=== PATIENT | female | born 1995 | race African-American/Black ===

== ENCOUNTER 2018-03-17 12:00 | Emergency (ER) | payer OTHER, SELFPAY ==
[2018-03-17 12:30] LABS: Absolute Lymphocytes (CBC) 1.5 K/uL (0.7-4.9); Absolute Monocytes 0.4 K/uL (0.1-1.3); Absolute Neutrophil 1.8 K/uL (1.8-8.0); Basophils % 0.6 % (0-1.3); Eosinophils % 1.2 % (0-4.4); Hematocrit 32.1 % (36.0-45.0); Lymphocytes % 40.9 % (15.3-44.8); MCH 27.2 pg (27.0-35.0); MCV 81.7 fL (80-100); MPV 8.7 fL (7.6-11.3); Monocytes % 10.2 % (3.3-12.3); RBC Red Blood Cell Count 3.93 M/uL (3.86-4.86)
[2018-03-17] MEDS ORDERED: FENTANYL CITR 100 MCG/2 ML ONE (12:30)
[2018-03-17 12:35] LABS: Protime INR 1.08
[2018-03-17] MEDS ORDERED: ONDANSETRON 4 MG/2 ML VIAL ONE (12:38)
[2018-03-17 12:42] LABS: Albumin 3.5 g/dL (3.4-5.0); Bilirubin Direct 0.1 mg/dL (0-0.2); Bilirubin Total 0.5 mg/dL (0.2-1.0); Magnesium 1.9 mg/dL (1.8-2.4); Potassium 3.5 mmol/L (3.5-5.1); Protein, Total 7.7 g/dL (6.4-8.2)
[2018-03-17 12:49] LABS: Urine Blood NEGATIVE (NEG); Urine Glucose NEGATIVE (NEG); Urine Protein NEGATIVE (NEG); Urine pH 7.5 (5.0-7.0)
--- NOTE | 2018-03-17 13:18 | RAD REPORT ---
EXAM DESCRIPTION: CT - Angio Aorta For Dissection - 03/17/2018 1:07 pm CLINICAL HISTORY: . Chest pain/abdominal pain COMPARISON: None TECHNIQUE: Computed tomography angiography of the chest, abdomen pelvis were obtained. 100 cc Isovue 370 was administered intravenously. Coronal and sagittal reconstruction were performed. MIP 3D reconstruction was performed All CT scans are performed using dose optimization technique as appropriate and may include automated exposure control or mA/KV adjustment according to patient size. FINDINGS: An aortic dissection is not seen. An aortic aneurysm is not displayed. The celiac, SMA and JOSE are patent . A lung consolidation is not present. A pericardial effusion is not seen. A pleural effusion is not n oted. The liver,spleen, pancreas adrenals kidneys demonstrate no significant abnormality. The appendix is normal. There no evidence diverticulitis. No ascites is noted. A ventral hernia within the mid abdomen contains fat. The neck measures 23 millimeters. The hernia sa c measures 50 millimeters. The endometrium appears mildly prominent IMPRESSION: Negative for an aortic dissection. Ventral hernia Mildly prominent endometrium probably related to the normal menstrual cycle. Follow-up ultrasound cou ple months is recommended to reassess the endometrium
--- NOTE | 2018-03-17 13:31 | RAD REPORT ---
EXAM DESCRIPTION: Jett Single View03/17/2018 12:53 pm CLINICAL HISTORY: Chest pain COMPARISON: none FINDINGS: The lungs appear clear of acute infiltrate. The heart is upper limits normal size IMPRESSION: No acute abnormalities displayed
[2018-03-17] MEDS ORDERED: NA CHLORIDE 0.9% 1,000 ML ONE (13:32)
--- NOTE | 2018-03-17 14:17 | ER ---
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 Transition of care: patient was not received from another setting of care. Onset of symptoms was March 17, 2018. Risk Assessment: Do you want to hurt yourself or someone else? Patient reports no desire to harm self or others. Initial Sepsis Screen: Does the patient meet any 2 criteria? No. Patient's initial sepsis screen is negative. Does the patient have a suspected source of infection? No. Patient's initial sepsis screen is negative. Care prior to arrival: Medication(s) given: ASA, 81 mg, x 4. 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 - Social history:: Smoking status: Patient/guardian denies using tobacco. - Ebola Screening: : No symptoms or risks identified at this time. Screenin:10 Abuse screen: Denies threats or abuse. Nutritional screening: No deficits noted. rb1 Tuberculosis screening: No symptoms or risk factors identified. Fall Risk None identified. Assessment: 12:10 General: Appears uncomfortable, obese, Behavior is calm, cooperative. Pain: Complains rb1 of pain in left chest Pain radiates to back Pain currently is 8 out of 10 on a pain scale. Pain began 1 hour ago. Neuro: Level of Consciousness is awake, alert, obeys commands, Oriented to person, place, time, situation. Cardiovascular: Capillary refill < 3 seconds is brisk in bilateral fingers. Respiratory: Airway is patent Respiratory effort is even, unlabored, Respiratory pattern is regular, symmetrical. GI: No signs and/or symptoms were reported involving the gastrointestinal system. : No signs and/or symptoms were reported regarding the genitourinary system. Derm: Skin is dry, Skin is normal, Skin temperature is warm. Musculoskeletal: Range of motion: intact in all extremities. 13:10 Reassessment: Patient appears in no apparent distress at this time. Patient and/or rb1 family updated on plan of care and expected duration. Pain level reassessed. Patient is alert, oriented x 3, equal unlabored respirations, skin warm/dry/pink. Coworkers at bedside. 14:09 Reassessment: Patient appears in no apparent distress at this time. No changes from rb1 previously documented assessment. Vital Signs: 12:08 BP 120 / 85; Pulse 64; Resp 18; Temp 97.7(TE); Pulse Ox 100% on R/A; Weight 101.6 kg; ph Height 5 ft. 8 in. (172.72 cm); Pain 8/10; 13:08 BP 127 / 95; Pulse 59; Resp 19; Pulse Ox 100% on R/A; dh3 13:53 BP 113 / 83; Pulse 58; Resp 17; Pulse Ox 100% on R/A; dh3 14:39 BP 127 / 95; Pulse 58; Resp 20; Pulse Ox 100% on R/A; Pain 3/10; rb1 12:08 Body Mass Index 34.06 (101.60 kg, 172.72 cm) ph ED Course: 12:04 Patient arrived in ED. ss 12:05 Mino Berry MD is Attending Physician. gs 12:08 Triage completed. ph 12:10 Arm band placed on. ph 12:10 Patient has correct armband on for positive identification. Placed in gown. Bed in low rb1 position. Call light in reach. Side rails up X2. quality assurance monitor chassis on. Pulse ox on. NIBP on. Warm blanket given. 12:10 Inserted saline lock: 20 gauge in right antecubital area, using aseptic technique. dh3 Blood collected. 12:10 Patient maintains SpO2 saturation greater than 95% on room air. rb1 12:20 Mireya Musa, JASON is Primary Nurse. rb1 12:20 Initial lab(s) drawn, by me, sent to lab. 3 12:45 Urine collected: clean catch specimen, clear. 3 12:49 X-ray completed. Portable x-ray completed in exam room. jr1 12:50 XRAY Chest (1 view) In Process Unspecified. EDMS 12:[address] vr 12:[address] 13:03 CT completed. Patient tolerated procedure well. Patient moved back from CT. 13:03 EKG done, by technical planner. reviewed by Mino Berry MD. [facility] 13:07 CT Aorta for Dissection In Process Unspecified. EDMS 14:40 No provider procedures requiring assistance completed. IV discontinued, intact, rb1 bleeding controlled, No redness/swelling at site. Pressure dressing applied. Administered Medications: 12:38 Drug: Zofran 4 mg Route: IVP; Site: right antecubital; rb1 13:00 Follow up: Response: No adverse reaction; Nausea is decreased rb1 12:42 Drug: fentaNYL (PF) 25 mcg Route: IVP; Site: right antecubital; rb1 13:00 Follow up: Response: No adverse reaction; Pain is decreased rb1 13:30 Drug: NS 0.9% 1000 ml Route: IV; Rate: 1 bolus; Site: right antecubital; rb1 14:34 Follow up: IV Status: Completed infusion rb1 Outcome: 14:17 Discharge ordered by . 14:40 Discharged to home ambulatory. rb1 14:40 Condition: stable 14:40 Discharge instructions given to patient, Instructed on discharge instructions, follow up and referral plans. Demonstrated understanding of instructions, follow-up care, Prescriptions given X none 14:40 Patient left the ED. rb1 Signatures: Dispatcher [employer] EDME Kina Ruiz jr1 Nubia Moeller, Meg Bianchi RN Brunilda Sweet RN RN ph Warren, Isabelle Mireya Musa, RN RN [facility] Shereen Souza [facility] Mino Berry MD MD Alba Gomez 3 Corrections: (The following items were deleted from the chart) 14:40 13:10 Reassessment: Patient appears in no apparent distress at this time. Patient rb1 and/or family updated on plan of care and expected duration. Pain level reassessed. Patient is alert, oriented x 3, equal unlabored respirations, skin warm/dry/pink. rb1 14:48 14:45 Patient left the ED. rb1 rb1
--- NOTE | 2018-03-17 14:17 | EDPHYS ---
Physician Documentation [facility] Name: Aniyah Jiang Age: 22 yrs Sex: Female : 1995 Arrival Date: 03/17/2018 Time: 12:04 Bed 15 Private MD: ED Physician Mino Berry HPI: 03/17 14:07 This 22 yrs old Unknown Female presents to ER via EMS with complaints of Chest Pain. gs 14:07 The patient or guardian reports chest pain that is located primarily in the anterior gs chest wall, left. The pain radiates to posterior aspect of left lateral abdomen. Associated signs and symptoms: Pertinent positives: shortness of breath, Pertinent negatives: nausea. The chest pain is described as sharp. Duration: The patient or guardian reports a single episode, that is still ongoing. Severity of pain: At its worst the pain was moderate in the emergency department the pain is unchanged. The patient has not experienced similar symptoms in the past. 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 - Social history:: Smoking status: Patient/guardian denies using tobacco. - Ebola Screening: : No symptoms or risks identified at this time. ROS: 14:07 All other systems are negative. gs Exam: 14:07 Head/Face: Normocephalic, atraumatic. Eyes: Pupils equal round and reactive to light, gs extra-ocular motions intact. Lids and lashes normal. Conjunctiva and sclera are non-icteric and not injected. Cornea within normal limits. Periorbital areas with no swelling, redness, or edema. ENT: Nares patent. No nasal discharge, no septal abnormalities noted. Tympanic membranes are normal and external auditory canals are clear. Oropharynx with no redness, swelling, or masses, exudates, or evidence of obstruction, uvula midline. Mucous membranes moist. Neck: Trachea midline, no thyromegaly or masses palpated, and no cervical lymphadenopathy. Supple, full range of motion without nuchal rigidity, or vertebral point tenderness. No Meningismus. Chest/axilla: Normal chest wall appearance and motion. Nontender with no deformity. No lesions are appreciated. Cardiovascular: Regular rate and rhythm with a normal S1 and S2. No gallops, murmurs, or rubs. Normal PMI, no JVD. No pulse deficits. Respiratory: Lungs have equal breath sounds bilaterally, clear to auscultation and percussion. No rales, rhonchi or wheezes noted. No increased work of breathing, no retractions or nasal flaring. Abdomen/GI: Soft, non-tender, with normal bowel sounds. No distension or tympany. No guarding or rebound. No evidence of tenderness throughout. Skin: Warm, dry with normal turgor. Normal color with no rashes, no lesions, and no evidence of cellulitis. MS/ Extremity: Pulses equal, no cyanosis. Neurovascular intact. Full, normal range of motion. Neuro: Awake and alert, GCS 15, oriented to person, place, time, and situation. Cranial nerves II-XII grossly intact. Motor strength 5/5 in all extremities. Sensory grossly intact. Cerebellar exam normal. Normal gait. 14:07 Constitutional: The patient appears alert, awake, uncomfortable. 14:07 Back: CVA tenderness, that is moderate. Vital Signs: 12:08 BP 120 / 85; Pulse 64; Resp 18; Temp 97.7(TE); Pulse Ox 100% on R/A; Weight 101.6 kg; ph Height 5 ft. 8 in. (172.72 cm); Pain 8/10; 13:08 BP 127 / 95; Pulse 59; Resp 19; Pulse Ox 100% on R/A; dh3 13:53 BP 113 / 83; Pulse 58; Resp 17; Pulse Ox 100% on R/A; dh3 14:39 BP 127 / 95; Pulse 58; Resp 20; Pulse Ox 100% on R/A; Pain 3/10; rb1 12:08 Body Mass Index 34.06 (101.60 kg, 172.72 cm) ph MDM: 12:05 Patient medically screened. 14:07 Differential diagnosis: thoracic aortic disection, kidney stone, pyelonephritis. Data reviewed: vital signs, nurses notes. Response to treatment: the patient's symptoms have markedly improved after treatment, the patient's symptoms have resolved after treatment, the patient's pain is gone, and as a result, I will discharge patient. 03/17 12:10 Order name: Basic Metabolic Panel; Complete Time: 12:44 03/17 12:10 Order name: CBC with Diff; Complete Time: 12:44 03/17 12:10 Order name: LFT's; Complete Time: 12:44 03/17 12:10 Order name: Magnesium; Complete Time: 12:44 03/17 12:10 Order name: PT-INR; Complete Time: 12:44 03/17 12:10 Order name: Troponin (emerg Dept Use Only); Complete Time: 12:44 03/17 12:10 Order name: XRAY Chest (1 view); Complete Time: 13:46 03/17 12:10 Order name: EKG; Complete Time: 12:11 03/17 12:10 Order name: CT Aorta for Dissection; Complete Time: 13:46 03/17 12:46 Order name: Urine Dipstick--Ancillary (enter results); Complete Time: 13:00 03/17 12:46 Order name: Urine --Ancillary (enter results); Complete Time: 13:00 03/17 12:10 Order name: Urine Test (obtain specimen); Complete Time: 12:45 03/17 12:10 Order name: Cardiac monitoring; Complete Time: 12:12 03/17 12:10 Order name: EKG - Nurse/Tech; Complete Time: 12:46 03/17 12:10 Order name: IV Saline Lock; Complete Time: 12:12 03/17 12:10 Order name: Labs collected and sent; Complete Time: 12:32 03/17 12:10 Order name: O2 Per Protocol; Complete Time: 12:12 03/17 12:10 Order name: O2 Sat Monitoring; Complete Time: 12:12 03/17 12:10 Order name: Urine Dipstick-Ancillary (obtain specimen); Complete Time: 12:45 gs Administered Medications: 12:38 Drug: Zofran 4 mg Route: IVP; Site: right antecubital; rb1 13:00 Follow up: Response: No adverse reaction; Nausea is decreased rb1 12:42 Drug: fentaNYL (PF) 25 mcg Route: IVP; Site: right antecubital; rb1 13:00 Follow up: Response: No adverse reaction; Pain is decreased rb1 13:30 Drug: NS 0.9% 1000 ml Route: IV; Rate: 1 bolus; Site: right antecubital; rb1 14:34 Follow up: IV Status: Completed infusion rb1 Disposition: 03/17/18 14:17 Discharged to Home. Impression: Chest pain, unspecified, Unspecified abdominal pain, Anemia, unspecified. - Condition is Stable. - Discharge Instructions: Abdominal Pain, Adult, Anemia, Nonspecific, Nonspecific Chest Pain. - Medication Reconciliation Form, Thank You Letter, Antibiotic Education, Prescription Opioid Use form. - Follow up: Private Physician; When: 2 - 3 days; Reason: Re-evaluation by your physician. Signatures: Dispatcher [employer] Brunilda Lopez RN RN Mireya Musa RN RN rb1 Mino Berry MD MD gs Corrections: (The following items were deleted from the chart) 14:45 14:17 03/17/2018 14:17 Discharged to Home. Impression: Chest pain, unspecified; rb1 Unspecified abdominal pain; Anemia, unspecified. Condition is Stable. Forms are Medication Reconciliation Form, Thank You Letter, Antibiotic Education, Prescription Opioid Use. Follow up: Private Physician; When: 2 - 3 days; Reason: Re-evaluation by your physician. gs
--- NOTE | 2018-03-17 21:36 | EKG ---
Test Date: 2018-03-17 Test Time: 12:23:01 Transit Operator: SIMIN MEASUREMENT RESULTS: Intervals: Rate: 60 MD: 180 QRSD: 80 QT: 422 QTc: 422 Bangs: P: 37 MD: 180 QRS: 18 T: 20 INTERPRETIVE STATEMENTS: Normal sinus rhythm Normal ECG No previous ECG available for comparison Electronically Signed On 03-17-18 21:36:25 CDT by Fei Barnhart
== END 2018-03-17 14:45 | disposition home or self-care (01) ==
LOC: ER 12:00
DX: R10.9 Unspecified abdominal pain (principal); D64.9 Anemia, unspecified
CPT/HCPCS: 36415; 71045; 71275; 74175; 80048; 80076; 81003; 81025; 83735; 84484; 85025; 85610; 93005; 96361; 96374; 96375; 99285; J2405; J3010; J7030; Q9967

== ENCOUNTER 2018-05-19 12:04 | Emergency (ER) | payer OTHER, SELFPAY ==
[2018-05-19 12:43] LABS: Urine Blood NEGATIVE (NEG); Urine Glucose NEGATIVE (NEG); Urine Protein NEGATIVE (NEG); Urine Specific Gravity 1.025 (1.005-1.030)
--- NOTE | 2018-05-19 12:49 | ER ---
Nurse's Notes [facility] Name: Aniyah Jiang Age: 23 yrs Sex: Female : 1995 Arrival Date: 05/19/2018 Time: 12:07 Bed 8 Private MD: None, None Diagnosis: Weakness;Dizziness and giddiness Presentation: 05/19 12:09 Presenting complaint: Patient states: i had dizziness spells that started 2 weeks ago, hj it comes coming back, my body feels tired; denies fever and chills; denies nausea and vomiting; denies loss of appetite; reports headache, 5/10; denies chest pain; denies SOB;. Transition of care: patient was not received from another setting of care. 12:09 Method Of Arrival: Ambulatory 12:11 Onset of symptoms was May 07, 2018. Risk Assessment: Do you want to hurt yourself or hj someone else? Patient reports no desire to harm self or others. Initial Sepsis Screen: Does the patient meet any 2 criteria? No. Patient's initial sepsis screen is negative. Does the patient have a suspected source of infection? No. Patient's initial sepsis screen is negative. Care prior to arrival: None. 12:11 Acuity: BRITTANI 3 hj Triage Assessment: 12:12 General: Appears in no apparent distress. uncomfortable, Behavior is calm, cooperative, hj appropriate for age. Pain: Complains of pain in head Pain currently is 5 out of 10 on a pain scale. 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 - Social history:: Smoking status: Patient/guardian denies using tobacco, Patient/guardian denies using alcohol. - Ebola Screening: : Patient negative for fever greater than or equal to 101.5 degrees Fahrenheit, and additional compatible Ebola Virus Disease symptoms Patient denies exposure to infectious person Patient denies travel to an Ebola-affected area in the 21 days before illness onset. - Family history:: not pertinent. Screenin:12 Abuse screen: Denies threats or abuse. Denies injuries from another. Nutritional hj screening: No deficits noted. Tuberculosis screening: No symptoms or risk factors identified. Fall Risk None identified. Assessment: 12:20 General: Appears comfortable, Behavior is calm, cooperative. Pain: Complains of pain in aa5 forehead Pain does not radiate. Pain currently is 5 out of 10 on a pain scale. Quality of pain is described as aching, Pain began 2-3 days ago. Is continuous. Neuro: Level of Consciousness is awake, alert, obeys commands, Oriented to person, place, time, situation, Environmental Health Specialist are equal bilaterally Moves all extremities. Gait is steady, Speech is normal, Facial symmetry appears normal, Pupils are PERRLA, Reports intermittent dizziness x 2 weeks ago . Cardiovascular: Heart tones S1 S2 present Rhythm is regular. Respiratory: Reports cough that is dry, Airway is patent Respiratory effort is even, unlabored, Respiratory pattern is regular, symmetrical, Breath sounds are clear bilaterally. GI: No signs and/or symptoms were reported involving the gastrointestinal system. Patient currently denies diarrhea, nausea, vomiting. : No signs and/or symptoms were reported regarding the genitourinary system. EENT: Reports nasal congestion. Derm: Skin is dry, Skin is normal, Skin temperature is warm. Musculoskeletal: Range of motion: intact in all extremities. 13:18 Neuro: Level of Consciousness is awake, alert, obeys commands, Oriented to person, aa5 place, time, situation. Respiratory: Airway is patent Respiratory effort is even, unlabored, Respiratory pattern is regular, symmetrical. Derm: Skin is dry, Skin is normal, Skin temperature is warm. Vital Signs: 12:12 BP 107 / 70; Pulse 85; Resp 18; Temp 97.1(TE); Pulse Ox 99% on R/A; Weight 104.33 kg; hj Height 5 ft. 8 in. (172.72 cm); Pain 5/10; 12:12 Body Mass Index 34.97 (104.33 kg, 172.72 cm) ED Course: 12:07 Patient arrived in ED. mr 12:08 None, None is Private Physician. mr 12:11 Triage completed. hj 12:12 Arm band placed on left wrist. hj 12:14 Patient has correct armband on for positive identification. Placed in gown. Bed in low hj position. Call light in reach. Side rails up X 1. 12:18 Kit Quevedo MD is Attending Physician. [facility] 12:21 Meaghan Garcia, RN is Primary Nurse. aa5 13:18 No provider procedures requiring assistance completed. Patient did not have IV access aa5 during this emergency room visit. Administered Medications: No medications were administered Outcome: 12:49 Discharge ordered by . [facility] 13:18 Discharged to home ambulatory. aa5 13:18 Condition: stable 13:18 Discharge instructions given to patient, Instructed on discharge instructions, follow up and referral plans. Demonstrated understanding of instructions, follow-up care. 13:21 Patient left the ED. bd Signatures: Rabia Jo Corey, MD MD cha Rivera, Maria mr Meaghan Garcia, RN RN aa5 Seng Cerda RN RN Corrections: (The following items were deleted from the chart) 12:15 12:12 Pulse 93bpm; Resp 18bpm; Pulse Ox 99% RA; Temp 97.1F Temporal; 104.33 kg; Height hj 5 ft. 8 in.; BMI: 34.9; Pain 5/10; hj
--- NOTE | 2018-05-19 12:49 | EDPHYS ---
Physician Documentation [facility] Name: Aniyah Jiang Age: 23 yrs Sex: Female : 1995 Arrival Date: 05/19/2018 Time: 12:07 Bed 8 Private MD: None, None ED Physician Kit Quevedo HPI: 05/19 12:46 This 23 yrs old Unknown Female presents to ER via Ambulatory with complaints of michael Dizziness, Weakness. 12:46 The patient presents with dizziness, generalized weakness. Onset: The symptoms/episode michael began/occurred 3 day(s) ago. Context: occurred at work. Modifying factors: The symptoms are alleviated by nothing, the symptoms are aggravated by nothing. Associated signs and symptoms: The patient has no apparent associated signs or symptoms. Severity of symptoms: At their worst the symptoms were mild in the emergency department the symptoms are unchanged. Patient's baseline: Neuro: alert and fully oriented. The patient has not experienced similar symptoms in the past. 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 - Social history:: Smoking status: Patient/guardian denies using tobacco, Patient/guardian denies using alcohol. - Ebola Screening: : Patient negative for fever greater than or equal to 101.5 degrees Fahrenheit, and additional compatible Ebola Virus Disease symptoms Patient denies exposure to infectious person Patient denies travel to an Ebola-affected area in the 21 days before illness onset. - Family history:: not pertinent. ROS: 12:46 Constitutional: Negative for fever, chills, and weight loss, Eyes: Negative for injury, michael pain, redness, and discharge, ENT: Negative for injury, pain, and discharge, Neck: Negative for injury, pain, and swelling, Cardiovascular: Negative for chest pain, palpitations, and edema, Respiratory: Negative for shortness of breath, cough, wheezing, and pleuritic chest pain, Abdomen/GI: Negative for abdominal pain, nausea, vomiting, diarrhea, and constipation, Back: Negative for injury and pain, : Negative for injury, bleeding, discharge, and swelling, MS/Extremity: Negative for injury and deformity, Skin: Negative for injury, rash, and discoloration, Psych: Negative for depression, anxiety, suicide ideation, homicidal ideation, and hallucinations, Allergy/Immunology: Negative for hives, rash, and allergies, Endocrine: Negative for neck swelling, polydipsia, polyuria, polyphagia, and marked weight changes, Hematologic/Lymphatic: Negative for swollen nodes, abnormal bleeding, and unusual bruising. 12:46 Neuro: Positive for dizziness, weakness. Exam: 12:46 Constitutional: This is a well developed, well nourished patient who is awake, alert, michael and in no acute distress. Head/Face: Normocephalic, atraumatic. Eyes: Pupils equal round and reactive to light, extra-ocular motions intact. Lids and lashes normal. Conjunctiva and sclera are non-icteric and not injected. Cornea within normal limits. Periorbital areas with no swelling, redness, or edema. ENT: Nares patent. No nasal discharge, no septal abnormalities noted. Tympanic membranes are normal and external auditory canals are clear. Oropharynx with no redness, swelling, or masses, exudates, or evidence of obstruction, uvula midline. Mucous membranes moist. Neck: Trachea midline, no thyromegaly or masses palpated, and no cervical lymphadenopathy. Supple, full range of motion without nuchal rigidity, or vertebral point tenderness. No Meningismus. Chest/axilla: Normal chest wall appearance and motion. Nontender with no deformity. No lesions are appreciated. Cardiovascular: Regular rate and rhythm with a normal S1 and S2. No gallops, murmurs, or rubs. Normal PMI, no JVD. No pulse deficits. Respiratory: Lungs have equal breath sounds bilaterally, clear to auscultation and percussion. No rales, rhonchi or wheezes noted. No increased work of breathing, no retractions or nasal flaring. Abdomen/GI: Soft, non-tender, with normal bowel sounds. No distension or tympany. No guarding or rebound. No evidence of tenderness throughout. Back: No spinal tenderness. No costovertebral tenderness. Full range of motion. Skin: Warm, dry with normal turgor. Normal color with no rashes, no lesions, and no evidence of cellulitis. MS/ Extremity: Pulses equal, no cyanosis. Neurovascular intact. Full, normal range of motion. Neuro: Awake and alert, GCS 15, oriented to person, place, time, and situation. Cranial nerves II-XII grossly intact. Motor strength 5/5 in all extremities. Sensory grossly intact. Cerebellar exam normal. Normal gait. Psych: Awake, alert, with orientation to person, place and time. Behavior, mood, and affect are within normal limits. Vital Signs: 12:12 BP 107 / 70; Pulse 85; Resp 18; Temp 97.1(TE); Pulse Ox 99% on R/A; Weight 104.33 kg; hj Height 5 ft. 8 in. (172.72 cm); Pain 5/10; 12:12 Body Mass Index 34.97 (104.33 kg, 172.72 cm) hj MDM: 12:18 Patient medically screened. [facility] 05/19 12:39 Order name: Urine Dipstick--Ancillary (enter results); Complete Time: 12:46 [facility] 05/19 12:48 Order name: Urine --Ancillary (enter results) [facility] 05/19 12:46 Order name: Urine Test (obtain specimen); Complete Time: 13:05 [facility] Administered Medications: No medications were administered Disposition: 05/19/18 12:49 Discharged to Home. Impression: Weakness, Dizziness and giddiness. - Condition is Stable. - Discharge Instructions: Dizziness, Weakness, Weakness, [id number], Dizziness, [id number]. - Medication Reconciliation Form, Thank You Letter, Antibiotic Education, Prescription Opioid Use form. - Follow up: Private Physician; When: 2 - 3 days; Reason: Recheck today's complaints, Continuance of care, Re-evaluation by your physician. - Problem is new. - Symptoms have improved. Signatures: Dispatcher [employer] EDMS Rabia Jo Corey, MD MD cha Joaquin, Henry, RN RN hj Corrections: (The following items were deleted from the chart) 13:21 12:49 05/19/2018 12:49 Discharged to Home. Impression: Weakness; Dizziness and bd giddiness. Condition is Stable. Forms are Medication Reconciliation Form, Thank You Letter, Antibiotic Education, Prescription Opioid Use. Follow up: Private Physician; When: 2 - 3 days; Reason: Recheck today's complaints, Continuance of care, Re-evaluation by your physician. Problem is new. Symptoms have improved. michael
[2018-05-19 13:24] LABS: Urine Specific Gravity 1.025 (1.005-1.030)
== END 2018-05-19 13:21 | disposition home or self-care (01) ==
LOC: ER 12:04
DX: R53.1 Weakness (principal)
CPT/HCPCS: 81003; 81025; 99281

== ENCOUNTER 2023-05-10 01:26 | Inpatient (IN) | payer SELFPAY ==
--- OUTSIDE RECORDS SUMMARY | 2023-05-10 01:42 | XMS REPORT | Continuity of Care Document ---
:1995 Author Organization [facility] t Address [address] [facility] [address] [place] [id number] Care Team Providers Name Role Phone PCP, PATIENT DOES NOT HAVE A Primary Care Physician UnavailCLIFF Juan Attending Clinician Unavailable Cliff Thorne DO Attending Clinician LESLIE LYNN Attending Clinician Unavailable Leslie Lynn MD Attending Clinician Sandra BLAS Attending Clinician Unavailable Sandra Heart Attending Clinician Osito Rojo MD Attending Clinician Doctor Unassigned, [place] Attending Clinician Unavailable CHERY POMPA Attending Clinician Unavailable Chery Marie Attending Clinician XIMENA SANTANA Attending Clinician Unavailable Ximena Santana MD Attending Clinician Sravani Blackburn RN Attending Clinician Unavailable Dimas Shin Attending Clinician KRYSTLE BUTTERFIELD Attending Clinician Unavailable Marquise PIERSON, Dunia Causey Attending Clinician [phone] P[facility], Acute [facility] Attending Clinician Unavailable Chavez Muñoz MD Attending Clinician Rajendra PIERSON, Teodora Aguilar Attending Clinician [phone] Santana LOG CARRIER OPERATOR, Velvet R Attending Clinician [facility] Unavailable Cora WHCNP, Miriam C Attending Clinician [phone] Ramon PIERSON, Hope Attending Clinician Bryan PIERSON, Farhan Attending Clinician CLIFF THORNE Admitting Clinician Unavailable Osito Rojo MD Admitting Clinician CHERY POMPA Admitting Clinician Unavailable XIMENA SANTANA Admitting Clinician Unavailable Chavez Muñoz MD Admitting Clinician Hope Navarro MD Admitting Clinician Payers Payer Name Policy Type Policy Number Effective Date Expiration Date Mir EVANS [id number] 2019 HEALTH 00:00:00 Problems Condition Condition Condition Status Onset Resolution Last Treating Co mments Source Name Details Category Date Date Treatment Clinician Date Request Request Disease Active Overview: Univ ers for for 8-15 Formattin ity of sterilizat sterilizat 00:00: g of this [place] ion ion 00 note Medical might be Branch different from the original. Added automatic ally from request for surgery [id number] Disease Active U nivers care and care and 8-14 ity of examinatio examin[place] n n 00 Medical immediatel immediatel Br anch y after y after delivery delivery 38 weeks 38 weeks Disease Active Unive rs gestation gestation 7-26 ity of of of 00:00: [place] 00 [facility] Branch S/P S/P Disease Active Univers 7-26 ity of section section 00:00: [address] Branch [facility] Disease Active Univers (antepartu (antepartu 03-31 it y of m m 00:00: [place] hemorrhage hemorrhage 00 Me dical ), third ), third Branch trimester trimester Decreased Decreased Disease Active Uni vers 03-31 ity of movements, movements, 00:00[place] third third 00 Medical trimester, trimester, Br anch not not applicable applicable or or unspecifie unspecifie d d Susceptibl Susceptibl Disease Active U nivers e to e to 03-09 ity of Varicella Varicella 00:00: [place] (non-immun (non-immun 00 Me dical e), e), Branch currently currently in third in third trimester trimester BMI BMI Disease Active Univers 39.0-39.9, 39.0-39.9, 03-08 it y of adult adult 00:00: [place] 00 Medical Branch Limited Limited Disease Active Univers 03-08 ity of care in care in 00:00: [place] third third 00 Medical trimester trimester Bran ch Multiparit Multiparit Disease Active U nivers y y 03-08 ity of 00:00: [place] 00 Medical Branch Tubal Tubal Disease Active Univers ligation ligation 03-08 ity of status status 00:00: [place] 00 Medical Branch Cessation Cessation Disease Active Uni vers of tobacco of tobacco 03-08 it y of use in use in 00:00: [place] previous previous 00 Medica l 12 months 12 months Bran ch Tubal Tubal Disease Active Univers ligation ligation 03-08 ity of status status 00:00: [place] 00 Medical Branch History of History of Disease Active U nivers 03-08 ity of delivery, delivery, 00:00: [place] currently currently 00 Medi ya Branch in third in third trimester trimester Obesity Obesity Disease Active Univers affecting affecting 03-08 ity of 00:00: [place] in third in third 00 Medica l trimester trimester Bran ch Anemia of Anemia of Disease Active Uni vers mother in mother in 03 ity of , , 00:00[place] antepartum antepartum 00 Me dical Branch Allergies, Adverse Reactions, Alerts Allergy Allergy Status Severity Reaction(s) Onset Inactive Treating Comm ents Source Name Type Date Date Clinician NO KNOWN Drug Active Univers ALLERGIE Class ity of S [facility] Social History Social Habit Start Date Stop Date Quantity Comments Source ASSERTION 2018-07-18 University 00:00:00 [facility] Exposure to 2021-12-21 2021-12-31 Not sure University SARS-CoV-2 00:00:00 13:31:00 [facility] (event) Branch Alcohol intake 2021-12-31 2021-12-31 Current [facility] 00:00:00 00:00:00 non-drinker of [facility] alcohol (finding) Branch Tobacco use and 2019-04-20 2019-04-20 Never used Universit y of exposure 00:00:00 00:00:00 [facility] Education 2019-03-31 2019-03-[address] [place] [address] 00:00:00 00:00:00 [facility] History of 2018-07-09 Cigarette Smoker Universi ty of tobacco use 00:00:00 [facility] Sex [birth year] At [birth year] Universit y of 00:00:00 00:00:00 [facility] Smoking Status Start Date Stop Date Source Former smoker 2019-04-20 00:00:00 2019-04-20 00:00:00 Universi ty of [facility] Unknown if ever smoked Universit y of [facility] Medications Ordered Filled Start Stop Current Ordering Indication Dosage Frequency Signature Comments Components Source Medication Medication Date Date Medication? Clinician (SIG) Name Name HYDROcodone 2021- No 1{tbl} 1 tablet, Univers -acetaminop 01-01-25 Oral, ity of hen (NORCO) 00:00: 22:51 ONCE, 1 [place] 10-325 mg 00 :00 dose, On Medica l tablet 1 Mon Branch tablet 12/31/21 at 1900, Routine ketorolac Yes [id number] 10mg Take 1 Univers 10 mg 4-25 9103 tablet by ity of tablet 00:00: mouth [place] 00 every 6 Medical (six) Branch hours as needed for Pain (scale 7-10). metroNIDAZO Yes [id number] 500mg Take 1 Univers LE 500 mg 4-25 tablet by ity o f tablet 00:00: mouth 2 00 (two) Medical times Branch daily. ibuprofen Yes [id number] 800mg Take 1 Univers 800 mg 4-13 tablet by ity of tablet 00:00: mouth [place] 00 every 8 Medical (eight) Branch hours as needed for Pain (scale 4-6). methocarbam Yes [id number] 500mg Take 1 Univers oL 4-13 tablet by ity of (ROBAXIN) 00:00: mouth [place] 500 mg 00 every 6 Medical tablet (six) Branch hours as needed for Pain (scale 7-10) (MUSCLE SPASM). methocarbam Yes [id number] 500mg Take 1 Univers oL 4-13 tablet by ity of (ROBAXIN) 00:00: mouth [place] 500 mg 00 every 6 Medical tablet (six) Branch hours as needed for Pain (scale 7-10) (MUSCLE SPASM). ibuprofen 2021- No [id number] 800mg Take 1 Univers 800 mg 4-13 04-25 tablet by ity of tablet 00:00: 00:00 mouth [place] 00 :00 every 8 Medical (eight) Branch hours as needed for Pain (scale 4-6). acetaminoph 2020-09- No 1000mg 1,000 mg, Univers en -09-02 Oral, ity of (TYLENOL) 05:30: 04:31 ONCE, 1 [place] tablet 00 :00 dose, On Medical 1,000 mg Sat Branch 09/01/21 at 2330, CHERI ibuprofen 2020-09- No 800mg 800 mg, Uni vers (IBU) -09-02 Oral, ity of tablet 800 04:30: 03:32 ONCE, 1 [place] mg 00 :00 dose, On Medical Sat Branch 09/01/21 at 2230, CHERI ibuprofen 2020-09 Yes [id number] 600mg Take 1 Univers 600 mg 2-25 tablet by ity of tablet 00:00: mouth [place] 00 every 6 Medical (six) Branch hours as needed for Pain (scale 4-6). benzonatate 2020-09 Yes [id number] 100mg Take 1 Univers 100 mg 2-25 capsule by ity of capsule 00:00: mouth 3 [place] 00 (three) Medical times Branch daily as needed for Cough. ondansetron 2020-09 Yes [id number] 4mg Take 1 Univers (ZOFRAN 2-25 tablet by ity of ODT) 4 mg 00:00: mouth [place] disintegrat 00 every 8 Medic al ing tablet (eight) Branch hours as needed for Nausea and Vomiting (N/V). ibuprofen 2020-09 Yes [id number] 600mg Take 1 Univers 600 mg 2-25 tablet by ity of tablet 00:00: mouth [place] 00 every 6 Medical (six) Branch hours as needed for Pain (scale 4-6). benzonatate 2020-09 Yes [id number] 100mg Take 1 Univers 100 mg 2-25 capsule by ity of capsule 00:00: mouth 3 [place] 00 (three) Medical times Branch daily as needed for Cough. ondansetron 2020-09 Yes [id number] 4mg Take 1 Univers (ZOFRAN 2-25 tablet by ity of ODT) 4 mg 00:00: mouth [place] disintegrat 00 every 8 Medic al ing tablet (eight) Branch hours as needed for Nausea and Vomiting (N/V). benzonatate 2020-09 Yes [id number] 100mg Take 1 Univers 100 mg 2-25 capsule by ity of capsule 00:00: mouth 3 [place] 00 (three) Medical times Branch daily as needed for Cough. ondansetron 2020-09 Yes [id number] 4mg Take 1 Univers (ZOFRAN 2-25 tablet by ity of ODT) 4 mg 00:00: mouth [place] disintegrat 00 every 8 Medic al ing tablet (eight) Branch hours as needed for Nausea and Vomiting (N/V). ibuprofen 2020-09- No [id number] 600mg Take 1 Univers 600 mg 2-25 04-25 tablet by ity of tablet 00:00: 00:00 mouth [place] 00 :00 every 6 Medical (six) Branch hours as needed for Pain (scale 4-6). fluconazole 2020-09- No [id number] 150mg Take 1 Univers 150 mg -08-09 tablet by ity of tablet 00:00: 05:59 mouth once [place] 00 :00 now for 1 Medical dose. Branch ibuprofen 2020-09- No 400mg 400 mg, Uni vers (IBU) 10-04 Oral, ity of tablet 400 09:15: 08:38 ONCE, 1 [place] mg 00 :00 dose, On Medical Sat Branch 08/04/21 at 0315, Routine lidocaine-e 2020-09- No 10mL 10 mL, Uni vers pinephrine 10-04 Intraderma it y of (XYLOCAINE 08:15: 08:38 l, ONCE, 1 [place] WITH 00 :00 dose, On Medical EPINEPHRINE Sat Branch ) 08/04/21 %-1:100,000 at 0215, injection Routine 10 mL maalox:diph 2020-09- No 15mL 15 mL, Uni vers enhydrAMINE 10-04 Oral, ity of :lidocaine 04:30: 03:40 ONCE, 1 [place] 2 % viscous 00 :00 dose, On Medi ya 1:1:1 Fri Branch (FIRST-MOUT 08/03/21 HWASH BLM) at 2230, oral Routine suspension 15 mL dexamethaso 2020-09- No 10mg 10 mg, IV Univers ne 10-04 Push, ity of (DECADRON 04:30: 03:39 ONCE, 1 [place] PHOSPHATE) 00 :00 dose, On Medic al injection Fri Branch 10 mg 08/03/21 at 2230, STAT iopamidol 2020-09- No [id number] 100mL 100 mL, Univers (ISOVUE 10-04 Intravenou ity o f 370-500 mL) 03:50: 03:51 s, ONCE, 1 [place] injection 00 :00 dose, On Medica l 100 mL Fri Branch 08/03/21 at 2200, Routine methylPREDN 2020-09 Yes [id number] Take by Univers ISolone 4 10-04 mouth ity of mg tablets 00:00: [place]-INSTRU [place] 00 CTIONS. Medical follow Branch package directions methylPREDN 2020-09 Yes [id number] Take by Univers ISolone 4 10-04 mouth ity of mg tablets 00:00: SEE-INSTRU [place] 00 CTIONS. Medical follow Branch package directions methylPREDN 2020-09 Yes [id number] Take by Univers ISolone 4 10-04 mouth ity of mg tablets 00:00: SEE-INSTRU [place] 00 CTIONS. Medical follow Branch package directions methylPREDN 2020-09 Yes [id number] Take by Univers ISolone 4 10-04 mouth ity of mg tablets 00:00: SEE-INSTRU [place] 00 CTIONS. Medical follow Branch package directions methylPREDN 2020-09 Yes [id number] Take by Univers ISolone 4 -27 mouth ity of mg tablets 00:00: SEE-INSTRU [place] 00 CTIONS. Medical follow Branch package directions methylPREDN 2020-09 Yes [id number] Take by Univers ISolone 4 -27 mouth ity of mg tablets 00:00: SEE-INSTRU [place] 00 CTIONS. Medical follow Branch package directions amoxicillin 2020-09- No [id number] 1{tbl} Take 1 Univers -clavulanat 10-04 12-08 tablet by it y of e 00:00: 05:59 mouth 2 [place] (AUGMENTIN) 00 :00 (two) Medical 875-125 mg times Branch per tablet daily for 10 days. amoxicillin 2020-09- No [id number] 1{tbl} Take 1 Univers -clavulanat 10-04 12-08 tablet by it y of e 00:00: 05:59 mouth 2 [place] (AUGMENTIN) 00 :00 (two) Medical 875-125 mg times Branch per tablet daily for 10 days. amoxicillin 2020-09- No [id number] 1{tbl} Take 1 Univers -clavulanat 10-04 12-08 tablet by it y of e 00:00: 05:59 mouth 2 [place] (AUGMENTIN) 00 :00 (two) Medical 875-125 mg times Branch per tablet daily for 10 days. lidocaine 2020-09- No 15mL 15 mL, Unive rs 2% viscous 10-01 Oral, ity of (LIDOCAINE 18:45: 17:46 ONCE, 1 [place] VISCOUS) 2 00 :00 dose, On Medic al % solution Wed Branch 15 mL 08/01/21 at 1245, CHERI dexamethaso 2020-09- No 10mg 10 mg, Uni vers ne 10-01 Oral, ity of (DECADRON 18:45: 17:46 ONCE, 1 [place] PHOSPHATE) 00 :00 dose, On Medic al injection Wed Branch 10 mg 08/01/21 at 1245, Routine penicillin 2020-09- No 1.210 1.2 Unive rs g 10-01 Million ity of benzathine 18:45: 17:45 Units, [place] (BICILLIN 00 :00 Intramuscu Medi ya L-A) lar, ONCE, Branch injection 1 dose, On 1.2 Million Wed Units 08/01/21 at 1245, CHERI
Re ason for Anti-Infec tive: Empiric Therapy for Suspected Infection< br>Empiric Therapy Site: HEENT
D uration of therapy: 72 hours iopamidol 2020-09- No [id number] 100mL 100 mL, Univers (ISOVUE 0-06 07- Intravenou ity o f 370-500 mL) 19:00: 17:40 s, ONCE, 1 [place] injection 00 :00 dose, On Medica l 100 mL Fri Branch 07/06/21 at 1400, Routine FENTanyl PF 2020-09- No 100ug 100 mcg, Univers (SUBLIMAZE 0-06 07- Slow IV ity o f (PF)) 18:30: 17:52 Push, [place] injection 00 :00 ONCE, 1 Medical 100 mcg dose, On Branch 07/06/21 at 1330, STAT ibuprofen 2020-09 Yes [id number] 600mg Take 1 Univers 600 mg 0-29 tablet by ity of tablet 00:00: mouth [place] 00 every 8 Medical (eight) Branch hours as needed for Pain (scale 4-6). dicyclomine 2020-09 Yes [id number] 20mg Take 1 Univers 20 mg 0-29 tablet by ity of tablet 00:00: mouth 4 [place] 00 (four) Medical times Branch daily. ibuprofen 2020-09 Yes [id number] 600mg Take 1 Univers 600 mg 0-29 tablet by ity of tablet 00:00: mouth [place] 00 every 8 Medical (eight) Branch hours as needed for Pain (scale 4-6). dicyclomine 2020-09 Yes [id number] 20mg Take 1 Univers 20 mg 0-29 tablet by ity of tablet 00:00: mouth 4 [place] 00 (four) Medical times Branch daily. ibuprofen 2020-09 Yes [id number] 600mg Take 1 Univers 600 mg 0-29 tablet by ity of tablet 00:00: mouth [place] 00 every 8 Medical (eight) Branch hours as needed for Pain (scale 4-6). dicyclomine 2020-09 Yes [id number] 20mg Take 1 Univers 20 mg 0-29 tablet by ity of tablet 00:00: mouth (four) Medical times Branch daily. ibuprofen 2020-09 Yes [id number] 600mg Take 1 Univers 600 mg 0-29 tablet by ity of tablet 00:00: mouth 00 every 8 Medical (eight) Branch hours as needed for Pain (scale 4-6). dicyclomine 2020-09 Yes [id number] 20mg Take 1 Univers 20 mg 0-29 tablet by ity of tablet 00:00: mouth (four) Medical times Branch daily. ibuprofen 2020-09 Yes [id number] 600mg Take 1 Univers 600 mg 0-29 tablet by ity of tablet 00:00: mouth 00 every 8 Medical (eight) Branch hours as needed for Pain (scale 4-6). dicyclomine 2020-09 Yes [id number] 20mg Take 1 Univers 20 mg 0-29 tablet by ity of tablet 00:00: mouth (four) Medical times Branch daily. ibuprofen 2020-09 Yes [id number] 600mg Take 1 Univers 600 mg 0-29 tablet by ity of tablet 00:00: mouth 00 every 8 Medical (eight) Branch hours as needed for Pain (scale 4-6). dicyclomine 2020-09 Yes [id number] 20mg Take 1 Univers 20 mg 0-29 tablet by ity of tablet 00:00: mouth (four) Medical times Branch daily. ibuprofen 2020-09 Yes [id number] 600mg Take 1 Univers 600 mg 0-29 tablet by ity of tablet 00:00: mouth every 8 Medical (eight) Branch hours as needed for Pain (scale 4-6). dicyclomine 2020-09 Yes [id number] 20mg Take 1 Univers 20 mg 0-29 tablet by ity of tablet 00:00: mouth (four) Medical times Branch daily. ibuprofen 2020-09 Yes [id number] 600mg Take 1 Univers 600 mg 0-29 tablet by ity of tablet 00:00: mouth 00 every 8 Medical (eight) Branch hours as needed for Pain (scale 4-6). dicyclomine 2020-09 Yes [id number] 20mg Take 1 Univers 20 mg 0-29 tablet by ity of tablet 00:00: mouth 4 [place] 00 (four) Medical times Branch daily. ibuprofen 2020-09 Yes [id number] 600mg Take 1 Univers 600 mg 0-29 tablet by ity of tablet 00:00: mouth [place] 00 every 8 Medical (eight) Branch hours as needed for Pain (scale 4-6). dicyclomine 2020-09 Yes [id number] 20mg Take 1 Univers 20 mg 0-29 tablet by ity of tablet 00:00: mouth 4 [place] 00 (four) Medical times Branch daily. dicyclomine 2020-09 Yes [id number] 20mg Take 1 Univers 20 mg 0-29 tablet by ity of tablet 00:00: mouth 4 [place] 00 (four) Medical times Branch daily. ibuprofen 2020-09- No [id number] 600mg Take 1 Univers 600 mg 0-29 04-25 tablet by ity of tablet 00:00: 00:00 mouth [place] 00 :00 every 8 Medical (eight) Branch hours as needed for Pain (scale 4-6). ibuprofen 2019-09- No 800mg 800 mg, Uni vers (IBU) 09-29 Oral, ity of tablet 800 00:15: 23:30 ONCE, 1 [place] mg 00 :00 dose, Sat Medical 07/29/20 Branch at 1815, CHERI lidocaine 2019-09- No 10mL 10 mL, Unive rs 2% viscous 09-29 Oral, ity of (LIDOCAINE 00:15: 23:30 ONCE, 1 [place] VISCOUS) 2 00 :00 dose, Sat Medi ya % solution 07/29/20 Branc h 10 mL at 1815, CHERI dexamethaso 2019-09- No 10mg 10 mg, Uni vers ne 09-29 Intramuscu ity of (DECADRON 00:15: 23:30 lar, ONCE, [place] PHOSPHATE) 00 :00 1 dose, Medica l injection Sat Branch 10 mg 07/29/20 at 1815, STAT No known 2019-09 No Univers medications 09-28 ity of 18:14: [place] 13 Medical Branch cephALEXin 2019-09 2020- No [id number] 500mg Take 1 Univers 500 mg 09-2802 tablet by ity of tablet 00:00: 05:59 mouth 2 [place] 00 :00 (two) Medical times Branch daily for 10 days. cephALEXin 2019-09 2020- No [id number] 500mg Take 1 Univers 500 mg 09-28 1202 tablet by ity of tablet 00:00: 05:59 mouth 2 [place] 00 :00 (two) Medical times Branch daily for 10 days. lactated 2019-0 Yes 1000mL at 75 Univer s ringers IV 9-05 mL/hr, ity of infusion 14:15: 1,000 mL, [place] 1,000 mL 00 IV Medical Infusion, Branch CONTINUOUS , Starting [facility] 05/13/19 at 0915, Until Discontinu ed, Routine, PACU HYDROcodone 2018-0 Yes 1{tbl} 1 tablet, Univers -acetaminop 9-05 Oral, PRN, it y of hen (NORCO 14:13: 1 dose, [place] 5) 5-325 mg 31 Starting Medi ya tablet 1 [place] 05/13/19 Branc h tablet at 0913, Until Discontinu ed, Routine, Pain (scale 7-10), [facility] Recovery ibuprofen 2018-0 Yes 800mg 800 mg, Univ ers (IBU) 9-05 Oral, PRN, ity of tablet 800 14:13: 1 dose, [place] mg 31 Starting Medical [facility] 05/13/19 Branch at 0913, Until Discontinu ed, Routine, Pain (scale 1-3), Pain (scale 4-6), DSU Recovery ibuprofen 2018-0 Yes 800mg 800 mg, Univ ers (IBU) 9-05 Oral, PRN, ity of tablet 800 14:13: 1 dose, [place] mg 31 Starting Medical [facility] 05/13/19 Branch at 0913, Until Discontinu ed, Routine, Pain (scale 1-3), DSU Recovery HYDROmorpho 2018-0 Yes .2mg 0.2 mg, Uni vers ne 9-05 Slow IV ity of (DILAUDID) 14:13: Push, [place] injection 20 Q5MIN PRN, Medi ya 0.2 mg 10 doses, Branch Starting [facility] 05/13/19 at 0913, Until Discontinu ed, Routine, Pain (scale 7-10), PACU
Us e approved by (Faculty): Elizabeth OROZCO, PAIN SERVICE FENTanyl PF 2019-0 Yes 25ug 25 mcg, Uni vers (SUBLIMAZE -05 Slow IV ity of (PF)) 14:13: Push, [place] injection 20 Q5MIN PRN, Medi ya 25 mcg 4 doses, Branch Starting [place] 05/13/19 at 0913, Until Discontinu ed, Routine, Pain (scale 4-6), PACU ondansetron 2019-0 Yes 4mg 4 mg, Slow Univers (ZOFRAN 9-05 IV Push, ity of (PF)) 14:13: PRN, 1 [place] injection 4 20 dose, Medical mg Starting Branch [place] 05/13/19 at 0913, Until Discontinu ed, Routine, Nausea and Vomiting (N/V), PACU bupivacaine 2019-0 Yes PRN, Univer s (preserv 9-05 Starting ity of free) 13:56: [place] 05/13/19 [place] (SENSORCAIN 00 at 0856, Medi ya E MPF) 0.25 Until Branch % (2.5 Discontinu mg/mL) ed, injection Routine, Intra-op ibuprofen 2018- Yes [id number] 800mg Take 1 Univers 800 mg 9-05 tablet by ity of tablet 00:00: mouth [place] 00 every 6 Medical (six) Branch hours as needed for Pain (scale 4-6). HYDROcodone 2018- Yes [id number] 1{tbl} Take 1 Univers -acetaminop 9-05 108 tablet by ity of hen 5-325 00:00: mouth [place] mg tablet 00 every 6 Medical (six) Branch hours as needed for Pain (scale 7-10). ibuprofen 2020- No [id number] 800mg Take 1 Univers 800 mg 9-05 04-28 tablet by ity of tablet 00:00: 00:00 mouth [place] 00 :00 every 6 Medical (six) Branch hours as needed for Pain (scale 4-6). HYDROcodone 2020- No [id number] 1{tbl} Take 1 Univers -acetaminop 9-05 04-28 tablet by it y of hen 5-325 00:00: 00:00 mouth [place] mg tablet 00 :00 every 6 Medical (six) Branch hours as needed for Pain (scale 7-10). ibuprofen 2018- Yes [id number] 800mg Take 1 Univers 800 mg 8-15 108 tablet by ity of tablet 00:00: mouth [place] 00 every 6 Medical (six) Branch hours as needed for Pain (scale 4-6). HYDROcodone 2018-0 Yes [id number] 1{tbl} Take 1 Univers -acetaminop 8-15 108 tablet by ity of hen 5-325 00:00: mouth [place] mg tablet 00 every 6 Medical (six) Branch hours as needed for Pain (scale 7-10). ibuprofen 2018- Yes [id number] 800mg Take 1 Univers 800 mg 8-15 108 tablet by ity of tablet 00:00: mouth [place] 00 every 6 Medical (six) Branch hours as needed for Pain (scale 4-6). HYDROcodone Yes [id number] 1{tbl} Take 1 Univers -acetaminop 8-15 108 tablet by ity of hen 5-325 00:00: mouth [place] mg tablet 00 every 6 Medical (six) Branch hours as needed for Pain (scale 7-10). ibuprofen Yes [id number] 800mg Take 1 Univers 800 mg 8-15 108 tablet by ity of tablet 00:00: mouth [place] 00 every 6 Medical (six) Branch hours as needed for Pain (scale 4-6). HYDROcodone Yes [id number] 1{tbl} Take 1 Univers -acetaminop 8-15 108 tablet by ity of hen 5-325 00:00: mouth [place] mg tablet 00 every 6 Medical (six) Branch hours as needed for Pain (scale 7-10). ibuprofen 2019- No [id number] 800mg Take 1 Univers 800 mg 8-15 09-05 108 tablet by ity of tablet 00:00: 00:00 mouth [place] 00 :00 every 6 Medical (six) Branch hours as needed for Pain (scale 4-6). HYDROcodone 2019- No [id number] 1{tbl} Take 1 Univers -acetaminop 8-15 09-05 108 tablet by it y of hen 5-325 00:00: 00:00 mouth [place] mg tablet 00 :00 every 6 Medical (six) Branch hours as needed for Pain (scale 7-10). docusate Yes [id number] 240mg Take 1 U nivers calcium 240 7-26 capsule by it y of mg capsule 00:00: mouth once [place] 00 daily as Medical needed for Branch Constipati on. May substitute for what is in stock and covered by patient plan ferrous 2018- Yes [id number] 325mg Take 1 Un hardy sulfate 325 7-26 tablet by ity of mg (65 mg 00:00: mouth 3 [place] iron) 00 (three) Medical tablet times Branch daily with meals. May substitute for what is in stock and covered by patient plan ibuprofen Yes [id number] 600mg Take 1 Univers 600 mg 7-26 tablet by ity of tablet 00:00: mouth [place] 00 every 6 Medical (six) Branch hours as needed for Pain (scale 1-3) or Pain (scale 4-6) (Pain). Take with food or milk. foLIC acid Yes [id number] 1mg Take 1 Univers 1 mg tablet 7-26 tablet by ity of 00:00: mouth [place] 00 daily. Medical Branch ascorbic Yes [id number] 500mg Take 1 U nivers acid, 7-26 tablet by ity of vitamin C, 00:00: mouth 3 [place] (VITAMIN C) 00 (three) Medic al 500 mg times Branch tablet daily. HYDROcodone Yes [id number] 1{tbl} Take 1 Univers -acetaminop 7-26 tablet by ity of hen 5-325 00:00: mouth [place] mg tablet 00 every 6 Medical (six) Branch hours as needed for Pain (scale 7-10). docusate Yes [id number] 240mg Take 1 U nivers calcium 240 7-26 capsule by it y of mg capsule 00:00: mouth once [place] 00 daily as Medical needed for Branch Constipati on. May substitute for what is in stock and covered by patient plan ferrous Yes [id number] 325mg Take 1 Un hardy sulfate 325 7-26 tablet by ity of mg (65 mg 00:00: mouth 3 [place] iron) 00 (three) Medical tablet times Branch daily with meals. May substitute for what is in stock and covered by patient plan ibuprofen Yes [id number] 600mg Take 1 Univers 600 mg 7-26 tablet by ity of tablet 00:00: mouth [place] 00 every 6 Medical (six) Branch hours as needed for Pain (scale 1-3) or Pain (scale 4-6) (Pain). Take with food or milk. foLIC acid Yes [id number] 1mg Take 1 Univers 1 mg tablet 7-26 tablet by ity of 00:00: mouth [place] 00 daily. Medical Branch ascorbic Yes [id number] 500mg Take 1 U nivers acid, 7-26 tablet by ity of vitamin C, 00:00: [place] (VITAMIN C) 00 (three) Medic al 500 mg times Branch tablet daily. HYDROcodone Yes [id number] 1{tbl} Take 1 [facility] -acetaminop 7-26 tablet by ity of hen 5-325 00:00: mouth [place] mg tablet 00 every 6 Medical (six) Branch hours as needed for Pain (scale 7-10). docusate Yes [id number] 240mg Take 1 U nivers calcium 240 7-26 capsule by it y of mg capsule 00:00: mouth once [place] 00 daily as Medical needed for Branch Constipati on. May substitute for what is in stock and covered by patient plan ferrous Yes [id number] 325mg Take 1 Un hardy sulfate 325 7-26 tablet by ity of mg (65 mg 00:00: mouth 3 [place] iron) 00 (three) Medical tablet times Branch daily with meals. May substitute for what is in stock and covered by patient plan ibuprofen Yes [id number] 600mg Take 1 [facility] 600 mg 7-26 tablet by ity of tablet 00:00: mouth [place] 00 every 6 Medical (six) Branch hours as needed for Pain (scale 1-3) or Pain (scale 4-6) (Pain). Take with food or milk. foLIC acid Yes [id number] 1mg Take 1 [facility] 1 mg tablet 7-26 tablet by ity of 00:00: mouth [place] 00 daily. Medical Branch ascorbic Yes [id number] 500mg Take 1 U nivers acid, 7-26 tablet by ity of vitamin C, 00:00: mouth [place] (VITAMIN C) 00 (three) Medic al 500 mg times Branch tablet daily. HYDROcodone Yes [id number] 1{tbl} Take 1 Univers -acetaminop 7-26 tablet by ity of hen 5-325 00:00: mouth [place] mg tablet 00 every 6 Medical (six) Branch hours as needed for Pain (scale 7-10). docusate Yes [id number] 240mg Take 1 U nivers calcium 240 7-26 capsule by it y of mg capsule 00:00: mouth once [place] 00 daily as Medical needed for Branch Constipati on. May substitute for what is in stock and covered by patient plan ferrous 2018- Yes [id number] 325mg Take 1 Un hardy sulfate 325 7-26 tablet by ity of mg (65 mg 00:00: mouth 3 [place] iron) 00 (three) Medical tablet times Branch daily with meals. May substitute for what is in stock and covered by patient plan ibuprofen 2018- Yes [id number] 600mg Take 1 [facility] 600 mg 7-26 tablet by ity of tablet 00:00: mouth [place] 00 every 6 Medical (six) Branch hours as needed for Pain (scale 1-3) or Pain (scale 4-6) (Pain). Take with food or milk. foLIC acid 2018- Yes [id number] 1mg Take 1 [facility] 1 mg tablet 7-26 tablet by ity of 00:00: mouth [place] 00 daily. Medical Branch ascorbic Yes [id number] 500mg Take 1 U nivers acid, 7-26 tablet by ity of vitamin C, 00:00: mouth [place] (VITAMIN C) 00 (three) Medic al 500 mg times Branch tablet daily. HYDROcodone Yes [id number] 1{tbl} Take 1 [facility] -acetaminop 7-26 tablet by ity of hen 5-325 00:00: mouth [place] mg tablet 00 every 6 Medical (six) Branch hours as needed for Pain (scale 7-10). ascorbic Yes [id number] 500mg Take 1 U nivers acid, 7-26 tablet by ity of vitamin C, 00:00: mouth [place] (VITAMIN C) 00 (three) Medic al 500 mg times Branch tablet daily. ascorbic Yes [id number] 500mg Take 1 U nivers acid, 7-26 tablet by ity of vitamin C, 00:00: mouth [place] (VITAMIN C) 00 (three) Medic al 500 mg times Branch tablet daily. docusate Yes [id number] 240mg Take 1 U nivers calcium 240 7-26 capsule by it y of mg capsule 00:00: mouth once [place] 00 daily as Medical needed for Branch Constipati on. May substitute for what is in stock and covered by patient plan ferrous Yes [id number] 325mg Take 1 Un hard[facility] sulfate 325 7-26 tablet by ity of mg (65 mg 00:00: mouth 3 [place] iron) 00 (three) Medical tablet times Branch daily with meals. May substitute for what is in stock and covered by patient plan ibuprofen Yes [id number] 600mg Take 1 [facility] 600 mg 7-26 tablet by ity of tablet 00:00: mouth [place] 00 every 6 Medical (six) Branch hours as needed for Pain (scale 1-3) or Pain (scale 4-6) (Pain). Take with food or milk. ascorbic Yes [id number] 500mg Take 1 U nivers acid, 7-26 tablet by ity of vitamin C, 00:00: mouth 3 [place] (VITAMIN C) 00 (three) Medic al 500 mg times Branch tablet daily. foLIC acid Yes [id number] 1mg Take 1 [facility] 1 mg tablet 7-26 tablet by ity of 00:00: mouth [place] 00 daily. Medical Branch ascorbic Yes [id number] 500mg Take 1 U nivers acid, 7-26 tablet by ity of vitamin C, 00:00: mouth 3 [place] (VITAMIN C) 00 (three) Medic al 500 mg times Branch tablet daily. docusate Yes [id number] 240mg Take 1 U nivers calcium 240 7-26 capsule by it y of mg capsule 00:00: mouth once [place] 00 daily as Medical needed for Branch Constipati on. May substitute for what is in stock and covered by patient plan ferrous Yes [id number] 325mg Take 1 Un hard[place] sulfate 325 7-26 tablet by ity of mg (65 mg 00:00: mouth 3 [place] iron) 00 (three) Medical tablet times Branch daily with meals. May substitute for what is in stock and covered by patient plan ibuprofen Yes [id number] 600mg Take 1 [facility] 600 mg 7-26 tablet by ity of tablet 00:00: mouth [place] 00 every 6 Medical (six) Branch hours as needed for Pain (scale 1-3) or Pain (scale 4-6) (Pain). Take with food or milk. foLIC acid Yes [id number] 1mg Take 1 [facility] 1 mg tablet 7-26 tablet by ity of 00:00: mouth [place] 00 daily. Medical Branch ascorbic Yes [id number] 500mg Take 1 U nivers acid, - tablet by ity of vitamin C, 00:00: mouth 3 [place] (VITAMIN C) 00 (three) Medic al 500 mg times Branch tablet daily. HYDROcodone Yes [id number] 1{tbl} Take 1 [facility] -acetaminop -26 tablet by ity of hen 5-325 00:00: mouth [place] mg tablet 00 every 6 Medical (six) Branch hours as needed for Pain (scale 7-10). ascorbic 2018- No [id number] 500mg Take 1 [facility] acid, - 09-05 tablet by ity of vitamin C, 00:00: 00:00 mouth 3 [place] (VITAMIN C) 00 :00 (three) Medic al 500 mg times Branch tablet daily. docusate 2019- No [id number] 240mg Take 1 [facility] calcium 240 04-02-15 capsule by i ty of mg capsule 00:00: 00:00 mouth once [place] 00 :00 daily as Medical needed for Branch Constipati on. May substitute for what is in stock and covered by patient plan ferrous 2019- No [id number] 325mg Take 1 U nivers sulfate 325 04-02-15 tablet by it y of mg (65 mg 00:00: 00:00 mouth 3 [place] iron) 00 :00 (three) Medical tablet times Branch daily with meals. May substitute for what is in stock and covered by patient plan ibuprofen 2019- No [id number] 600mg Take 1 [facility] 600 mg 04-02 08-15 tablet by ity of tablet 00:00: 00:00 mouth [place] 00 :00 every 6 Medical (six) Branch hours as needed for Pain (scale 1-3) or Pain (scale 4-6) (Pain). Take with food or milk. foLIC acid 2019- No [id number] 1mg Take 1 [facility] 1 mg tablet 04-02 08-15 tablet by it y of 00:00: 00:00 mouth [place] 00 :00 daily. Medical Branch HYDROcodone 2019- No [id number] 1{tbl} Take 1 [facility] -acetaminop - 08-15 tablet by it y of hen 5-325 00:00: 00:00 mouth [place] mg tablet 00 :00 every 6 Medical (six) Branch hours as needed for Pain (scale 7-10). human 2019- No .5mL 0.5 mL, [facility] papillomav 04-01 Intramuscu it y of vac,9-frank(P 11:42: 18:03 [facility], [place] F) 18 :00 ONCE-PRIOR Medical (GARDASIL 9 TO Branch (PF)) vial DISCHARGE, 0.5 mL 1 dose, Starting [place] 04/01/19 at 0642, Until Discontinu ed, Routine, Give vaccine prior to discharge varicella 2019- No .5mL 0.5 mL, [facility] ers virus 04-01 Subcutaneo ity of vaccine 11:42: 19:25 , [place] live 08 :00 ONCE-PRIOR Medical (VARIVAX TO Branch (PF)) DISCHARGE, injection 1 dose, 0.5 mL Starting [place] 04/01/19 at 0642, Until Discontinu ed, Routine, Give vaccine prior to discharge HYDROcodone 2018-0 Yes 2{tbl} 2 tablet, Univers -acetaminop 7-25 Oral, ity of hen (NORCO 05:14: Q6HPRN, [place] 5) 5-325 mg 00 Starting Medi ya tablet 2 [place] Branch tablet 04/01/19 at 0014, Until Discontinu ed, Routine, Pain (scale 7-10), If uncontroll ed by Ibuprofen HYDROcodone 2018-0 Yes 1{tbl} 1 tablet, Univers -acetaminop 7-25 Oral, ity of hen (NORCO 05:14: Q6HPRN, [place] 5) 5-325 mg 00 Starting Medi ya tablet 1 [place] Branch tablet 04/01/19 at 0014, Until Discontinu ed, Routine, Pain (scale 4-6), If uncontroll ed by Ibuprofen ibuprofen 2018-0 Yes 600mg 600 mg, Univ ers (IBU) 7-25 Oral, ity of tablet 600 05:14: Q6HPRN, [place] mg 00 Starting Medical [place] [facility] 04/01/19 at 0014, Until Discontinu ed, Routine, Pain (scale 1-3) diphenhydrA 2018- Yes 25mg 25 mg, Univ ers MINE 7-25 Oral, ity of (BENADRYL) 05:14: Q6HPRN, [place] tablet 25 00 Starting Medica l mg [facility] Branch 04/01/19 at 0014, Until Discontinu ed, Routine, Sleep, Itching ondansetron 2019- Yes 4mg 4 mg, Slow Univers (ZOFRAN 7-25 IV Push, ity of (PF)) 05:14: Q8HPRNRyan injection 4 00 Starting Medi ya mg [facility] Branch 04/01/19 at 0014, Until Discontinu ed, Routine, Nausea and Vomiting (N/V) bisacodyl Yes 10mg 10 mg, Univer s (DULCOLAX) 725 Rectal, ity of suppository 05:14: QDAILYPRN [place] 10 mg 00 Starting Medical [place] Branch 04/01/19 at 0014, Until Discontinu ed, Routine, Constipati on simethicone Yes 160mg 160 mg, Un hardy (GAS 04-01 Oral, ity of RELIEF) 05:14: PC+HSPRNRyan chewable 00 Starting Medical tablet [address] [facility] Branch mg 04/01/19 at 0014, Until Discontinu ed, Routine, Gas docusate Yes 240mg 240 mg, Unive rs calcium 25 Oral, ity of (SURFAK) 05:14: [place] capsule 240 00 Starting Medi ya mg [facility] Branch 04/01/19 at 0014, Until Discontinu ed, Routine, Constipati on magnesium Yes 30mL 30 mL, Univer s hydroxide 04-01 Oral, ity of (MILK OF 05:14: QDRAQUELYPRLowell [place] MAGNESIA) 00 Starting Medica l 400 mg/[address] [facility] Branch suspension 04/01/19 at 30 mL 0014, Until Discontinu ed, Routine, Constipati on naloxone 2019- No .4mg 0.4 mg, Unive rs (NARCAN) 04-01 07-27 Slow IV ity of injection 05:13: 05:12 Push, PRN [place] 0.4 mg 52 :52 - SEE Medical INSTRUCTIO Branch NS, Starting [place] 04/01/19 at 0013, Until 04/03/19 at 0012, Routine, Analgesia Recovery, PACU diphenhydrA 2019- No 25mg 25 mg, Uni vers MINE 725 07-26 Slow IV ity of (BENADRYL) 05:13: 05:12 Push, [place] injection 52 :52 Q4HPRN, Medical 25 mg Starting Branch [place] 04/01/19 at 0013, Until Fri04/02/19 at 0012, Routine, Itching, PACU 2019- No Take by Unive rs vit 04-01- mouth. ity of calc,iron,f 04:10: 00:00 [place] olic 56 :00 Medical ( Branch VITAMIN ORAL) ferrous 2018- No 325mg Take 325 Univ ers sulfate 325 04-01 mg by ity of mg (65 mg 04:10: 00:00 mouth 3 [place] iron) 56 :00 (three) Medical tablet times Branch daily with meals. azithromyci 2018- No 500mg 500 mg, IV Univers n 04-01 Piggyback, ity of (ZITHROMAX) 01:59: 05:07 O.R. [place] 500 mg in 39 :00 HOLDING Medical NaCl 0.9% ONCE, 1 Branch (NS) 250 mL dose, VIAL-MATE Starting IV Wed piggyback 03/31/19 at 2058, Until Discontinu ed, 250 mL
Reas on for Anti-Infec tive: Surgical Prophylaxi s
Surgi ya Prophylaxi s: PIPING DRAFTER< br>Duratio n of therapy: within 24 hours of surgery ceFAZolin 2018- No 2000mg 2 g (2,000 Univers in dextrose 04-01 mg), IV ity of (iso-os) 01:58: 02:08 Piggyback, [place] (ANCEF) 2 45 :00 O.R. Medical gram/100 mL HOLDING Branc h Piggyback 2 ONCE, 1 g dose, Starting Fri03/31/19 at 2057, Until Fri03/31/19 at 2107, 100 mL
Reas on for Anti-Infec tive: Surgical Prophylaxi s
Surgi ya Prophylaxi s: PIPING DRAFTER
Duration of therapy: within 24 hours of surgery sodium 2019- No 30mL 30 mL, Univers citrate-cit 04-01 Oral, ity of surya acid 01:58: 02:09 PRE-PROCED [place] (BICITRA) 44 :00 URE ONCE, Medic al 500-334 1 dose, Branch mg/5 mL Starting solution 30 Wed mL 03/31/19 at 2058, Until 03/31/19 at 2109, Routine, Surgery LR 1000 mL 2019- No 2mU/min 2 Uni vers + oxytocin 03-31 sushma-unit it y of 20 units IV 15:45: 05:14 s/min (6 [place] Solution 16 :04 mL/hr), at Medic al 6 mL/hr, Branch IV Infusion, TITRATE, Starting Fri03/31/19 at 1045, Until [place] 04/01/19 at 0014, CHERI, Oxytocin induction. sodium 2019- No 30mL 30 mL, Univers citrate-cit 03-31 Oral, ity of surya acid 15:44: 00:09 PRE-PROCED [place] (BICITRA) 10 :00 URE ONCE, Medic al 500-334 1 dose, Branch mg/5 mL Starting solution 30 Wed mL 03/31/19 at 1044, Until Discontinu ed, Routine, Surgery/Pr ocedure lactated 2019- No 500mL at 999 Unive rs ringers IV 03-31 mL/hr, 500 it y of infusion 15:44: 05:14 mL, IV [place] 500 mL 10 :04 Infusion, Medical PRN - SEE Branch INSTRUCTIO NS, Starting Fri03/31/19 at 1044, Until [place] 04/01/19 at 0014, Routine No known No Univers medications [facility] No known No Univers medications [facility] Immunizations Ordered Filled Immunization Date Status Comments [facility] e Immunization Name Name Varicella 2019-04-02 Completed [facility] (varivax)(chicken 00:00:00 [facility] edical pox) Branch [facility]9 2019-04-02 Completed [facility] 00:00:00 [facility] Varicella 2019-04-02 Completed University of (varivax)(chicken 00:00:00 [facility] edical pox) Branch [facility]9 2019-04-02 Completed [facility] 00:00:00 [facility] Varicella 2019-04-02 Completed University of (varivax)(chicken 00:00:00 [place] M edical pox) Branch HPV9 2019-04-02 Completed University of 00:00:00 [facility] Varicella 2019-04-02 Completed University of (varivax)(chicken 00:00:00 [place] M edical pox) Branch HPV9 2019-04-02 Completed University of 00:00:00 [facility] Varicella 2019-04-02 Completed University of (varivax)(chicken 00:00:00 [place] M edical pox) Branch HPV9 2019-04-02 Completed University of 00:00:00 [facility] Varicella 2019-04-02 Completed University of (varivax)(chicken 00:00:00 [place] M edical pox) Branch HPV9 2019-04-02 Completed University of 00:00:00 [facility] Varicella 2019-04-02 Completed University of (varivax)(chicken 00:00:00 [place] M edical pox) Branch [facility] 2019-04-02 Completed University of 00:00:00 [facility] Varicella 2019-04-02 Completed University of (varivax)(chicken 00:00:00 [place] M edical pox) Branch [facility] 2019-04-02 Completed University of 00:00:00 [facility] Varicella 2019-04-02 Completed University of (varivax)(chicken 00:00:00 [place] M edical pox) Branch [facility]9 2019-04-02 Completed University of 00:00:00 [facility]9 2019-04-02 Completed University of 00:00:00 [facility] Varicella 2019-04-02 Completed University of (varivax)(chicken 00:00:00 [place] M edical pox) Branch HPV9 2019-04-02 Completed University of 00:00:00 [facility] Varicella 2019-04-02 Completed University of (varivax)(chicken 00:00:00 [place] M edical pox) Branch HPV9 2019-04-02 Completed University of 00:00:00 [facility] Varicella 2019-04-02 Completed University of (varivax)(chicken 00:00:00 [place] M edical pox) Branch [facility] 2019-04-02 Completed University of 00:00:00 [facility] Varicella 2019-04-02 Completed University of (varivax)(chicken 00:00:00 [place] M edical pox) Branch HPV9 2019-04-02 Completed University of 00:00:00 [facility] Varicella 2019-04-02 Completed University of (varivax)(chicken 00:00:00 [place] M edical pox) Branch [facility] 2019-04-02 Completed University of 00:00:00 [facility] Varicella 2019-04-02 Completed University of (varivax)(chicken 00:00:00 [place] M edical pox) Branch [facility] 2019-04-02 Completed University of 00:00:00 [facility] Varicella 2019-04-02 Completed University of (varivax)(chicken 00:00:00 [place] M edical pox) Branch [facility] 2019-04-02 Completed University of 00:00:00 [facility] Varicella 2019-04-02 Completed University of (varivax)(chicken 00:00:00 [place] M edical pox) Branch [facility] 2019-04-02 Completed University of 00:00:00 [facility] Varicella 2019-04-02 Completed University of (varivax)(chicken 00:00:00 [place] M edical pox) Branch [facility] 2019-04-02 Completed University of 00:00:00 [facility] Varicella 2019-04-02 Completed University of (varivax)(chicken 00:00:00 [place] M edical pox) Branch [facility] 2019-04-02 Completed University of 00:00:00 [facility] Varicella 2019-04-02 Completed University of (varivax)(chicken 00:00:00 [place] M edical pox) Branch [facility] 2019-04-02 Completed University of 00:00:00 [facility] Varicella 2019-04-02 Completed University of (varivax)(chicken 00:00:00 [place] M edical pox) Branch [facility] 2019-04-02 Completed University of 00:00:00 [facility] Varicella 2019-04-02 Completed University of (varivax)(chicken 00:00:00 [place] M edical pox) Branch [facility] 2019-04-02 Completed University of 00:00:00 [facility] Varicella 2019-04-02 Completed University of (varivax)(chicken 00:00:00 [place] M edical pox) Branch [facility] 2019-04-02 Completed University of 00:00:00 [facility] Varicella 2019-04-02 Completed University of (varivax)(chicken 00:00:00 [place] M edical pox) Branch [facility] 2019-04-02 Completed University of 00:00:00 [facility] Varicella 2019-04-02 Completed University of (varivax)(chicken 00:00:00 [place] M edical pox) Branch HPV9 2019-04-02 Completed University of 00:00:00 [facility] TDAP (ADACEL) 2019-03-08 Completed University of VACCINE 00:00:00 [facility] TDAP (ADACEL) 2019-03-08 Completed University of VACCINE 00:00:00 [facility] TDAP (ADACEL) 2019-03-08 Completed University of VACCINE 00:00:00 [facility] TDAP (ADACEL) 2019-03-08 Completed University of VACCINE 00:00:00 [facility] TDAP (ADACEL) 2019-03-08 Completed University of VACCINE 00:00:00 [facility] TDAP (ADACEL) 2019-03-08 Completed University of VACCINE 00:00:00 [facility] TDAP (ADACEL) 2019-03-08 Completed University of VACCINE 00:00:00 [facility] TDAP (ADACEL) 2019-03-08 Completed University of VACCINE 00:00:00 [facility] TDAP (ADACEL) 2019-03-08 Completed University of VACCINE 00:00:00 [facility] TDAP (ADACEL) 2019-03-08 Completed University of VACCINE 00:00:00 [facility] TDAP (ADACEL) 2019-03-08 Completed University of VACCINE 00:00:00 [facility] TDAP (ADACEL) 2019-03-08 Completed University of VACCINE 00:00:00 [facility] TDAP (ADACEL) 2019-03-08 Completed University of VACCINE 00:00:00 [facility] TDAP (ADACEL) 2019-03-08 Completed University of VACCINE 00:00:00 [facility] TDAP (ADACEL) 2019-03-08 Completed University of VACCINE 00:00:00 [facility] TDAP (ADACEL) 2019-03-08 Completed University of VACCINE 00:00:00 [facility] TDAP (ADACEL) 2019-03-08 Completed University of VACCINE 00:00:00 [facility] TDAP (ADACEL) 2019-03-08 Completed University of VACCINE 00:00:00 [facility] TDAP (ADACEL) 2019-03-08 Completed University of VACCINE 00:00:00 [facility] TDAP (ADACEL) 2019-03-08 Completed University of VACCINE 00:00:00 [facility] TDAP (ADACEL) 2019-03-08 Completed University of VACCINE 00:00:00 [facility] TDAP (ADACEL) 2019-03-08 Completed University of VACCINE 00:00:00 [facility] TDAP (ADACEL) 2019-03-08 Completed University of VACCINE 00:00:00 [facility] TDAP (ADACEL) 2019-03-08 Completed University of VACCINE 00:00:00 [facility] TDAP (ADACEL) 2019-03-08 Completed University of VACCINE 00:00:00 [facility] TDAP (ADACEL) 2019-03-08 Completed University of VACCINE 00:00:00 [facility] Varicella 2015-12-10 Completed University of (varivax)(chicken 00:00:00 [place] M edical pox) Branch Varicella 2015-12-10 Completed University of (varivax)(chicken 00:00:00 [place] M edical pox) Branch Varicella 2015-12-10 Completed University of (varivax)(chicken 00:00:00 [place] M edical pox) Branch Varicella 2015-12-10 Completed University of (varivax)(chicken 00:00:00 [place] M edical pox) Branch Varicella 2015-12-10 Completed University of (varivax)(chicken 00:00:00 [place] M edical pox) Branch Varicella 2015-12-10 Completed University of (varivax)(chicken 00:00:00 [place] M edical pox) Branch Varicella 2015-12-10 Completed University of (varivax)(chicken 00:00:00 [place] M edical pox) Branch Varicella 2015-12-10 Completed University of (varivax)(chicken 00:00:00 [place] M edical pox) Branch Varicella 2015-12-10 Completed University of (varivax)(chicken 00:00:00 [place] M edical pox) Branch Varicella 2015-12-10 Completed University of (varivax)(chicken 00:00:00 [place] M edical pox) Branch Varicella 2015-12-10 Completed University of (varivax)(chicken 00:00:00 [place] M edical pox) Branch Varicella 2015-12-10 Completed University of (varivax)(chicken 00:00:00 [place] M edical pox) Branch Varicella 2015-12-10 Completed University of (varivax)(chicken 00:00:00 [place] M edical pox) Branch Varicella 2015-12-10 Completed University of (varivax)(chicken 00:00:00 [place] M edical pox) Branch Varicella 2015-12-10 Completed University of (varivax)(chicken 00:00:00 [place] M edical pox) Branch Varicella 2015-12-10 Completed University of (varivax)(chicken 00:00:00 [place] M edical pox) Branch Varicella 2015-12-10 Completed University of (varivax)(chicken 00:00:00 [place] M edical pox) Branch Varicella 2015-12-10 Completed University of (varivax)(chicken 00:00:00 [place] M edical pox) Branch Varicella 2015-12-10 Completed University of (varivax)(chicken 00:00:00 [place] M edical pox) Branch Varicella 2015-12-10 Completed University of (varivax)(chicken 00:00:00 [place] M edical pox) Branch Varicella 2015-12-10 Completed University of (varivax)(chicken 00:00:00 [place] M edical pox) Branch Varicella 2015-12-10 Completed University of (varivax)(chicken 00:00:00 [place] M edical pox) Branch Varicella 2015-12-10 Completed University of (varivax)(chicken 00:00:00 [place] M edical pox) Branch Varicella 2015-12-10 Completed University of (varivax)(chicken 00:00:00 [place] M edical pox) Branch Varicella 2015-12-10 Completed University of (varivax)(chicken 00:00:00 [place] M edical pox) Branch Varicella 2015-12-10 Completed University of (varivax)(chicken 00:00:00 [place] M edical pox) Branch Influenza Virus 2014-06-21 Completed Universit y of Vaccine (3+ yrs) 00:00:00 [facility] Influenza Virus 2014-06-21 Completed Universit y of Vaccine (3+ yrs) 00:00:00 [facility] Influenza Virus 2014-06-21 Completed Universit y of Vaccine (3+ yrs) 00:00:00 [facility] Influenza Virus 2014-06-21 Completed Universit y of Vaccine (3+ yrs) 00:00:00 [place] [facility] Influenza Virus 2014-06-21 Completed Universit y of Vaccine (3+ yrs) 00:00:00 [facility] Influenza Virus 2014-06-21 Completed Universit y of Vaccine (3+ yrs) 00:00:00 [facility] Influenza Virus 2014-06-21 Completed Universit y of Vaccine (3+ yrs) 00:00:00 [facility] Influenza Virus 2014-06-21 Completed Universit y of Vaccine (3+ yrs) 00:00:00 [facility] Influenza Virus 2014-06-21 Completed Universit y of Vaccine (3+ yrs) 00:00:00 [facility] Influenza Virus 2014-06-21 Completed Universit y of Vaccine (3+ yrs) 00:00:00 [facility] Influenza Virus 2014-06-21 Completed Universit y of Vaccine (3+ yrs) 00:00:00 [facility] Influenza Virus 2014-06-21 Completed Universit y of Vaccine (3+ yrs) 00:00:00 [facility] Influenza Virus 2014-06-21 Completed Universit y of Vaccine (3+ yrs) 00:00:00 [facility] Influenza Virus 2014-06-21 Completed Universit y of Vaccine (3+ yrs) 00:00:00 [facility] Influenza Virus 2014-06-21 Completed Universit y of Vaccine (3+ yrs) 00:00:00 [facility] Influenza Virus 2014-06-21 Completed Universit y of Vaccine (3+ yrs) 00:00:00 [facility] Influenza Virus 2014-06-21 Completed Universit y of Vaccine (3+ yrs) 00:00:00 [facility] Influenza Virus 2014-06-21 Completed Universit y of Vaccine (3+ yrs) 00:00:00 [facility] Influenza Virus 2014-06-21 Completed Universit y of Vaccine (3+ yrs) 00:00:00 [facility] Influenza Virus 2014-06-21 Completed Universit y of Vaccine (3+ yrs) 00:00:00 [facility] Influenza Virus 2014-06-21 Completed Universit y of Vaccine (3+ yrs) 00:00:00 [facility] Influenza Virus 2014-06-21 Completed Universit y of Vaccine (3+ yrs) 00:00:00 [place] [facility] Influenza Virus 2014-06-21 Completed Universit y of Vaccine (3+ yrs) 00:00:00 [facility] Influenza Virus 2014-06-21 Completed Universit y of Vaccine (3+ yrs) 00:00:00 [facility] Influenza Virus 2014-06-21 Completed Universit y of Vaccine (3+ yrs) 00:00:00 [facility] Influenza Virus 2014-06-21 Completed Universit y of Vaccine (3+ yrs) 00:00:00 [facility] Tdap 2012-09-08 Completed University of 00:00:00 [facility] Tdap 2012-09-08 Completed University of 00:00:00 [facility] Tdap 2012-09-08 Completed University of 00:00:00 [facility] Tdap 2012-09-08 Completed University of 00:00:00 [facility] Tdap 2012-09-08 Completed University of 00:00:00 [facility] Tdap 2012-09-08 Completed University of 00:00:00 [facility] Tdap 2012-09-08 Completed University of 00:00:00 [facility] Tdap 2012-09-08 Completed University of 00:00:00 [facility] Tdap 2012-09-08 Completed University of 00:00:00 [facility] Tdap 2012-09-08 Completed University of 00:00:00 [facility] Tdap 2012-09-08 Completed University of 00:00:00 [facility] TDAP 2012-09-08 Completed University of 00:00:00 [facility] TDAP 2012-09-08 Completed University of 00:00:00 [facility] TDAP 2012-09-08 Completed University of 00:00:00 [facility] TDAP 2012-09-08 Completed University of 00:00:00 [facility] TDAP 2012-09-08 Completed University of 00:00:00 [facility] TDAP 2012-09-08 Completed University of 00:00:00 [facility] TDAP 2012-09-08 Completed University of 00:00:00 [facility] TDAP 2012-09-08 Completed University of 00:00:00 [facility] TDAP 2012-09-08 Completed University of 00:00:00 [facility] TDAP 2012-09-08 Completed University of 00:00:00 [facility] TDAP 2012-09-08 Completed University of 00:00:00 [facility] TDAP 2012-09-08 Completed University of 00:00:00 [facility] TDAP 2012-09-08 Completed University of 00:00:00 [place] [facility] Tdap 2012-09-08 Completed University of 00:00:00 [facility] TDAP 2012-09-08 Completed [facility] 00:00:00 [place] [facility] [place] Vital Signs Vital Name Observation Time Observation Value Comments Source Systolic blood 2021-12-31 22:30:00 144 mm[Hg] Univer sity of pressure [place] [facility] Diastolic blood 2021-12-31 22:30:00 99 mm[Hg] Unive rsity of pressure [place] [facility] Heart rate 2021-12-31 22:30:00 74 /min Universi ty of [place] [facility] Respiratory rate 2021-12-31 22:30:00 16 /min Univ ersity of [place] [facility] Oxygen saturation in 2021-12-31 22:30:00 100 /min University of Arterial blood by [place] Cirqle Pulse oximetry [facility] Body temperature 2021-12-31 18:32:00 36.83 Bisi [facility] ersity of [place] [facility] Body weight 2021-12-31 18:32:00 107.049 kg Universi ty of [place] [facility] BMI 2021-12-31 18:32:00 35.88 kg/m2 [facility]i ty [facility] [place] [facility] Systolic blood 2021-12-20 02:40:00 133 mm[Hg] Univer sity of pressure [place] [facility] Diastolic blood 2021-12-20 02:40:00 86 mm[Hg] Unive rsity of pressure [place] [facility] Heart rate 2021-12-20 02:40:00 76 /min Universi ty of [place] [facility] Respiratory rate 2021-12-20 02:40:00 16 /min Univ ersity of [place] [facility] Oxygen saturation in 2021-12-20 02:40:00 99 /min University of Arterial blood by [place] Crysalin ya Pulse oximetry Branch Body temperature 2021-12-20 00:04:00 37.28 Bisi Univ ersity of [place] [facility] Body height 2021-12-20 00:04:00 172.7 cm Universi [facility] [place] [facility] Body weight 2021-12-20 00:04:00 107.049 kg [facility]i [facility] [place] [facility] BMI 2021-12-20 00:04:00 35.88 kg/m2 [facility] [place] [facility] Systolic blood 2021-09-02 05:42:00 134 mm[Hg] Univer sity of pressure [place] [facility] Diastolic blood 2021-09-02 05:42:00 68 mm[Hg] Unive rsity of pressure [place] [facility] Heart rate 2021-09-02 05:42:00 107 /min Universi ty of [place] [facility] Body temperature 2021-09-02 05:42:00 38.11 Bisi Univ ersity of [place] [facility] Respiratory rate 2021-09-02 05:42:00 18 /min Univ ersity of [place] [facility] Oxygen saturation in 2021-09-02 05:42:00 98 /min University of Arterial blood by W-21 ya Pulse oximetry Branch Body height 2021-09-02 03:25:00 172.7 cm [facility]i ty [facility] [place] [facility] Body weight 2021-09-02 03:25:00 111.585 kg [facility] [place] [facility] BMI 2021-09-02 03:25:00 37.40 kg/m2 [facility] [place] [facility] Systolic blood 2021-08-08 13:49:00 139 mm[Hg] Univer sity of pressure [place] [facility] Diastolic blood 2021-08-08 13:49:00 88 mm[Hg] Unive rsity of pressure [place] [facility] Heart rate 2021-08-08 13:49:00 91 /min [facility]i ty [facility] [place] [facility] Body temperature 2021-08-08 13:49:00 36.72 Bisi Univ ersity of [place] [facility] Respiratory rate 2021-08-08 13:49:00 18 /min Univ ersity of [place] [facility] Body height 2021-08-08 13:49:00 172.7 cm [facility]i [facility] [place] [facility] Body weight 2021-08-08 13:49:00 107.049 kg [facility] [place] [facility] BMI 2021-08-08 13:49:00 35.88 kg/m2 [facility] [place] [facility] Oxygen saturation in 2021-08-08 13:49:00 99 /min University of Arterial blood by W-21 ya Pulse oximetry Branch Systolic blood 2021-08-04 06:52:00 123 mm[Hg] Univer sity of pressure [place] [facility] Diastolic blood 2021-08-04 06:52:00 82 mm[Hg] Unive rsity of pressure [place] [facility] Heart rate 2021-08-04 06:52:00 62 /min Universi ty of [place] [facility] Body temperature 2021-08-04 06:52:00 36.72 Bisi Univ ersity of [place] [facility] Respiratory rate 2021-08-04 06:52:00 16 /min Univ ersity of [place] [facility] Body weight 2021-08-04 06:52:00 107.049 kg [facility]i ty [facility] [place] [facility] BMI 2021-08-04 06:52:00 35.88 kg/m2 [facility]i ty [facility] [place] [facility] Oxygen saturation in 2021-08-04 06:52:00 99 /min University of Arterial blood by [place] Crys[facility] ya P[facility] oxim[facility] Systolic blood 2021-08-04 05:38:00 172 mm[Hg] Univer sity of pressure [place] [facility] Diastolic blood 2021-08-04 05:38:00 105 mm[Hg] Unive rsity of pressure [place] [facility] Heart rate 2021-08-04 05:38:00 74 /min Universi ty of [place] [facility] Respiratory rate 2021-08-04 05:38:00 16 /min Univ ersity of [place] [facility] Oxygen saturation in 2021-08-04 05:00:00 97 /min University of Arterial blood by [place] Crysalin [facility] Pulse oximetry Branch Body temperature 2021-08-04 03:02:00 37.06 Bisi Univ ersity of [place] [facility] Body height 2021-08-04 03:02:00 172.7 cm Universi ty of [place] [facility] Body weight 2021-08-04 03:02:00 107.049 kg [facility]i ty [facility] [place] [facility] BMI 2021-08-04 03:02:00 35.88 kg/m2 [facility]i ty [facility] [place] [facility] Heart rate 2021-08-01 16:59:00 89 /min [facility]i ty [facility] [place] [facility] Body temperature 2021-08-01 16:59:00 37.17 Bisi Univ ersity of [place] [facility] Respiratory rate 2021-08-01 16:59:00 18 /min Univ ersity of [place] [facility] Body weight 2021-08-01 16:59:00 107.049 kg [facility]i ty [facility] [place] [facility] BMI 2021-08-01 16:59:00 35.88 kg/m2 [facility] ty [facility] [place] [facility] Oxygen saturation in 2021-08-01 16:59:00 99 /min University of Arterial blood by [facility] Pulse oximetry Branch Systolic blood 2021-07-06 19:00:00 122 mm[Hg] Univer sity of pressure [place] [facility] Diastolic blood 2021-07-06 19:00:00 76 mm[Hg] Unive rsity of pressure [place] [facility] Heart rate 2021-07-06 19:00:00 54 /min Universi ty of [place] [facility] Oxygen saturation in 2021-07-06 19:00:00 100 /min University of Arterial blood by [facility] Pulse oximetry Branch Respiratory rate 2021-07-06 18:00:00 18 /min Univ ersity of [place] [facility] Body temperature 2021-07-06 14:24:00 36.72 Bisi Univ ersity of [place] [facility] Body weight 2021-07-06 14:24:00 107.049 kg [facility]i ty [facility] [place] [facility] BMI 2021-07-06 14:24:00 35.88 kg/m2 Universi ty [facility] [place] [facility] Systolic blood 2020-07-30 00:00:00 119 mm[Hg] Univer sity of pressure [place] [facility] Diastolic blood 2020-07-30 00:00:00 79 mm[Hg] Unive rsity of pressure [place] [facility] Heart rate 2020-07-30 00:00:00 84 /min [facility]i ty [facility] [place] [facility] Body temperature 2020-07-30 00:00:00 36.83 Bisi Univ ersity of [place] [facility] Respiratory rate 2020-07-30 00:00:00 22 /min Univ ersity of [place] [facility] Oxygen saturation in 2020-07-30 00:00:00 100 /min University of Arterial blood by [facility] Pulse oximetry Branch Body weight 2020-07-29 22:45:00 107.049 kg [facility]i ty [facility] [place] [facility] BMI 2020-07-29 22:45:00 35.88 kg/m2 [facility] [place] [facility] Systolic blood 2020-01-04 20:41:00 134 mm[Hg] Univer sity of pressure [place] [facility] Diastolic blood 2020-01-04 20:41:00 87 mm[Hg] Unive rsity of pressure [place] [facility] Heart rate 2020-01-04 20:41:00 91 /min Universi ty of [place] [facility] Body temperature 2020-01-04 20:41:00 37.22 Bisi Univ ersity of [place] [facility] Respiratory rate 2020-01-04 20:41:00 18 /min Univ ersity of [place] [facility] Body weight 2020-01-04 20:41:00 105.235 kg [facility] [place] [facility] BMI 2020-01-04 20:41:00 35.28 kg/m2 [facility] [place] [facility] Oxygen saturation in 2020-01-04 20:41:00 99 /min University of Arterial blood by [facility] Pulse oximetry Branch Oxygen saturation in 2019-05-13 15:45:00 99 /min University of Arterial blood by [facility] Pulse oxim[facility] Branch Systolic blood 2019-05-13 15:15:00 123 mm[Hg] Univer sity of pressure [place] [facility] Diastolic blood 2019-05-13 15:15:00 86 mm[Hg] Unive rsity of pressure [place] [facility] Heart rate 2019-05-13 15:15:00 74 /min [facility]i ty [facility] [place] [facility] Respiratory rate 2019-05-13 15:15:00 17 /min Univ ersity of [place] [facility] Body temperature 2019-05-13 14:00:00 36.22 Bisi Univ ersity of [place] [facility] Body height 2019-05-13 11:12:00 172.7 cm [facility] [place] [facility] Body weight 2019-05-13 11:12:00 109 kg [facility] [place] [facility] BMI 2019-05-13 11:12:00 36.54 kg/m2 [facility] [place] [facility] Systolic blood 2019-04-22 15:26:00 142 mm[Hg] Univer sity of pressure [place] [facility] Diastolic blood 2019-04-22 15:26:00 93 mm[Hg] Unive rsity of pressure [place] [facility] Heart rate 2019-04-22 15:26:00 72 /min Universi ty of [place] [facility] Body temperature 2019-04-22 15:26:00 35.28 Bisi Univ ersity of [place] [facility] Respiratory rate 2019-04-22 15:26:00 16 /min Univ ersity of [place] [facility] Body height 2019-04-22 15:26:00 172.7 cm [facility] [place] [facility] Body weight 2019-04-22 15:26:00 105.8 kg [facility] [place] [facility] BMI 2019-04-22 15:26:00 35.47 kg/m2 [facility] ty [facility] [place] [facility] Oxygen saturation in 2019-04-22 15:26:00 100 /min University Arterial blood by [facility] Pulse oximetry Branch Systolic blood 2019-04-21 15:07:00 120 mm[Hg] Univer sity of pressure [place] [facility] Diastolic blood 2019-04-21 15:07:00 82 mm[Hg] Unive rsity of pressure [place] [facility] Heart rate 2019-04-21 15:06:00 68 /min Universi ty of [place] [facility] [place] Body temperature 2019-04-21 15:06:00 36.67 Bisi Univ ersity of [facility] Respiratory rate 2019-04-21 15:06:00 16 /min Univ ersity of [place] [facility] [place] Body height 2019-04-21 15:06:00 172.7 cm Universi ty [facility] [place] [facility] Body weight 2019-04-21 15:06:00 106.369 kg [facility] ty [facility] [place] [facility] BMI 2019-04-21 15:06:00 35.66 kg/m2 [facility] [place] [facility] Systolic blood 2019-04-06 16:16:00 124 mm[Hg] Univer sity of pressure [place] [facility] Diastolic blood 2019-04-06 16:16:00 78 mm[Hg] Unive rsity of pressure [place] [facility] Heart rate 2019-04-06 16:11:00 87 /min [facility]i ty [facility] [place] [facility] Body temperature 2019-04-06 16:11:00 37.22 Bisi Univ ersity of [facility] Respiratory rate 2019-04-06 16:11:00 16 /min Univ ersity of [place] [facility] Body height 2019-04-06 16:11:00 172.7 cm [facility]i ty [facility] [place] [facility] Body weight 2019-04-06 16:11:00 110.791 kg [facility] [place] [facility] BMI 2019-04-06 16:11:00 37.14 kg/m2 [facility] [place] [facility] Systolic blood 2019-04-02 13:00:00 122 mm[Hg] Univer sity of pressure [facility] Diastolic blood 2019-04-02 13:00:00 78 mm[Hg] Unive rsity of pressure [place] [facility] Heart rate 2019-04-02 13:00:00 80 /min [facility] Body temperature 2019-04-02 13:00:00 36.61 Bisi [facility] Respiratory rate 2019-04-02 13:00:00 20 /min [facility] Oxygen saturation in 2019-04-02 13:00:00 99 /min University Arterial blood by [facility] Pulse oximetry Branch Procedures Procedure Date / Time Performing Clinician Source Performed US PELVIS COMPLETE WITH 2021-12-31 22:18:00 Cliff Thorne [facility] TRANSVAGINAL [facility] COMP. METABOLIC PANEL 2021-12-31 19:43:00 ThorneCliff duncan [facility] ([id number]) [facility] CBC WITH DIFF 2021-12-31 19:43:00 Thorne, [facility] URINALYSIS 2021-12-31 19:43:00 [place] [facility] ADC CLC OR LCC ONLY - 2021-12-31 19:43:00 Cliff Thorne [facility] WET PREP [facility] CONSENT/REFUSAL FOR 2021-12-31 18:24:53 Doctor Unassigned, No Un [facility] [place] DI[facility]NOSIS AND TREATMENT [facility] POCT TEST 2021-12-20 01:40:[address] [facility] URINALYSIS 2021-12-20 01:38:00 Leslie Lynn [facility] RAPID INFLUENZA A/B 2021-09-02 03:32:00 Sandra Blas [facility] COVID-19 (ID NOW RAPID 2021-09-02 03:32:00 Sandra Blas [facility] TESTING) Medical Branch CONSENT/REFUSAL FOR 2021-09-02 03:00:49 Doctor Unassigned, No Un [facility] [place] [facility]ATMENT Name Medical Branch CONSENT/REFUSAL FOR 2021-08-08 13:45:43 Doctor Unassigned, No Un [facility] [place] DIAGNOSIS AND TREATMENT [facility] Medical [place] EMERGENCY DEPARTMENT 2021-08-04 06:01:00 [facility]igned, [facility] CT SOFT TISSUE NECK W 2021-08-04 03:55:42 Chery Pompa [facility] CONTRAST Medical [place] TEST, SERUM 2021-08-04 03:36:00 [facility] [place] BASIC METABOLIC PANEL 2021-08-04 03:36:00 Chery Pompa [facility] (NA, K, CL, CO2, Medical Branch GLUCOSE, BUN, CREATININE, CA) CBC WITH DIFF 2021-08-04 03:36:00 Chery Pompa [facility] NOTICE OF PRIVACY 2021-08-04 02:57:07 Doctor Unassigned, No [facility] Name Medical Branch CONSENT/REFUSAL FOR 2021-08-04 02:55:44 Doctor Unassigned, No [facility] Name [facility] [place] RAPID STREP SCREEN FOR 2021-08-01 17:03:00 Cliff Thorne [facility] GROUP A Medical Branch CONSENT/REFUSAL FOR 2021-08-01 16:53:00 Doctor Unassigned, No [facility] Name Medical [place] CT ABDOMEN PELVIS W 2021-07-06 17:50:39 Ximena Santana [facility] CONTRAST Medical [place] US PELVIS COMPLETE WITH 2021-07-06 16:38:35 Ximena Santana [facility] TRANSVAGINAL Medical Branch POCT TEST 2021-07-06 14:34:00 Ximena Santana [facility] [place] LIPASE 2021-07-06 14:31:00 Ximena [facility] COMP. METABOLIC PANEL 2021-07-06 14:31:00 Ximena Santana [facility] ([id number]) Medical Branch CBC WITH DIFF 2021-07-06 14:31:00 Ximena Santana [facility] URINALYSIS 2021-07-06 14:31:00 Ximena [facility] COVID-19 (ID NOW RAPID 2021-07-06 14:31:00 [facility] Medical Branch NOTICE OF PRIVACY 2021-07-06 14:20:02 Doctor Unassigned, No Univ [facility] [place] [facility] Name Medical Branch CONSENT/REFUSAL FOR 2021-07-06 14:19:50 Doctor Unassigned, No [facility] [place] DI[facility] AND TREATMENT [facility] RAPID STREP SCREEN FOR 2020-07-29 23:28:00 [facility] POCT TEST 2020-07-29 23:01:00 Dimas Palomino [facility] NOTICE OF PRIVACY 2020-07-29 22:36:17 Doctor Unassigned, No [facility] CONSENT/REFUSAL FOR 2020-07-29 22:36:05 Doctor Unassigned, No [facility] INDIRECT ANTIGLOBULIN 2019-05-13 11:30:00 [facility] ASSIGNMENT OF BENEFITS 2019-05-13 09:55:52 Doctor Unassigned, No [facility] TYPE AND SCREEN 2019-04-22 15:52:00 [facility] WITH DIFFERENTIAL 2019-04-22 15:51:00 [facility] ASSIGNMENT OF BENEFITS 2019-04-22 15:15:47 Doctor Unassigned, No [facility] DAY SURGERY - [place] 2019-04-22 05:01:00 Doctor Unassigned, N o [facility] CBC WITH DIFFERENTIAL 2019-04-01 07:36:[address] [facility] VENOUS CORD GAS 2019-04-01 03:29:00 Jose Armando [facility] SECTION 2019-04-01 02:20:[address] [facility] URIC ACID 2019-04-01 02:06:00 Luke [facility] CBC WITH DIFFERENTIAL 2019-04-01 02:06:00 Luke Arreaga [facility] SGOT (ASPARTATE AMINO 2019-04-01 02:06:00 Luke Arreaga [facility] TRANSFER) Medical Branch CREATININE 2019-04-01 02:06:00 Whitley [facility] ALANINE AMINO 2019-04-01 02:06:00 [facility] TRANSFERASE(SGPT [facility] LACTATE DEHYDROGENASE 2019-04-01 02:06:[address] [facility] URINALYSIS 2019-04-01 02:05:00 Oconto [facility] PROTEIN CREAT RATIO 2019-04-01 02:05:00 Whitley hardeep [facility] URINE RANDOM [facility] CBC WITH DIFFERENTIAL 2019-03-31 16:13:00 Elsie, [facility] HEPATITIS B SURFACE 2019-03-31 16:13:00 Elsie, [facility] ANTIGEN [facility] GALV ONLY - SYPHILIS 2019-03-31 16:13:00 Elsie, [facility] IGG/IGM [facility] TYPE AND SCREEN 2019-03-31 15:54:00 Elsie, [facility] Encounters Start End Encounter Admission Attending Care Care Encounter Source Date/Time Date/Time Type Type Clinicians Facility Department ID 2021-07-07 Emergency [facility] [id number] Univers 07:04:42 [facility] 2021-07-05 Emergency [facility] [id number] Univers 23:03:26 [facility] 2021-12-31 2021-12-31 Emergency [facility] [id number] Univers 13:33:00 18:01:00 CLIFF chauhan [facility] 2021-12-31 2021-12-31 [email or web address] [id number] Univers 13:33:00 18:01:00 Cliff KAPLAN [id number] i ty [facility] [id number] [facility] [id number] [facility] 084 Branch 2021-12-19 2021-12-19 [facility] [id number] Univers 19:06:00 21:48:00 LESLIE [facility] 2021-12-19 2021-12-19 [facility] [id number] Univers 19:06:00 21:48:00 Leslie KAPLAN [id number] ity [facility] [id number] [facility] [id number] [place] [id number] [place] 2021-09-01 2021-09-01 Emergency X Sandra BLAS [facility] ERT [id number] Univers 21:27:00 23:45:00 ity of [facility] 2021-09-01 2021-09-01 Emergency Barry [facility] [id number] Univers 21:27:00 23:45:00 Marixa KAPLAN [id number] i ty of [place] [id number] [facility] [id number] [address] 2021-08-08 2021-08-08 Emergency X [facility] ERT [id number] Univers 07:49:00 08:30:00 CLIFF itashley [facility] 2021-08-08 2021-08-08 Emergency [facility] [id number] Univers 07:49:00 08:30:00 Cliff KAPLAN 350.1.13.10 i ty of [place] 4.2.7.2.[address] [place] [address] [phone] [facility] [address] [place] 2021-08-04 2021-08-04 Emergency [place], TRAUMA 1.2.840.114 [id number] Univers 00:53:00 02:30:00 Osito PEDRO 350.1.13.10 it y of 4.2.7.2.686 [facility] [phone] [facility] [address] 2021-08-04 2021-08-04 Orders Doctor KAREN 1.2.840.114 [id number] Univers 00:00:00 00:00:00 Only Unassigned, YENNI 350.1.13.10 ity of [place] [facility] 4.2.7.2.686 Chuy [phone] [facility] [address] 2021-08-03 2021-08-03 Emergency X JUAN M, [facility] ERT [id number] Univers 21:05:00 23:46:00 CHERY chauhan [facility] 2021-08-03 2021-08-03 Emergency X JUAN M, [facility] ERT [id number] Univers 21:05:00 23:46:00 CHERY chauhan [facility] 2021-08-03 2021-08-03 Emergency Juan M, [facility] 1.2.840.114 [id number] Univers 21:05:00 23:46:00 Chery KAPLAN 350.1.13.10 i ty of [place] 4.2.7.2.686 [facility] [phone] [address] 2021-08-01 2021-08-01 Emergency X [facility] ERT [id number] Univers 11:03:00 12:01:00 CLIFF chauhan [facility] 2021-08-01 2021-08-01 Emergency [facility] 1.2.750.875 [id number] Univers 11:03:00 12:01:00 Cliff KAPLAN 350.1.13.10 i ty of [place] 4.2.7.2.6 [facility] [phone] [address] 2021-08-01 2021-08-01 Orders Doctor JONES 1.2.840.114 [id number] Univers 00:00:00 00:00:00 Only UnassignedYENNI 350.1.13.10 ity of [place] [facility] 4.2.7.2.686 [place] [phone] [place] [address] [address] 2021-07-06 2021-07-06 [facility] [id number] Univers 09:23:00 14:05:00 XIMENA chauhan [facility] 2021-07-06 2021-07-06 [facility] 1.2.545.490 [id number] Univers 09:23:00 14:05:00 Ximena KAPLAN 350.1.13.10 i ty of [facility] 4.2.7.2.6 [facility] [id number] [address] 2021-07-06 2021-07-06 Orders Doctor JONES 1.2.840.114 [id number] Univers 00:00:00 00:00:00 Only Unassigned, YENNI 350.1.13.10 ity of [place] [facility]OSPITAL 4.2.7.2.686 [place] as [phone] [facility] [address] 2020-08-02 2020-08-02 Telephone KAREN Blackburn 1.2.739.290 [id number] Univers 00:00:00 00:00:00 Sravani BOSEY 350.1.13.10 it y of HOSPITAL 4.2.7.2.686 [place] [phone] [facility] [address] [place] 2020-07-29 2020-07-29 Emergency Ibun, [facility] 1.2.840.114 [id number] Univers 16:49:00 18:31:00 Dimas Kaplan 350.1.13.10 ity of [place] 4.2.7.2.686 [place] [facility] [phone] [facility] [address] 2020-07-29 2020-07-29 Orders Doctor KAREN 1.2.840.114 [id number] Univers 00:00:00 00:00:00 Only Unassigned, YENNI 350.1.13.10 ity of [place] HOSPITAL 4.2.7.2.686 [place] as [phone] [facility] [address] 2020-03-20 2020-03-20 Outpatient R GREER [facility] [id number] Univers 11:00:00 11:00:00 OMXANDEREMI ity of [facility] 2020-01-06 2020-01-06 Telephone Marquise [facility] 1.2.840.114 [id number] Univers 00:00:00 00:00:00 Dunia 350.1.13.10 ity of [place] 4.2.7.2.686 [place] [phone] dical nal [address] [place] [address] 2020-01-04 2020-01-04 Urgent Pob1, Acute Care Clinic [facility] 1. 2.840.114 [id number] Univers 15:27:21 15:47:21 Care Dunia [facility] 350.1 .13.10 ity of [place] 4.2.7.2.686 [place] as Professio [phone] [address] dical nal [address] [place] [address] 2020-01-04 2020-01-04 Outpatient R [facility] [id number] Univers 15:40:00 15:40:00 ity of [facility] 2019-05-13 2019-05-13 [facility] Bailee Muñoz 1.2.231.877 [id number] Univers 04:56:19 10:45:00 Encounter Chavez Hassan [place] 350.1.13.10 ity of Hospital 4.2.7.2.686 [place] as [phone] [facility] [address] 2019-05-13 2019-05-13 Orders Doctor KAREN 1.2.840.114 [id number] Univers 00:00:00 00:00:00 Only Unassigned, YENNI 350.1.13.10 ity of [place] HOSPITAL 4.2.7.2.686 [place] as [phone] [facility] [address] 2019-04-22 2019-04-22 [facility] Bailee Muñoz 1.2.226.709 [id number] Univers 10:17:00 13:55:00 Encounter Chavez Hassan [place] 350.1.13.10 ity of Hospital 4.2.7.2.686 [place] [phone] [facility] [address] 2019-04-22 2019-04-22 Orders Doctor KAREN 1.2.840.114 [id number] Univers 00:00:00 00:00:00 Only Unassigned, YENNI 350.1.13.10 ity of [place] HOSPITAL 4.2.7.2.686 [place] as [phone] [facility] [address] 2019-04-22 2019-04-22 Prep For CARISA Drew 1.2.840.114 [id number] Univers 00:00:00 00:00:00 Surgery Teodora Y HEALTH 350.1.13.10 i ty of [place] [facility] [place] [phone] [facility] [address] 2019-04-21 2019-04-21 Routine Santana [facility] 1.2.840.114 [id number] Univers 09:50:02 10:35:34 Velvet R PIPING DRAFTER 350.1.13.10 ity of Visit REGIONAL 4.2.7.2.686 [place] as MATERNAL [phone] Med ical & CHILD 107 [facility] 2019-04-06 2019-04-06 Nurse Visit, HallieRmchp Nurse [facility] 1.2 .840.114 [id number] Univers 10:43:43 11:33:58 Visit Miriam Shepherd [employer]ING [employer]RAFTER 350.1.13. 10 ity of [facility] 4.2.7.2.686 [place] as MATERNAL [phone] [facility] ical & CHILD 107 [facility] 2019-03-31 2019-04-02 [facility] KAREN Navarro 1.2.840.114 [id number] Univers 09:36:00 15:52:00 Encounter Hope YENNI 350.1.13.10 ity [facility] 4.2.7.2.686 [place] as [phone] [facility] [address] [place] [address] 2019-04-02 2019-04-02 Prep For CARISA Adams 1.2.840.114 [id number] Univers 00:00:00 00:00:00 Surgery [facility] 350.1.13.10 i ty of [facility] [place].2.[place] [phone] [facility] [address] [place] Results Test Description Test Time Test Comments Results Result Comments Source COMP. METABOLIC PANEL (15821) 2021-12-31 20:15:18 Test Item Value Reference Range Interpretation Comme nts NA (test code = 7723044003) 140 mmol/L 135-145 K (test code = 8184284428) 3.7 mmol/L 3.5-5.0 CL (test code = 5350036989) 103 mmol/L 98-108 CO2 TOTAL (test code = 6935229386) 29 mmol/L 23-31 AGAP (test code = 2670521879) 2-16 BUN (test code = 1503041598) 13 mg/dL 7-23 GLUCOSE (test code = 9043977344) 75 mg/dL 70-110 CREATININE (test code = 0.93 mg/dL 0.50-1.04 4957703766) TOTAL BILI (test code = 0.4 mg/dL 0.1-1.7 4924685437) CALCIUM (test code = 9925809733) 8.5 mg/dL 8.6-10.6 L T PROTEIN (test code = 3699017636) 8.1 g/dL 6.3-8.2 ALBUMIN (test code = 3500328605) 4.3 g/dL 3.5-5.0 ALK PHOS (test code = 9798860130) 80 U/L 34-122 ALTv (test code = 1742-6) 15 U/L 5-35 AST(SGOT) (test code = 2199736566) 29 U/L 13-40 eGFR (test code = 4198081968) mL/min/1.73m2 SANGITA (test code = SANGITA) Association of Glomerular Filtration Rate (GFR) and Staging of Kidney Disease* + +-------- + ------+| GFR (mL/min/1.73 m2) ?| With Kidney Damage ?| ?Without Kidney Damage+ +-- + +| ?>90 ?| ?Stage one ?| ? Normal ?+ +------- + -------+| ?60-89 ?| ?Stage two ?| ? Decreased GFR ? + +-------- + ------+| ?30-59 ?| ?Stage three ?| ? Stage three ? + +-------- + ------+| ?15-29 ?| ?Stage four ? | ? Stage four ?+ +------- + -------+| ?<15 (or dialysis) ? ?| ?Stage five ? | ? Stage five ?+ +------- + -------+ *Each stage assumes the associated GFR level has been in effect for at least three months. ?Stages 1 to 5, with or without kidney disease, indicate chronic kidney disease. Notes: Determination of stages one and two (with eGFR >59mL/min/1.73 m2) requires estimation of kidney damage for at least three months as defined by structural or functional abnormalities of the kidney, manifested by either:Pathological abnormalities or Markers of kidney damage (including abnormalities in the composition of the blood or urine or abnormalities in imaging tests). Lab Interpretation (test code = Abnormal 90825-2) General acute hospital WITH [id number] 19:53:31 Test Item Value Reference Range Interpretation Comments WBC (test code = See_Comment [Automated 4990-2) message] The sy stem which generated this result transmitted reference range : 4.30 - 11.10 10*3/?L. The reference range was not used to interpret this result as normal/abnormal . RBC (test code = See_Comment [Automated 789-8) message] The sy stem which generated this result transmitted reference range : 3.93 - 5.25 10*6/?L. The reference range was not used to interpret this result as normal/abnormal . HGB (test code = 9.7 g/dL 11.6-15.0 L 718-7) HCT (test code = 32.3 % 35.7-45.2 L 4544-3) MCV (test code = 76.0 fL 80.6-95.5 L 787-2) MCH (test code = 22.8 pg 25.9-32.8 L 785-6) MCHC (test code = 30.0 g/dL 31.6-35.1 L 786-4) RDW-SD (test code = 50.2 fL 39.0-49.9 H 83883-8) RDW-CV (test code = 18.1 % 12.0-15.5 H 788-0) PLT (test code = See_Comment H [Automated 777-3) message] The sy stem which generated this result transmitted reference range : 166 - 358 10*3/ ?L. The reference r naty was not used to interpret this result as normal/abnormal . MPV (test code = 9.8 fL 9.5-12.9 13694-5) NRBC/100 WBC (test See_Comment [Automat ed code = 4353745009) message] The system which generated this result transmitted reference range : 0.0 - 10.0 /100 WBCs. The refer ence range was not u sed to interpret th is result as normal/abnormal . NRBC x10^3 (test code <0.01 See_Comment [Auto mated = 0854116778) message] The s ystem which generated this result transmitted reference range : 10*3/?L. The reference range was not used to interpret this result as normal/abnormal . GRAN MAT (NEUT) % 51.2 % (test code = 770-8) IMM GRAN % (test code 0.20 % = 9796171412) LYMPH % (test code = 36.1 % 736-9) MONO % (test code = 9.4 % 5905-5) EOS % (test code = 2.4 % 713-8) BASO % (test code = 0.7 % 706-2) GRAN MAT x10^3(ANC) 2.95 10*3/uL 1.88-7.09 (test code = 7783015654) IMM GRAN x10^3 (test <0.03 0.00-0.06 code = 3500113820) LYMPH x10^3 (test code 2.08 10*3/uL 1.32-3.29 = 731-0) MONO x10^3 (test code 0.54 10*3/uL 0.33-0.92 = 742-7) EOS x10^3 (test code = 0.14 10*3/uL 0.03-0.39 711-2) BASO x10^3 (test code 0.04 10*3/uL 0.01-0.07 = 704-7) Lab Interpretation Abnormal (test code = 86726-8) [id number] 01:40:00 Test Item Value Reference Range Interpretation Comments POCT PREG (test code = 1605) negative On board controls acceptable with present C Line (test code = 3574) POCT PREG LOT # (test code = 3575) [id number] POCT PREG TEST DATE (test code = 3576) Lab Interpretation (test code = Normal 40402-2) [facility], [id number] 03:59:03 Test Item Value Reference Range Interpretation Comments PREG SERUM (test code Negative = 2205610106) SANGITA (test code = SANGITA) Less than 10 IU/L. ?If low titer or ectopic is suspected, resubmit specimen in 48-72 hours. [facility] METABOLIC PANEL (NA, K, CL, CO2, GLUCOSE, BUN, CREATININE, CA)2021-08-04 03:55:47 Test Item Value Reference Range Interpretation Comments NA (test code = 135 mmol/L 135-145 6561447283) K (test code = 4.8 mmol/L 3.5-5.0 7009676309) CL (test code = 102 mmol/L 98-108 2767853114) CO2 TOTAL (test code = 25 mmol/L 23-31 5691413277) AGAP (test code = 2-16 9225112228) BUN (test code = 12 mg/dL 7-23 0117065781) GLUCOSE (test code = 129 mg/dL 70-110 H 1517176590) CREATININE (test code = 0.70 mg/dL 0.50-1.04 0645825004) CALCIUM (test code = 9.1 mg/dL 8.6-10.6 8756786929) eGFR (test code = mL/min/1.73m2 7834966002) SANGITA (test code = SANGITA) Association of Glomerular Filtration Rate (GFR) and Staging of Kidney Disease* + --+ --+ ------+| GFR (mL/min/1.73 m2) ?| With Kidney Damage ?| ?Without Kidney Damage+ --------+ --------+ +| ?>90 ?| ?Stage one ?| ? Normal ?+ ---+ ---+ -------+| ?60-89 ?| ?Stage two ?| ? Decreased GFR ? + --+ --+ ------+| ?30-59 ?| ?Stage three ?| ? Stage three ? + --+ --+ ------+| ?15-29 ?| ?Stage four ? | ? Stage four ?+ ---+ ---+ -------+| ?<15 (or dialysis) ? ?| ?Stage five ? | ? Stage five ?+ ---+ ---+ -------+ *Each stage assumes the associated GFR level has been in effect for at least three months. ?Stages 1 to 5, with or without kidney disease, indicate chronic kidney disease. Notes: Determination of stages one and two (with eGFR >59mL/min/1.73 m2) requires estimation of kidney damage for at least three months as defined by structural or functional abnormalities of the kidney, manifested by either:Pathological abnormalities or Markers of kidney damage (including abnormalities in the composition of the blood or urine or abnormalities in imaging tests). Lab Interpretation Abnormal (test code = 06429-6) General acute hospital WITH [id number] 03:44:45 Test Item Value Reference Range Interpretation Comments WBC (test code = See_Comment [Automated 6690-2) message] The sy stem which generated this result transmitted reference range : 4.30 - 11.10 10*3/?L. The reference range was not used to interpret this result as normal/abnormal . RBC (test code = See_Comment [Automated 789-8) message] The sy stem which generated this result transmitted reference range : 3.93 - 5.25 10*6/?L. The reference range was not used to interpret this result as normal/abnormal . HGB (test code = 9.6 g/dL 11.6-15.0 L 718-7) HCT (test code = 31.1 % 35.7-45.2 L 4544-3) MCV (test code = 76.4 fL 80.6-95.5 L 787-2) MCH (test code = 23.6 pg 25.9-32.8 L 785-6) MCHC (test code = 30.9 g/dL 31.6-35.1 L 786-4) RDW-SD (test code = 45.8 fL 39.0-49.9 66318-9) RDW-CV (test code = 16.6 % 12.0-15.5 H 788-0) PLT (test code = See_Comment [Automated 777-3) message] The sy stem which generated this result transmitted reference range : 166 - 358 10*3/ ?L. The reference r naty was not used to interpret this result as normal/abnormal . MPV (test code = 9.7 fL 9.5-12.9 04773-6) NRBC/100 WBC (test See_Comment [Automat ed code = 9589926569) message] The system which generated this result transmitted reference range : 0.0 - 10.0 /100 WBCs. The refer ence range was not u sed to interpret th is result as normal/abnormal . NRBC x10^3 (test code <0.01 See_Comment [Auto mated = 8544344547) message] The s ystem which generated this result transmitted reference range : 10*3/?L. The reference range was not used to interpret this result as normal/abnormal . GRAN MAT (NEUT) % 49.9 % (test code = 770-8) IMM GRAN % (test code 0.20 % = 6281846354) LYMPH % (test code = 38.3 % 736-9) MONO % (test code = 9.2 % 5905-5) EOS % (test code = 1.7 % 713-8) BASO % (test code = 0.7 % 706-2) GRAN MAT x10^3(ANC) 3.00 10*3/uL 1.88-7.09 (test code = 2343240414) IMM GRAN x10^3 (test <0.03 0.00-0.06 code = 6974194135) LYMPH x10^3 (test code 2.30 10*3/uL 1.32-3.29 = 731-0) MONO x10^3 (test code 0.55 10*3/uL 0.33-0.92 = 742-7) EOS x10^3 (test code = 0.10 10*3/uL 0.03-0.39 711-2) BASO x10^3 (test code 0.04 10*3/uL 0.01-0.07 = 704-7) Lab Interpretation Abnormal (test code = 58390-1) [facility] Metabolic [id number] 14:54:39 Test Item Value Reference Range Interpretation Comments NA (test code = 137 mmol/L 135-145 1770955504) K (test code = 3.8 mmol/L 3.5-5.0 6014923418) CL (test code = 105 mmol/L 98-108 5936703288) CO2 TOTAL (test code = 25 mmol/L 23-31 5306684513) AGAP (test code = 2-16 0222421013) BUN (test code = 9 mg/dL 7-23 9816203692) GLUCOSE (test code = 126 mg/dL 70-110 H 9350359341) CREATININE (test code = 0.76 mg/dL 0.50-1.04 0402495213) TOTAL BILI (test code = 0.4 mg/dL 0.1-1.1 4336715750) CALCIUM (test code = 9.1 mg/dL 8.6-10.6 7372805684) T PROTEIN (test code = 7.5 g/dL 6.3-8.2 1951735891) ALBUMIN (test code = 4.0 g/dL 3.5-5.0 5262068894) ALK PHOS (test code = 68 U/L 34-122 1567739269) ALTv (test code = 13 U/L 5-35 1742-6) AST(SGOT) (test code = 23 U/L 13-40 2425577647) eGFR (test code = mL/min/1.73m2 7610470223) SANGITA (test code = SANGITA) Association of Glomerular Filtration Rate (GFR) and Staging of Kidney Disease* + --+ --+ ------+| GFR (mL/min/1.73 m2) ?| With Kidney Damage ?| ?Without Kidney Damage+ --------+ --------+ +| ?>90 ?| ?Stage one ?| ? Normal ?+ ---+ ---+ -------+| ?60-89 ?| ?Stage two ?| ? Decreased GFR ? + --+ --+ ------+| ?30-59 ?| ?Stage three ?| ? Stage three ? + --+ --+ ------+| ?15-29 ?| ?Stage four ? | ? Stage four ?+ ---+ ---+ -------+| ?<15 (or dialysis) ? ?| ?Stage five ? | ? Stage five ?+ ---+ ---+ -------+ *Each stage assumes the associated GFR level has been in effect for at least three months. ?Stages 1 to 5, with or without kidney disease, indicate chronic kidney disease. Notes: Determination of stages one and two (with eGFR >59mL/min/1.73 m2) requires estimation of kidney damage for at least three months as defined by structural or functional abnormalities of the kidney, manifested by either:Pathological abnormalities or Markers of kidney damage (including abnormalities in the composition of the blood or urine or abnormalities in imaging tests). Lab Interpretation Abnormal (test code = 75880-4) [facility] CenterLip[facility], [id number] 14:54:38 Test Item Value Reference Range Interpretation Comments LIPASE (test code = 8478454594) 78 U/L 0-220 Lab Interpretation (test code = Normal 15534-8) [facility] with [id number] 14:41:38 Test Item Value Reference Range Interpretation Comments WBC (test code = See_Comment [Automated 6690-2) message] The sy stem which generated this result transmitted reference range : 4.30 - 11.10 10*3/?L. The reference range was not used to interpret this result as normal/abnormal . RBC (test code = See_Comment [Automated 789-8) message] The sy stem which generated this result transmitted reference range : 3.93 - 5.25 10*6/?L. The reference range was not used to interpret this result as normal/abnormal . HGB (test code = 9.6 g/dL 11.6-15.0 L 718-7) HCT (test code = 31.4 % 35.7-45.2 L 4544-3) MCV (test code = 76.2 fL 80.6-95.5 L 787-2) MCH (test code = 23.3 pg 25.9-32.8 L 785-6) MCHC (test code = 30.6 g/dL 31.6-35.1 L 786-4) RDW-SD (test code = 46.2 fL 39.0-49.9 46690-4) RDW-CV (test code = 16.8 % 12.0-15.5 H 788-0) PLT (test code = See_Comment [Automated 777-3) message] The sy stem which generated this result transmitted reference range : 166 - 358 10*3/ ?L. The reference r naty was not used to interpret this result as normal/abnormal . MPV (test code = 9.7 fL 9.5-12.9 85899-5) NRBC/100 WBC (test See_Comment [Automat ed code = 1618221395) message] The system which generated this result transmitted reference range : 0.0 - 10.0 /100 WBCs. The refer ence range was not u sed to interpret th is result as normal/abnormal . NRBC x10^3 (test code <0.01 See_Comment [Auto mated = 3158480886) message] The s ystem which generated this result transmitted reference range : 10*3/?L. The reference range was not used to interpret this result as normal/abnormal . GRAN MAT (NEUT) % 50.0 % (test code = 770-8) IMM GRAN % (test code 0.20 % = 8354364243) LYMPH % (test code = 39.3 % 736-9) MONO % (test code = 7.1 % 5905-5) EOS % (test code = 2.8 % 713-8) BASO % (test code = 0.6 % 706-2) GRAN MAT x10^3(ANC) 2.67 10*3/uL 1.88-7.09 (test code = 5682211445) IMM GRAN x10^3 (test <0.03 0.00-0.06 code = 5906942138) LYMPH x10^3 (test code 2.10 10*3/uL 1.32-3.29 = 731-0) MONO x10^3 (test code 0.38 10*3/uL 0.33-0.92 = 742-7) EOS x10^3 (test code = 0.15 10*3/uL 0.03-0.39 711-2) BASO x10^3 (test code 0.03 10*3/uL 0.01-0.07 = 704-7) Lab Interpretation Abnormal (test code = 45314-2) [facility] [id number] 14:34:00 Test Item Value Reference Range Interpretation Comments POCT PREG (test code = 1605) negative On board controls acceptable with present C Line (test code = 3574) POCT PREG LOT # (test code = 3575) [id number] POCT PREG TEST DATE (test code = 3576) Lab Interpretation (test code = Normal 20614-2) [facility] STREP SCREEN FOR GROUP [id number] 23:58:00 Test Item Value Reference Range Interpretation Comments Streptococcus pyogenes (group A) Positive Negative A antigen (test code = 39480-2) Lab Interpretation (test code = Abnormal 73215-4) [facility] [id number] 23:01:00 Test Item Value Reference Range Interpretation Comments POCT PREG (test code = 1605) negative POCT PREG LOT # (test code = 3575) [id number] POCT PREG TEST DATE (test 01/05/2022 code = 3576) Lab Interpretation (test code = Normal 82700-8) [facility] CenterINDIRECT ANTIGLOBULIN [id number] 13:02:18 Test Item Value Reference Range Interpretation Comments IAT (test code = Negative Performed a t [facility] 1185) Laboratory Serv [facility] Blood [address] [place], [place] [address]Swop Free: [phone] A No. [id number] [facility] CenterCBC WITH [id number] 16:43:00 Test Item Value Reference Range Interpretation Comments WBC (test code = See_Comment L [Automated 6690-2) message] The sy stem which generated this result transmitted reference range : 4.30 - 11.10 10*3/?L. The reference range was not used to interpret this result as normal/abnormal . RBC (test code = See_Comment [Automated 789-8) message] The sy stem which generated this result transmitted reference range : 3.93 - 5.25 10*6/?L. The reference range was not used to interpret this result as normal/abnormal . HGB (test code = 10.6 g/dL 11.6-15 L 718-7) HCT (test code = 36.1 % 35.7-45.2 4544-3) MCV (test code = 78.5 fL 80.6-95.5 L 787-2) MCH (test code = 23.0 pg 25.9-32.8 L 785-6) MCHC (test code = 29.4 g/dL 31.6-35.1 L 786-4) RDW-SD (test code = 54.3 fL 39-49.9 H 75650-2) RDW-CV (test code = 19.1 % 12-15.5 H 788-0) PLT (test code = See_Comment [Automated 777-3) message] The sy stem which generated this result transmitted reference range : 166 - 358 10*3/ ?L. The reference r naty was not used to interpret this result as normal/abnormal . MPV (test code = 11.1 fL 9.5-12.9 85516-5) NRBC/100 WBC (test See_Comment [Automat ed code = 3954388548) message] The system which generated this result transmitted reference range : 0.0 - 10.0 /100 WBCs. The refer ence range was not u sed to interpret th is result as normal/abnormal . NRBC x10^3 (test code <0.01 See_Comment [Auto mated = 5940431937) message] The s ystem which generated this result transmitted reference range : 10*3/?L. The reference range was not used to interpret this result as normal/abnormal . GRAN MAT (NEUT) % 39.5 % (test code = 770-8) IMM GRAN % (test code 0.00 % = 3289630028) LYMPH % (test code = 48.6 % 736-9) MONO % (test code = 7.7 % 5905-5) EOS % (test code = 2.9 % 713-8) BASO % (test code = 1.3 % 706-2) GRAN MAT x10^3(ANC) 1.23 10*3/uL 1.88-7.09 L (test code = 4925132984) IMM GRAN x10^3 (test <0.03 0-0.06 code = [id number]) LYMPH x10^3 (test code 1.51 10*3/uL 1.32-3.29 = 731-0) MONO x10^3 (test code 0.24 10*3/uL 0.33-0.92 L = 742-7) EOS x10^3 (test code = 0.09 10*3/uL 0.03-0.39 711-2) BASO x10^3 (test code 0.04 10*3/uL 0.01-0.07 = 704-7) ELLIPTO/OVAL (test 2+ See_Comment A [Automat ed code = 13016-4) message] The system which generated this result transmitted reference range : (none). The reference range was not used to interpret this result as normal/abnormal . Lab Interpretation Abnormal (test code = 39314-4) [facility] The Type and Screen expires at midnight on the 3rd day after it was drawn. A current Type and Screen is required when RBCs are requested. For all other blood products, a Type and Scree n performed during the current hospitalizati...2019-04-22 16:35:07 Test Item Value Reference Range Interpretation Comments ABO & RH (test code O POSITIVE Performe d at [facility] = 20) Laboratory Serv Elizabeth Mason [facility]3 [address] [facility] [place] [id number] Free: [phone] A No. [id number] IAT (test code = Negative Performed a t [facility] 1185) Laboratory Serv [facility]3 [address] [facility] [place] [id number] Free: [phone] A No. [id number] [facility] - SYPHILIS [id number] 14:50:00 Test Item Value Reference Range Interpretation Comments Syphilis IgG/IgM (test Non-reactive Non-reactive code = 91212-0) SANGITA (test code = SANGITA) Non-reactive - No serologic evidence of T. pallidum infection. Cannot exclude incubating or early syphilis. Submit a second specimen in 2-4 weeks if syphilis is clinically suspected.Equivocal - Further testing to follow.Reactive - Further testing to follow. Lab Interpretation (test Normal code = 72187-7) [facility]CB WITH [id number] 07:57:00 Test Item Value Reference Range Interpretation Comments WBC (test code = See_Comment [Automated 6090-2) message] The sy stem which generated this result transmitted reference range : 4.30 - 11.10 10*3/?L. The reference range was not used to interpret this result as normal/abnormal . RBC (test code = See_Comment L [Automated 589-8) message] The sy stem which generated this result transmitted reference range : 3.93 - 5.25 10*6/?L. The reference range was not used to interpret this result as normal/abnormal . HGB (test code = 7.9 g/dL 11.6-15 L 718-7) HCT (test code = 27.1 % 35.7-45.2 L 4544-3) MCV (test code = 79.9 fL 80.6-95.5 L 787-2) MCH (test code = 23.3 pg 25.9-32.8 L 785-6) MCHC (test code = 29.2 g/dL 31.6-35.1 L 786-4) RDW-SD (test code = 56.2 fL 39-49.9 H 48570-7) RDW-CV (test code = 19.7 % 12-15.5 H 788-0) PLT (test code = See_Comment L [Automated 777-3) message] The sy stem which generated this result transmitted reference range : 166 - 358 10*3/ ?L. The reference r naty was not used to interpret this result as normal/abnormal . MPV (test code = 10.3 fL 9.5-12.9 08883-4) NRBC/100 WBC (test See_Comment [Automat ed code = 4219339347) message] The system which generated this result transmitted reference range : 0.0 - 10.0 /100 WBCs. The refer ence range was not u sed to interpret th is result as normal/abnormal . NRBC x10^3 (test code <0.01 See_Comment [Auto mated = 7751108982) message] The s ystem which generated this result transmitted reference range : 10*3/?L. The reference range was not used to interpret this result as normal/abnormal . GRAN MAT (NEUT) % 76.9 % (test code = 770-8) IMM GRAN % (test code 0.60 % = 6724542305) LYMPH % (test code = 14.2 % 736-9) MONO % (test code = 7.6 % 5905-5) EOS % (test code = 0.3 % 713-8) BASO % (test code = 0.4 % 706-2) GRAN MAT x10^3(ANC) 5.96 10*3/uL 1.88-7.09 (test code = 2692091182) IMM GRAN x10^3 (test 0.05 10*3/uL 0-0.06 code = 2252761793) LYMPH x10^3 (test code 1.10 10*3/uL 1.32-3.29 L = 731-0) MONO x10^3 (test code 0.59 10*3/uL 0.33-0.92 = 742-7) EOS x10^3 (test code = <0.03 0.03-0.39 L 711-2) BASO x10^3 (test code 0.03 10*3/uL 0.01-0.07 = 704-7) Lab Interpretation Abnormal (test code = 82524-1) [facility] CenterARTER[facility] CORD [id number] 03:33:00 Test Item Value Reference Range Interpretation Comments BASE EXCESS, CORD mEq/L (test code = 7675110538) AC PH, CORD (BEAKER) 7.18-7.38 (test code = 3914821796) PC02, CORD (test code See_Comment [Auto mated message] The = 2251139061) system which g enerated this result transmit mercedez reference range : 32 - 66 mmHg. The refer ence range was not used to interpret this result as normal/abnormal . PO2, CORD (test code See_Comment [Autom ated message] The = 5933742225) system which g enerated this result transmit mercedez reference range : 10 - 30 mmHg. The refer ence range was not used to interpret this result as normal/abnormal . BICARBONATE, CORD See_Comment [Automate d message] The (test code = system which ge nerated this 6646099648) result transmit merced[place] reference range : 17 - 27 mEq/L. The refe rence range was not used to interpret this result as normal/abnormal . [facility] [id number] 03:31:00 Test Item Value Reference Range Interpretation Comments VENOUS BASE EXCESS, mEq/L CORD (test code = 8668763489) VENOUS PH, CORD (test 7.25-7.45 code = 8015877131) VENOUS PC02, CORD See_Comment [Automate d message] The (test code = system which ge nerated 2600547359) this result tra nsmitted reference range : 27 - 49 mmHg. The refer ence range was not used to interpret this result as normal/abnormal . VENOUS PO2, CORD (test See_Comment [Aut omated message] The code = 5029182599) system [facility] generated this result tra nsmitted reference range : 17 - 41 mmHg. The refer ence range was not used to interpret this result as normal/abnormal . VENOUS BICARBONATE, See_Comment [Automa mercedez message] The CORD (test code = system wh ch generated 0486720386) this result tra nsmitted reference range : 12 - 29 mEq/L. The refe rence range was not used to interpret this result as normal/abnormal . [facility] CenterUrinalysis2019-07-25 03:13:00 Test Item Value Reference Range Interpretation Comments APPEARANCE (test code = Hazy Clear A 8947909229) COLOR (test code = Yellow Yellow 1656489429) PH (test code = 4.8-8.0 0455029061) SP GRAVITY (test code = 1.003-1.030 4228175244) GLU U QUAL (test code = Normal Normal 6386233898) BLOOD (test code = 1+ Negative A 7077410059) KETONES (test code = 80 mg/dL Negative A 5437743131) PROTEIN (test code = 30 mg/dL Negative A 2887-8) UROBILIN (test code = 4.0 mg/dL Normal A 5301448509) BILIRUBIN (test code = Negative Negative 8016892225) NITRITE (test code = Negative Negative 7224793323) LEUK ALPHONSO (test code = 250/uL Negative A 2150366936) RBC/HPF (test code = See_Comment H [Autom ated message] 5946571054) The system [employer] generated this result transmit mercedez reference range : 0 - 3 HPF. The refe rence range was not u sed to interpret th is result as normal/abnormal . WBC/HPF (test code = See_Comment H [Autom ated message] 3648170917) The system [employer] generated this result transmit mercedez reference range : 0 - 5 HPF. The refe rence range was not u sed to interpret th is result as normal/abnormal . BACTERIA (test code = Negative Negative 6688659765) MUCOUS (test code = Slight Negative LPF A 4650713707) SQ EPITH (test code = See_Comment [Auto mated message] 4512046089) The system [employer] generated this result transmit merced[place] reference range : <=2 HPF. The refere nce range was not u sed to interpret th is result as normal/abnormal . YEAST BUD (test code = <1 See_Comment [Aut omated message] 0319026631) The system [employer] generated this result transmit mercedez reference range : <=1 HPF. The refere nce range was not u sed to interpret th is result as normal/abnormal . Lab Interpretation (test Abnormal code = 46891-3) [facility] CenterUric Acid [id number] 02:58:00 Test Item Value Reference Range Interpretation Comments URIC ACID (test code = 2417493021) 4.9 mg/dL 2.9-6 Lab Interpretation (test code = Normal 44820-9) [facility] CenterSerum [id number] 02:58:00 Test Item Value Reference Range Interpretation Comments CREATININE (test code 0.54 mg/dL 0.5-1.04 = 2561823893) eGFR Calculation mL/min/1.73m2 (Non-) (test code = 9045329675) eGFR Calculation mL/min/1.73m2 () (test code = 6749724606) SANGITA (test code = SANGITA) Association of Glomerular Filtration Rate (GFR) and Staging of Kidney Disease*+ ---------+ --------+ +| GFR (mL/min/1.73 m2)?| With Kidney Damage?|?Without Kidney Damage+ -------+ ------+ ---------+|?>90?|?Stage one?|? Normal?+ --------+ -------+ +|?60-89?|?St age two?|? Decreased GFR? + -+ + ---+|?30-59?|?Stage three?|? Stage three? + -+ + ---+|?15-29?|?Stage four? |? Stage four?+ ------+ -----+ --------+|?<15 (or dialysis)?|?Stage five? |? Stage five?+ ------+ -----+ --------+*Each stage assumes the associated GFR level has been in effect for at least three months.?Stages 1 to 5, with or without kidney disease, indicate chronic kidney disease.Notes: Determination of stages one and two (with eGFR >59mL/min/1.73 m2) requires estimation of kidney damage for at least three months as defined by structural or functional abnormalities of the kidney, manifested by either:Pathological abnormalities or Markers of kidney damage (including abnormalities in the composition of the blood or urine or abnormalities in imaging tests). [facility] CenterSGOT (Asparate Amino Transfer)2019-04-01 02:58:00 Test Item Value Reference Range Interpretation Comments AST(SGOT) (test code = 7748135259) 28 U/L 13-40 Lab Interpretation (test code = Normal 89691-5) [facility] CenterAlanine Amino Transferase (SGPT)2019-04-01 02:58:00 Test Item Value Reference Range Interpretation Comments ALT(SGPT) (test code = 1997675492) 22 U/L 9-51 Lab Interpretation (test code = Normal 83331-7) [facility] CenterLactate [id number] 02:58:00 Test Item Value Reference Range Interpretation Comments LDH (test code = 9665736459) 597 U/L 300-600 Lab Interpretation (test code = Normal 35232-2) [facility] CenterProtein CREAT Ratio Urine [id number] 02:24:00 Test Item Value Reference Range Interpretation Comments T. PROT U (test code = 2888-6) 31 mg/dL CREAT U (test code = 7614685640) 132.3 mg/dL Protein/Creatinine Ratio Urine 0.0-2.0 (test code = 4206909962) [facility] CenterCBC WITH [id number] 02:17:00 Test Item Value Reference Range Interpretation Comments WBC (test code = See_Comment [Automated 7590-2) message] The sy stem which generated this result transmitted reference range : 4.30 - 11.10 10*3/?L. The reference range was not used to interpret this result as normal/abnormal . RBC (test code = See_Comment [Automated 789-8) message] The sy stem which generated this result transmitted reference range : 3.93 - 5.25 10*6/?L. The reference range was not used to interpret this result as normal/abnormal . HGB (test code = 9.4 g/dL 11.6-15 L 718-7) HCT (test code = 33.1 % 35.7-45.2 L 4544-3) MCV (test code = 81.1 fL 80.6-95.5 787-2) MCH (test code = 23.0 pg 25.9-32.8 L 785-6) MCHC (test code = 28.4 g/dL 31.6-35.1 L 786-4) RDW-SD (test code = 57.6 fL 39-49.9 H 21001-6) RDW-CV (test code = 20.3 % 12-15.5 H 788-0) PLT (test code = See_Comment L [Automated 777-3) message] The sy stem which generated this result transmitted reference range : 166 - 358 10*3/ ?L. The reference r naty was not used to interpret this result as normal/abnormal . MPV (test code = 10.8 fL 9.5-12.9 84148-9) NRBC/100 WBC (test See_Comment [Automat ed code = 7000914292) message] The system which generated this result transmitted reference range : 0.0 - 10.0 /100 WBCs. The refer ence range was not u sed to interpret th is result as normal/abnormal . NRBC x10^3 (test code <0.01 See_Comment [Auto mated = 2330079790) message] The s ystem which generated this result transmitted reference range : 10*3/?L. The reference range was not used to interpret this result as normal/abnormal . GRAN MAT (NEUT) % 77.0 % (test code = 770-8) IMM GRAN % (test code 0.30 % = 4049953191) LYMPH % (test code = 14.7 % 736-9) MONO % (test code = 7.2 % 5905-5) EOS % (test code = 0.3 % 713-8) BASO % (test code = 0.5 % 706-2) GRAN MAT x10^3(ANC) 6.70 10*3/uL 1.88-7.09 (test code = 6627502864) IMM GRAN x10^3 (test 0.03 10*3/uL 0-0.06 code = 6279002395) LYMPH x10^3 (test code 1.28 10*3/uL 1.32-3.29 L = 731-0) MONO x10^3 (test code 0.63 10*3/uL 0.33-0.92 = 742-7) EOS x10^3 (test code = 0.03 10*3/uL 0.03-0.39 711-2) BASO x10^3 (test code 0.04 10*3/uL 0.01-0.07 = 704-7) Lab Interpretation Abnormal (test code = 69103-8) [facility] CenterHepatitis B Surface [id number] 17:46:00 Test Item Value Reference Range Interpretation Comments HBsAg Semi-Quantitative (test code = 5195-3) [facility] CenterType and Screen - ONCE [id number] 17:23:20 Test Item Value Reference Range Interpretation Comments ABO & RH (test code O POSITIVE Performe d at [facility] = 20) Laboratory Serv [facility]3 [address] [facility] s [id number] Free: [phone] A No. [id number] IAT (test code = Negative Performed a t [facility] 1185) Laboratory Serv [facility] Blood [facility]3 [address] [facility] s [id number] Free: [phone] A No. [id number] [facility] CenterCBC WITH [id number] 16:41:00 Test Item Value Reference Range Interpretation Comments WBC (test code = See_Comment [Automated 6690-2) message] The sy stem which generated this result transmitted reference range : 4.30 - 11.10 10*3/?L. The reference range was not used to interpret this result as normal/abnormal . RBC (test code = See_Comment L [Automated 789-8) message] The sy stem which generated this result transmitted reference range : 3.93 - 5.25 10*6/?L. The reference range was not used to interpret this result as normal/abnormal . HGB (test code = 8.3 g/dL 11.6-15 L 718-7) HCT (test code = 27.8 % 35.7-45.2 L 4544-3) MCV (test code = 78.8 fL 80.6-95.5 L 787-2) MCH (test code = 23.5 pg 25.9-32.8 L 785-6) MCHC (test code = 29.9 g/dL 31.6-35.1 L 786-4) RDW-SD (test code = 55.9 fL 39-49.9 H 40458-7) RDW-CV (test code = 19.9 % 12-15.5 H 788-0) PLT (test code = See_Comment L [Automated 777-3) message] The sy stem which generated this result transmitted reference range : 166 - 358 10*3/ ?L. The reference r naty was not used to interpret this result as normal/abnormal . MPV (test code = 10.4 fL 9.5-12.9 11289-5) NRBC/100 WBC (test See_Comment [Automat ed code = 7178953718) message] The system which generated this result transmitted reference range : 0.0 - 10.0 /100 WBCs. The refer ence range was not u sed to interpret th is result as normal/abnormal . NRBC x10^3 (test code <0.01 See_Comment [Auto mated = 5907146812) message] The s ystem which generated this result transmitted reference range : 10*3/?L. The reference range was not used to interpret this result as normal/abnormal . GRAN MAT (NEUT) % 65.9 % (test code = 770-8) IMM GRAN % (test code 0.50 % = 0786597727) LYMPH % (test code = 24.3 % 736-9) MONO % (test code = 8.1 % 5905-5) EOS % (test code = 0.9 % 713-8) BASO % (test code = 0.3 % 706-2) GRAN MAT x10^3(ANC) 3.83 10*3/uL 1.88-7.09 (test code = 7309929924) IMM GRAN x10^3 (test 0.03 10*3/uL 0-0.06 code = 7592820731) LYMPH x10^3 (test code 1.41 10*3/uL 1.32-3.29 = 731-0) MONO x10^3 (test code 0.47 10*3/uL 0.33-0.92 = 742-7) EOS x10^3 (test code = 0.05 10*3/uL 0.03-0.39 711-2) BASO x10^3 (test code <0.03 0.01-0.07 = 704-7) Lab Interpretation Abnormal (test code = 20127-4) [facility]"
[2023-05-10] MEDS ORDERED: ONDANSETRON 4 MG/2 ML VIAL ONE ×4 (03:11→18:16)
[2023-05-10] MEDS ORDERED: SUCRALFATE 1 GM TABLET ONE (03:11)
[2023-05-10] MEDS ORDERED: NA CHLORIDE 0.9% 1,000 ML ONE (03:11)
[2023-05-10] MEDS ORDERED: FAMOTIDINE 20 MG/2 ML VIAL IV ONE (03:11)
[2023-05-10 04:33] LABS: Absolute Lymphocytes (CBC) 2.9 K/uL (0.7-4.9); Hematocrit 29.5 % (36.0-45.0); Lymphocytes % 40.7 % (15.3-44.8); MCV 68.3 fL (80-100); RBC Red Blood Cell Count 4.31 M/uL (3.86-4.86)
[2023-05-10 04:35] LABS: Specific Gravity 1.021 (1.005-1.030)
[2023-05-10 04:41] LABS: Specific Gravity 1.021 (1.005-1.030); Urine Bacteria None Seen /HPF (<20); Urine Bilirubin NEGATIVE (Negative); Urine Blood Negative (Negative); Urine Clarity Turbid (Clear); Urine Color Light-Yellow (Yellow); Urine Glucose NEGATIVE (Negative); Urine Mucus Slight /HPF (None Seen); Urine Protein NEGATIVE (Negative); Urine RBC <5 /HPF (None Seen); Urine Urobilinogen Normal (Normal)
[2023-05-10 04:47] LABS: Platelets 273 thou/uL (152-406)
[2023-05-10 04:53] LABS: Albumin 3.5 g/dL (3.4-5.0); Bilirubin Total 0.2 mg/dL (0.2-1.0); Potassium 3.9 mEq/L (3.5-5.1); Protein, Total 7.8 g/dL (6.4-8.2)
--- NOTE | 2023-05-10 04:56 | ER ---
Nurse's Notes [facility] Name: Aniyah Jiang Age: 28 yrs Sex: Female : 1995 Arrival Date: 05/10/2023 Time: 01:26 Bed 16 Private MD: Diagnosis: Other cholelithiasis without obstruction;Cholecystitis, unspecified Presentation: 05/10 01:40 Chief complaint: Patient states: sharp burning shooting pain, to right upper abdomen vc1 and above my belly button, I've pooped blood twice. Coronavirus screen: Client denies travel out of the [place] in the last 14 days. At this time, the client does not indicate any symptoms associated with coronavirus-19. Ebola Screen: Patient negative for fever greater than or equal to 101.5 degrees Fahrenheit, and additional compatible Ebola Virus Disease symptoms Patient denies exposure to infectious person. Patient denies travel to an Ebola-affected area in the 21 days before illness onset. No symptoms or risks identified at this time. Risk Assessment: Do you want to hurt yourself or someone else? Patient reports no desire to harm self or others. Onset of symptoms was May 09, 2023 at 22:00. 01:40 Method Of Arrival: Ambulatory vc1 01:40 Acuity: BRITTANI 3 vc1 05:40 Initial Sepsis Screen: Does the patient meet any 2 criteria? No. Patient's initial ha1 sepsis screen is negative. Does the patient have a suspected source of infection? No. Patient's initial sepsis screen is negative. Triage Assessment: 01:42 General: Appears in no apparent distress. uncomfortable, Behavior is calm, cooperative, vc1 appropriate for age. Pain: Complains of pain in umbilical area and right upper quadrant Pain does not radiate. Pain currently is 7 out of 10 on a pain scale. Quality of pain is described as sharp, shooting, stabbing, Pain began suddenly, 4 hours ago. Is continuous, Aggravated by movement. EENT: No deficits noted. No signs and/or symptoms were reported regarding the EENT system. Neuro: Level of Consciousness is awake, alert, obeys commands, Oriented to person, place, time, situation, Appropriate for age. Cardiovascular: No deficits noted. Respiratory: Airway is patent Respiratory effort is even, unlabored, Respiratory pattern is regular, symmetrical. GI: Reports upper abdominal pain, bloody stool. : No deficits noted. No signs and/or symptoms were reported regarding the genitourinary system. Derm: No deficits noted. No signs and/or symptoms reported regarding the dermatologic system. Musculoskeletal: No deficits noted. No signs and/or symptoms reported regarding the musculoskeletal system. Historical: - Allergies: 01:41 No Known Allergies; vc1 - Home Meds: 01:41 None [Active]; vc1 - PMHx: 01:41 None; vc1 - PSHx: 01:41 section; tubal ligation; vc1 - Immunization history:: Client reports receiving the Jesus \T\ Jesus single-dose vaccine. - Social history:: Smoking status: Reported history of juuling and/or vaping. Screenin:32 Abuse screen: Denies threats or abuse. Denies injuries from another. Nutritional ha1 screening: No deficits noted. Tuberculosis screening: No symptoms or risk factors identified. 05:51 [facility] ED Fall Risk Assessment (Adult) History of falling in the last 3 months, ha1 including since admission No falls in past 3 months (0 pts) Confusion or Disorientation No (0 pts) Intoxicated or Sedated No (0 pts) Impaired Gait No (0 pts) Mobility Assist Device Used No (0 pt) Altered Elimination No (0 pt) Score/Fall Risk Level 0 - 2 = Low Risk Oriented to surroundings, Maintained a safe environment, Educated pt \T\ family on fall prevention, incl call for assistance when getting out of bed. Assessment: 02:00 General: Appears uncomfortable, Behavior is calm, cooperative. Pain: Complains of pain ha1 in epigastric area and umbilical area Pain does not radiate. Pain currently is 9 out of 10 on a pain scale. Quality of pain is described as crampy, sharp, throbbing. Neuro: Level of Consciousness is awake, alert, obeys commands, Oriented to person, place, time, situation. Cardiovascular: Patient's skin is warm and dry. Respiratory: Airway is patent Respiratory effort is even, unlabored, Respiratory pattern is regular, symmetrical. GI: Abdomen is round non-distended, Bowel sounds present X 4 quads. Abdomen is tender to palpation in umbilical area Reports lower abdominal pain, cramping, nausea. Musculoskeletal: Circulation, motion, and sensation intact. 03:00 Reassessment: Patient and/or family updated on plan of care and expected duration. Pain ha1 level reassessed. Patient is alert, oriented x 3, equal unlabored respirations, skin warm/dry/pink. 04:00 Reassessment: Patient and/or family updated on plan of care and expected duration. Pain ha1 level reassessed. Patient is alert, oriented x 3, equal unlabored respirations, skin warm/dry/pink. 05:00 Reassessment: Patient and/or family updated on plan of care and expected duration. Pain ha1 level reassessed. Patient is alert, oriented x 3, equal unlabored respirations, skin warm/dry/pink. Vital Signs: 01:40 Weight 107.05 kg; Height 5 ft. 8 in. ; Pain 7/10; vc1 01:45 BP 125 / 90; Pulse 89; Resp 20; Temp 98.2; Pulse Ox 100% ; vc1 02:00 BP 128 / 73; Pulse 64; Resp 18 S; Pulse Ox 100% on R/A; ha1 03:30 BP 128 / 73; Pulse 62; Resp 18 S; Pulse Ox 100% on R/A; ha1 04:00 BP 123 / 71; Pulse 64; Resp 17 S; Pulse Ox 100% on R/A; ha1 04:30 BP 118 / 75; Pulse 68; Resp 18 S; Pulse Ox 100% on R/A; ha1 05:28 BP 164 / 96; Pulse 70; Resp 18 S; Pulse Ox 100% on R/A; ha1 01:40 Body Mass Index 35.88 (107.05 kg, 172.72 cm) vc1 01:40 Pain Scale: Adult vc1 ED Course: 01:28 Patient arrived in ED. mr 01:35 Isabella Anton, INSERTER OPERATOR-Nadia is PHCP. snw 01:35 Kit Quevedo MD is Attending Physician. snw 01:41 Triage completed. vc1 01:42 Arm band placed on right wrist. vc1 02:00 Patient has correct armband on for positive identification. Bed in low position. Call ha1 light in reach. Side rails up X 1. 02:27 Kit Quevedo MD is Attending Physician. [facility] 02:33 Radiology exam delayed due to lab results not completed at this time. (BUN/Creatinine). eh4 02:52 Chest Single View XRAY In Process Unspecified. EDMS 03:00 No provider procedures requiring assistance completed. Inserted saline lock: 20 gauge ha1 in right antecubital area, using aseptic technique. Blood collected. 03:40 US Abdomen Limited In Process Unspecified. EDMS 04:24 Zohra Izaguirre RN is Primary Nurse. ha1 04:24 CBC with Diff Sent. ha1 04:24 CMP Sent. ha1 04:24 Lipase Sent. ha1 04:55 Chris Hou MD is Hospitalizing Provider. michael 05:39 Patient admitted, IV remains in place. ha1 05:40 Provided Education on: need for admit . ha1 Administered Medications: 04:12 Drug: NS 0.9% IV 1000 ml Route: IV; Rate: 1 bolus; Site: left antecubital; ha1 04:12 Drug: Famotidine IVP 20 mg Route: IVP; Site: left antecubital; ha1 04:45 Follow up: Response: No adverse reaction; Nausea is decreased ha1 04:14 Drug: Ondansetron IVP 4 mg Route: IVP; Site: left antecubital; ha1 04:45 Follow up: Response: No adverse reaction; Nausea is decreased ha1 04:52 Drug: Sucralfate PO 1 grams Route: PO; ha1 05:03 Drug: Ondansetron IVP 4 mg Route: IVP; Site: right antecubital; ha1 05:24 Follow up: Response: No adverse reaction ha1 05:06 Drug: fentaNYL (PF) IVP 50 mcg Route: IVP; Site: right antecubital; ha1 05:24 Follow up: Response: No adverse reaction; Pain is decreased; RASS: Alert and Calm (0) ha1 05:09 Drug: Piperacillin-Tazobactam IVPB 3.375 grams Route: IVPB; Infused Over: 60 mins; ha1 Site: right antecubital; Medication: 05:40 VIS not applicable for this client. 1 Outcome: 04:56 Decision to Hospitalize by Provider. michael 05:36 Admitted to Med/surg accompanied by nurse, via wheelchair, with chart, Report called to Maricel Byrnes RN 05:36 Condition: stable 06:03 Patient left the ED. [facility] Signatures: Dispatcher [employer] Kit Izquierdo MD MD cha Waters, Shelly, INSERTER OPERATOR-C INSERTER OPERATOR-Csnw Mellisa Kim mr Sheela Maya, RN RN vc1 Zohra Izaguirre, RN RN ha1 Lea Sweet 4 Corrections: (The following items were deleted from the chart) 01:42 01:41 PSHx: None; vc1 vc1
--- NOTE | 2023-05-10 04:57 | EDPHYS ---
Physician Documentation [facility] Name: Aniyah Jiang Age: 28 yrs Sex: Female : 1995 Arrival Date: 05/10/2023 Time: 01:26 Bed 16 Private MD: ED Physician Kit Quevedo HPI: 05/10 03:47 This 28 yrs old Black Female presents to ER via Ambulatory with complaints of Abdominal michael Pain. 03:47 The patient presents with abdominal pain in the upper abdomen, abdominal distention in michael the upper abdomen. Onset: The symptoms/episode began/occurred just prior to arrival, this morning. The symptoms do not radiate. Associated signs and symptoms: none. The symptoms are described as constant, crampy. Modifying factors: The symptoms are alleviated by nothing, the symptoms are aggravated by nothing. Severity of pain: At its worst the pain was moderate in the emergency department the pain has resolved. The patient has not experienced similar symptoms in the past. Historical: - Allergies: 01:41 No Known Allergies; vc1 - Home Meds: 01:41 None [Active]; vc1 - PMHx: 01:41 None; vc1 - PSHx: 01:41 section; tubal ligation; vc1 - Immunization history:: Client reports receiving the Jesus \T\ Jesus single-dose vaccine. - Social history:: Smoking status: Reported history of juuling and/or vaping. ROS: 03:49 Constitutional: Negative for fever, chills, and weight loss, Eyes: Negative for injury, michael pain, redness, and discharge, ENT: Negative for injury, pain, and discharge, Neck: Negative for injury, pain, and swelling, Cardiovascular: Negative for chest pain, palpitations, and edema, Respiratory: Negative for shortness of breath, cough, wheezing, and pleuritic chest pain, Back: Negative for injury and pain, : Negative for injury, bleeding, discharge, and swelling, MS/Extremity: Negative for injury and deformity, Skin: Negative for injury, rash, and discoloration, Neuro: Negative for headache, weakness, numbness, tingling, and seizure, Psych: Negative for depression, anxiety, suicide ideation, homicidal ideation, and hallucinations, Allergy/Immunology: Negative for hives, rash, and allergies, Endocrine: Negative for neck swelling, polydipsia, polyuria, polyphagia, and marked weight changes, Hematologic/Lymphatic: Negative for swollen nodes, abnormal bleeding, and unusual bruising. 03:49 Abdomen/GI: Positive for abdominal pain, of the epigastric area, right upper quadrant and left upper quadrant. Exam: 03:49 Constitutional: This is a well developed, well nourished patient who is awake, alert, michael and in no acute distress. Head/Face: Normocephalic, atraumatic. Eyes: Pupils equal round and reactive to light, extra-ocular motions intact. Lids and lashes normal. Conjunctiva and sclera are non-icteric and not injected. Cornea within normal limits. Periorbital areas with no swelling, redness, or edema. ENT: Nares patent. No nasal discharge, no septal abnormalities noted. Tympanic membranes are normal and external auditory canals are clear. Oropharynx with no redness, swelling, or masses, exudates, or evidence of obstruction, uvula midline. Mucous membranes moist. Neck: Trachea midline, no thyromegaly or masses palpated, and no cervical lymphadenopathy. Supple, full range of motion without nuchal rigidity, or vertebral point tenderness. No Meningismus. Chest/axilla: Normal chest wall appearance and motion. Nontender with no deformity. No lesions are appreciated. Cardiovascular: Regular rate and rhythm with a normal S1 and S2. No gallops, murmurs, or rubs. Normal PMI, no JVD. No pulse deficits. Respiratory: Lungs have equal breath sounds bilaterally, clear to auscultation and percussion. No rales, rhonchi or wheezes noted. No increased work of breathing, no retractions or nasal flaring. Back: No spinal tenderness. No costovertebral tenderness. Full range of motion. Skin: Warm, dry with normal turgor. Normal color with no rashes, no lesions, and no evidence of cellulitis. MS/ Extremity: Pulses equal, no cyanosis. Neurovascular intact. Full, normal range of motion. Neuro: Awake and alert, GCS 15, oriented to person, place, time, and situation. Cranial nerves II-XII grossly intact. Motor strength 5/5 in all extremities. Sensory grossly intact. Cerebellar exam normal. Normal gait. Psych: Awake, alert, with orientation to person, place and time. Behavior, mood, and affect are within normal limits. 03:49 Abdomen/GI: Inspection: abdomen appears normal, Bowel sounds: normal, Palpation: moderate abdominal tenderness, in the epigastric area, right upper quadrant and left upper quadrant. Vital Signs: 01:40 Weight 107.05 kg; Height 5 ft. 8 in. ; Pain 7/10; vc1 01:45 BP 125 / 90; Pulse 89; Resp 20; Temp 98.2; Pulse Ox 100% ; vc1 02:00 BP 128 / 73; Pulse 64; Resp 18 S; Pulse Ox 100% on R/A; ha1 03:30 BP 128 / 73; Pulse 62; Resp 18 S; Pulse Ox 100% on R/A; ha1 04:00 BP 123 / 71; Pulse 64; Resp 17 S; Pulse Ox 100% on R/A; ha1 04:30 BP 118 / 75; Pulse 68; Resp 18 S; Pulse Ox 100% on R/A; ha1 05:28 BP 164 / 96; Pulse 70; Resp 18 S; Pulse Ox 100% on R/A; ha1 01:40 Body Mass Index 35.88 (107.05 kg, 172.72 cm) vc1 01:40 Pain Scale: Adult vc1 MDM: 02:24 Patient medically screened. snw 02:27 Patient medically screened. michael 03:50 Differential diagnosis: bowel obstruction, cholecystitis, Cholelithiasis, michael diverticulitis, gastritis, non-specific abd pain. Data reviewed: vital signs, nurses notes, lab test result(s), radiologic studies, CT scan, ultrasound. Consideration of Admission/Observation Escalation of care including admission/observation considered. I considered the following discharge prescriptions or medication management in the emergency department Medications were administered in the Emergency Department. See MAR. Independent interpretation of the following test(s) in the Emergency Department Radiology Department Ultrasound: My interpretation is ABD PAIN. Test considered but Not performed: EKG: NO EKG. Care significantly affected by the following chronic conditions: NONE. 05/10 01:36 Order name: Urine W/Microscopic (UAM); Complete Time: 04:44 snw 05/10 01:36 Order name: PREGU; Complete Time: 04:44 snw 05/10 02:25 Order name: CBC with Diff [facility] 05/10 02:25 Order name: CMP; Complete Time: 04:53 michael 05/10 02:25 Order name: Lipase; Complete Time: 04:54 [facility] 05/10 05:04 Order name: CBC Smear Scan EDMS 05/10 05:24 Order name: CREATININE WHOLE BLOOD EDIN 05/10 02:14 Order name: Chest Single View XRAY snw 05/10 02:25 Order name: CT Abd/Pelvis - IV Contrast Only [facility] 05/10 02:25 Order name: US Abdomen Limited [facility] 05/10 02:25 Order name: IV Saline Lock; Complete Time: 04:24 [facility] 05/10 02:25 Order name: Labs collected and sent; Complete Time: 04:24 [facility] Administered Medications: 04:12 Drug: NS 0.9% IV 1000 ml Route: IV; Rate: 1 bolus; Site: left antecubital; ha1 04:12 Drug: Famotidine IVP 20 mg Route: IVP; Site: left antecubital; ha1 04:45 Follow up: Response: No adverse reaction; Nausea is decreased ha1 04:14 Drug: Ondansetron IVP 4 mg Route: IVP; Site: left antecubital; ha1 04:45 Follow up: Response: No adverse reaction; Nausea is decreased ha1 04:52 Drug: Sucralfate PO 1 grams Route: PO; ha1 05:03 Drug: Ondansetron IVP 4 mg Route: IVP; Site: right antecubital; ha1 05:24 Follow up: Response: No adverse reaction ha1 05:06 Drug: fentaNYL (PF) IVP 50 mcg Route: IVP; Site: right antecubital; ha1 05:24 Follow up: Response: No adverse reaction; Pain is decreased; RASS: Alert and Calm (0) ha1 05:09 Drug: Piperacillin-Tazobactam IVPB 3.375 grams Route: IVPB; Infused Over: 60 mins; ha1 Site: right antecubital; Disposition Summary: 05/10/23 04:56 Hospitalization Ordered Hospitalization Status: Observation michael Provider: Chris Huo cha Location: Telemetry/MedSurg (observation) michael Condition: Stable michael Problem: new michael Symptoms: have improved michael Bed/Room Type: Standard michael Room Assignment: 230(05/10/23 05:18) cg Diagnosis - Other cholelithiasis without obstruction michael - Cholecystitis, unspecified michael Forms: - Medication Reconciliation Form michael - SBAR form michael - Leadership Thank You Letter [facility] Signatures: Dispatcher [employer] Kit Izquierdo MD MD cha Waters, Shelly, DIRECTOR OF PRODUCT DEVELOPMENT-C DIRECTOR OF PRODUCT DEVELOPMENT-Mundow Sravani Burdick RN RN cg Sheela Maya RN RN vc1 Zohra Izaguirre RN RN 1 Corrections: (The following items were deleted from the chart) 01:42 01:41 PSHx: None; vc1 vc1 05:18 04:56 michael
[2023-05-10 05:04] LABS: Anisocytosis SLIGHT; Blood Morphology Comment NOTED (NOT SEEN); Platelet Estimate ADEQ; Polychromasia SLIGHT; White Blood Cell Scan OK (OK)
[2023-05-10] MEDS ORDERED: FENTANYL CITR 100 MCG/2 ML ONE ×2 (05:19→16:23)
[2023-05-10] MEDS ORDERED: PIPERACIL/TAZO 3.375 GM VIAL IV ONE (05:20)
[2023-05-10] MEDS ORDERED: NA CHLORIDE 0.9% 100 ML ONE (05:20)
[2023-05-10 06:02] VITALS: BMI 40.1
[2023-05-10 06:19] VITALS: O2SAT 100
[2023-05-10] MEDS ORDERED: ACETAMINOPHEN 500 MG TAB PO PRN (06:19)
[2023-05-10] MEDS ORDERED: ONDANSETRON 4 MG/2 ML VIAL IV PRN (06:19)
[2023-05-10] MEDS: MORPHINE 4 MG/ML SYR IV PRN ×4 (06:35→23:53)
[2023-05-10] MEDS: D5 0.45 NS 1,000 ML IV SCH ×3 (06:36→20:08)
[2023-05-10] MEDS: FAMOTIDINE 20 MG/2 ML VIAL IV SCH ×2 (10:18→20:09)
[2023-05-10] MEDS: PIPER TAZO 3.375 GM in NA CHLORIDE 0.9% 100 ML IV SCH ×2 (13:00→20:07)
--- NOTE | 2023-05-10 15:14 | P.HP ---
Date of Service: 05/10/23 PC: This is a 28-year-old female presents to the emergency room with severe abdominal pain for diagnosis and treatment. HPC: Patient has been experiencing abdominal pain off and on over the last few months. Yesterday however it intensified, located in the upper portion of her abdomen right across. Radiates straight into her back. Feels like she has a foot under her rib. PSHx: 4 para 4, tubal ligation PMHx: Menorrhagia Social Hx: No known allergies Sys R: No cough, wheeze, shortness of breath. No chest pain or palpitations. Denies any urinary complaints. States she has a supraumbilical hernia that occasionally causes her some discomfort. Has recently noticed some bright red blood in her stools, but was constipated last week. O/E: Awake alert vital signs are stable HEENT: Within normal limits Chest: Air entry equal bilaterally Abd: Tender in the right upper quadrant [place]: Intact Data: Has documented cholecystitis with some edema Impression: Acute on chronic cholecystitis with cholelithiasis, biliary colic Plan: I will taken to the operating room for laparoscopic possible open cholecystectomy. We will also do a cholangiogram. The risks of this procedure have been discussed The possibility of bleeding, infection, injury to bile ducts blood vessels and intestines been described. The possible need for an open and/or further surgeries and procedures was discussed. She understands and wants us to proceed.
[2023-05-10] MEDS: Ringers Lactate 1,000 ML IV ONE ×2 (15:30→17:56)
[2023-05-10] MEDS ORDERED: SUCCINYLCHOLINE 20 MG/ML (10 ML) IV ONE (16:21)
[2023-05-10] MEDS ORDERED: ROCURONIUM 50 MG/5 ML VIAL IV ONE (16:23)
[2023-05-10] MEDS ORDERED: propofoL 200 MG/20 ML VIAL IV ONE (16:23)
[2023-05-10] MEDS ORDERED: LIDOCAINE 2% MPF 5 ML VIAL ONE (16:23)
[2023-05-10] MEDS ORDERED: MIDAZOLAM HCL 2 MG/2 ML INJ ONE (16:24)
[2023-05-10] MEDS ORDERED: NEOSTIGMINE 1 MG/ML -10 ML VIAL ONE (16:24)
[2023-05-10] MEDS ORDERED: GLYCOPYRROLATE 0.2 MG/ML SYR ONE (16:24)
[2023-05-10] MEDS ORDERED: dexAMETHasone 10 MG/ML VIAL ONE (17:34)
--- NOTE | 2023-05-10 17:48 | P.OP ---
Preoperative diagnosis: Acute on chronic cholecystitis with cholelithiasis Postoperative diagnosis: The same Primary procedure: Laparoscopic cholecystectomy Secondary procedure: Intraoperative cholangiogram Anesthesia: General Estimated blood loss: Less than 20 cc Specimen: Gallbladder and contents Operative Technique: The patient was brought to the operating room placed supine on the table. After the induction of adequate general endotracheal anesthesia, the area of the abdomen was prepped with a DuraPrep solution, and she was draped in the usual aseptic manner. A subumbilical incision was made. This brought down through the skin and subcutaneous tissue. We slowly entered the peritoneal cavity using the Visiport. On entering the peritoneal cavity, a pneumoperitoneum was created to approximately 12 mmHg. Under direct vision a 5 mm trocar was placed in the upper midline, and 2 other fives on the right lateral side. The patient was then placed in reverse Trendelenburg. The table was rolled to the left. We could visualize of the right upper quadrant a long redundant gallbladder that was hanging literally from the right lobe of the liver. A grasper was placed at the junction of the gallbladder just with the liver edge. Another 1 after now we could elevate and expose the whole body of the gallbladder. It was noted to be quite tense and distended in this lower portion. A grasper was placed around Thompson's pouch. Chronic thickened peritoneum could be seen with edema lying underneath it. This area was cleared at the junction of the gallbladder with th e cystic duct. We also cleared off the cystic artery. Having obtained the critical view it was now possible to clip the cystic artery. Another clip was placed between the gallbladder and the cystic duct. An opening was made into the cystic duct through which we obtained an intraoperative cholangiogram the cholangiogram did show good flow of contrast finally down into the duodenum. There was interesting to note the amount of valves that are visible on the proximal portion of the cystic duct. The catheter was now removed. Clips were placed on the distal portion of the cystic duct which was fully transected. The gallbladder then was dissected free from the liver bed, placed into an Endo Catch, and brought out through the umbilical trocar site. With the 5 mm camera in the right upper quadrant we were now able to visualize the area around the umbilicus. There was some preperitoneal fat but no massive hernia was noted from the inside. There does appear to be some laxity but we did not increase the dissection or remove any of this area as with the admission today was the gallbladder. The Endo Close was now used to place 2 sutures to approximate the fascial defect at the umbilicus. A good air seal having been achieved the sutures were tied, the irrigating fluid was aspirated from the peritoneal cavity, and the pneumoperitoneum was collapsed. The trocars were then removed. [place] were applied to the skin. At the end of the procedure she was in a stable condition was wheeled to the recovery room. Needle sponge instrument count were correct. No drains were placed. Complications: None Transferred to: Recovery Room Condition: Good
[2023-05-10] MEDS: HYDROMORPHONE HCL 1 MG/ML INJ ONE ×2 (18:07→18:30)
[2023-05-10] MEDS ORDERED: Ringers Lactate 1,000 ML IV ONE (18:07)
--- NOTE | 2023-05-10 18:24 | RAD REPORT ---
EXAM DESCRIPTION: RAD - Cholangiogram Oper-Xray Or - 05/10/2023 6:15 pm CLINICAL HISTORY: LAP JENNIFER W/ IOC COMPARISON: None available. FINDINGS: 6 images were sent to PACS, documenting positions during an image guided laparoscopic chol ecystectomy procedure. No radiologist was available for the procedure, nor will any image interpretat ion he provided. Please refer to the procedural report for additional details. Fluoroscopy time: 0.5 minutes. IMPRESSION: Documentation of fluoroscopy utilization as above.
--- NOTE | 2023-05-10 19:27 | RAD REPORT ---
EXAM DESCRIPTION: CT - Abdomen Pelvis W Contrast - 05/10/2023 6:18 am CLINICAL HISTORY: 28 years Female ruq to mid abd pain, bloody stools TECHNIQUE: Axial CT imaging of the abdomen and pelvis was performed following the administration of intravenous contrast.. Oral contrast was not administered. Sagittal and coronal reconstructed image s were then performed. The CT study is performed according to ALARA (as low as reasonably achievabl e) or ALARA/IMAGE GENTLY, with automatic adjustment of mA and/or kV according to patient size. Performed on: 05/10/2023 at 5:00 AM. COMPARISON: Abdominal ultrasound performed on 05/10/2023 at 3:25 AM FINDINGS: Lung bases: The lung bases are clear. Liver: The liver is normal in size and configuration. No focal hepatic abnormalities are identified. Liver attenuation is within normal limits. The portal veins are patent. Spleen: The spleen is normal in size, configuration and attenuation. Gallbladder and bile duct: The gallbladder is well distended and contains a few small gallstones ne ar the neck of the gallbladder There is no biliary ductal dilatation. Pancreas: The pancreas is grossly normal in size and configuration. Adrenal Glands: The adrenal glands are normal in size and configuration. Kidneys: The kidneys are normal in size and configuration. There is no evidence of hydronephrosis. Th ere is no evidence of nephrolithiasis. No definite solid or cystic renal mass lesions are identified. Stomach: The stomach is grossly normal. There is no definite hiatal hernia. Bowel: The bowel gas pattern is non specific and non obstructive. Appendix: The appendix is not clearly delineated on this examination. There is no CT evidence to sugg est acute appendicitis. Free air: There is no evidence of free air. Free fluid: There is no evidence of free fluid. Vasculature: The aorta is normal in caliber and contour. The inferior vena cava is grossly unremarkab le. Lymphadenopathy: No pathologic lymphadenopathy is identified. Bladder: The bladder is well distended and smooth in contour. Reproductive: The uterus is enlarged and measures approximately 12 cm in craniocaudal dimension. The uterus is somewhat bulky in contour which may be related to a myomatous uterus or post gravid uterus. Bones: No acute osseous abnormalities are identified. 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 Soft tissues: No acute soft tissue abnormalities are identified. There is a fat-containing supraumbil ical ventral abdominal wall hernia measuring approximately 6.5 x 4.2 x 6.3 cm. IMPRESSION: 1. No evidence of acute intra-abdominal or intrapelvic pathology. There are no definit e findings on this examination to explain the patient's reported clinical symptoms. 2. Cholelithiasis without evidence of biliary ductal dilatation. 3. Fat-containing supraumbilical ventral abdominal wall hernia. 4. Enlarged uterus which is somewhat bulky in contour which may be related to a myomatous uterus or post gravid uterus. 5. 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 Electronically signed by: Amy Adame DO 05/10/2023 5:33 AM CDT Due to temporary technical issues with the PACS/Fluency reporting system, reports are being signed by the in house radiologists without review as a courtesy to insure prompt reporting. The interpreting radiologist is fully responsible for the content of the report.
--- NOTE | 2023-05-10 19:34 | RAD REPORT ---
EXAM DESCRIPTION: US - Abdomen Exam Limited - 05/10/2023 3:38 am CLINICAL HISTORY: 28 years Female ABD PAIN TECHNIQUE: Limited sonographic imaging of the gallbladder was performed on 05/10/2023 at 3: 25 AM. Comparison: No prior studies were available for comparison. FINDINGS: The gallbladder is relatively well distended and contains shadowing intraluminal echoes co nsistent with gallstones. The gallbladder wall measures approximately 3 mm in diameter. There is no e vidence of pericholecystic fluid. The common bile duct measures 6 mm in diameter which is top normal in size. IMPRESSION: Cholelithiasis with borderline gallbladder wall thickening and borderline dilatation of the common bile duct. There is no sonographic evidence of pericholecystic fluid. Electronically signed by: Amy Adame DO 05/10/2023 5:13 AM CDT Due to temporary technical issues with the PACS/Fluency reporting system, reports are being signed by the in house radiologists without review as a courtesy to insure prompt reporting. The interpreting radiologist is fully responsible for the content of the report.
--- NOTE | 2023-05-10 19:38 | RAD REPORT ---
EXAM DESCRIPTION: RAD - Chest Single View - 05/10/2023 2:50 am CLINICAL HISTORY: Epigastric pain TECHNIQUE: AP chest COMPARISON: None available for comparison FINDINGS: CHEST: Heart: The cardiomediastinal silhouette is within normal limits. Lungs: No focal consolidation. Mediastinum: Unremarkable Pleura: No appreciable effusion. No pneumothorax. Bones: Intact IMPRESSION: No acute cardiopulmonary disease. Electronically signed by: Sudhir Christine MD 05/10/2023 3:07 AM CDT Due to temporary technical issues with the PACS/Fluency reporting system, reports are being signed by the in house radiologists without review as a courtesy to insure prompt reporting. The interpreting radiologist is fully responsible for the content of the report.
[2023-05-10] MEDS: HYDROCODONE/APAP 7.5/325 MG TAB PO PRN (21:34)
[2023-05-11] MEDS: HYDROCODONE/APAP 7.5/325 MG TAB PO PRN ×4 (03:42→19:55)
[2023-05-11] MEDS: MORPHINE 4 MG/ML SYR IV PRN ×2 (05:38→22:15)
[2023-05-11] MEDS: PIPER TAZO 3.375 GM in NA CHLORIDE 0.9% 100 ML IV SCH ×3 (05:38→19:55)
[2023-05-11] MEDS: D5 0.45 NS 1,000 ML IV SCH ×3 (05:38→22:19)
[2023-05-11 07:01] LABS: Absolute Lymphocytes (CBC) 0.5 K/uL (0.7-4.9); Hematocrit 28.2 % (36.0-45.0); Lymphocytes % 6.4 % (15.3-44.8); MCV 68.7 fL (80-100); MPV 8.1 fL (7.6-11.3); Platelets 253 thou/uL (152-406); RBC Red Blood Cell Count 4.11 M/uL (3.86-4.86)
[2023-05-11 07:22] LABS: ALT/SGPT 24 U/L (13-56); AST/SGOT 25 U/L (15-37); Alkaline Phosphatase 65 U/L (45-117); BUN Blood Urea Nitrogen 4 mg/dL (7-18); Bicarbonate 25 mEq/L (21-32); Bilirubin Total 0.3 mg/dL (0.2-1.0); Glomerular Filtration Rate 84 ml/min (=/>90); Glucose Level 154 mg/dL (74-106); Lipase 30 U/L (13-75); Potassium 3.9 mEq/L (3.5-5.1); Protein, Total 7.4 g/dL (6.4-8.2); Sodium Level 137 mEq/L (136-145)
[2023-05-11 07:25] LABS: Bilirubin Direct < 0.1 mg/dL (0-0.2); Bilirubin Indirect, Calculated ND mg/dL (0.2-0.8)
[2023-05-11] MEDS: FAMOTIDINE 20 MG/2 ML VIAL IV SCH ×2 (09:01→19:55)
[2023-05-12] MEDS: HYDROCODONE/APAP 7.5/325 MG TAB PO PRN ×2 (01:35→09:45)
[2023-05-12] MEDS: PIPER TAZO 3.375 GM in NA CHLORIDE 0.9% 100 ML IV SCH (06:00)
[2023-05-12] MEDS: MORPHINE 4 MG/ML SYR IV PRN (06:02)
[2023-05-12 09:09] VITALS: BP 120/74; TEMP 98
[2023-05-12] MEDS: FAMOTIDINE 20 MG/2 ML VIAL IV SCH (09:45)
--- NOTE | 2023-05-12 11:38 | P.PN ---
Date of Service: 05/12/23 S: Patient feels better today, pain is under much better control. Able to up and ambulate. Has been using her incentive spirometer. Voiding well on her own. O: Incisions are clean, dressings intact A: Surgically stable P: Patient's pain is better controlled today on oral medication, will discharge her home. She will see me next week in my office. She is to call for an appointment.
--- NOTE | 2023-05-12 11:40 | P.DS ---
Admission Date: 05/11/23 Discharge Date: 05/12/23 Disposition: ROUTINE DISCHARGE Discharge Condition: GOOD Reason for Admission: Acute postoperative abdominal pain Procedures: Laparoscopic cholecystectomy with cholangiogram Brief History of Present Illness: Patient had been experiencing right upper quadrant abdominal pain radiating into her back at home. She came to the emergency room for evaluation and treatment. Hospital Course: Patient was evaluated in the emergency room. It was found that she had cholecystitis. She was brought to the operating room where she underwent a laparoscopic cholecystectomy with a normal intraoperative cholangiogram. The patient tolerated the procedure well and was admitted for postoperative pain control. The pain medicine finally started working for the patient she is able to get up and move around. She has a number of children at home and feels she is now able to take care of them a whole lot better than she was yesterday. She is deemed fit for discharge. Vital Signs/Physical Exam: Temp Pulse Resp BP Pulse Ox 98.0 F 63 16 120/74 100 05/12/23 08:00 05/12/23 08:00 05/12/23 10:45 05/12/23 08:00 05/12/23 10:45 Laboratory Data at Discharge: WBC 7.30 thou/uL (4.3-10.9) 05/11/23 06:50 Hgb 9.1 g/dL (12.0-15.0) L 05/11/23 06:50 Hct 28.2 % (36.0-45.0) L 05/11/23 06:50 Plt Count 253 thou/uL (152-406) 05/11/23 06:50 Sodium 137 mEq/L (136-145) 05/11/23 06:50 Potassium 3.9 mEq/L (3.5-5.1) 05/11/23 06:50 BUN 4 mg/dL (7-18) L 05/11/23 06:50 Creatinine 0.95 mg/dL (0.55-1.02) 05/11/23 06:50 Glucose 154 mg/dL (74-106) H 05/11/23 06:50 Total Bilirubin 0.3 mg/dL (0.2-1.0) 05/11/23 06:50 AST 25 U/L (15-37) 05/11/23 06:50 ALT 24 U/L (13-56) 05/11/23 06:50 Alkaline Phosphatase 65 U/L (45-117) 05/11/23 06:50 Lipase 30 U/L (13-75) 05/11/23 06:50 Physician Discharge Instructions: Pain medicine as directed. Milk of magnesia as needed for constipation. You may shower. Change the surgical dressings as needed. Any questions or problems, contact my office. You may shower. Make sure you are up walking around. Call tomorrow for an appointment for next week. Diet: Regular Activity: Ad tomasa Followup: Chris Hou MD [ACTIVE - CAN ADMIT] - (Call to schedule appointment)
== END 2023-05-12 11:50 | disposition home or self-care (01) | DRG 419 ==
LOC: ER 01:26 → ERHOLD 04:58 → 2ND 05:29 → OBSVTOIN 05-11 12:52
PROVIDERS: ADMIT Surgery; ATTEND Surgery
PROC: BF10YZZ Fluoroscopy of Bile Ducts using Other Contrast (ICD-10-PCS; 2023-05-10)
PROC: 0FT44ZZ Resection of Gallbladder, Percutaneous Endoscopic Approach (ICD-10-PCS; principal; 2023-05-10 15:30)
DX: K80.12 Calculus of gallbladder with acute and chronic cholecystitis without obstruction (principal); F32.A Depression, unspecified; F41.9 Anxiety disorder, unspecified; N92.0 Excessive and frequent menstruation with regular cycle; F17.290 Nicotine dependence, other tobacco product, uncomplicated
CPT/HCPCS: 36415; 71045; 74177; 74300; 76705; 80048; 80053; 80076; 81001; 81025; 82565; 83690; 85025; 88304; 94010; 99285; G0378; J1100; J1170; J2001; J2250; J2405; J2543; J2704; J2710; J3010; J7030; J7120; J7799; Q9967

== ENCOUNTER 2023-05-29 08:16 | Emergency (ER) | payer SELFPAY ==
--- OUTSIDE RECORDS SUMMARY | 2023-05-29 08:22 | XMS REPORT | Continuity of Care Document ---
:1995 Author Organization [facility] t Address [address] [place] [address] Care Team Providers Name Role Phone PCP, PATIENT DOES NOT HAVE A Primary Care Physician UnavailCLIFF Juan Attending Clinician Unavailable Cliff Thorne DO Attending Clinician LESLIE LYNN Attending Clinician Unavailable Leslie Lynn MD Attending Clinician Sandra BLAS Attending Clinician Unavailable Sandra Heart Attending Clinician Osito Rojo MD Attending Clinician Doctor Unassigned, [place] Attending Clinician Unavailable CHERY POMPA Attending Clinician Unavailable Chery Marie Attending Clinician XIMENA SANTANA Attending Clinician Unavailable Ximena Santana MD Attending Clinician Sravani Blackburn RN Attending Clinician Unavailable Dimas Shin Attending Clinician KRYSTLE BUTTERFIELD Attending Clinician Unavailable Marquise PIERSON, Dunia Causey Attending Clinician [phone] [facility], [facility] Attending Clinician Unavailable Chavez Muñoz MD Attending Clinician Rajendra PIERSON, Tedoora Aguilar Attending Clinician [phone] Santana ACCOUNT MANAGER, Velvet R Attending Clinician Visit, Jasen-Rmchp Nurse Attending Clinician Unavailable Cora WHCNP, Miriam C Attending Clinician [phone] Ramon PIERSON, Hope Attending Clinician Bryan PIERSON, Farhan Attending Clinician CLIFF THORNE Admitting Clinician Unavailable Osito Rojo MD Admitting Clinician CHERY POMPA Admitting Clinician Unavailable XIMENA SANTANA Admitting Clinician Unavailable Chavez Muñoz MD Admitting Clinician Hope Navarro MD Admitting Clinician Payers Payer Name Policy Type Policy Number Effective Date Expiration Date Mir EVANS [id number] 2019 HEALTH 00:00:00 Problems Condition Condition Condition Status Onset Resolution Last Treating Co mments Source Name Details Category Date Date Treatment Clinician Date Request Request Disease Active Overview: Univ ers for for 8-15 Formattin ity of sterilizat sterilizat 00:00: g of this [place] ion ion 00 note Medical might be Branch different from the original. Added automatic ally from request for surgery [id number] Disease Active U nivers care and care and 8-14 ity of examinatio examin[place] 00:[place] n n 00 Medical immediatel immediatel Br anch y after y after delivery delivery 38 weeks 38 weeks Disease Active Unive rs gestation gestation 7-26 ity of of of 00:00: [place] 00 Medi ya Branch S/P S/P Disease Active Univers 7-26 ity of section section 00:00: [place] 00 Medical Branch APH APH Disease Active Univers (antepartu [...] to 03-09 ity of Varicella Var[place]ella 00:[place] (non-immun (non-immun 00 Me dical e), e), Branch currently currently in third in third trimester trimester BMI BMI Disease Active Univers 39.0-39.9, 39.0-39.9, 03-08 it y of adult adult 00:00: [place] 00 Medical Branch Limited Limited Disease Active Univers 03-08 ity of care in care in 00:00: [place] third third 00 Medical trimester trimester Bran ch Multiparit Multiparit Disease Active U nivers y y 03-08 ity of 00:00: [place] 00 Medical Branch Tubal Tubal Disease Active Univers ligation ligation 03-08 ity of status status 00:00: [place] 00 Medical Branch Cessation Cessation Disease Active Uni vers of tobacco of tobacco 03-08 it y of use in use in 00:00: [place] previous previous 00 Medica l 12 months 12 months Bran ch Tubal Tubal Disease Active Univers ligation ligation 03-08 ity of status status 00:00: [place] 00 Medical Branch History of History of Disease Active U nivers 03-08 ity of delivery, delivery, 00:00: [place] currently currently 00 Medi ya Branch in third in third trimester trimester Obesity Obesity Disease Active Univers affecting affecting 03-08 ity of 00:00: [place] in third in third 00 Medica l trimester trimester Bran ch Anemia of Anemia of Disease Active Uni vers mother in mother in 4-03 ity of , , 00:00: [place] antepartum antepartum 00 Me dical Branch Allergies, Adverse Reactions, Alerts Allergy Allergy Status Severity Reaction(s) Onset Inactive Treating Comm ents Source Name Type Date Date Clinician NO KNOWN Drug Active Univers ALLERGIE Class ity of S [facility] Social History Social Habit Start Date Stop Date Quantity Comments Source ASSERTION 2018-07-18 University 00:00:00 [facility] Exposure to 2021-12-21 2021-12-31 Not sure [facility] SARS-CoV-2 00:00:00 13:31:00 [facility] (event) Branch Alcohol intake 2021-12-31 2021-12-31 Current [facility] 00:00:00 00:00:00 non-drinker of [facility] alcohol (finding) Branch Tobacco use and 2019-04-20 2019-04-20 Never used Universit y of exposure 00:00:00 00:00:00 [facility] Education 2019-03-31 2019-03-[address] [place] [address] 00:00:00 00:00:00 [facility] History of 2018-07-09 Cigarette Smoker Universi ty of tobacco use 00:00:00 [facility] Sex Ass[birth year] At [birth year] Universit y of 00:00:00 00:00:00 [facility] Smoking Status Start Date Stop Date Source Former smoker 2019-04-20 00:00:00 2019-04-20 00:00:00 Universi ty of [facility] Unknown if ever smoked Universit y of [facility] Medications Ordered Filled Start Stop Current Ordering Indication Dosage Frequency Signature Comments Components Source Medication Medication Date Date Medication? Clinician (SIG) Name Name HYDROcodone 2021- No 1{tbl} 1 tablet, Univers -acetaminop 01-01-25 Oral, ity of hen (NORCO) 00:00: 22:51 ONCE, 1 [place] 10-325 mg 00 :00 dose, On Medica l tablet 1 Mon Branch tablet 12/31/21 at 1900, Routine ketorolac Yes [id number] 10mg Take 1 Univers 10 mg 4-25 9103 tablet by ity of tablet 00:00: mouth [place] 00 every 6 Medical (six) Branch hours as needed for Pain (scale 7-10). metroNIDAZO Yes [id number] 500mg Take 1 Univers LE 500 mg 4-25 tablet by ity o f tablet 00:00: mouth 2 00 (two) Medical times Branch daily. ibuprofen Yes [id number] 800mg Take 1 Univers 800 mg 4-13 tablet by ity of tablet 00:00: mouth [place] 00 every 8 Medical (eight) Branch hours as needed for Pain (scale 4-6). methocarbam Yes [id number] 500mg Take 1 Univers oL 4-13 tablet by ity of (ROBAXIN) 00:00: mouth [place] 500 mg 00 every 6 Medical tablet (six) Branch hours as needed for Pain (scale 7-10) (MUSCLE SPASM). methocarbam Yes [id number] 500mg Take 1 Univers oL 4-13 tablet by ity of (ROBAXIN) 00:00: mouth [place] 500 mg 00 every 6 Medical tablet (six) Branch hours as needed for Pain (scale 7-10) (MUSCLE SPASM). ibuprofen 2021- No [id number] 800mg Take 1 Univers 800 mg 4-13 04-25 tablet by ity of tablet 00:00: 00:00 mouth [place] 00 :00 every 8 Medical (eight) Branch hours as needed for Pain (scale 4-6). acetaminoph 2020-09- No 1000mg 1,000 mg, Univers en -02 09- Oral, ity of (TYLENOL) 05:30: 04:31 ONCE, 1 [place] tablet 00 :00 dose, On Medical 1,000 mg Sat Branch 09/01/21 at 2330, CHERI ibuprofen 2020-09- No 800mg 800 mg, Uni vers (IBU) 11-03- Oral, ity of tablet 800 04:30: 03:32 ONCE, 1 [place] mg 00 :00 dose, On Medical Sat Branch 09/01/21 at 2230, CHERI ibuprofen 2020-09 Yes [id number] 600mg Take 1 Univers 600 mg 2-25 tablet by ity of tablet 00:00: mouth [place] 00 every 6 Medical (six) Branch hours as needed for Pain (scale 4-6). benzonatate 2020-09 Yes [id number] 100mg Take 1 Univers 100 mg 2-25 capsule by ity of capsule 00:00: mouth 3 [place] 00 (three) Medical times Branch daily as needed for Cough. ondansetron 2020-09 Yes [id number] 4mg Take 1 Univers (ZOFRAN 2-25 tablet by ity of ODT) 4 mg 00:00: mouth [place] disintegrat 00 every 8 Medic al ing tablet (eight) Branch hours as needed for Nausea and Vomiting (N/V). ibuprofen 2020-09 Yes [id number] 600mg Take 1 Univers 600 mg 2-25 tablet by ity of tablet 00:00: mouth [place] 00 every 6 Medical (six) Branch hours as needed for Pain (scale 4-6). benzonatate 2020-09 Yes [id number] 100mg Take 1 Univers 100 mg 2-25 capsule by ity of capsule 00:00: mouth 3 [place] 00 (three) Medical times Branch daily as needed for Cough. ondansetron 2020-09 Yes [id number] 4mg Take 1 Univers (ZOFRAN 2-25 tablet by ity of ODT) 4 mg 00:00: mouth [place] disintegrat 00 every 8 Medic al ing tablet (eight) Branch hours as needed for Nausea and Vomiting (N/V). benzonatate 2020-09 Yes [id number] 100mg Take 1 Univers 100 mg 2-25 capsule by ity of capsule 00:00: mouth 3 [place] 00 (three) Medical times Branch daily as needed for Cough. ondansetron 2020-09 Yes [id number] 4mg Take 1 Univers (ZOFRAN 2-25 tablet by ity of ODT) 4 mg 00:00: mouth [place] disintegrat 00 every 8 Medic al ing tablet (eight) Branch hours as needed for Nausea and Vomiting (N/V). ibuprofen 2020-09- No [id number] 600mg Take 1 Univers 600 mg 2-25 04-25 tablet by ity of tablet 00:00: 00:00 mouth [place] 00 :00 every 6 Medical (six) Branch hours as needed for Pain (scale 4-6). fluconazole 2020-09- No [id number] 150mg Take 1 Univers 150 mg -08-09 [...] dose, On Medical EPINEPHRINE Sat Branch ) 1 08/04/21 %-1:100,000 at 0215, injection Routine 10 [...] 08/03/21 at 2230, STAT iopamidol 2020-09- No [id number] 100mL 100 mL, Univers (ISOVUE 10-04 Intravenou ity o f 370-500 mL) 03:50: 03:51 s, ONCE, 1 [place] injection 00 :00 dose, On Medica l 100 mL Fri Branch 08/03/21 at 2200, Routine methylPREDN 2020-09 Yes [id number] Take by Univers ISolone 4 10-04 mouth ity of mg tablets 00:00: [place]-INSTRU [place] 00 CTIONS. Medical follow Branch package directions methylPREDN 2020-09 Yes [id number] Take by Univers ISolone 4 10-04 mouth ity of mg tablets 00:00: SEE-INSTRU [place] 00 CTIONS. Medical follow Branch package directions methylPREDN 2020-09 Yes [id number] Take by Univers ISolone 4 10-04 mouth ity of mg tablets 00:00: SEE-INSTRU [place] 00 CTIONS. Medical follow Branch package directions methylPREDN 2020-09 Yes [id number] Take by Univers ISolone 4 10-04 mouth ity of mg tablets 00:00: SEE-INSTRU [place] 00 CTIONS. Medical follow Branch package directions methylPREDN 2020-09 Yes [id number] Take by Univers ISolone 4 -27 mouth ity of mg tablets 00:00: SEE-INSTRU [place] 00 CTIONS. Medical follow Branch package directions methylPREDN 2020-09 Yes [id number] Take by Univers ISolone 4 1-27 mouth ity of mg tablets 00:00: [place]-INSTRU [place] 00 CTIONS. Medical follow Branch package directions amoxicillin 2020-09- No [id number] 1{tbl} Take 1 Univers -clavulanat 10-04 12-08 tablet by it y of e 00:00: 05:59 mouth 2 [place] (AUGMENTIN) 00 :00 (two) Medical 875-125 mg times Branch per tablet daily for 10 days. amoxicillin 2020-09- No [id number] 1{tbl} Take 1 Univers -clavulanat 10-04 12-08 tablet by it y of e 00:00: 05:59 mouth 2 [place] (AUGMENTIN) 00 :00 (two) Medical 875-125 mg times Branch per tablet daily for 10 days. amoxicillin 2020-09- No [id number] 1{tbl} Take 1 Univers -clavulanat 10-04 12-08 [...] of therapy: 72 hours iopamidol 2020-09- No [id number] 100mL 100 mL, Univers (ISOVUE 0-07-06 Intravenou ity o f 370-500 mL) 19:00: [...] 07/06/21 at 1330, STAT ibuprofen 2020-09 Yes [id number] 600mg Take 1 Univers 600 mg 0-29 tablet by ity of tablet 00:00: mouth [place] 00 every 8 Medical (eight) Branch hours as needed for Pain (scale 4-6). dicyclomine 2020-09 Yes [id number] 20mg Take 1 Univers 20 mg 0-29 tablet by ity of tablet 00:00: mouth 4 [place] 00 (four) Medical times Branch daily. ibuprofen 2020-09 Yes [id number] 600mg Take 1 Univers 600 mg 0-29 tablet by ity of tablet 00:00: mouth [place] 00 every 8 Medical (eight) Branch hours as needed for Pain (scale 4-6). dicyclomine 2020-09 Yes [id number] 20mg Take 1 Univers 20 mg 0-29 tablet by ity of tablet 00:00: mouth 4 [place] 00 (four) Medical times Branch daily. ibuprofen 2020-09 Yes [id number] 600mg Take 1 Univers 600 mg 0-29 tablet by ity of tablet 00:00: mouth [place] 00 every 8 Medical (eight) Branch hours as needed for Pain (scale 4-6). dicyclomine 2020-09 Yes [id number] 20mg Take 1 Univers 20 mg 0-29 tablet by ity of tablet 00:00: mouth (four) Medical times Branch daily. ibuprofen 2020-09 Yes [id number] 600mg Take 1 Univers 600 mg 0-29 tablet by ity of tablet 00:00: mouth 00 every 8 Medical (eight) Branch hours as needed for Pain (scale 4-6). dicyclomine 2020-09 Yes [id number] 20mg Take 1 Univers 20 mg 0-29 tablet by ity of tablet 00:00: mouth (four) Medical times Branch daily. ibuprofen 2020-09 Yes [id number] 600mg Take 1 Univers 600 mg 0-29 tablet by ity of tablet 00:00: [place] 00 every 8 Medical (eight) Branch hours as needed for Pain (scale 4-6). dicyclomine 2020-09 Yes [id number] 20mg Take 1 Univers 20 mg 0-29 tablet by ity of tablet 00:00: mouth (four) Medical times Branch daily. ibuprofen 2020-09 Yes [id number] 600mg Take 1 Univers 600 mg 0-29 tablet by ity of tablet 00:00: mouth 00 every 8 Medical (eight) Branch hours as needed for Pain (scale 4-6). dicyclomine 2020-09 Yes [id number] 20mg Take 1 Univers 20 mg 0-29 tablet by ity of tablet 00:00: mouth (four) Medical times Branch daily. ibuprofen 2020-09 Yes [id number] 600mg Take 1 Univers 600 mg 0-29 tablet by ity of tablet 00:00: mouth every 8 Medical (eight) Branch hours as needed for Pain (scale 4-6). dicyclomine 2020-09 Yes [id number] 20mg Take 1 Univers 20 mg 0-29 tablet by ity of tablet 00:00: mouth (four) Medical times Branch daily. ibuprofen 2020-09 Yes [id number] 600mg Take 1 Univers 600 mg 0-29 tablet by ity of tablet 00:00: mouth 00 every 8 Medical (eight) Branch hours as needed for Pain (scale 4-6). dicyclomine 2020-09 Yes [id number] 20mg Take 1 Univers 20 mg 0-29 tablet by ity of tablet 00:00: mouth (four) Medical times Branch daily. ibuprofen 2020-09 Yes [id number] 600mg Take 1 Univers 600 mg 0-29 tablet by ity of tablet 00:00: mouth [place] 00 every 8 Medical (eight) Branch hours as needed for Pain (scale 4-6). dicyclomine 2020-09 Yes [id number] 20mg Take 1 Univers 20 mg 0-29 tablet by ity of tablet 00:00: mouth 4 [place] 00 (four) Medical times Branch daily. dicyclomine 2020-09 Yes [id number] 20mg Take 1 Univers 20 mg 0-29 tablet by ity of tablet 00:00: mouth 4 [place] 00 (four) Medical times Branch daily. ibuprofen 2020-09- No [id number] 600mg Take 1 Univers 600 mg 0-29 [...] of 18:14: [place] 13 Medical Branch cephALEXin 2019-09- No [id number] 500mg Take 1 Univers 500 mg 09-2802 tablet by ity of tablet 00:00: 05:59 mouth 2 [place] 00 :00 (two) Medical times Branch daily for 10 days. cephALEXin 2019-09- No [id number] 500mg Take 1 Univers 500 mg 09-2802 tablet by ity of tablet 00:00: 05:59 mouth 2 [place] 00 :00 (two) Medical times Branch daily for 10 days. lactated 2019-0 Yes 1000mL at 75 Univer s ringers IV 9-05 mL/hr, ity of infusion 14:15: 1,000 mL, [place] 1,000 mL 00 IV Medical Infusion, Branch CONTINUOUS , [place] 05/13/19 at 0915, Until Discontinu ed, Routine, PACU HYDROcodone 2018-0 Yes 1{tbl} 1 tablet, Univers -acetaminop 9-05 Oral, PRN, it y of hen (NORCO 14:13: 1 dose, [place] 5) 5-325 mg 31 Starting Medi ya tablet 1 [facility] 05/13/19 Branc h tablet at 0913, Until Discontinu ed, Routine, Pain (scale 7-10), [facility] Recovery ibuprofen 2018- Yes 800mg 800 mg, Univ ers (IBU) 9-05 Oral, PRN, ity of tablet 800 14:13: 1 dose, [place] mg 31 Starting Medical [facility] 05/13/19 Branch at 0913, Until Discontinu ed, Routine, Pain (scale 1-3), Pain (scale 4-6), DSU Recovery ibuprofen Yes 800mg 800 mg, Univ ers (IBU) 9-05 Oral, PRN, ity of tablet 800 14:13: 1 dose, [place] mg 31 Starting Medical [facility] 05/13/19 Branch at 0913, Until Discontinu ed, Routine, Pain (scale 1-3), DSU Recovery HYDROmorpho 2018-0 Yes .2mg 0.2 mg, Uni vers ne -05 Slow IV ity of (DILAUDID) 14:13: Push, [place] injection 20 Q5MIN PRN, Medi ya 0.2 mg 10 doses, Branch Starting [facility] 05/13/19 at 0913, Until Discontinu ed, Routine, Pain (scale 7-10), PACU
Us e approved by (Faculty): Elizabeth OROZCO, PAIN SERVICE FENTanyl PF 2018-0 Yes 25ug 25 mcg, Uni vers (SUBLIMAZE 05 Slow IV ity of (PF)) 14:13: Push, [...] ed, injection Routine, Intra-op ibuprofen 2018- Yes [id number] 800mg Take 1 Univers 800 mg 9-05 tablet by ity of tablet 00:00: mouth [place] 00 every 6 Medical (six) Branch hours as needed for Pain (scale 4-6). HYDROcodone 2018- Yes [id number] 1{tbl} Take 1 Univers -acetaminop 9-05 108 tablet by ity of hen 5-325 00:00: mouth [place] mg tablet 00 every 6 Medical (six) Branch hours as needed for Pain (scale 7-10). ibuprofen 2020- No [id number] 800mg Take 1 Univers 800 mg 9-05 04-28 tablet by ity of tablet 00:00: 00:00 mouth [place] 00 :00 every 6 Medical (six) Branch hours as needed for Pain (scale 4-6). HYDROcodone 2020- No [id number] 1{tbl} Take 1 Univers -acetaminop 9-05 04-28 tablet by it y of hen 5-325 00:00: 00:00 mouth [place] mg tablet 00 :00 every 6 Medical (six) Branch hours as needed for Pain (scale 7-10). ibuprofen Yes [id number] 800mg Take 1 Univers 800 mg 8-15 108 tablet by ity of tablet 00:00: mouth [place] 00 every 6 Medical (six) Branch hours as needed for Pain (scale 4-6). HYDROcodone Yes [id number] 1{tbl} Take 1 Univers -acetaminop 8-15 108 tablet by ity of hen 5-325 00:00: mouth [place] mg tablet 00 every 6 Medical (six) Branch hours as needed for Pain (scale 7-10). ibuprofen Yes [id number] 800mg Take 1 Univers 800 mg 8-15 108 tablet by ity of tablet 00:00: mouth [place] 00 every 6 Medical (six) Branch hours as needed for Pain (scale 4-6). HYDROcodone Yes [id number] 1{tbl} Take 1 Univers -acetaminop 8-15 108 tablet by ity of hen 5-325 00:00: mouth [place] mg tablet 00 every 6 Medical (six) Branch hours as needed for Pain (scale 7-10). ibuprofen Yes [id number] 800mg Take 1 Univers 800 mg 8-15 108 tablet by ity of tablet 00:00: mouth [place] 00 every 6 Medical (six) Branch hours as needed for Pain (scale 4-6). HYDROcodone Yes [id number] 1{tbl} Take 1 Univers -acetaminop 8-15 108 tablet by ity of hen 5-325 00:00: mouth [place] mg tablet 00 every 6 Medical (six) Branch hours as needed for Pain (scale 7-10). ibuprofen 2019- No [id number] 800mg Take 1 Univers 800 mg 8-15 09-05 108 tablet by ity of tablet 00:00: 00:00 mouth [place] 00 :00 every 6 Medical (six) Branch hours as needed for Pain (scale 4-6). HYDROcodone 2019- No [id number] 1{tbl} Take 1 Univers -acetaminop 8-15 09-05 108 tablet by it y of hen 5-325 00:00: 00:00 mouth [place] mg tablet 00 :00 every 6 Medical (six) Branch hours as needed for Pain (scale 7-10). docusate Yes [id number] 240mg Take 1 U nivers calcium 240 7-26 capsule by it y of mg capsule 00:00: mouth once [place] 00 daily as Medical needed for Branch Constipati on. May substitute for what is in stock and covered by patient plan ferrous Yes [id number] 325mg Take 1 Un hardy sulfate 325 7-26 tablet by ity of mg (65 mg 00:00: mouth 3 [place] iron) 00 (three) Medical tablet times Branch daily with meals. May substitute for what is in stock and covered by patient plan ibuprofen Yes [id number] 600mg Take 1 Univers 600 mg 7-26 tablet by ity of tablet 00:00: mouth [place] 00 every 6 Medical (six) Branch hours as needed for Pain (scale 1-3) or Pain (scale 4-6) (Pain). Take with food or milk. foLIC acid Yes [id number] 1mg Take 1 Univers 1 mg tablet 7-26 tablet by ity of 00:00: mouth [place] 00 daily. Medical Branch ascorbic Yes [id number] 500mg Take 1 U nivers acid, 7-26 tablet by ity of vitamin C, 00:00: mouth 3 [place] (VITAMIN C) 00 (three) Medic al 500 mg times Branch tablet daily. HYDROcodone Yes [id number] 1{tbl} Take 1 Univers -acetaminop 7-26 tablet by ity of hen 5-325 00:00: mouth [place] mg tablet 00 every 6 Medical (six) Branch hours as needed for Pain (scale 7-10). docusate Yes [id number] 240mg Take 1 U nivers calcium 240 7-26 capsule by it y of mg capsule 00:00: mouth once [place] 00 daily as Medical needed for Branch Constipati on. May substitute for what is in stock and covered by patient plan ferrous Yes [id number] 325mg Take 1 Un hard[place] sulfate 325 7-26 tablet by ity of mg (65 mg 00:00: mouth 3 [place] iron) 00 (three) Medical tablet times Branch daily with meals. May substitute for what is in stock and covered by patient plan ibuprofen Yes [id number] 600mg Take 1 Univers 600 mg 7-26 tablet by ity of tablet 00:00: mouth [place] 00 every 6 Medical (six) Branch hours as needed for Pain (scale 1-3) or Pain (scale 4-6) (Pain). Take with food or milk. foLIC acid Yes [id number] 1mg Take 1 Univers 1 mg tablet 7-26 tablet by ity of 00:00: mouth [place] 00 daily. Medical Branch ascorbic Yes [id number] 500mg Take 1 U nivers acid, 7-26 tablet by ity of vitamin C, 00:00: mouth 3 [place] (VITAMIN C) 00 (three) Medic al 500 mg times Branch tablet daily. HYDROcodone Yes [id number] 1{tbl} Take 1 Univers -acetaminop 7-26 tablet by ity of hen 5-325 00:00: mouth [place] mg tablet 00 every 6 Medical (six) Branch hours as needed for Pain (scale 7-10). docusate Yes [id number] 240mg Take 1 U nivers calcium 240 7-26 capsule by it y of mg capsule 00:00: mouth once [place] 00 daily as Medical needed for Branch Constipati on. May substitute for what is in stock and covered by patient plan ferrous Yes [id number] 325mg Take 1 Un [place] sulfate 325 7-26 tablet by ity of mg (65 mg 00:00: mouth 3 [place] iron) 00 (three) Medical tablet times Branch daily with meals. May substitute for what is in stock and covered by patient plan ibuprofen Yes [id number] 600mg Take 1 Univers 600 mg 7-26 tablet by ity of tablet 00:00: mouth [place] 00 every 6 Medical (six) Branch hours as needed for Pain (scale 1-3) or Pain (scale 4-6) (Pain). Take with food or milk. foLIC acid Yes [id number] 1mg Take 1 Univers 1 mg tablet 7-26 tablet by ity of 00:00: mouth [place] 00 daily. Medical Branch ascorbic Yes [id number] 500mg Take 1 U nivers acid, 7-26 tablet by ity of vitamin C, 00:00: mouth 3 [place] (VITAMIN C) 00 (three) Medic al 500 mg times Branch tablet daily. HYDROcodone Yes [id number] 1{tbl} Take 1 Univers -acetaminop 7-26 tablet by ity of hen 5-325 00:00: mouth [place] mg tablet 00 every 6 Medical (six) Branch hours as needed for Pain (scale 7-10). docusate Yes [id number] 240mg Take 1 U nivers calcium 240 7-26 capsule by it y of mg capsule 00:00: mouth once [place] 00 daily as Medical needed for Branch Constipati on. May substitute for what is in stock and covered by patient plan ferrous Yes [id number] 325mg Take 1 Un hard[place] sulfate 325 7-26 tablet by ity of mg (65 mg 00:00: mouth 3 [place] iron) 00 (three) Medical tablet times Branch daily with meals. May substitute for what is in stock and covered by patient plan ibuprofen 2018- Yes [id number] 600mg Take 1 Univers 600 mg 7-26 tablet by ity of tablet 00:00: mouth [place] 00 every 6 Medical (six) Branch hours as needed for Pain (scale 1-3) or Pain (scale 4-6) (Pain). Take with food or milk. foLIC acid Yes [id number] 1mg Take 1 Univers 1 mg tablet 7-26 tablet by ity of 00:00: mouth [place] 00 daily. Medical Branch ascorbic Yes [id number] 500mg Take 1 U nivers acid, 7-26 tablet by ity of vitamin C, 00:00: mouth 3 [place] (VITAMIN C) 00 (three) Medic al 500 mg times Branch tablet daily. HYDROcodone Yes [id number] 1{tbl} Take 1 Univers -acetaminop 7-26 tablet by ity of hen 5-325 00:00: mouth [place] mg tablet 00 every 6 Medical (six) Branch hours as needed for Pain (scale 7-10). ascorbic Yes [id number] 500mg Take 1 U nivers acid, 7-26 tablet by ity of vitamin C, 00:00: mouth 3 [place] (VITAMIN C) 00 (three) Medic al 500 mg times Branch tablet daily. ascorbic Yes [id number] 500mg Take 1 U nivers acid, 7-26 tablet by ity of vitamin C, 00:00: mouth 3 [place] (VITAMIN C) 00 (three) Medic al 500 mg times Branch tablet daily. docusate Yes [id number] 240mg Take 1 U nivers calcium 240 7-26 capsule by it y of mg capsule 00:00: mouth once [place] 00 daily as Medical needed for Branch Constipati on. May substitute for what is in stock and covered by patient plan ferrous 2019-0 Yes [id number] 325mg Take 1 Un hard[place] sulfate 325 7-26 tablet by ity of mg (65 mg 00:00: mouth 3 [place] iron) 00 (three) Medical tablet times Branch daily with meals. May substitute for what is in stock and covered by patient plan ibuprofen Yes [id number] 600mg Take 1 Univers 600 mg 7-26 tablet by ity of tablet 00:00: mouth [place] 00 every 6 Medical (six) Branch hours as needed for Pain (scale 1-3) or Pain (scale 4-6) (Pain). Take with food or milk. ascorbic Yes [id number] 500mg Take 1 U nivers acid, 7-26 tablet by ity of vitamin C, 00:00: mouth [place] (VITAMIN C) 00 (three) Medic al 500 mg times Branch tablet daily. foLIC acid Yes [id number] 1mg Take 1 Univers 1 mg tablet 7-26 tablet by ity of 00:00: mouth [place] 00 daily. Medical Branch ascorbic Yes [id number] 500mg Take 1 U nivers acid, 7-26 tablet by ity of vitamin C, 00:00: mouth [place] (VITAMIN C) 00 (three) Medic al 500 mg times Branch tablet daily. docusate Yes [id number] 240mg Take 1 U nivers calcium 240 7-26 capsule by it y of mg capsule 00:00: mouth [place] 00 daily as Medical needed for Branch Constipati on. May substitute for what is in stock and covered by patient plan ferrous Yes [id number] 325mg Take 1 Un hardy sulfate 325 7-26 tablet by ity of mg (65 mg 00:00: mouth 3 [place] iron) 00 (three) Medical tablet times Branch daily with meals. May substitute for what is in stock and covered by patient plan ibuprofen Yes [id number] 600mg Take 1 Univers 600 mg 7-26 tablet by ity of tablet 00:00: mouth [place] 00 every 6 Medical (six) Branch hours as needed for Pain (scale 1-3) or Pain (scale 4-6) (Pain). Take with food or milk. foLIC acid Yes [id number] 1mg Take 1 Univers 1 mg tablet 7-26 tablet by ity of 00:00: mouth [place] 00 daily. Medical Branch ascorbic Yes [id number] 500mg Take 1 U nivers acid, 7- tablet by ity of vitamin C, 00:00: mouth [place] (VITAMIN C) 00 (three) Medic al 500 mg times Branch tablet daily. HYDROcodone Yes [id number] 1{tbl} Take 1 Univers -acetaminop 7-26 tablet by ity of hen 5-325 00:00: mouth [place] mg tablet 00 every 6 Medical (six) Branch hours as needed for Pain (scale 7-10). ascorbic 2019- No [id number] 500mg Take 1 Univers acid, - 09-05 tablet by ity of vitamin C, 00:00: 00:00 mouth 3 [place] (VITAMIN C) 00 :00 (three) Medic al 500 mg times Branch tablet daily. docusate 2019- No [id number] 240mg Take 1 Univers calcium 240 04-02 08-15 capsule by i ty of mg capsule 00:00: 00:00 mouth once [place] 00 :00 daily as Medical needed for Branch Constipati on. May substitute for what is in stock and covered by patient plan ferrous 2019- No [id number] 325mg Take 1 U nivers sulfate 325 04-02 08-15 tablet by it y of mg (65 mg 00:00: 00:00 mouth 3 [place] iron) 00 :00 (three) Medical tablet times Branch daily with meals. May substitute for what is in stock and covered by patient plan ibuprofen 2019- No [id number] 600mg Take 1 Univers 600 mg 04-02 08-15 tablet by ity of tablet 00:00: 00:00 mouth [place] 00 :00 every 6 Medical (six) Branch hours as needed for Pain (scale 1-3) or Pain (scale 4-6) (Pain). Take with food or milk. foLIC acid 2019- No [id number] 1mg Take 1 Univers 1 mg tablet 04-02 08-15 tablet by it y of 00:00: 00:00 mouth [place] 00 :00 daily. Medical Branch HYDROcodone 2019- No [id number] 1{tbl} Take 1 Univers -acetaminop - 08-15 tablet by it y of hen 5-325 00:00: 00:00 mouth [place] mg tablet 00 :00 every 6 Medical (six) Branch hours as needed for Pain (scale 7-10). human 2018- 2019- No .5mL 0.5 mL, Univers papillomav 04-01 Intramuscu it y of vac,9-frank(P 11:42: 18:03 [facility], [place] F) 18 :00 ONCE-PRIOR Medical (GARDASIL 9 TO Branch (PF)) vial DISCHARGE, 0.5 mL 1 dose, Starting [place] 04/01/19 at 0642, Until Discontinu ed, Routine, Give vaccine prior to discharge varicella 2019- No .5mL 0.5 mL, Univ ers virus 04-01 Subcutaneo ity of vaccine 11:42: 19:25 , [place] live 08 :00 ONCE-PRIOR Medical (VARIVAX TO Branch (PF)) DISCHARGE, injection 1 dose, 0.5 mL Starting [place] 04/01/19 at 0642, Until Discontinu ed, Routine, Give vaccine prior to discharge HYDROcodone 2018- Yes 2{tbl} 2 tablet, Univers -acetaminop 7-25 Oral, ity of hen (NORCO 05:14: Q6HPRN, [place] 5) 5-325 mg 00 Starting Medi ya tablet 2 [place] Branch tablet 04/01/19 at 0014, Until Discontinu ed, Routine, Pain (scale 7-10), If uncontroll ed by Ibuprofen HYDROcodone 2018- Yes 1{tbl} 1 tablet, Univers -acetaminop 7-25 [...] Discontinu ed, Routine, Pain (scale 1-3) diphenhydrA Yes 25mg 25 mg, Univ ers MINE 7-25 Oral, ity of (BENADRYL) 05:14: Q6HPRN, [place] tablet 25 00 Starting Medica l mg [facility] Branch 04/01/19 at 0014, Until Discontinu ed, Routine, Sleep, Itching ondansetron 2019-0 Yes 4mg 4 mg, Slow Univers (ZOFRAN 7-25 IV Push, ity of (PF)) 05:14: Q8HPRN, [place] injection 4 00 Starting Medi ya mg [facility] Branch 04/01/19 at 0014, Until Discontinu ed, Routine, Nausea and Vomiting (N/V) bisacodyl 2019- Yes 10mg 10 mg, Univer s (DULCOLAX) 725 Rectal, ity of suppository 05:14: QDRAQUELYPRN [place] 10 mg 00 Starting Medical [place] Branch 04/01/19 at 0014, Until Discontinu ed, Routine, Constipati on simethicone Yes 160mg 160 mg, Un hardy (GAS 25 Oral, ity of RELIEF) 05:14: PC+HSPRNRyan chewable 00 Starting Medical tablet 160 [facility] mg 04/01/19 at 0014, Until Discontinu ed, Routine, Gas docusate Yes 240mg 240 mg, Unive rs calcium 725 Oral, ity of (SURFAK) 05:14: [place] MATHEWS as capsule 240 00 Starting Medi ya mg [facility] Branch 04/01/19 at 0014, Until Discontinu ed, Routine, Constipati on magnesium Yes 30mL 30 mL, Univer s hydroxide 04-01 Oral, ity of (MILK OF 05:14: QDRAQUELYPRChuy [place] as MAGNESIA) 00 Starting Medica l 400 mg/5 mL [facility] Branch suspension 04/01/19 at 30 mL 0014, Until Discontinu ed, Routine, Constipati on naloxone 2019- No .4mg 0.4 mg, Unive rs (NARCAN) 04-01 0727 Slow IV ity of injection 05:13: 05:12 Push, PRN [place] 0.4 mg 52 :52 - SEE Medical INSTRUCTIO Branch NS, Starting [place] 04/01/19 at 0013, Until 04/03/19 at 0012, Routine, Analgesia Recovery, PACU diphenhydrA 2019-0 2019- No 25mg 25 mg, Uni vers MINE 04-01 Slow IV ity of (BENADRYL) 05:13: 05:12 Push, [place] injection 52 :52 Q4HPRN, Medical 25 mg Starting Branch [place] 04/01/19 at 0013, Until 04/02/19 at 0012, Routine, Itching, PACU 2018- No Take by Unive rs vit 04-01 mouth. ity of calc,iron,f 04:10: 00:00 [place] [...] Surgical Prophylaxi s
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 Medical gram/100 mL HOLDING Branc h Piggyback 2 ONCE, 1 g dose, Starting Fri03/31/19 at 2057, Until Fri03/31/19 at 2107, 100 mL
Reas on for Anti-Infec tive: Surgical Prophylaxi s
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
Duration of therapy: within 24 hours of surgery sodium 2019- No 30mL 30 mL, Univers citrate-cit 04-01 Oral, ity of surya acid 01:58: 02:09 PRE-PROCED [place] (BICITRA) 44 :00 URE ONCE, Medic al 500-334 1 dose, Branch mg/5 mL Starting solution 30 Wed mL 03/31/19 at 2058, Until Fri03/31/19 at 2109, Routine, Surgery LR 1000 mL 2018- No 2mU/min 2 Uni vers + oxytocin [...] Until Discontinu ed, Routine, Surgery/Pr ocedure lactated 2018- No 500mL at 999 Unive rs ringers IV 03-31 mL/hr, 500 it y of infusion 15:44: 05:14 mL, IV [place] 500 mL 10 :04 Infusion, Medical PRN - SEE Branch INSTRUCTIO NS, Starting Fri03/31/19 at 1044, Until [place] 04/01/19 at 0014, Routine No known No Univers medications [facility] No known No Univers medications [facility] Vital Signs Vital Name Observation Time Observation Value Comments Source Systolic blood 2021-12-31 22:30:00 144 mm[Hg] Univer sity of [facility] Diastolic blood 2021-12-31 22:30:00 99 mm[Hg] Unive rsity of [facility] Heart rate 2021-12-31 22:30:00 74 /min Universi ty [facility] Respiratory rate 2021-12-31 22:30:00 16 /min [facility] Oxygen saturation in 2021-12-31 22:30:00 100 /min University of Arterial blood by [place] Medi ya Pulse oximetry Branch Body temperature 2021-12-31 18:32:00 36.83 Bisi Univ ersity of [place] [facility] Body weight 2021-12-31 18:32:00 107.049 kg Universi ty of [place] [facility] BMI 2021-12-31 18:32:00 35.88 kg/m2 Universi ty of [place] [facility] Systolic blood 2021-12-20 02:40:00 133 mm[Hg] Univer sity of pressure [place] [facility] Diastolic blood 2021-12-20 02:40:00 86 mm[Hg] Unive rsity of pressure [place] [facility] Heart rate 2021-12-20 02:40:00 76 /min Universi ty of [place] [facility] Respiratory rate 2021-12-20 02:40:00 16 /min Univ ersity of [place] [facility] Oxygen saturation in 2021-12-20 02:40:00 99 /min University of Arterial blood by [facility] ya Pulse oximetry Branch Body temperature 2021-12-20 00:04:00 37.28 Bisi Univ ersity of [place] [facility] Body height 2021-12-20 00:04:00 172.7 cm Universi ty of [place] [facility] Body weight 2021-12-20 00:04:00 107.049 kg Universi ty of [place] [facility] BMI 2021-12-20 00:04:00 35.88 kg/m2 Universi ty of [place] [facility] Systolic blood 2021-09-02 05:42:00 134 mm[Hg] Univer sity of pressure [place] [facility] Diastolic blood 2021-09-02 05:42:00 68 mm[Hg] Unive rsity of pressure [place] [facility] Heart rate 2021-09-02 05:42:00 107 /min Universi ty of [place] [facility] Body temperature 2021-09-02 05:42:00 38.11 Bisi Univ ersity of [place] [facility] Respiratory rate 2021-09-02 05:42:00 18 /min Univ ersity of [place] [facility] Oxygen saturation in 2021-09-02 05:42:00 98 /min University of Arterial blood by [place] Medi ya Pulse oximetry Branch Body height 2021-09-02 03:25:00 172.7 cm Universi ty of [place] [facility] Body weight 2021-09-02 03:25:00 111.585 kg Universi ty of [place] [facility] BMI 2021-09-02 03:25:00 37.40 kg/m2 Universi ty of [place] [facility] Systolic blood 2021-08-08 13:49:00 139 mm[Hg] Univer sity of pressure [place] [facility] Diastolic blood 2021-08-08 13:49:00 88 mm[Hg] Unive rsity of pressure [place] [facility] Heart rate 2021-08-08 13:49:00 91 /min Universi ty of [place] [facility] Body temperature 2021-08-08 13:49:00 36.72 Bisi Univ ersity of [place] [facility] Respiratory rate 2021-08-08 13:49:00 18 /min Univ ersity of [place] [facility] Body height 2021-08-08 13:49:00 172.7 cm Universi ty of [place] [facility] Body weight 2021-08-08 13:49:00 107.049 kg Universi ty of [place] [facility] BMI 2021-08-08 13:49:00 35.88 kg/m2 Universi ty of [place] [facility] Oxygen saturation in 2021-08-08 13:49:00 99 /min University of Arterial blood by [place] [employer] ya Pulse oximetry Branch Systolic blood 2021-08-04 06:52:00 123 mm[Hg] Univer sity of pressure [place] [facility] Diastolic blood 2021-08-04 06:52:00 82 mm[Hg] Unive rsity of pressure [place] [facility] Heart rate 2021-08-04 06:52:00 62 /min Universi ty of [place] [facility] Body temperature 2021-08-04 06:52:00 36.72 Bisi Univ ersity of [place] [facility] Respiratory rate 2021-08-04 06:52:00 16 /min Univ ersity of [place] [facility] Body weight 2021-08-04 06:52:00 107.049 kg Universi ty of [place] [facility] BMI 2021-08-04 06:52:00 35.88 kg/m2 Universi ty of [place] [facility] Oxygen saturation in 2021-08-04 06:52:00 99 /min University of Arterial blood by [place] [employer] ya Pulse oximetry Branch Systolic blood 2021-08-04 05:38:00 172 mm[Hg] Univer sity of pressure [place] [facility] Diastolic blood 2021-08-04 05:38:00 105 mm[Hg] Unive rsity of pressure [place] [facility] Heart rate 2021-08-04 05:38:00 74 /min Universi ty of [place] [facility] Respiratory rate 2021-08-04 05:38:00 16 /min Univ ersity of [place] [facility] Oxygen saturation in 2021-08-04 05:00:00 97 /min University of Arterial blood by [place] [employer] ya Pulse oximetry Branch Body temperature 2021-08-04 03:02:00 37.06 Bisi Univ ersity of [place] [facility] Body height 2021-08-04 03:02:00 172.7 cm Universi ty of [place] [facility] Body weight 2021-08-04 03:02:00 107.049 kg Universi ty of [place] [facility] BMI 2021-08-04 03:02:00 35.88 kg/m2 Universi ty of [place] [facility] Heart rate 2021-08-01 16:59:00 89 /min Universi ty of [place] [facility] Body temperature 2021-08-01 16:59:00 37.17 Bisi Univ ersity of [place] [facility] Respiratory rate 2021-08-01 16:59:00 18 /min Univ ersity of [place] [facility] Body weight 2021-08-01 16:59:00 107.049 kg Universi ty of [place] [facility] BMI 2021-08-01 16:59:00 35.88 kg/m2 Universi ty of [place] [facility] Oxygen saturation in 2021-08-01 16:59:00 99 /min University of Arterial blood by [place] [employer] ya Pulse oximetry Branch Systolic blood 2021-07-06 19:00:00 122 mm[Hg] Univer sity of pressure [place] [facility] Diastolic blood 2021-07-06 19:00:00 76 mm[Hg] Unive rsity of pressure [place] [facility] Heart rate 2021-07-06 19:00:00 54 /min Universi ty of [place] [facility] Oxygen saturation in 2021-07-06 19:00:00 100 /min University of Arterial blood by [place] [employer] ya Pulse oximetry Branch Respiratory rate 2021-07-06 18:00:00 18 /min Univ ersity of [place] [facility] Body temperature 2021-07-06 14:24:00 36.72 Bisi Univ ersity of [place] [facility] Body weight 2021-07-06 14:24:00 107.049 kg Universi ty of [place] [facility] BMI 2021-07-06 14:24:00 35.88 kg/m2 Universi ty of [place] [facility] Systolic blood 2020-07-30 00:00:00 119 mm[Hg] Univer sity of pressure [place] [facility] Diastolic blood 2020-07-30 00:00:00 79 mm[Hg] Unive rsity of pressure [place] [facility] Heart rate 2020-07-30 00:00:00 84 /min Universi ty of [place] [facility] Body temperature 2020-07-30 00:00:00 36.83 Bisi Univ ersity of [place] [facility] Respiratory rate 2020-07-30 00:00:00 22 /min Univ ersity of [place] [facility] Oxygen saturation in 2020-07-30 00:00:00 100 /min University of Arterial blood by [facility] Pulse oximetry Branch Body weight 2020-07-29 22:45:00 107.049 kg Universi ty of [place] [facility] BMI 2020-07-29 22:45:00 35.88 kg/m2 Universi ty of [place] [facility] Systolic blood 2020-01-04 20:41:00 134 mm[Hg] Univer sity of pressure [place] [facility] Diastolic blood 2020-01-04 20:41:00 87 mm[Hg] Unive rsity of pressure [place] [facility] Heart rate 2020-01-04 20:41:00 91 /min Universi ty of [place] [facility] Body temperature 2020-01-04 20:41:00 37.22 Bisi Univ ersity of [place] [facility] Respiratory rate 2020-01-04 20:41:00 18 /min Univ ersity of [place] [facility] Body weight 2020-01-04 20:41:00 105.235 kg Universi ty of [place] [facility] BMI 2020-01-04 20:41:00 35.28 kg/m2 Universi ty of [place] [facility] Oxygen saturation in 2020-01-04 20:41:00 99 /min University of Arterial blood by [place] Med[facility] ya Pulse oximetry Branch Oxygen saturation in 2019-05-13 15:45:00 99 /min University of Arterial blood by [facility] ya Pulse oximetry Branch Systolic blood 2019-05-13 15:15:00 123 mm[Hg] Univer sity of pressure [place] [facility] Diastolic blood 2019-05-13 15:15:00 86 mm[Hg] Unive rsity of pressure [place] [facility] Heart rate 2019-05-13 15:15:00 74 /min Universi ty of [place] [facility] Respiratory rate 2019-05-13 15:15:00 17 /min Univ ersity of [place] [facility] Body temperature 2019-05-13 14:00:00 36.22 Bisi Univ ersity of [facility] Branch Body height 2019-05-13 11:12:00 172.7 cm Universi ty of [place] [facility] Body weight 2019-05-13 11:12:00 109 kg Universi ty of [place] [facility] BMI 2019-05-13 11:12:00 36.54 kg/m2 Universi ty of [facility] Branch Systolic blood 2019-04-22 15:26:00 142 mm[Hg] Univer sity of pressure [place] [facility] Diastolic blood 2019-04-22 15:26:00 93 mm[Hg] Unive rsity of pressure [place] [facility] Heart rate 2019-04-22 15:26:00 72 /min Universi ty of [place] [facility] Body temperature 2019-04-22 15:26:00 35.28 Bisi [facility] ersity of [place] [facility] Respiratory rate 2019-04-22 15:26:00 16 /min Univ ersity of [facility] Branch Body height 2019-04-22 15:26:00 172.7 cm Universi ty of [place] [facility] Body weight 2019-04-22 15:26:00 105.8 kg Universi ty of [place] [facility] BMI 2019-04-22 15:26:00 35.47 kg/m2 Universi ty of [facility] Oxygen saturation in 2019-04-22 15:26:00 100 /min [facility] Arterial blood by [facility] Pulse oximetry Branch Systolic blood 2019-04-21 15:07:00 120 mm[Hg] Univer sity of pressure [place] [facility] Diastolic blood 2019-04-21 15:07:00 82 mm[Hg] Unive rsity of pressure [place] [facility] Heart rate 2019-04-21 15:06:00 68 /min Universi ty of [place] [facility] Body temperature 2019-04-21 15:06:00 36.67 Bisi Univ ersity of [facility] Branch Respiratory rate 2019-04-21 15:06:00 16 /min Univ ersity of [place] [facility] Body height 2019-04-21 15:06:00 172.7 cm Universi ty of [place] [facility] Body weight 2019-04-21 15:06:00 106.369 kg Universi ty of [place] [facility] BMI 2019-04-21 15:06:00 35.66 kg/m2 Universi ty of [place] [facility] Systolic blood 2019-04-06 16:16:00 124 mm[Hg] Univer sity of pressure [place] [facility] Diastolic blood 2019-04-06 16:16:00 78 mm[Hg] Unive rsity of pressure [facility] Heart rate 2019-04-06 16:11:00 87 /min Universi ty of [place] [facility] Body temperature 2019-04-06 16:11:00 37.22 Bisi [facility] Respiratory rate 2019-04-06 16:11:00 16 /min [facility] ersity of [facility] Body height 2019-04-06 16:11:00 172.7 cm Universi ty of [place] [facility] Body weight 2019-04-06 16:11:00 110.791 kg Universi ty of [place] [facility] BMI 2019-04-06 16:11:00 37.14 kg/m2 Universi ty of [place] [facility] Systolic blood 2019-04-02 13:00:00 122 mm[Hg] Univer sity of [facility] Diastolic blood 2019-04-02 13:00:00 78 mm[Hg] Unive rsity of [facility] Heart rate 2019-04-02 13:00:00 80 /min Universi ty of [place] [facility] Body temperature 2019-04-02 13:00:00 36.61 Bisi [facility] Respiratory rate 2019-04-02 13:00:00 20 /min [facility] Oxygen saturation in 2019-04-02 13:00:00 99 /min [facility] Arterial blood by [facility] Pulse oximetry Branch Procedures Procedure Date / Time Performing Clinician Source Performed US PELVIS COMPLETE WITH 2021-12-31 22:18:00 Cliff Thorne [facility] TRANSVAGINAL [facility] COMP. METABOLIC PANEL 2021-12-31 19:43:00 Cliff Thorne [facility] ([id number]) Medical [place] CBC WITH DIFF 2021-12-31 19:43:00 Cliff Thorne o f [facility] URINALYSIS 2021-12-31 19:43:00 Cliff Thorne o f [facility] ADC CLC OR [facility] ONLY - 2021-12-31 19:43:00 Cliff Thorne [facility] WET PREP [facility] CONSENT/REFUSAL FOR 2021-12-31 18:24:53 Doctor Unassigned, No Un [facility] [place] DIAGNOSIS AND TREATMENT Name [facility] POCT TEST 2021-12-20 01:40:00 Leslie Lynn [facility] URINALYSIS 2021-12-20 01:38:00 Leslie Lynn [facility] RAPID INFLUENZA A/B 2021-09-02 03:32:00 [facility] COVID-19 (ID NOW RAPID 2021-09-02 03:32:00 Sandra Blas [facility] Medical Branch CONSENT/REFUSAL FOR 2021-09-02 03:00:49 Doctor Unassigned, No Un [facility] [place] DIAGNOSIS AND TREATMENT Name [facility] CONSENT/REFUSAL FOR 2021-08-08 13:45:43 Doctor Unassigned, No Un [facility] [place] DIAGNOSIS AND TREATMENT Name [facility] EMERGENCY DEPARTMENT 2021-08-04 06:01:00 Doctor Unassigned, No [facility] [place] DOCUMENTS Name [facility] CT SOFT TISSUE NECK W 2021-08-04 03:55:[address] [facility] CONTRAST [facility] TEST, SERUM 2021-08-04 03:36:00 [facility]IC METABOLIC PANEL 2021-08-04 03:36:00 [facility] [place] (NA, K, CL, CO2, Medical Branch GLUCOSE, BUN, CREATININE, CA) CBC WITH DIFF 2021-08-04 03:36:00 Chery Pompa [facility] NOTICE OF PRIVACY 2021-08-04 02:57:07 Doctor Unassigned, No Univ [facility] [place] PRACTICES Name [facility] CONSENT/REFUSAL FOR 2021-08-04 02:55:44 Doctor Unassigned, No [facility] [place] DIAGNOSIS AND TREATMENT Name [facility] RAPID STREP SCREEN FOR 2021-08-01 17:03:00 Cliff Thorne [facility] [place] GROUP A Medical Branch CONSENT/REFUSAL FOR 2021-08-01 16:53:00 Doctor Unassigned, No [facility] [place] DIAGNOSIS AND TREATMENT Name Medical Branch CT ABDOMEN PELVIS W 2021-07-06 17:50:39 Ximena Santana [facility] CONTRAST [facility] US PELVIS COMPLETE WITH 2021-07-06 16:38:35 Ximena Santana [facility] TRANSVAGINAL Medical Branch POCT TEST 2021-07-06 14:34:00 Ximena Santana [facility] Medical Branch LIPASE 2021-07-06 14:31:00 Max Driscoll [facility] COMP. METABOLIC PANEL 2021-07-06 14:31:00 Ximena Santnaa [facility] ([id number]) Medical [place] CBC WITH DIFF 2021-07-06 14:31:00 Santana [facility] URINALYSIS 2021-07-06 14:31:00 Max Ximena [facility] COVID-19 (ID NOW RAPID 2021-07-06 14:31:00 Ximena Santana [facility] TESTING) Medical Branch NOTICE OF PRIVACY 2021-07-06 14:20:02 Doctor Unassigned, No [facility] ersity [facility] Medical Branch CONSENT/REFUSAL FOR 2021-07-06 14:19:50 Doctor Unassigned, No [facility] [place] DIAGNOSIS AND TREATMENT Name [facility] RAPID STREP SCREEN FOR 2020-07-29 23:28:00 [facility] Branch POCT TEST 2020-07-29 23:01:00 Dimas Palomino [facility] NOTICE OF PRIVACY 2020-07-29 22:36:17 Doctor Unassigned, No [facility] Name Medical Branch CONSENT/REFUSAL FOR 2020-07-29 22:36:05 Doctor Unassigned, No [facility] [place] DIAGNOSIS AND TREATMENT Name Medical Branch INDIRECT ANTIGLOBULIN 2019-05-13 11:30:00 Teodora Drew [facility] Lauren [facility] ASSIGNMENT OF BENEFITS 2019-05-13 09:55:52 Doctor Unassigned, No [facility] TYPE AND SCREEN 2019-04-22 15:52:00 Virginia Adamscharlotte [facility] CBC WITH DIFFERENTIAL 2019-04-22 15:51:[address] [facility] ASSIGNMENT OF BENEFITS 2019-04-22 15:15:47 Doctor Unassigned, No [facility] DAY SURGERY - [place] 2019-04-22 05:01:00 Doctor Unassigned, N o [facility] CBC WITH DIFFERENTIAL 2019-04-01 07:36:00 [facility] VENOUS CORD GAS 2019-04-01 03:29:00 Elsie, [facility] SECTION 2019-04-01 02:20:00 Munir Goff [facility] URIC ACID 2019-04-01 02:06:00 Parlier [facility] CBC WITH DIFFERENTIAL 2019-04-01 02:06:00 Whitley [facility] SGOT (ASPARTATE AMINO 2019-04-01 02:06:00 [facility] TRANSFER) Medical Branch CREATININE 2019-04-01 02:06:00 [facility] ALANINE AMINO 2019-04-01 02:06:00 [facility] TRANSFERASE(SGPT Medical Branch LACTATE DEHYDROGENASE 2019-04-01 02:06:00 Whitley [facility] URINALYSIS 2019-04-01 02:05:00 [facility]OTE[facility] CREAT RATIO 2019-04-01 02:05:00 Whitley [facility] URINE RANDOM Medical Branch CBC WITH DIFFERENTIAL 2019-03-31 16:13:00 Elsie, [facility] HEPATITIS B SURFACE 2019-03-31 16:13:00 Elsie, [facility] ANTIGEN [facility] GALV ONLY - SYPHILIS 2019-03-31 16:13:00 Elsie, [facility] IGG/IGM Medical Branch TYPE AND SCREEN 2019-03-31 15:54:00 Jose Armando Zimmerman o f [facility] Encounters Start End Encounter Admission Attending Care Care Encounter Source Date/Time Date/Time Type Type Clinicians Facility Department ID 2021-07-07 Emergency [facility] [id number] [facility]07[facility]05 Emergency [facility] [id number] Univers 23:03[facility] [place] 2023-05-20 2023-05-20 Outpatient SFA SFA [id number] Jordy 14:53:18 14:53:18 0912 F Ambrose 2021-12-31 2021-12-31 Emergency X [facility] ERT [id number] Univers 13:33:00 18:01:00 CLIFF ashley [facility] 2021-12-31 2021-12-31 Emergency [facility] [id number] Univers 13:33:00 18:01:00 Cliff KAPLAN 350.1.13.10 i ty of [place] 4.2.7.2.686 [facility] [phone] [address] 2021-12-19 2021-12-19 Emergency X RAE [facility] ERT [id number] Univers 19:06:00 21:48:00 LESLIE [facility] 2021-12-19 2021-12-19 Emergency [facility] 1.2.729.889 [id number] Univers 19:06:00 21:48:00 Leslie KAPLAN 350.1.13.10 ity [facility] 4.2.7.2.686 [facility] [phone] [address] 2021-09-01 2021-09-01 Emergency X Sandra BLAS [facility] ERT [id number] Univers 21:27:00 23:45:00 ity [facility] 2021-09-01 2021-09-01 Emergency Sandra Blas [facility] 1.2.840.114 [id number] Univers 21:27:00 23:45:00 Marixa KAPLAN 350.1.13.10 i ty of [place] 4.2.7.2.686 [facility] [phone] [facility] 084 Branch 2021-08-08 2021-08-08 Emergency X , [facility] ERT [id number] Univers 07:49:00 08:30:00 CLIFF chauhan [facility] 2021-08-08 2021-08-08 Emergency , [facility] 1.2.969.851 [id number] Univers 07:49:00 08:30:00 Cliff KAPLAN 350.1.13.10 i ty of [facility] 4.2.7.2.686 [facility] [phone] [facility] 084 Branch 2021-08-04 2021-08-04 Emergency [place], TRAUMA 1.2.840.114 [id number] Univers 00:53:00 02:30:00 [facility] 350.1.13.10 it y of 4.2.7.2.686 [facility] [phone] [facility] 014 Branch 2021-08-04 2021-08-04 Orders Doctor KAREN 1.2.840.114 [id number] Univers 00:00:00 00:00:00 Only Unassigned, NICKI 350.1.13.10 ity of [place] [facility] 4.2.7.2.686 [facility] [phone] [facility] 009 Branch 2021-08-03 2021-08-03 Emergency X POMPA, [facility] ERT [id number] Univers 21:05:00 23:46:00 CHERY chauhan [facility] 2021-08-03 2021-08-03 Emergency X POMPA, [facility] ERT [id number] Univers 21:05:00 23:46:00 CHERY chauhan [facility] 2021-08-03 2021-08-03 Emergency Pompa, [facility] 1.2.840.114 [id number] Univers 21:05:00 23:46:00 Chery KAPLAN 350.1.13.10 i ty of [facility] 4.2.7.2.686 [facility] [phone] [facility] 084 Branch 2021-08-01 2021-08-01 Emergency X THORNE, [facility] ERT [id number] Univers 11:03:00 12:01:00 CLIFF chauhan [facility] 2021-08-01 2021-08-01 Emergency [facility] [id number] Univers 11:03:00 12:01:00 Cliff KAPLAN 350.1.13.10 i ty of [place] 4.2.7.2.686 [facility] [phone] [address] 2021-08-01 2021-08-01 Orders Doctor KAREN 1.2.840.114 [id number] Univers 00:00:00 00:00:00 Only Unassigned, NICKI 350.1.13.10 ity of [place] [facility] 4.2.7.2.686 Chuy as [phone] [address] 2021-07-06 2021-07-06 Emergency [facility] [id number] Univers 09:23:00 14:05:00 XIMENA chauhan [facility] 2021-07-06 2021-07-06 Emergency [facility] 1.2.049.266 [id number] Univers 09:23:00 14:05:00 Ximena KAPLAN 350.1.13.10 i ty of [place] 4.2.7.2.686 [facility] [phone] [address] 2021-07-06 2021-07-06 Orders Doctor KAREN 1.2.840.114 [id number] Univers 00:00:00 00:00:00 Only Unassigned, NICIK 350.1.13.10 ity of [place] [facility] 4.2.7.2.686 [place] as [phone] [address] 2020-08-02 2020-08-02 Telephone KAREN Blackburn 1.2.768.669 [id number] Univers 00:00:00 00:00:00 Sravani HYMAN 350.1.13.10 it y of HOSPITAL 4.2.7.2.686 [place] as [phone] [address] 2020-07-29 2020-07-29 Emergency [facility] 1.2.840.114 [id number] Univers 16:49:00 18:31:00 Dimas Kaplan 350.1.13.10 ity of [place] 4.2.7.2.686 [place] [facility] [phone] [facility] 084 Branch 2020-07-29 2020-07-29 Orders Doctor KAREN 1.2.840.114 [id number] Univers 00:00:00 00:00:00 Only Unassigned, NICKI 350.1.13.10 ity of [place] [facility] 4.2.7.2.686 [place] as [phone] [facility] 009 Branch 2020-03-20 2020-03-20 Outpatient R GREER [facility] [id number] Univers 11:00:00 11:00:00 OMAYEMI ity of [facility] 2020-01-06 2020-01-06 Telephone Marquise [facility] 1.2.840.114 [id number] Univers 00:00:00 00:00:00 , Dunia [facility] 350.1.13.10 ity of [place] 4.2.7.2.686 [place] as Professio [phone] [address] 2020-01-04 2020-01-04 Urgent Pob1, Acute Care Clinic [facility] 1. 2.840.114 [id number] Univers 15:27:21 15:47:21 Care Dunia [facility] 350.1 .13.10 ity of [place] 4.2.7.2.686 [place] as Professio [phone] [address] 2020-01-04 2020-01-04 Outpatient R [facility] [id number] Univers 15:40:00 15:40:00 ity of [facility] 2019-05-13 2019-05-13 Hospital Bailee Muñoz 1.2.251.907 [id number] Univers 04:56:19 10:45:00 Encounter Chavez Clearyy 350.1.13.10 ity of [facility] 4.2.7.2.686 [place] [phone] [facility] 104 Branch 2019-05-13 2019-05-13 Orders Doctor JONES 1.2.840.114 [id number] Univers 00:00:00 00:00:00 Only Unassigned, NICKI 350.1.13.10 ity of [place] [facility] 4.2.7.2.686 [place] as [phone] [facility] [address] 2019-04-22 2019-04-22 Hospital Bailee Muñoz 1.2.775.398 [id number] Univers 10:17:00 13:55:00 Encounter Chavez Hassan Nicki 350.1.13.10 ity of Hospital 4.2.7.2.686 [place] [phone] [facility] 101 Branch 2019-04-22 2019-04-22 Orders Doctor KAREN 1.2.840.114 [id number] Univers 00:00:00 00:00:00 Only Unassigned, NICKI 350.1.13.10 ity of [place] [facility] 4.2.7.2.686 [place] as [phone] [facility] [address] 2019-04-22 2019-04-22 Prep For JARON Drew 1.2.840.114 [id number] Univers 00:00:00 00:00:00 Surgery [facility] 350.1.13.10 i ty of [facility] [place] [phone] [facility] 113 Branch 2019-04-21 2019-04-21 Routine Santana [facility] 1.2.840.114 [id number] Univers 09:50:02 10:35:34 Velvet Perez PRINTER ASSISTANT 350.1.13.10 ity of Visit [facility] 4.2.7.2.686 [place] as MATERNAL [phone] Med ical & CHILD [address] [place] [address] 2019-04-06 2019-04-06 [facility] 1.2 .840.114 [id number] Univers 10:43:43 11:33:58 Visit Miriam Shepherd PRINTER ASSISTANT 350.1.13. 10 ity of [facility] 4.2.7.2.686 [place] as MATERNAL [phone] [facility] ical & CHILD [address] [place] [address] 2019-03-31 2019-04-02 Hospital KAREN Navarro 1.2.840.114 [id number] Univers 09:36:00 15:52:00 Encounter Hope HYMAN 350.1.13.10 ity of [facility] 4.2.7.2.686 [place] as [phone] [facility] 063 Branch 2019-04-02 2019-04-02 Prep For CARISA Adams 1.2.840.[id number] [facility] 00:00:00 00:00:00 Surgery Farhan [facility] 350.1.13.10 i ty of CLINICS [place] [phone] [facility] 113 Branch Results Test Description Test Time Test Comments Results Result Comments Source COMP. METABOLIC PANEL (81985) 2021-12-31 20:15:18 Test Item Value Reference Range Interpretation Comme nts NA (test code = 9955021295) 140 mmol/L 135-145 K (test code = 9131218298) 3.7 mmol/L 3.5-5.0 CL (test code = 8835291305) 103 mmol/L 98-108 CO2 TOTAL (test code = 2432153758) 29 mmol/L 23-31 AGAP (test code = 9523219637) 2-16 BUN (test code = 2501015013) 13 mg/dL 7-23 GLUCOSE (test code = 9386567631) 75 mg/dL 70-110 CREATININE (test code = 0.93 mg/dL 0.50-1.04 2306937836) TOTAL BILI (test code = 0.4 mg/dL 0.1-1.7 6136333059) CALCIUM (test code = 9313197690) 8.5 mg/dL 8.6-10.6 L T PROTEIN (test code = 6359351431) 8.1 g/dL 6.3-8.2 ALBUMIN (test code = 8827707877) 4.3 g/dL 3.5-5.0 ALK PHOS (test code = 1922786491) 80 U/L 34-122 ALTv (test code = 1742-6) 15 U/L 5-35 AST(SGOT) (test code = 8017469727) 29 U/L 13-40 eGFR (test code = 3763317578) mL/min/1.73m2 SANGITA (test code = SANGITA) Association [...] tests). Lab Interpretation (test code = Abnormal 43019-2) [facility] WITH [id number] 19:53:31 Test Item Value Reference Range Interpretation Comments WBC (test code = See_Comment [Automated 0590-2) message] The sy stem which generated this result transmitted reference range : 4.30 - 11.10 10*3/?L. The reference range was not used to interpret this result as normal/abnormal . RBC (test code = See_Comment [Automated 959-8) message] The sy stem which generated this [...] (test code = 50.2 fL 39.0-49.9 H 51852-4) RDW-CV (test code = 18.1 % 12.0-15.5 H 788-0) PLT (test code = See_Comment H [Automated 777-3) message] The sy stem which generated this result transmitted reference range : 166 - 358 10*3/ ?L. The reference r naty was not used to interpret this result as normal/abnormal . MPV (test code = 9.8 fL 9.5-12.9 06564-4) NRBC/100 WBC (test See_Comment [Automat ed code = 8691726603) message] The system which generated this result transmitted reference range : 0.0 - 10.0 /100 WBCs. The refer ence range was not u sed to interpret th is result as normal/abnormal . NRBC x10^3 (test code <0.01 See_Comment [Auto mated = 7473138743) message] The s ystem which generated this result transmitted reference range : 10*3/?L. The reference range was not used to interpret this result as normal/abnormal . GRAN MAT (NEUT) % 51.2 % (test code = 770-8) IMM GRAN % (test code 0.20 % = 3530959377) LYMPH % (test code = 36.1 % 736-9) MONO % (test code = 9.4 % 5905-5) EOS % (test code = 2.4 % 713-8) BASO % (test code = 0.7 % 706-2) GRAN MAT x10^3(ANC) 2.95 10*3/uL 1.88-7.09 (test code = 7729691806) IMM GRAN x10^3 (test <0.03 0.00-0.06 code = 2545729854) LYMPH x10^3 (test code 2.08 10*3/uL 1.32-3.29 = 731-0) MONO x10^3 (test code 0.54 10*3/uL 0.33-0.92 = 742-7) EOS x10^3 (test code = 0.14 10*3/uL 0.03-0.39 711-2) BASO x10^3 (test code 0.04 10*3/uL 0.01-0.07 = 704-7) Lab Interpretation Abnormal (test code = 63763-5) [facility] [id number] 01:40:00 Test Item Value Reference Range Interpretation Comments POCT PREG (test code = 1605) negative On board controls acceptable with present C Line (test code = 3574) POCT PREG LOT # (test code = 3575) [id number] POCT PREG TEST DATE (test code = 3576) Lab Interpretation (test code = Normal 14683-4) [facility] TEST, [id number] 03:59:03 Test Item Value Reference Range Interpretation Comments PREG SERUM (test code Negative = 0891542003) SANGITA (test code = SANGITA) Less than 10 IU/L. ?If low titer or ectopic is suspected, resubmit specimen in 48-72 hours. [facility] METABOLIC PANEL (NA, K, CL, CO2, GLUCOSE, BUN, CREATININE, CA)2021-08-04 03:55:47 Test Item Value Reference Range Interpretation Comments NA (test code = 135 mmol/L 135-145 1154377944) K (test code = 4.8 mmol/L 3.5-5.0 7738935811) CL (test code = 102 mmol/L 98-108 7170488580) CO2 TOTAL (test code = 25 mmol/L 23-31 6368731794) AGAP (test code = 2-16 8661287364) BUN (test code = 12 mg/dL 7-23 1362132296) GLUCOSE (test code = 129 mg/dL 70-110 H 1264188919) CREATININE (test code = 0.70 mg/dL 0.50-1.04 7639745225) CALCIUM (test code = 9.1 mg/dL 8.6-10.6 3524612444) eGFR (test code = mL/min/1.73m2 7148818626) SANGITA (test code = SANGITA) Association of [...] tests). Lab Interpretation Abnormal (test code = 32432-9) [facility] WITH [id number] 03:44:45 Test Item Value Reference Range Interpretation Comments WBC (test code = See_Comment [Automated 5186-2) message] The sy stem which generated this result transmitted reference range : 4.30 - 11.10 10*3/?L. The reference range was not used to interpret this result as normal/abnormal . RBC (test code = See_Comment [Automated 961-8) message] The sy stem which generated this [...] RDW-SD (test code = 45.8 fL 39.0-49.9 19831-5) RDW-CV (test code = 16.6 % 12.0-15.5 H 788-0) PLT (test code = See_Comment [Automated 777-3) message] The sy stem which generated this result transmitted reference range : 166 - 358 10*3/ ?L. The reference r naty was not used to interpret this result as normal/abnormal . MPV (test code = 9.7 fL 9.5-12.9 66654-1) NRBC/100 WBC (test See_Comment [Automat ed code = 4342812531) message] The system which generated this result transmitted reference range : 0.0 - 10.0 /100 WBCs. The refer ence range was not u sed to interpret th is result as normal/abnormal . NRBC x10^3 (test code <0.01 See_Comment [Auto mated = 3138416956) message] The s ystem which generated this result transmitted reference range : 10*3/?L. The reference range was not used to interpret this result as normal/abnormal . GRAN MAT (NEUT) % 49.9 % (test code = 770-8) IMM GRAN % (test code 0.20 % = 1681313033) LYMPH % (test code = 38.3 % 736-9) MONO % (test code = 9.2 % 5905-5) EOS % (test code = 1.7 % 713-8) BASO % (test code = 0.7 % 706-2) GRAN MAT x10^3(ANC) 3.00 10*3/uL 1.88-7.09 (test code = 3522585782) IMM GRAN x10^3 (test <0.03 0.00-0.06 code = 2941451152) LYMPH x10^3 (test code 2.30 10*3/uL 1.32-3.29 = 731-0) MONO x10^3 (test code 0.55 10*3/uL 0.33-0.92 = 742-7) EOS x10^3 (test code = 0.10 10*3/uL 0.03-0.39 711-2) BASO x10^3 (test code 0.04 10*3/uL 0.01-0.07 = 704-7) Lab Interpretation Abnormal (test code = 95959-9) [facility] Metabolic [id number] 14:54:39 Test Item Value Reference Range Interpretation Comments NA (test code = 137 mmol/L 135-145 7356943595) K (test code = 3.8 mmol/L 3.5-5.0 4013736242) CL (test code = 105 mmol/L 98-108 1867370818) CO2 TOTAL (test code = 25 mmol/L 23-31 2135623421) AGAP (test code = 2-16 4776550960) BUN (test code = 9 mg/dL 7-23 2352321066) GLUCOSE (test code = 126 mg/dL 70-110 H 0510280930) CREATININE (test code = 0.76 mg/dL 0.50-1.04 8397869589) TOTAL BILI (test code = 0.4 mg/dL 0.1-1.8 5966605995) CALCIUM (test code = 9.1 mg/dL 8.6-10.6 4529289858) T PROTEIN (test code = 7.5 g/dL 6.3-8.2 0924190906) ALBUMIN (test code = 4.0 g/dL 3.5-5.0 3138246754) ALK PHOS (test code = 68 U/L 34-122 2858447329) ALTv (test code = 13 U/L 5-35 1742-6) AST(SGOT) (test code = 23 U/L 13-40 1302436347) eGFR (test code = mL/min/1.73m2 6817628256) SANGITA (test code = SANGITA) Association of [...] tests). Lab Interpretation Abnormal (test code = 11622-5) [facility] Hospital[facility], [id number] 14:54:38 Test Item Value Reference Range Interpretation Comments LIPASE (test code = 5759910364) 78 U/L 0-220 Lab Interpretation (test code = Normal 81087-9) [facility] Hospital[facility] with [id number] 14:41:38 Test Item Value Reference Range Interpretation Comments WBC (test code = See_Comment [Automated 9621-2) message] The sy stem which generated this result transmitted reference range : 4.30 - 11.10 10*3/?L. The reference range was not used to interpret this result as normal/abnormal . RBC (test code = See_Comment [Automated 464-6) message] The sy stem which generated this [...] RDW-SD (test code = 46.2 fL 39.0-49.9 63809-1) RDW-CV (test code = 16.8 % 12.0-15.5 H 788-0) PLT (test code = See_Comment [Automated 777-3) message] The sy stem which generated this result transmitted reference range : 166 - 358 10*3/ ?L. The reference r naty was not used to interpret this result as normal/abnormal . MPV (test code = 9.7 fL 9.5-12.9 43288-4) NRBC/100 WBC (test See_Comment [Automat ed code = 0926260345) message] The system which generated this result transmitted reference range : 0.0 - 10.0 /100 WBCs. The refer ence range was not u sed to interpret th is result as normal/abnormal . NRBC x10^3 (test code <0.01 See_Comment [Auto mated = 7440802474) message] The s ystem which generated this result transmitted reference range : 10*3/?L. The reference range was not used to interpret this result as normal/abnormal . GRAN MAT (NEUT) % 50.0 % (test code = 770-8) IMM GRAN % (test code 0.20 % = 4612434809) LYMPH % (test code = 39.3 % 736-9) MONO % (test code = 7.1 % 5905-5) EOS % (test code = 2.8 % 713-8) BASO % (test code = 0.6 % 706-2) GRAN MAT x10^3(ANC) 2.67 10*3/uL 1.88-7.09 (test code = 4500522700) IMM GRAN x10^3 (test <0.03 0.00-0.06 code = 9948584650) LYMPH x10^3 (test code 2.10 10*3/uL 1.32-3.29 = 731-0) MONO x10^3 (test code 0.38 10*3/uL 0.33-0.92 = 742-7) EOS x10^3 (test code = 0.15 10*3/uL 0.03-0.39 711-2) BASO x10^3 (test code 0.03 10*3/uL 0.01-0.07 = 704-7) Lab Interpretation Abnormal (test code = 69680-3) [facility] [id number] 14:34:00 Test Item Value Reference Range Interpretation Comments POCT PREG (test code = 1605) negative On board controls acceptable with present C Line (test code = 3574) POCT PREG LOT # (test code = 3575) [id number] POCT PREG TEST DATE (test code = 3576) Lab Interpretation (test code = Normal 22872-5) [facility] FOR GROUP [id number] 23:58:00 Test Item Value Reference Range Interpretation Comments Streptococcus pyogenes (group A) Positive Negative A antigen (test code = 49996-0) Lab Interpretation (test code = Abnormal 57061-3) [facility] [id number] 23:01:00 Test Item Value Reference Range Interpretation Comments POCT PREG (test code = 1605) negative POCT PREG LOT # (test code = 3575) [id number] POCT PREG TEST DATE (test 01/05/2022 code = 3576) Lab Interpretation (test code = Normal 70609-3) [facility] HospitalINDIRECT ANTIGLOBULIN [id number] 13:02:18 Test Item Value Reference Range Interpretation Comments IAT (test code = Negative Performed a t [facility] 1185) Laboratory Serv [facility] Blood [address] [place], [place] [address]Udfn Free: [phone] A No. [id number] [facility] WITH [id number] 16:43:00 Test Item Value Reference Range Interpretation [...] (test code = 54.3 fL 39-49.9 H 97350-5) RDW-CV (test code = 19.1 % 12-15.5 H 788-0) PLT (test code = See_Comment [Automated 777-3) message] The sy stem which generated this result transmitted reference range : 166 - 358 10*3/ ?L. The reference r naty was not used to interpret this result as normal/abnormal . MPV (test code = 11.1 fL 9.5-12.9 17064-3) NRBC/100 WBC (test See_Comment [Automat ed code = 4203324471) message] The system which generated this result transmitted reference range : 0.0 - 10.0 /100 WBCs. The refer ence range was not u sed to interpret th is result as normal/abnormal . NRBC x10^3 (test code <0.01 See_Comment [Auto mated = 7676176901) message] The s ystem which generated this result transmitted reference range : 10*3/?L. The reference range was not used to interpret this result as normal/abnormal . GRAN MAT (NEUT) % 39.5 % (test code = 770-8) IMM GRAN % (test code 0.00 % = 8694113993) LYMPH % (test code = 48.6 % 736-9) MONO % (test code = 7.7 % 5905-5) EOS % (test code = 2.9 % 713-8) BASO % (test code = 1.3 % 706-2) GRAN MAT x10^3(ANC) 1.23 10*3/uL 1.88-7.09 L (test code = 9659087642) IMM GRAN x10^3 (test <0.03 0-0.06 code = 2260871576) LYMPH x10^3 (test code 1.51 10*3/uL 1.32-3.29 = 731-0) MONO x10^3 (test code 0.24 10*3/uL 0.33-0.92 L = 742-7) EOS x10^3 (test code = 0.09 10*3/uL 0.03-0.39 711-2) BASO x10^3 (test code 0.04 10*3/uL 0.01-0.07 = 704-7) ELLIPTO/OVAL (test 2+ See_Comment A [Automat ed code = 64491-9) message] The system which generated this result transmitted reference range : (none). The reference range was not used to interpret this result as normal/abnormal . Lab Interpretation Abnormal (test code = 45397-4) [facility] Hospital[facility] Screen - The Type and Screen expires at midnight on the 3rd day after it was drawn. A current Type and Screen is required when RBCs are requested. For all other blood products, a Type and Scree n performed during the current hospitalizati...2019-04-22 16:35:07 Test Item Value Reference Range Interpretation Comments ABO & RH (test code O POSITIVE Performe d at [facility] = 20) Laboratory Serv [facility] Blood [address] [place] [address] s [address]Vafl Free: [phone] A No. [id number] IAT (test code = Negative Performed a t [facility] 1185) Laboratory Serv [facility] Blood [address] [place] [address] s [address]Wngu Free: [phone] A No. [id number] [facility] HospitalGALV ONLY - SYPHILIS [id number] 14:50:00 Test Item Value Reference Range Interpretation Comments Syphilis IgG/IgM (test Non-reactive Non-reactive code = 27404-0) SANGITA (test code = SANGITA) Non-reactive - No serologic evidence of T. pallidum infection. Cannot exclude incubating or early syphilis. Submit a second specimen in 2-4 weeks if syphilis is clinically suspected.Equivocal - Further testing to follow.Reactive - Further testing to follow. Lab Interpretation (test Normal code = 29722-7) [facility] WITH [id number] 07:57:00 Test Item Value Reference Range Interpretation Comments WBC (test code = See_Comment [Automated 4390-2) message] The sy stem which generated this [...] (test code = 56.2 fL 39-49.9 H 85618-3) RDW-CV (test code = 19.7 % 12-15.5 H 788-0) PLT (test code = See_Comment L [Automated 777-3) message] The sy stem which generated this result transmitted reference range : 166 - 358 10*3/ ?L. The reference r naty was not used to interpret this result as normal/abnormal . MPV (test code = 10.3 fL 9.5-12.9 32173-4) NRBC/100 WBC (test See_Comment [Automat ed code = [id number]) message] The system which generated this result transmitted reference range : 0.0 - 10.0 /100 WBCs. The refer ence range was not u sed to interpret th is result as normal/abnormal . NRBC x10^3 (test code <0.01 See_Comment [Auto mated = [id number]) message] The s ystem which generated this result transmitted reference range : 10*3/?L. The reference range was not used to interpret this result as normal/abnormal . GRAN MAT (NEUT) % 76.9 % (test code = 770-8) IMM GRAN % (test code 0.60 % = [id number]) LYMPH % (test code = 14.2 % 736-9) MONO % (test code = 7.6 % 5905-5) EOS % (test code = 0.3 % 713-8) BASO % (test code = 0.4 % 706-2) GRAN MAT x10^3(ANC) 5.96 10*3/uL 1.88-7.09 (test code = 9122319788) IMM GRAN x10^3 (test 0.05 10*3/uL 0-0.06 code = 8338823241) LYMPH x10^3 (test code 1.10 10*3/uL 1.32-3.29 L = 731-0) MONO x10^3 (test code 0.59 10*3/uL 0.33-0.92 = 742-7) EOS x10^3 (test code = <0.03 0.03-0.39 L 711-2) BASO x10^3 (test code 0.03 10*3/uL 0.01-0.07 = 704-7) Lab Interpretation Abnormal (test code = 68162-0) [facility] BranchARTERIAL CORD [id number] 03:33:00 Test Item Value Reference Range Interpretation Comments BASE EXCESS, CORD mEq/L (test code = 9613081199) AC PH, CORD (BEAKER) 7.18-7.38 (test code = 5554530033) PC02, CORD (test code See_Comment [Auto mated message] The = 2819494350) system which g enerated this result transmit mercedez reference range : 32 - 66 mmHg. The refer ence range was not used to interpret this result as normal/abnormal . PO2, CORD (test code See_Comment [Autom ated message] The = 1046577590) system which g enerated this result transmit mercedez reference range : 10 - 30 mmHg. The refer ence range was not used to interpret this result as normal/abnormal . BICARBONATE, CORD See_Comment [Automate d message] The (test code = system which ge nerated this 7187990446) result transmit mercedez reference range : 17 - 27 mEq/L. The refe rence range was not used to interpret this result as normal/abnormal . [facility] [id number] 03:31:00 Test Item Value Reference Range Interpretation Comments VENOUS BASE EXCESS, mEq/L CORD (test code = 1347527746) VENOUS PH, CORD (test 7.25-7.45 code = 0316281133) VENOUS PC02, CORD See_Comment [Automate d message] The (test code = system which ge nerated 8224121050) this result tra nsmitted reference range : 27 - 49 mmHg. The refer ence range was not used to interpret this result as normal/abnormal . VENOUS PO2, CORD (test See_Comment [Aut omated message] The code = 2795165178) system [facility] generated this result tra nsmitted reference range : 17 - 41 mmHg. The refer ence range was not used to interpret this result as normal/abnormal . VENOUS BICARBONATE, See_Comment [Automa mercedez message] The CORD (test code = system whi ch generated 9259119857) this result tra nsmitted reference range : 12 - 29 mEq/L. The refe rence range was not used to interpret this result as normal/abnormal . [facility]ysis[facility] 03:13:00 Test Item Value Reference Range Interpretation Comments APPEARANCE (test code = Hazy Clear A 3364450236) COLOR (test code = Yellow Yellow 2526878213) PH (test code = 4.8-8.0 8953895911) SP GRAVITY (test code = 1.003-1.030 6393373469) GLU U QUAL (test code = Normal Normal 4501134225) BLOOD (test code = 1+ Negative A 6746818751) KETONES (test code = 80 mg/dL Negative A 3441952482) PROTEIN (test code = 30 mg/dL Negative A 2887-8) UROBILIN (test code = 4.0 mg/dL Normal A 8843741884) BILIRUBIN (test code = Negative Negative 9330776432) NITRITE (test code = Negative Negative 5246676940) LEUK ALPHONSO (test code = 250/uL Negative A 3435918999) RBC/HPF (test code = See_Comment H [Autom ated message] 6899133621) The system [employer] generated this result transmit mercedez reference range : 0 - 3 HPF. The refe rence range was not u sed to interpret th is result as normal/abnormal . WBC/HPF (test code = See_Comment H [Autom ated message] 2386827743) The system [employer] generated this result transmit mercedez reference range : 0 - 5 HPF. The refe rence range was not u sed to interpret th is result as normal/abnormal . BACTERIA (test code = Negative Negative 7790692295) MUCOUS (test code = Slight Negative LPF A 1116649482) SQ EPITH (test code = See_Comment [Auto mated message] 0476782866) The system [employer] generated this result transmit mercedez reference range : <=2 HPF. The refere nce range was not u sed to interpret th is result as normal/abnormal . YEAST BUD (test code = <1 See_Comment [Aut omated message] 0293293347) The system [employer] generated this result transmit mercedez reference range : <=1 HPF. The refere nce range was not u sed to interpret th is result as normal/abnormal . Lab Interpretation (test Abnormal code = 15583-1) [facility] HospitalU[facility] Acid [id number] 02:58:00 Test Item Value Reference Range Interpretation Comments URIC ACID (test code = 0586850151) 4.9 mg/dL 2.9-6 Lab Interpretation (test code = Normal 24341-0) [facility] HospitalSerum [id number] 02:58:00 Test Item Value Reference Range Interpretation Comments CREATININE (test code 0.54 mg/dL 0.5-1.04 = 7464385307) eGFR Calculation mL/min/1.73m2 (Non-) (test code = 3112029398) eGFR Calculation mL/min/1.73m2 () (test code = 5180696274) SANGITA (test code = SANGITA) Association of [...] or urine or abnormalities in imaging tests). [facility] HospitalSGOT (Asparate Amino Transfer)2019-04-01 02:58:00 Test Item Value Reference Range Interpretation Comments AST(SGOT) (test code = 7042240414) 28 U/L 13-40 Lab Interpretation (test code = Normal 18848-4) [facility] HospitalAlanine Amino Transferase (SGPT)2019-04-01 02:58:00 Test Item Value Reference Range Interpretation Comments ALT(SGPT) (test code = 3764691090) 22 U/L 9-51 Lab Interpretation (test code = Normal 60123-4) [facility] HospitalLactate [id number] 02:58:00 Test Item Value Reference Range Interpretation Comments LDH (test code = 9346098256) 597 U/L 300-600 Lab Interpretation (test code = Normal 82273-7) [facility] HospitalProtein CREAT Ratio Urine [id number] 02:24:00 Test Item Value Reference Range Interpretation Comments T. PROT U (test code = 2888-6) 31 mg/dL CREAT U (test code = 5076977743) 132.3 mg/dL Protein/Creatinine Ratio Urine 0.0-2.0 (test code = 6571398610) [facility] WITH [id number] 02:17:00 Test Item Value Reference Range Interpretation [...] (test code = 57.6 fL 39-49.9 H 34132-4) RDW-CV (test code = 20.3 % 12-15.5 H 788-0) PLT (test code = See_Comment L [Automated 777-3) message] The sy stem which generated this result transmitted reference range : 166 - 358 10*3/ ?L. The reference r naty was not used to interpret this result as normal/abnormal . MPV (test code = 10.8 fL 9.5-12.9 33721-6) NRBC/100 WBC (test See_Comment [Automat ed code = 2473313305) message] The system which generated this result transmitted reference range : 0.0 - 10.0 /100 WBCs. The refer ence range was not u sed to interpret th is result as normal/abnormal . NRBC x10^3 (test code <0.01 See_Comment [Auto mated = 1521195464) message] The s ystem which generated this result transmitted reference range : 10*3/?L. The reference range was not used to interpret this result as normal/abnormal . GRAN MAT (NEUT) % 77.0 % (test code = 770-8) IMM GRAN % (test code 0.30 % = 0944408511) LYMPH % (test code = 14.7 % 736-9) MONO % (test code = 7.2 % 5905-5) EOS % (test code = 0.3 % 713-8) BASO % (test code = 0.5 % 706-2) GRAN MAT x10^3(ANC) 6.70 10*3/uL 1.88-7.09 (test code = 0197534652) IMM GRAN x10^3 (test 0.03 10*3/uL 0-0.06 code = 1573519584) LYMPH x10^3 (test code 1.28 10*3/uL 1.32-3.29 L = 731-0) MONO x10^3 (test code 0.63 10*3/uL 0.33-0.92 = 742-7) EOS x10^3 (test code = 0.03 10*3/uL 0.03-0.39 711-2) BASO x10^3 (test code 0.04 10*3/uL 0.01-0.07 = 704-7) Lab Interpretation Abnormal (test code = 75404-1) [facility] HospitalHepatitis B Surface [id number] 17:46:00 Test Item Value Reference Range Interpretation Comments HBsAg Semi-Quantitative (test code = 5195-3) [facility] HospitalType and Screen - ONCE [id number] 17:23:20 Test Item Value Reference Range Interpretation Comments ABO & RH (test code O POSITIVE Performe d at [facility] = 20) Laboratory Serv [facility] s [address]Bluh Free: [phone] A No. [id number] IAT (test code = Negative Performed a t [facility] 1185) Laboratory Serv [facility] s [id number] Free: [phone] A No. [id number] [facility] HospitalCBC WITH [id number] 16:41:00 Test Item Value Reference Range Interpretation [...] (test code = 55.9 fL 39-49.9 H 40881-5) RDW-CV (test code = 19.9 % 12-15.5 H 788-0) PLT (test code = See_Comment L [Automated 777-3) message] The sy stem which generated this result transmitted reference range : 166 - 358 10*3/ ?L. The reference r naty was not used to interpret this result as normal/abnormal . MPV (test code = 10.4 fL 9.5-12.9 34889-4) NRBC/100 WBC (test See_Comment [Automat ed code = 7605705379) message] The system which generated this result transmitted reference range : 0.0 - 10.0 /100 WBCs. The refer ence range was not u sed to interpret th is result as normal/abnormal . NRBC x10^3 (test code <0.01 See_Comment [Auto mated = 6391983849) message] The s ystem which generated this result transmitted reference range : 10*3/?L. The reference range was not used to interpret this result as normal/abnormal . GRAN MAT (NEUT) % 65.9 % (test code = 770-8) IMM GRAN % (test code 0.50 % = 2339135039) LYMPH % (test code = 24.3 % 736-9) MONO % (test code = 8.1 % 5905-5) EOS % (test code = 0.9 % 713-8) BASO % (test code = 0.3 % 706-2) GRAN MAT x10^3(ANC) 3.83 10*3/uL 1.88-7.09 (test code = 1169717655) IMM GRAN x10^3 (test 0.03 10*3/uL 0-0.06 code = 4514468415) LYMPH x10^3 (test code 1.41 10*3/uL 1.32-3.29 = 731-0) MONO x10^3 (test code 0.47 10*3/uL 0.33-0.92 = 742-7) EOS x10^3 (test code = 0.05 10*3/uL 0.03-0.39 711-2) BASO x10^3 (test code <0.03 0.01-0.07 = 704-7) Lab Interpretation Abnormal (test code = 61582-6) [facility]"
--- NOTE | 2023-05-29 08:29 | ER ---
Nurse's Notes [facility] Name: Aniyah Jiang Age: 28 yrs Sex: Female : 1995 Arrival Date: 05/29/2023 Time: 08:16 Bed IW1 Private MD: Diagnosis: Acute pharyngitis, unspecified Presentation: 05/29 08:24 Chief complaint: Patient states: Swollen throat X 2 days. Coronavirus screen: At this ld1 time, the client does not indicate any symptoms associated with coronavirus-19. Ebola Screen: No symptoms or risks identified at this time. Initial Sepsis Screen: Does the patient meet any 2 criteria? No. Patient's initial sepsis screen is negative. Does the patient have a suspected source of infection? No. Patient's initial sepsis screen is negative. Risk Assessment: Do you want to hurt yourself or someone else? Patient reports no desire to harm self or others. Onset of symptoms was May 29, 2023 at 08:25. 08:24 Method Of Arrival: Ambulatory ld1 08:24 Acuity: BRITTANI 4 ld1 Triage Assessment: 08:25 General: Appears in no apparent distress. comfortable, Behavior is calm, cooperative, ld1 appropriate for age. Pain: Complains of pain in uvula, left aspect of posterior pharynx and right aspect of posterior pharynx Pain does not radiate. Pain currently is 8 out of 10 on a pain scale. Quality of pain is described as throbbing. EENT: Reports pain in mouth. Neuro: Level of Consciousness is awake, alert, obeys commands, Oriented to person, place, time, situation. Cardiovascular: Capillary refill < 3 seconds Patient's skin is warm and dry. Respiratory: Airway is patent Respiratory effort is even, unlabored. GI: Abdomen is round non-distended. : No signs and/or symptoms were reported regarding the genitourinary system. Derm: No signs and/or symptoms reported regarding the dermatologic system. Musculoskeletal: No deficits noted. 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 - Social history:: Smoking status: Patient denies any tobacco usage or history of. Screenin:26 [facility] ED Fall Risk Assessment (Adult) History of falling in the last 3 months, ld1 including since admission No falls in past 3 months (0 pts). Abuse screen: Denies threats or abuse. Denies injuries from another. Nutritional screening: No deficits noted. Tuberculosis screening: No symptoms or risk factors identified. Assessment: 08:26 Reassessment: See triage assessment. ld1 Vital Signs: 08:24 Pulse 101; Resp 18; Temp 97.9(O); Pulse Ox 100% on R/A; Weight 116.12 kg; Height 5 ft. ld1 8 in. ; Pain 8/10; 08:24 Body Mass Index 38.92 (116.12 kg, 172.72 cm) ld1 08:24 Pain Scale: Adult ld1 ED Course: 08:20 Patient arrived in ED. mg5 08:21 Isabella Anton FNP-C [facility] snw 08:21 Norberto Zuñiga MD is Attending Physician. snw 08:25 Triage completed. ld1 08:25 Arm band placed on right wrist. ld1 08:26 Patient has correct armband on for positive identification. Bed in low position. Call ld1 light in reach. Side rails up X2. Pulse ox on. NIBP on. Door closed. Noise minimized. 08:26 No provider procedures requiring assistance completed. Patient did not have IV access ld1 during this emergency room visit. 08:27 Inna Raza, RN is Primary Nurse. ld1 Administered Medications: : Drug: Lortab PO Liquid 15 ml PO once Route: PO; ld1 08:41 Drug: Rocephin (cefTRIAXone) IM 1 grams IM once Route: IM; Site: right deltoid; ld1 08: Drug: predniSONE PO 40 mg PO once Route: PO; ld1 08:41 Drug: Famotidine PO 20 mg PO once Route: PO; ld1 Medication: 08: VIS not applicable for this client. ld1 Outcome: :28 Discharge ordered by . snw 08:41 Discharged to home ambulatory, ld1 08:41 Condition: stable 08:41 Discharge instructions given to patient, Instructed on discharge instructions, follow up and referral plans. medication usage, Demonstrated understanding of instructions, follow-up care, medications, Prescriptions given X 08:41 Patient left the ED. ld1 Signatures: Isabella Anton, ROSEY-C FLUE DUST LABORER-Csnw Inna Raza, RN RN ld1 Kalpana Moreno mg5
--- NOTE | 2023-05-29 08:29 | EDPHYS ---
Physician Documentation [facility] Name: Aniyah Jiang Age: 28 yrs Sex: Female : 1995 Arrival Date: 05/29/2023 Time: 08:16 Bed IW1 Private MD: ED Physician Norberto Zuñiga HPI: 05/29 08:34 This 28 yrs old Black Female presents to ER via Ambulatory with complaints of Throat snw Swelling-Tonsils. 08:34 The patient presents with pain, redness. The problem is located in the uvula, left snw aspect of posterior pharynx and right aspect of posterior pharynx. Onset: The symptoms/episode began/occurred acutely, 2 day(s) ago, and became worse. Duration: The symptoms are continuous. Associated signs and symptoms: Pertinent positives: dysphagia, pain, redness in area, swelling. Severity of symptoms: At their worst the symptoms were moderate. The patient has not experienced similar symptoms in the past. It is unknown whether or not the patient has recently seen a physician. 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 - Social history:: Smoking status: Patient denies any tobacco usage or history of. ROS: 08:34 Constitutional: Negative for fever, chills, and weight loss, Eyes: Negative for injury, snw pain, redness, and discharge, 08:34 Cardiovascular: Negative for chest pain, palpitations, and edema, Respiratory: Negative for shortness of breath, cough, wheezing, and pleuritic chest pain, Abdomen/GI: Negative for abdominal pain, nausea, vomiting, diarrhea, and constipation, Back: Negative for injury and pain, : Negative for injury, bleeding, discharge, and swelling, MS/Extremity: Negative for injury and deformity, Skin: Negative for injury, rash, and discoloration, Neuro: Negative for headache, weakness, numbness, tingling, and seizure, Psych: Negative for depression, anxiety, suicide ideation, homicidal ideation, and hallucinations, 08:34 ENT: Positive for sore throat, 08:34 Neck: Positive for swollen nodes, Exam: 08:34 Constitutional: This is a well developed, well nourished patient who is awake, alert, snw and in no acute distress. Head/Face: Normocephalic, atraumatic. Eyes: Pupils equal round and reactive to light, extra-ocular motions intact. Lids and lashes normal. Conjunctiva and sclera are non-icteric and not injected. Cornea within normal limits. Periorbital areas with no swelling, redness, or edema. 08:34 Chest/axilla: Normal chest wall appearance and motion. Nontender with no deformity. No lesions are appreciated. Cardiovascular: Regular rate and rhythm with a normal S1 and S2. No gallops, murmurs, or rubs. Normal PMI, no JVD. No pulse deficits. Respiratory: Lungs have equal breath sounds bilaterally, clear to auscultation and percussion. No rales, rhonchi or wheezes noted. No increased work of breathing, no retractions or nasal flaring. Abdomen/GI: Soft, non-tender, with normal bowel sounds. No distension or tympany. No guarding or rebound. No evidence of tenderness throughout. Back: No spinal tenderness. No costovertebral tenderness. Full range of motion. Skin: Warm, dry with normal turgor. Normal color with no rashes, no lesions, and no evidence of cellulitis. MS/ Extremity: Pulses equal, no cyanosis. Neurovascular intact. Full, normal range of motion. Neuro: Awake and alert, GCS 15, oriented to person, place, time, and situation. Cranial nerves II-XII grossly intact. Motor strength 5/5 in all extremities. Sensory grossly intact. Cerebellar exam normal. Normal gait. Psych: Awake, alert, with orientation to person, place and time. Behavior, mood, and affect are within normal limits. 08:34 ENT: External ear(s): are unremarkable, Ear canal(s): are normal, TM's: are normal, Nose: is normal, Mouth: is normal, Posterior pharynx: erythema, that is moderate, Dental exam: normal, 08:34 Neck: Lymph nodes: lymphadenopathy is appreciated, anterior cervical nodes, Vital Signs: 08:24 Pulse 101; Resp 18; Temp 97.9(O); Pulse Ox 100% on R/A; Weight 116.12 kg; Height 5 ft. ld1 8 in. ; Pain 04/17; 08:24 Body Mass Index 38.92 (116.12 kg, 172.72 cm) ld1 08:24 Pain Scale: Adult ld1 MDM: 08:28 Patient medically screened. snw 08:36 Differential diagnosis: pharyngitis, strep, mono. Data reviewed: vital signs, nurses snw notes. I considered the following discharge prescriptions or medication management in the emergency department Medications were administered in the Emergency Department. See MAR. Counseling: I had a detailed discussion with the patient and/or guardian regarding the historical points, exam findings, and any diagnostic results supporting the discharge/admit diagnosis, the need for outpatient follow up, for definitive care, to return to the emergency department if symptoms worsen or persist or if there are any questions or concerns that arise at home. Special discussion: Based on the history and exam findings, there is no indication for further emergent testing or inpatient evaluation. I discussed with the patient/guardian the need to see the primary care provider for further evaluation of the symptoms. Administered Medications: 08:41 Drug: Lortab PO Liquid 15 ml PO once Route: PO; ld1 08:41 Drug: Rocephin (cefTRIAXone) IM 1 grams IM once Route: IM; Site: right deltoid; ld1 08:41 Drug: predniSONE PO 40 mg PO once Route: PO; ld1 08:41 Drug: Famotidine PO 20 mg PO once Route: PO; ld1 Disposition: 15:53 Co-signature as Attending Physician, Norberto Zuñiga MD I agree with the assessment and cp3 plan of care. Disposition Summary: 05/29/23 08:28 Discharge Ordered Notes: Location: Home snw Condition: Stable snw Diagnosis - Acute pharyngitis, unspecified snw Followup: snw - With: Emergency Department - When: As needed - Reason: Worsening of condition Followup: snw - With: Private Physician - When: 2 - 3 days - Reason: Recheck today's complaints, Continuance of care, Re-evaluation by your physician Discharge Instructions: - Discharge Summary Sheet snw - Pharyngitis snw - Rehydration, Adult snw Forms: - Work release form snw - Medication Reconciliation Form snw - Thank You Letter snw - Antibiotic Education snw - Prescription Opioid Use snw - Patient Portal Instructions snw - Leadership Thank You Letter snw Prescriptions: - Prednisone 20 mg Oral Tablet - take 2 tablets ORAL route once daily for 5 days; 10 tablet; Refills: 0, Product snw Selection Permitted - Zithromax 500 mg Oral Tablet - take 1 tablet ORAL route once daily for 5 days; 5 tablet; Refills: 0, Product snw Selection Permitted Signatures: Isabella Anton, STEWARD/STEWARDESS NIGHT-C STEWARD/STEWARDESS NIGHT-[place] Norberto Zuñiga MD MD cp3 Inna Raza RN RN ld1
[2023-05-29] MEDS ORDERED: CEFTRIAXONE 1000 MG/VIAL ONE (08:42)
[2023-05-29] MEDS ORDERED: FAMOTIDINE 20 MG TAB ONE (08:42)
[2023-05-29] MEDS ORDERED: HYDROCOD 2.5mg-ACETAMIN 108mg/5mL Soln ONE (08:42)
[2023-05-29] MEDS ORDERED: LIDOCAINE 1% MPF 5 ML VIAL ONE (08:42)
[2023-05-29] MEDS ORDERED: predniSONE 20 MG TAB ONE (08:42)
[2023-05-29 08:47] VITALS: TEMP 97.9; O2SAT 100
== END 2023-05-29 08:41 | disposition home or self-care (01) ==
LOC: ER 08:16
DX: J02.9 Acute pharyngitis, unspecified (principal)
CPT/HCPCS: 96372; 99284; J0696; J2001; J7512

== ENCOUNTER 2024-10-03 21:23 | Emergency (ER) | payer SELFPAY ==
--- OUTSIDE RECORDS SUMMARY | 2024-10-03 21:31 | XMS REPORT | Continuity of Care Document ---
Author Name Unknown Address [address] [facility] [address] [place] [address] [facility] Address [address] [facility] [address] [place] [address] Care Team Providers Care Eye Physician Name Role Phone Pcp, Patient Does Not Have A Primary Care Physic robbin ANDREA THORNE Attending Clinician Unavailable Andrea Thorne DO Attending Clinician [phone] LESLIE LYNN Attending Clinician Unavailable Leslie Lynn MD Attending Clinician [phone] Sandra BLAS Attending Clinician Unavailable Sandra Heart Attending Clinician [phone] Doctor Unassigned, [place] Attending Clinician Osito Plummer MD Attending Clinician [phone] CHERY POMPA Attending Clinician Unavailable Chery Marie Attending Clinician [phone] XIMENA SANTANA Attending Clinician Unavailable Ximena Santana MD Attending Clinician [phone] Sravani Blackburn RN Attending Clinician Unavailable Candelario CURRIE Dimas F Attending Clinician [phone] KRYSTLE BUTTERFIELD Attending Clinician Unavailgustavo Camarillo MD, Dunia Causey Attending Clinician [facility] Attending Clinician UnaChavez Kendall MD Attending Clinician [phone] Rajendra PIERSON, Teodora Aguilar Attending Clinician Santana TRACTOR DRILL OPERATOR, Velvet Perez Attending Clinician + [phone] Visit, [facility] Nurse Attending Clinician Unatarun Shepherd WHCNP, Miriam Zungia Attending Clinician + Ramon PIERSON, Hope Attending Clinician [phone] Bryan PIERSON, Farhan Attending Clinician [phone] ANDREA THORNE Admitting Clinician Unavailable Osito Rojo MD Admitting Clinician [phone] CHERY POMPA Admitting Clinician Unavailable XIMENA SANTANA Admitting Clinician Unavailable Chavez Muñoz MD Admitting Clinician [phone] Hope Navarro MD Admitting Clinician [phone] Payers Payer Name Policy Type Policy Number Effective Date Expirati on Date Source [facility] [id number] 2019 00:00:00 Problems Condition Name Condition Details Condition Category Status Onset Date Resolution Date Last Treatment Date Treating Clinician Comments Source Request for sterilizat ion Request for sterilizat ion Disease Active 15 00:00: 00 Overview: Formattin g of this note might be different from the original. Added automatic ally from request for surgery [id number] [facility] care and examinatio n immediatel y after delivery care and examinatio n immediatel y after delivery Disease Active 814 00:00: 00 [facility] 38 weeks gestation of 38 weeks gestation of Disease Active 7-26 00:00: 00 [facility] S/P section S/P section Disease Active 04-02 00:00: 00 [facility] APH (antepartu m hemorrhage ), third trimester APH (antepartu m hemorrhage ), third trimester Disease Active 03-31 00:00: 00 [facility] Decreased movements, third trimester, not applicable or unspecifie d Decreased movements, third trimester, not applicable or unspecifie d Disease Active 03-31 00:00: 00 [facility] Susceptibl e to Varicella (non-immun e), currently in third trimester Susceptibl e to Varicella (non-immun e), currently in third trimester Disease Active 03-09 00:00: 00 [facility] BMI 39.0-39.9, adult BMI 39.0-39.9, adult Disease Active 03-08 00:00: 00 [facility] Limited care in third trimester Limited care in third trimester Disease Active 03-08 00:00: 00 [facility] Multiparit y Multiparit y Disease Active 03-08 00:00: 00 [facility] Tubal ligation status Tubal ligation status Disease Active 03-08 00:00: 00 [facility] Cessation of tobacco use in previous 12 months Cessation of tobacco use in previous 12 months Disease Active 03-08 00:00: 00 [facility] Tubal ligation status Tubal ligation status Disease Active 03-08 00:00: 00 [facility] History of delivery, currently in third trimester History of delivery, currently in third trimester Disease Active 03-08 00:00: 00 [facility] Obesity affecting in third trimester Obesity affecting in third trimester Disease Active 03-08 00:00: 00 [facility] Anemia of mother in , antepartum Anemia of mother in , antepartum Disease Active 12-09 00:00: 00 [facility] Anemia of mother in , antepartum Anemia of mother in , antepartum Disease Active 12-09 00:00: 00 [facility] Allergies, Adverse Reactions, Alerts Allergy Name Allergy Type Status Severity Reaction(s) Onset Date Inactive Date Treating Clinician Comments Source NO KNOWN ALLERGIE S Drug Class Active [facility] Social History Social Habit Start Date Stop Date Quantity Comments Source ASSERTION 2018-07-18 00:00:00 [facility] Sexual orientation [facility] Exposure to SARS-CoV-2 (event) 2021-12-21 00:00:00 2021-12-31 13:31:00 Not sure [facility] Alcohol intake 2021-08-03 00:00:00 2021-08-03 00:00:00 Current non-drinker of alcohol (finding) [facility] History of Social function 2020-04-13 00:00:00 2020-04-13 00:00:00 [facility] Tobacco use and exposure 2019-04-20 00:00:00 2019-04-20 00:00:00 Smokeless tobacco non-user [facility] Education 2019-03-31 00:00:00 2019-03-31 00:00:00 13 [facility] History of tobacco use 2018-07-09 00:00:00 Cigarette Smoker [facility] Sex Assigned At 1995 00:00:00 1995 00:00:00 [facility] Smoking Status Start Date Stop Date Source Ex-smoker 2019-04-20 00:00:00 2019-04-20 00:00:[address] [facility] Unknown if ever smoked [facility] Medications Ordered Medication Name Filled Medication Name Start Date Stop Date Current Medication? Ordering Clinician Indication Dosage Frequency Signature (SIG) Comments Components Source HYDROcodone -acetaminop hen (NORCO) 10-325 mg tablet 1 tablet 01-01 00:00: 00 12-31 22:51 :00 No 1{tbl} 1 tablet, Oral, ONCE, 1 dose, On Fri12/31/21 at 1900, Routine [facility] ketorolac 10 mg tablet 12-31 00:00: 00 Yes [id number] 10mg Take 1 tablet by mouth every 6 (six) hours as needed for Pain (scale 7-10). [facility] metroNIDAZO LE 500 mg tablet 12-31 00:00: 00 Yes [id number] 500mg Take 1 tablet by mouth 2 (two) times daily. [facility] ibuprofen 800 mg tablet 12-19 00:00: 00 Yes [id number] 800mg Take 1 tablet by mouth every 8 (eight) hours as needed for Pain (scale 4-6). [facility] methocarbam oL (ROBAXIN) 500 mg tablet 12-19 00:00: 00 Yes [id number] 500mg Take 1 tablet by mouth every 6 (six) hours as needed for Pain (scale 7-10) (MUSCLE SPASM). [facility] acetaminoph en (TYLENOL) tablet 1,000 mg 2020-09 05:30: 00 09-02 04:31 :00 No 1000mg 1,000 mg, Oral, ONCE, 1 dose, On 09/01/21 at 2330, CHERI [facility] ibuprofen (IBU) tablet 800 mg 2020-09 04:30: 00 09-02 03:32 :00 No 800mg 800 mg, Oral, ONCE, 1 dose, On 09/01/21 at 2230, CHERI [facility] benzonatate 100 mg capsule 2020-09 00:00: 00 Yes [id number] 100mg Take 1 capsule by mouth 3 (three) times daily as needed for Cough. [facility] ondansetron (ZOFRAN ODT) 4 mg disintegrat ing tablet 2020-09 00:00: 00 Yes [id number] 4mg Take 1 tablet by mouth every 8 (eight) hours as needed for Nausea and Vomiting (N/V). [facility] ibuprofen 600 mg tablet 2020-09 00:00: 00 12-31 00:00 :00 No [id number] 600mg Take 1 tablet by mouth every 6 (six) hours as needed for Pain (scale 4-6). [facility] fluconazole 150 mg tablet 2020-09 00:00: 00 08-09 05:59 :00 No [id number] 150mg Take 1 tablet by mouth once now for 1 dose. [facility] ibuprofen (IBU) tablet 400 mg 2020-09 09:15: 00 08-04 08:38 :00 No 400mg 400 mg, Oral, ONCE, 1 dose, On 08/04/21 at 0315, Routine [facility] lidocaine-e pinephrine (XYLOCAINE WITH EPINEPHRINE ) 1 %-1:100,000 injection 10 mL 2020-09 08:15: 00 08-04 08:38 :00 No 10mL 10 mL, Intraderma l, ONCE, 1 dose, On 08/04/21 at 0215, Routine [facility] maalox:diph enhydrAMINE :lidocaine 2 % viscous 1:1:1 (FIRST-MOUT HWASH BLM) oral suspension 15 mL 2020-09 04:30: 00 08-04 03:40 :00 No 15mL 15 mL, Oral, ONCE, 1 dose, On Fri08/03/21 at 2230, Routine [facility] dexamethaso ne (DECADRON PHOSPHATE) injection 10 mg 2020-09 04:30: 00 08-04 03:39 :00 No 10mg 10 mg, IV Push, ONCE, 1 dose, On Fri08/03/21 at 2230, STAT [facility] iopamidol (ISOVUE 370-500 mL) injection 100 mL 2020-09 03:50: 00 08-04 03:51 :00 No [id number] 100mL 100 mL, Intravenou s, ONCE, 1 dose, On Fri08/03/21 at 2200, Routine [facility] methylPREDN ISolone 4 mg tablets 2020-09 00:00: 00 Yes [id number] Take by mouth SEE-INSTRU CTIONS. follow package directions [facility] amoxicillin -clavulanat e (AUGMENTIN) 875-125 mg per tablet 2020-09 00:00: 00 08-15 05:59 :00 No [id number] 1{tbl} Take 1 tablet by mouth 2 (two) times daily for 10 days. [facility] lidocaine 2% viscous (LIDOCAINE VISCOUS) 2 % solution 15 mL 2020-09 18:45: 00 08-01 17:46 :00 No 15mL 15 mL, Oral, ONCE, 1 dose, On Fri08/01/21 at 1245, CHERI [facility] dexamethaso ne (DECADRON PHOSPHATE) injection 10 mg 2020-09 18:45: 00 08-01 17:46 :00 No 10mg 10 mg, Oral, ONCE, 1 dose, On Fri08/01/21 at 1245, Routine [facility] penicillin g benzathine (BICILLIN L-A) injection 1.2 Million Units 2020-09 18:45: 00 08-01 17:45 :00 No 1.210 1.2 Million Units, Intramuscu lar, ONCE, 1 dose, On Fri08/01/21 at 1245, CHERI
Re ason for Anti-Infec tive: Empiric Therapy for Suspected Infection< br>Empiric Therapy Site: HEENT
D uration of therapy: 72 hours [facility] iopamidol (ISOVUE 370-500 mL) injection 100 mL 2020-09 19:00: 00 07-06 17:40 :00 No [id number] 100mL 100 mL, Intravenou s, ONCE, 1 dose, On Fri07/06/21 at 1400, Routine [facility] FENTanyl PF (SUBLIMAZE (PF)) injection 100 mcg 2020-09 18:30: 00 07-06 17:52 :00 No 100ug 100 mcg, Slow IV Push, ONCE, 1 dose, On Fri07/06/21 at 1330, STAT [facility] dicyclomine 20 mg tablet 2020-09 00:00: 00 Yes [id number] 20mg Take 1 tablet by mouth 4 (four) times daily. [facility] ibuprofen 600 mg tablet 2020-09 00:00: 00 12-31 00:00 :00 No [id number] 600mg Take 1 tablet by mouth every 8 (eight) hours as needed for Pain (scale 4-6). [facility] ibuprofen (IBU) tablet 800 mg 2019-09 00:15: 00 07-29 23:30 :00 No 800mg 800 mg, Oral, ONCE, 1 dose, 07/29/20 at 1815, CHERI [facility] lidocaine 2% viscous (LIDOCAINE VISCOUS) 2 % solution 10 mL 2019-09 00:15: 00 07-29 23:30 :00 No 10mL 10 mL, Oral, ONCE, 1 dose, 07/29/20 at 1815, [facility] dexamethaso ne (DECADRON PHOSPHATE) injection 10 mg 2019-09 00:15: 00 07-29 23:30 :00 No 10mg 10 mg, Intramuscu lar, ONCE, 1 dose, 07/29/20 at 1815, STAT [facility] No known medications 2019-09 18:14: 13 No [facility] cephALEXin 500 mg tablet 2019-09 00:00: 00 08-09 05:59 :00 No [id number] 500mg Take 1 tablet by mouth 2 (two) times daily for 10 days. [facility] lactated ringers IV infusion 1,000 mL 05-13 14:15: 00 Yes 1000mL at 75 mL/hr, 1,000 mL, IV Infusion, CONTINUOUS , Starting [place] 05/13/19 at 0915, Until Discontinu ed, Routine, PACU [facility] HYDROcodone -acetaminop hen (NORCO 5) 5-325 mg tablet 1 tablet 05-13 14:13: 31 Yes 1{tbl} 1 tablet, Oral, PRN, 1 dose, Starting [place] 05/13/19 at 0913, Until Discontinu ed, Routine, Pain (scale 7-10), DSU Recovery [facility] ibuprofen (IBU) tablet 800 mg 05-13 14:13: 31 Yes 800mg 800 mg, Oral, PRN, 1 dose, Starting [place] 05/13/19 at 0913, Until Discontinu ed, Routine, Pain (scale 1-3), Pain (scale 4-6), DSU Recovery [facility] HYDROmorpho ne (DILAUDID) injection 0.2 mg 05-13 14:13: 20 Yes .2mg 0.2 mg, Slow IV Push, Q5MIN PRN, 10 doses, Starting [place] 05/13/19 at 0913, Until Discontinu ed, Routine, Pain (scale 7-10), PACU
Us e approved by (Faculty): Elizabeth OROZCO, PAIN SERVICE [facility] FENTanyl PF (SUBLIMAZE (PF)) injection 25 mcg 05-13 14:13: 20 Yes 25ug 25 mcg, Slow IV Push, Q5MIN PRN, 4 doses, Starting [place] 05/13/19 at 0913, Until Discontinu ed, Routine, Pain (scale 4-6), PACU [facility] ondansetron (ZOFRAN (PF)) injection 4 mg 05-13 14:13: 20 Yes 4mg 4 mg, Slow IV Push, PRN, 1 dose, Starting [place] 05/13/19 at 0913, Until Discontinu ed, Routine, Nausea and Vomiting (N/V), PACU [facility] bupivacaine (preserv free) (SENSORCAIN E MPF) 0.25 % (2.5 mg/mL) injection 05-13 13:56: 00 Yes PRN, Starting [place] 05/13/19 at 0856, Until Discontinu ed, Routine, Intra-op [facility] ibuprofen 800 mg tablet 05-13 00:00: 00 Yes [id number] 800mg Take 1 tablet by mouth every 6 (six) hours as needed for Pain (scale 4-6). [facility] HYDROcodone -acetaminop hen 5-325 mg tablet 05-13 00:00: 00 Yes [id number] 108 1{tbl} Take 1 tablet by mouth every 6 (six) hours as needed for Pain (scale 7-10). [facility] ibuprofen 800 mg tablet 04-22 00:00: 00 05-13 00:00 :00 No [id number] 108 800mg Take 1 tablet by mouth every 6 (six) hours as needed for Pain (scale 4-6). [facility] HYDROcodone -acetaminop hen 5-325 mg tablet 04-22 00:00: 00 05-13 00:00 :00 No [id number] 108 1{tbl} Take 1 tablet by mouth every 6 (six) hours as needed for Pain (scale 7-10). [facility] ascorbic acid, vitamin C, (VITAMIN C) 500 mg tablet 04-02 00:00: 00 05-13 00:00 :00 No [id number] 500mg Take 1 tablet by mouth 3 (three) times daily. [facility] docusate calcium 240 mg capsule 04-02 00:00: 00 04-22 00:00 :00 No [id number] 240mg Take 1 capsule by mouth once daily as needed for Constipati on. May substitute for what is in stock and covered by patient plan [facility] ferrous sulfate 325 mg (65 mg iron) tablet 04-02 00:00: 00 04-22 00:00 :00 No [id number] 325mg Take 1 tablet by mouth 3 (three) times daily with meals. May substitute for what is in stock and covered by patient plan [facility] ibuprofen 600 mg tablet 04-02 00:00: 00 04-22 00:00 :00 No [id number] 600mg Take 1 tablet by mouth every 6 (six) hours as needed for Pain (scale 1-3) or Pain (scale 4-6) (Pain). Take with food or milk. [facility] foLIC acid 1 mg tablet 04-02 00:00: 00 04-22 00:00 :00 No [id number] 1mg Take 1 tablet by mouth daily. [facility] HYDROcodone -acetaminop hen 5-325 mg tablet 04-02 00:00: 00 04-22 00:00 :00 No [id number] 1{tbl} Take 1 tablet by mouth every 6 (six) hours as needed for Pain (scale 7-10). [facility] human papillomav vac,9-frank(P F) (GARDASIL 9 (PF)) vial 0.5 mL 04-01 11:42: 18 04-02 18:03 :00 No .5mL 0.5 mL, Intramuscu lar, ONCE-PRIOR TO DISCHARGE, 1 dose, Starting [facility] 04/01/19 at 0642, Until Discontinu ed, Routine, Give vaccine prior to discharge [facility] varicella virus vaccine live (VARIVAX (PF)) injection 0.5 mL 04-01 11:42: 08 04-02 19:25 :00 No .5mL 0.5 mL, Subcutaneo us, ONCE-PRIOR TO DISCHARGE, 1 dose, Starting [facility] 04/01/19 at 0642, Until Discontinu ed, Routine, Give vaccine prior to discharge [facility] HYDROcodone -acetaminop hen (NORCO 5) 5-325 mg tablet 2 tablet 04-01 05:14: 00 Yes 2{tbl} 2 tablet, Oral, Q6HPRN, Starting [facility] 04/01/19 at 0014, Until Discontinu ed, Routine, Pain (scale 7-10), If uncontroll ed by Ibuprofen [facility] HYDROcodone -acetaminop hen (NORCO 5) 5-325 mg tablet 1 tablet 04-01 05:14: 00 Yes 1{tbl} 1 tablet, Oral, Q6HPRN, Starting [facility] 04/01/19 at 0014, Until Discontinu ed, Routine, Pain (scale 4-6), If uncontroll ed by Ibuprofen [facility] ibuprofen (IBU) tablet 600 mg 04-01 05:14: 00 Yes 600mg 600 mg, Oral, Q6HPRN, Starting [facility] 04/01/19 at 0014, Until Discontinu ed, Routine, Pain (scale 1-3) [facility] diphenhydrA MINE (BENADRYL) tablet 25 mg 04-01 05:14: 00 Yes 25mg 25 mg, Oral, Q6HPRN, Starting [facility] 04/01/19 at 0014, Until Discontinu ed, Routine, Sleep, Itching [facility] ondansetron (ZOFRAN (PF)) injection 4 mg 04-01 05:14: 00 Yes 4mg 4 mg, Slow IV Push, Q8HPRN, Starting [place] 04/01/19 at 0014, Until Discontinu ed, Routine, Nausea and Vomiting (N/V) [facility] bisacodyl (DULCOLAX) suppository 10 mg 04-01 05:14: 00 Yes 10mg 10 mg, Rectal, QDAILYPRN, Starting [place] 04/01/19 at 0014, Until Discontinu ed, Routine, Constipati on [facility] simethicone (GAS RELIEF) chewable tablet 160 mg 04-01 05:14: 00 Yes 160mg 160 mg, Oral, PC+HSPRN, Starting [place] 04/01/19 at 0014, Until Discontinu ed, Routine, Gas [facility] docusate calcium (SURFAK) capsule 240 mg 04-01 05:14: 00 Yes 240mg 240 mg, Oral, QDAILYPRN, Starting [place] 04/01/19 at 0014, Until Discontinu ed, Routine, Constipati on [facility] magnesium hydroxide (MILK OF MAGNESIA) 400 mg/5 mL suspension 30 mL 04-01 05:14: 00 Yes 30mL 30 mL, Oral, QDAILYPRN, Starting [place] 04/01/19 at 0014, Until Discontinu ed, Routine, Constipati on [facility] naloxone (NARCAN) injection 0.4 mg 04-01 05:13: 52 04-03 05:12 :52 No .4mg 0.4 mg, Slow IV Push, PRN - SEE INSTRUCTIO NS, [facility] [place] 04/01/19 at 0013, Until 04/03/19 at 0012, Routine, Analgesia Recovery, PACU [facility] diphenhydrA MINE (BENADRYL) injection 25 mg 04-01 05:13: 52 04-02 05:12 :52 No 25mg 25 mg, Slow IV Push, Q4HPRN, Starting [place] 04/01/19 at 0013, Until Fri04/02/19 at 0012, Routine, Itching, PACU [facility] vit calc,iron,f olic ( VITAMIN ORAL) 04-01 04:10: 56 03-31 00:00 :00 No Take by mouth. [facility] ferrous sulfate 325 mg (65 mg iron) tablet 04-01 04:10: 56 03-31 00:00 :00 No 325mg Take 325 mg by mouth 3 (three) times daily with meals. [facility] azithromyci n (ZITHROMAX) 500 mg in NaCl 0.9% (NS) 250 mL VIAL-MATE IV piggyback 04-01 01:59: 39 04-01 05:07 :00 No 500mg 500 mg, IV Piggyback, O.R. HOLDING ONCE, 1 dose, Starting Fri03/31/19 at 2058, Until Discontinu ed, 250 mL
Reas on for Anti-Infec tive: Surgical Prophylaxi s
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
Duration of therapy: within 24 hours of surgery [facility] ceFAZolin in dextrose (iso-os) (ANCEF) 2 gram/100 mL Piggyback 2 g 04-01 01:58: 45 04-01 02:08 :00 No 2000mg 2 g (2,000 mg), IV Piggyback, O.R. HOLDING ONCE, 1 dose, Starting Fri03/31/19 at 2057, Until Fri03/31/19 at 2107, 100 mL
Reas on for Anti-Infec tive: Surgical Prophylaxi s
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
Duration of therapy: within 24 hours of surgery [facility] sodium citrate-cit surya acid (BICITRA) 500-334 mg/5 mL solution 30 mL 04-01 01:58: 44 04-01 02:09 :00 No 30mL 30 mL, Oral, PRE-PROCED URE ONCE, 1 dose, Starting Fri03/31/19 at 2057, Until Fri03/31/19 at 2109, Routine, Surgery [facility] LR 1000 mL + oxytocin 20 units IV Solution 03-31 15:45: 16 04-01 05:14 :04 No 2mU/min 2 sushma-unit s/min (6 mL/hr), at 6 mL/hr, IV Infusion, TITRATE, Starting Fri03/31/19 at 1045, Until [place] 04/01/19 at 0014, CHERI, Oxytocin induction. [facility] sodium citrate-cit surya acid (BICITRA) 500-334 mg/5 mL solution 30 mL 03-31 15:44: 10 04-01 00:09 :00 No 30mL 30 mL, Oral, PRE-PROCED URE ONCE, 1 dose, Starting Fri03/31/19 at 1044, Until Discontinu ed, Routine, Surgery/Pr ocedure [facility] lactated ringers IV infusion 500 mL 03-31 15:44: 10 04-01 05:14 :04 No 500mL at 999 mL/hr, 500 mL, IV Infusion, PRN - SEE INSTRUCTIO NS, Starting Fri03/31/19 at 1044, Until [place] 04/01/19 at 0014, Routine [facility] No known medications No Un haryd [facility] No known medications No Un hardy [facility] Immunizations Ordered Immunization Name Filled Immunization Name Date Status Comments Source Varicella (varivax)(chicken pox) 2019-04-02 00:00:00 Completed [facility] 2019-04-02 00:00:00 Completed [facility] Varicella (varivax)(chicken pox) 2019-04-02 00:00:00 Completed [facility] 2019-04-02 00:00:00 Completed [facility] Varicella (varivax)(chicken pox) 2019-04-02 00:00:00 Completed [facility] 2019-04-02 00:00:00 Completed [facility] Varicella (varivax)(chicken pox) 2019-04-02 00:00:00 Completed [facility] 2019-04-02 00:00:00 Completed [facility] Varicella (varivax)(chicken pox) 2019-04-02 00:00:00 Completed [facility] HPV9 2019-04-02 00:00:00 Completed [facility] Varicella (varivax)(chicken pox) 2019-04-02 00:00:00 Completed [facility] HPV9 2019-04-02 00:00:00 Completed [facility] Varicella (varivax)(chicken pox) 2019-04-02 00:00:00 Completed [facility] HPV9 2019-04-02 00:00:00 Completed [facility] Varicella (varivax)(chicken pox) 2019-04-02 00:00:00 Completed [facility] HPV9 2019-04-02 00:00:00 Completed [facility] 2019-04-02 00:00:00 Completed [facility] Varicella (varivax)(chicken pox) 2019-04-02 00:00:00 Completed [facility] HPV9 2019-04-02 00:00:00 Completed [facility] Varicella (varivax)(chicken pox) 2019-04-02 00:00:00 Completed [facility] HPV9 2019-04-02 00:00:00 Completed [facility] Varicella (varivax)(chicken pox) 2019-04-02 00:00:00 Completed [facility] HPV9 2019-04-02 00:00:00 Completed [facility] Varicella (varivax)(chicken pox) 2019-04-02 00:00:00 Completed [facility] HPV9 2019-04-02 00:00:00 Completed [facility] Varicella (varivax)(chicken pox) 2019-04-02 00:00:00 Completed [facility] HPV9 2019-04-02 00:00:00 Completed [facility] Varicella (varivax)(chicken pox) 2019-04-02 00:00:00 Completed [facility] HPV9 2019-04-02 00:00:00 Completed [facility] Varicella (varivax)(chicken pox) 2019-04-02 00:00:00 Completed [facility] HPV9 2019-04-02 00:00:00 Completed [facility] Varicella (varivax)(chicken pox) 2019-04-02 00:00:00 Completed [facility] HPV9 2019-04-02 00:00:00 Completed [facility] Varicella (varivax)(chicken pox) 2019-04-02 00:00:00 Completed [facility] HPV9 2019-04-02 00:00:00 Completed [facility] Varicella (varivax)(chicken pox) 2019-04-02 00:00:00 Completed [facility] HPV9 2019-04-02 00:00:00 Completed [facility] Varicella (varivax)(chicken pox) 2019-04-02 00:00:00 Completed [facility] HPV9 2019-04-02 00:00:00 Completed [facility] Varicella (varivax)(chicken pox) 2019-04-02 00:00:00 Completed [facility] HPV9 2019-04-02 00:00:00 Completed [facility] Varicella (varivax)(chicken pox) 2019-04-02 00:00:00 Completed [facility] HPV9 2019-04-02 00:00:00 Completed [facility] Varicella (varivax)(chicken pox) 2019-04-02 00:00:00 Completed [facility] HPV9 2019-04-02 00:00:00 Completed [facility] Varicella (varivax)(chicken pox) 2019-04-02 00:00:00 Completed [facility] HPV9 2019-04-02 00:00:00 Completed [facility] Varicella (varivax)(chicken pox) 2019-04-02 00:00:00 Completed [facility] HPV9 2019-04-02 00:00:00 Completed [facility] TDAP (ADACEL) VACCINE 2019-03-08 00:00:00 Completed [facility] TDAP (ADACEL) VACCINE 2019-03-08 00:00:00 Completed [facility] TDAP (ADACEL) VACCINE 2019-03-08 00:00:00 Completed [facility] TDAP (ADACEL) VACCINE 2019-03-08 00:00:00 Completed [facility] TDAP (ADACEL) VACCINE 2019-03-08 00:00:00 Completed [facility] TDAP (ADACEL) VACCINE 2019-03-08 00:00:00 Completed [facility] TDAP (ADACEL) VACCINE 2019-03-08 00:00:00 Completed [facility] TDAP (ADACEL) VACCINE 2019-03-08 00:00:00 Completed [facility] TDAP (ADACEL) VACCINE 2019-03-08 00:00:00 Completed [facility] TDAP (ADACEL) VACCINE 2019-03-08 00:00:00 Completed [facility] TDAP (ADACEL) VACCINE 2019-03-08 00:00:00 Completed [facility] TDAP (ADACEL) VACCINE 2019-03-08 00:00:00 Completed [facility] TDAP (ADACEL) VACCINE 2019-03-08 00:00:00 Completed [facility] TDAP (ADACEL) VACCINE 2019-03-08 00:00:00 Completed [facility] TDAP (ADACEL) VACCINE 2019-03-08 00:00:00 Completed [facility] TDAP (ADACEL) VACCINE 2019-03-08 00:00:00 Completed [facility] TDAP (ADACEL) VACCINE 2019-03-08 00:00:00 Completed [facility] TDAP (ADACEL) VACCINE 2019-03-08 00:00:00 Completed [facility] TDAP (ADACEL) VACCINE 2019-03-08 00:00:00 Completed [facility] TDAP (ADACEL) VACCINE 2019-03-08 00:00:00 Completed [facility] TDAP (ADACEL) VACCINE 2019-03-08 00:00:00 Completed [facility] TDAP (ADACEL) VACCINE 2019-03-08 00:00:00 Completed [facility] TDAP (ADACEL) VACCINE 2019-03-08 00:00:00 Completed [facility] TDAP (ADACEL) VACCINE 2019-03-08 00:00:00 Completed [facility] TDAP (ADACEL) VACCINE 2019-03-08 00:00:00 Completed [facility] Varicella (varivax)(chicken pox) 2015-12-10 00:00:00 Completed [facility] Varicella (varivax)(chicken pox) 2015-12-10 00:00:00 Completed [facility] Varicella (varivax)(chicken pox) 2015-12-10 00:00:00 Completed [facility] Varicella (varivax)(chicken pox) 2015-12-10 00:00:00 Completed [facility] Varicella (varivax)(chicken pox) 2015-12-10 00:00:00 Completed [facility] Varicella (varivax)(chicken pox) 2015-12-10 00:00:00 Completed [facility] Varicella (varivax)(chicken pox) 2015-12-10 00:00:00 Completed [facility] Varicella (varivax)(chicken pox) 2015-12-10 00:00:00 Completed [facility] Varicella (varivax)(chicken pox) 2015-12-10 00:00:00 Completed [facility] Varicella (varivax)(chicken pox) 2015-12-10 00:00:00 Completed [facility] Varicella (varivax)(chicken pox) 2015-12-10 00:00:00 Completed [facility] Varicella (varivax)(chicken pox) 2015-12-10 00:00:00 Completed [facility] Varicella (varivax)(chicken pox) 2015-12-10 00:00:00 Completed [facility] Varicella (varivax)(chicken pox) 2015-12-10 00:00:00 Completed [facility] Varicella (varivax)(chicken pox) 2015-12-10 00:00:00 Completed [facility] Varicella (varivax)(chicken pox) 2015-12-10 00:00:00 Completed [facility] Varicella (varivax)(chicken pox) 2015-12-10 00:00:00 Completed [facility] Varicella (varivax)(chicken pox) 2015-12-10 00:00:00 Completed [facility] Varicella (varivax)(chicken pox) 2015-12-10 00:00:00 Completed [facility] Varicella (varivax)(chicken pox) 2015-12-10 00:00:00 Completed [facility] Varicella (varivax)(chicken pox) 2015-12-10 00:00:00 Completed [facility] Varicella (varivax)(chicken pox) 2015-12-10 00:00:00 Completed [facility] Varicella (varivax)(chicken pox) 2015-12-10 00:00:00 Completed [facility] Varicella (varivax)(chicken pox) 2015-12-10 00:00:00 Completed [facility] Varicella (varivax)(chicken pox) 2015-12-10 00:00:00 Completed [facility] Influenza Virus Vaccine (3+ yrs) 2014-06-21 00:00:00 Completed [facility] Influenza Virus Vaccine (3+ yrs) 2014-06-21 00:00:00 Completed [facility] Influenza Virus Vaccine (3+ yrs) 2014-06-21 00:00:00 Completed [facility] Influenza Virus Vaccine (3+ yrs) 2014-06-21 00:00:00 Completed [facility] Influenza Virus Vaccine (3+ yrs) 2014-06-21 00:00:00 Completed [facility] Influenza Virus Vaccine (3+ yrs) 2014-06-21 00:00:00 Completed [facility] Influenza Virus Vaccine (3+ yrs) 2014-06-21 00:00:00 Completed [facility] Influenza Virus Vaccine (3+ yrs) 2014-06-21 00:00:00 Completed [facility] Influenza Virus Vaccine (3+ yrs) 2014-06-21 00:00:00 Completed [facility] Influenza Virus Vaccine (3+ yrs) 2014-06-21 00:00:00 Completed [facility] Influenza Virus Vaccine (3+ yrs) 2014-06-21 00:00:00 Completed [facility] Influenza Virus Vaccine (3+ yrs) 2014-06-21 00:00:00 Completed [facility] Influenza Virus Vaccine (3+ yrs) 2014-06-21 00:00:00 Completed [facility] Influenza Virus Vaccine (3+ yrs) 2014-06-21 00:00:00 Completed [facility] Influenza Virus Vaccine (3+ yrs) 2014-06-21 00:00:00 Completed [facility] Influenza Virus Vaccine (3+ yrs) 2014-06-21 00:00:00 Completed [facility] Influenza Virus Vaccine (3+ yrs) 2014-06-21 00:00:00 Completed [facility] Influenza Virus Vaccine (3+ yrs) 2014-06-21 00:00:00 Completed [facility] Influenza Virus Vaccine (3+ yrs) 2014-06-21 00:00:00 Completed [facility] Influenza Virus Vaccine (3+ yrs) 2014-06-21 00:00:00 Completed [facility] Influenza Virus Vaccine (3+ yrs) 2014-06-21 00:00:00 Completed [facility] Influenza Virus Vaccine (3+ yrs) 2014-06-21 00:00:00 Completed [facility] Influenza Virus Vaccine (3+ yrs) 2014-06-21 00:00:00 Completed [facility] Influenza Virus Vaccine (3+ yrs) 2014-06-21 00:00:00 Completed [facility] Influenza Virus Vaccine (3+ yrs) 2014-06-21 00:00:00 Completed [facility] Tdap 2012-09-08 00:00:00 Completed [facility] Tdap 2012-09-08 00:00:00 Completed [facility] Tdap 2012-09-08 00:00:00 Completed [facility] Tdap 2012-09-08 00:00:00 Completed [facility] Tdap 2012-09-08 00:00:00 Completed [facility] Tdap 2012-09-08 00:00:00 Completed [facility] Tdap 2012-09-08 00:00:00 Completed [facility] Tdap 2012-09-08 00:00:00 Completed [facility] Tdap 2012-09-08 00:00:00 Completed [facility] Tdap 2012-09-08 00:00:00 Completed [facility] TDAP 2012-09-08 00:00:00 Completed [facility] TDAP 2012-09-08 00:00:00 Completed [facility] TDAP 2012-09-08 00:00:00 Completed [facility] TDAP 2012-09-08 00:00:00 Completed [facility] TDAP 2012-09-08 00:00:00 Completed [facility] TDAP 2012-09-08 00:00:00 Completed [facility] TDAP 2012-09-08 00:00:00 Completed [facility] TDAP 2012-09-08 00:00:00 Completed [facility] TDAP 2012-09-08 00:00:00 Completed [facility] TDAP 2012-09-08 00:00:00 Completed [facility] TDAP 2012-09-08 00:00:00 Completed [facility] TDAP 2012-09-08 00:00:00 Completed [facility] TDAP 2012-09-08 00:00:00 Completed [facility] Tdap 2012-09-08 00:00:00 Completed [facility] TDAP 2012-09-08 00:00:00 Completed [facility] TDAP Unknown Completed [facility] Influenza Virus Vaccine (3+ yrs) Unknown Completed [facility] Varicella (varivax)(chicken pox) Unknown Completed [facility] HPV9 Unknown Completed [facility] Vital Signs Vital Name Observation Time Observation Value Comments S ource Systolic blood pressure 2021-12-31 22:30:00 144 mm[Hg] [facility] Diastolic blood pressure 2021-12-31 22:30:00 99 mm[Hg] [facility] Heart rate 2021-12-31 22:30:00 74 /min [facility] Respiratory rate 2021-12-31 22:30:00 16 /min [facility] Oxygen saturation in Arterial blood by Pulse oximetry 2021-12-31 22:30:00 100 /min [facility] Body temperature 2021-12-31 18:32:00 36.83 Bisi [facility] Body weight 2021-12-31 18:32:00 107.049 kg [facility] BMI 2021-12-31 18:32:00 35.88 kg/m2 [facility] Systolic blood pressure 2021-12-20 02:40:00 133 mm[Hg] [facility] Diastolic blood pressure 2021-12-20 02:40:00 86 mm[Hg] [facility] Heart rate 2021-12-20 02:40:00 76 /min [facility] Respiratory rate 2021-12-20 02:40:00 16 /min [facility] Oxygen saturation in Arterial blood by Pulse oximetry 2021-12-20 02:40:00 99 /min [facility] Body temperature 2021-12-20 00:04:00 37.28 Bisi [facility] Body height 2021-12-20 00:04:00 172.7 cm [facility] Body weight 2021-12-20 00:04:00 107.049 kg [facility] BMI 2021-12-20 00:04:00 35.88 kg/m2 [facility] Systolic blood pressure 2021-09-02 05:42:00 134 mm[Hg] [facility] Diastolic blood pressure 2021-09-02 05:42:00 68 mm[Hg] [facility] Heart rate 2021-09-02 05:42:00 107 /min [facility] Body temperature 2021-09-02 05:42:00 38.11 [facility] Respiratory rate 2021-09-02 05:42:00 18 /min [facility] Oxygen saturation in Arterial blood by Pulse oximetry 2021-09-02 05:42:00 98 /min [facility] Body height 2021-09-02 03:25:00 172.7 cm [facility] Body weight 2021-09-02 03:25:00 111.585 kg [facility] BMI 2021-09-02 03:25:00 37.40 kg/m2 [facility] Systolic blood pressure 2021-08-08 13:49:00 139 mm[Hg] [facility] Diastolic blood pressure 2021-08-08 13:49:00 88 mm[Hg] [facility] Heart rate 2021-08-08 13:49:00 91 /min [facility] Body temperature 2021-08-08 13:49:00 36.72 Bisi [facility] Respiratory rate 2021-08-08 13:49:00 18 /min [facility] Body height 2021-08-08 13:49:00 172.7 cm [facility] Body weight 2021-08-08 13:49:00 107.049 kg [facility] BMI 2021-08-08 13:49:00 35.88 kg/m2 [facility] Oxygen saturation in Arterial blood by Pulse oximetry 2021-08-08 13:49:00 99 /min [facility] Systolic blood pressure 2021-08-04 06:52:00 123 mm[Hg] [facility] Diastolic blood pressure 2021-08-04 06:52:00 82 mm[Hg] [facility] Heart rate 2021-08-04 06:52:00 62 /min [facility] Body temperature 2021-08-04 06:52:00 36.72 Bisi [facility] Respiratory rate 2021-08-04 06:52:00 16 /min [facility] Body weight 2021-08-04 06:52:00 107.049 kg [facility] BMI 2021-08-04 06:52:00 35.88 kg/m2 [facility] Oxygen saturation in Arterial blood by Pulse oximetry 2021-08-04 06:52:00 99 /min [facility] Systolic blood pressure 2021-08-04 05:38:00 172 mm[Hg] [facility] Diastolic blood pressure 2021-08-04 05:38:00 105 mm[Hg] [facility] Heart rate 2021-08-04 05:38:00 74 /min [facility] Respiratory rate 2021-08-04 05:38:00 16 /min [facility] Oxygen saturation in Arterial blood by Pulse oximetry 2021-08-04 05:00:00 97 /min [facility] Body temperature 2021-08-04 03:02:00 37.06 Bisi [facility] Body height 2021-08-04 03:02:00 172.7 cm [facility] Body weight 2021-08-04 03:02:00 107.049 kg [facility] BMI 2021-08-04 03:02:00 35.88 kg/m2 [facility] Heart rate 2021-08-01 16:59:00 89 /min [facility] Body temperature 2021-08-01 16:59:00 37.17 Bisi [facility] Respiratory rate 2021-08-01 16:59:00 18 /min [facility] Body weight 2021-08-01 16:59:00 107.049 kg [facility] BMI 2021-08-01 16:59:00 35.88 kg/m2 [facility] Oxygen saturation in Arterial blood by Pulse oximetry 2021-08-01 16:59:00 99 /min [facility] Systolic blood pressure 2021-07-06 19:00:00 122 mm[Hg] [facility] Diastolic blood pressure 2021-07-06 19:00:00 76 mm[Hg] [facility] Heart rate 2021-07-06 19:00:00 54 /min [facility] Oxygen saturation in Arterial blood by Pulse oximetry 2021-07-06 19:00:00 100 /min [facility] Respiratory rate 2021-07-06 18:00:00 18 /min [facility] Body temperature 2021-07-06 14:24:00 36.72 Bisi [facility] Body weight 2021-07-06 14:24:00 107.049 kg [facility] BMI 2021-07-06 14:24:00 35.88 kg/m2 [facility] Systolic blood pressure 2020-07-30 00:00:00 119 mm[Hg] [facility] Diastolic blood pressure 2020-07-30 00:00:00 79 mm[Hg] [facility] Heart rate 2020-07-30 00:00:00 84 /min [facility] Body temperature 2020-07-30 00:00:00 36.83 Bisi [facility] Respiratory rate 2020-07-30 00:00:00 22 /min [facility] Oxygen saturation in Arterial blood by Pulse oximetry 2020-07-30 00:00:00 100 /min [facility] Body weight 2020-07-29 22:45:00 107.049 kg [facility] BMI 2020-07-29 22:45:00 35.88 kg/m2 [facility] Systolic blood pressure 2020-01-04 20:41:00 134 mm[Hg] [facility] Diastolic blood pressure 2020-01-04 20:41:00 87 mm[Hg] [facility] Heart rate 2020-01-04 20:41:00 91 /min [facility] Body temperature 2020-01-04 20:41:00 37.22 Bisi [facility] Respiratory rate 2020-01-04 20:41:00 18 /min [facility] Body weight 2020-01-04 20:41:00 105.235 kg [facility] BMI 2020-01-04 20:41:00 35.28 kg/m2 [facility] Oxygen saturation in Arterial blood by Pulse oximetry 2020-01-04 20:41:00 99 /min [facility] Oxygen saturation in Arterial blood by Pulse oximetry 2019-05-13 15:45:00 99 /min [facility] Systolic blood pressure 2019-05-13 15:15:00 123 mm[Hg] [facility] Diastolic blood pressure 2019-05-13 15:15:00 86 mm[Hg] [facility] Heart rate 2019-05-13 15:15:00 74 /min [facility] Respiratory rate 2019-05-13 15:15:00 17 /min [facility] Body temperature 2019-05-13 14:00:00 36.22 Bisi [facility] Body height 2019-05-13 11:12:00 172.7 cm [facility] Body weight 2019-05-13 11:12:00 109 kg [facility] BMI 2019-05-13 11:12:00 36.54 kg/m2 [facility] Systolic blood pressure 2019-04-22 15:26:00 142 mm[Hg] [facility] Diastolic blood pressure 2019-04-22 15:26:00 93 mm[Hg] [facility] Heart rate 2019-04-22 15:26:00 72 /min [facility] Body temperature 2019-04-22 15:26:00 35.28 Bisi [facility] Respiratory rate 2019-04-22 15:26:00 16 /min [facility] Body height 2019-04-22 15:26:00 172.7 cm [facility] Body weight 2019-04-22 15:26:00 105.8 kg [facility] BMI 2019-04-22 15:26:00 35.47 kg/m2 [facility] Oxygen saturation in Arterial blood by Pulse oximetry 2019-04-22 15:26:00 100 /min [facility] Systolic blood pressure 2019-04-21 15:07:00 120 mm[Hg] [facility] Diastolic blood pressure 2019-04-21 15:07:00 82 mm[Hg] [facility] Heart rate 2019-04-21 15:06:00 68 /min [facility] Body temperature 2019-04-21 15:06:00 36.67 Bisi [facility] Respiratory rate 2019-04-21 15:06:00 16 /min [facility] Body height 2019-04-21 15:06:00 172.7 cm [facility] Body weight 2019-04-21 15:06:00 106.369 kg [facility] BMI 2019-04-21 15:06:00 35.66 kg/m2 [facility] Systolic blood pressure 2019-04-06 16:16:00 124 mm[Hg] [facility] Diastolic blood pressure 2019-04-06 16:16:00 78 mm[Hg] [facility] Heart rate 2019-04-06 16:11:00 87 /min [facility] Body temperature 2019-04-06 16:11:00 37.22 Bisi [facility] Respiratory rate 2019-04-06 16:11:00 16 /min [facility] Body height 2019-04-06 16:11:00 172.7 cm [facility] Body weight 2019-04-06 16:11:00 110.791 kg [facility] BMI 2019-04-06 16:11:00 37.14 kg/m2 [facility] Systolic blood pressure 2019-04-02 13:00:00 122 mm[Hg] [facility] Diastolic blood pressure 2019-04-02 13:00:00 78 mm[Hg] [facility] Heart rate 2019-04-02 13:00:00 80 /min [facility] Body temperature 2019-04-02 13:00:00 36.61 Bisi [facility] Respiratory rate 2019-04-02 13:00:00 20 /min [facility] Oxygen saturation in Arterial blood by Pulse oximetry 2019-04-02 13:00:00 99 /min [facility] Procedures Procedure Date / Time Performed Performing Clinician Source US PELVIS COMPLETE WITH TRANSVAGINAL 2021-12-31 22:18:00 Singer Andrea [facility] COMP. METABOLIC PANEL (75548) 2021-12-31 19:43:00 Singer [facility] CBC WITH DIFF 2021-12-31 19:43:00 Singer Andrea [facility] URINALYSIS 2021-12-31 19:43:00 Singer [facility] ADC CLC OR [facility] ONLY - WET PREP 2021-12-31 19:43:00 Singer [facility] CONSENT/REFUSAL FOR DIAGNOSIS AND TREATMENT 2021-12-31 18:24:53 Doctor Unassigned, [place] [facility] POCT TEST 2021-12-20 01:40:00 Leslie Lynn [facility] URINALYSIS 2021-12-20 01:38:00 Leslie Lynn [facility] RAPID INFLUENZA A/B 2021-09-02 03:32:00 Sandra Blas [facility] COVID-19 (ID NOW RAPID TESTING) 2021-09-02 03:32:00 Sandra Blas [facility] CONSENT/REFUSAL FOR DIAGNOSIS AND TREATMENT 2021-09-02 03:00:49 Doctor Unassigned, [place] [facility] CONSENT/REFUSAL FOR DIAGNOSIS AND TREATMENT 2021-08-08 13:45:43 Doctor Unassigned, [place] [facility] EMERGENCY DEPARTMENT DOCUMENTS 2021-08-04 06:01:00 Doctor Unassigned, [place] [facility] CT SOFT TISSUE NECK W CONTRAST 2021-08-04 03:55:42 Chery Pompa [facility] TEST, SERUM 2021-08-04 03:36:00 Nereida Pompa [facility] BASIC METABOLIC PANEL (NA, K, CL, CO2, GLUCOSE, BUN, CREATININE, CA) 2021-08-04 03:36:00 Chery Pompa [facility] CBC WITH DIFF 2021-08-04 03:36:00 Chery Pompa [facility] NOTICE OF PRIVACY PRACTICES 2021-08-04 02:57:07 Doctor Unassigned, [place] [facility] CONSENT/REFUSAL FOR DIAGNOSIS AND TREATMENT 2021-08-04 02:55:44 Doctor Unassigned, [place] [facility] RAPID STREP SCREEN FOR GROUP A 2021-08-01 17:03:00 Andrea Thorne [facility] CONSENT/REFUSAL FOR DIAGNOSIS AND TREATMENT 2021-08-01 16:53:00 Doctor Unassigned, [place] [facility] CT ABDOMEN PELVIS W CONTRAST 2021-07-06 17:50:39 Ximena Santana [facility] US PELVIS COMPLETE WITH TRANSVAGINAL 2021-07-06 16:38:35 Ximena Santana [facility] POCT TEST 2021-07-06 14:34:00 Kranthi Santana [facility] LIPASE 2021-07-06 14:31:00 [facility] COMP. METABOLIC PANEL ([id number]) 2021-07-06 14:31:00 Ximena Santana [facility] CBC WITH DIFF 2021-07-06 14:31:00 Ximena Santana [facility] URINALYSIS 2021-07-06 14:31:00 [facility] COVID-19 (ID NOW RAPID TESTING) 2021-07-06 14:31:00 Ximena Santana [facility] NOTICE OF PRIVACY PRACTICES 2021-07-06 14:20:02 Doctor Unassigned, [place] [facility] CONSENT/REFUSAL FOR DIAGNOSIS AND TREATMENT 2021-07-06 14:19:50 Doctor Unassigned, [place] [facility] RAPID STREP SCREEN FOR GROUP A 2020-07-29 23:28:00 Dimas Palomino [facility] POCT TEST 2020-07-29 23:01:00 Destinee Plaomino [facility] NOTICE OF PRIVACY PRACTICES 2020-07-29 22:36:17 Doctor Unassigned, [place] [facility] CONSENT/REFUSAL FOR DIAGNOSIS AND TREATMENT 2020-07-29 22:36:05 Doctor Unassigned, [place] [facility] INDIRECT ANTIGLOBULIN TEST 2019-05-13 11:30:00 Teodora Drew [facility] ASSIGNMENT OF BENEFITS 2019-05-13 09:55:52 Docto r Unassigned, [place] [facility] TYPE AND SCREEN 2019-04-22 15:52:00 Farhan Adams [facility] CBC WITH DIFFERENTIAL 2019-04-22 15:51:00 Marielena Adams rn [facility] ASSIGNMENT OF BENEFITS 2019-04-22 15:15:47 Docto r Unassigned, [place] [facility] DAY SURGERY - [place] 2019-04-22 05:01:00 Doct or Unassigned, [place] [facility] CBC WITH DIFFERENTIAL 2019-04-01 07:36:00 Leonie Gomez [facility] VENOUS CORD GAS 2019-04-01 03:29:00 Jose Armando [facility] SECTION 2019-04-01 02:20:00 Munir Goff [facility] URIC ACID 2019-04-01 02:06:00 Luke Arreaga [facility] CBC WITH DIFFERENTIAL 2019-04-01 02:06:00 Miguelangel Arreaga [facility] SGOT (ASPARTATE AMINO TRANSFER) 2019-04-01 02:06:00 Luke Arreaga [facility] CREATININE 2019-04-01 02:06:00 [facility] ALANINE AMINO TRANSFERASE(SGPT 2019-04-01 02:06:00 Luke Arreaga [facility] LACTATE DEHYDROGENASE 2019-04-01 02:06:00 Miguelangel Arreaga [facility] URINALYSIS 2019-04-01 02:05:00 Luke Arreaga [facility] PROTEIN CREAT RATIO URINE RANDOM 2019-04-01 02:05:00 Luke Arreaga [facility] CBC WITH DIFFERENTIAL 2019-03-31 16:13:00 [facility] SURFACE ANTIGEN 2019-03-31 16:13:00 Elsie, [facility] GALV ONLY - SYPHILIS IGG/IGM 2019-03-31 16:13:00 Elsie, [facility] TYPE AND SCREEN 2019-03-31 15:54:00 Elsie, [facility] Encounters Start Date/Time End Date/Time Encounter Type Admission Type Attending [facility] Care Department Encounter ID Source 2021-07-07 07:04:42 Emergency [facility] [id number] [facility] 2021-07-05 23:03:26 Emergency [facility] [id number] [facility] 2023-05-20 14:53:18 2023-05-20 14:53:[address] [facility] [id number] Jordy Narayan Ambrose 2021-12-31 13:33:00 2021-12-31 18:01:00 Emergency X ANDREA THORNE [facility] ERT [id number] [facility] 2021-12-31 13:33:00 2021-12-31 18:01:00 Emergency Andrea Thorne [facility] 1.2.840.114 350.1.13.10 4.2.7.2.686 [id number] [facility] 2021-12-19 19:06:00 2021-12-19 21:48:00 Emergency X LESLIE LYNN [facility] ERT [id number] [facility] 2021-12-19 19:06:00 2021-12-19 21:48:00 Emergency Leslie Lynn [facility] 1.2.840.114 350.1.13.10 4.2.7.2.686 [id number] 084 [id number] [facility] 2021-09-01 21:27:00 2021-09-01 23:45:00 Emergency X Sandra BLAS [facility] ERT [id number] [facility] 2021-09-01 21:27:00 2021-09-01 23:45:00 Emergency Sandra Blas [facility] 1.2.840.114 350.1.13.10 4.2.7.2.686 [id number] 084 [id number] [facility] 2021-08-21 00:00:00 2021-08-21 00:00:00 Patient Secure Msg Doctor Unassigned, [place] [facility] 1.20.114 350.1.13.10 4.2.7.2.686 [id number] [facility] 2021-08-08 07:49:00 2021-08-08 08:30:00 Emergency ANDREA FARFAN [facility] ERT [id number] [facility] 2021-08-08 07:49:00 2021-08-08 08:30:00 Emergency Andrea Thorne [facility] 1.2840.114 350.1.13.10 4.2.7.2.686 [id number] [facility] 2021-08-04 00:53:00 2021-08-04 02:30:00 Emergency [facility] 1.2840.114 350.1.13.10 4.2.7.2.686 [id number] 014 [id number] [facility] 2021-08-04 00:00:00 2021-08-04 00:00:00 Orders Only Doctor Unassigned, [place] [facility] 1.2840.114 350.1.13.10 4.2.7.2.686 [id number] [id number] [facility] 2021-08-03 21:05:00 2021-08-03 23:46:00 Emergency X CHERY POMPA [facility] ERT [id number] [facility] 2021-08-03 21:05:00 2021-08-03 23:46:00 Emergency X CHERY POMPA [facility] ERT [id number] [facility] 2021-08-03 21:05:00 2021-08-03 23:46:00 Emergency Chery Pompa [facility] 1.2840.114 350.1.13.10 4.2.7.2.686 [id number] [id number] [facility] 2021-08-01 11:03:00 2021-08-01 12:01:00 Emergency X ANDREA THORNE [facility] ERT [id number] [facility] 2021-08-01 11:03:00 2021-08-01 12:01:00 Emergency Andrea Thorne [facility] 1.2840.114 350.1.13.10 4.2.7.2.686 [id number] [id number] [facility] 2021-08-01 00:00:00 2021-08-01 00:00:00 Orders Only Doctor Unassigned, [place] [facility] 1.2840.114 350.1.13.10 4.2.7.2.686 [id number] [facility] 2021-07-06 09:23:00 2021-07-06 14:05:00 Emergency X MAXXIMENA [facility] ERT [id number] [facility] 2021-07-06 09:23:00 2021-07-06 14:05:00 Emergency MaxXimena [facility] 1.2840.114 350.1.13.10 4.2.7.2.686 [id number] 084 [id number] [facility] 2021-07-06 00:00:00 2021-07-06 00:00:00 Orders Only Doctor Unassigned, [place] [facility] 1.2840.114 350.1.13.10 4.2.7.2.686 [id number] [id number] [facility] 2020-08-02 00:00:00 2020-08-02 00:00:00 Telephone Alexey Sravani [facility] 1.840.114 350.1.13.10 4.2.7.2.686 [id number] [facility] 2020-07-29 16:49:00 2020-07-29 18:31:00 Emergency Dimas Palomino [facility] 1..114 350.1.13.10 4.2.7.2.686 [id number] 084 [id number] [facility] 2020-07-29 00:00:00 2020-07-29 00:00:00 Orders Only Doctor Unassigned, [place] [facility] 1..114 350.1.13.10 4.2.7.2.686 [id number] [id number] [facility] 2020-03-20 11:00:00 2020-03-20 11:00:00 Outpatient R KRYSTLE BUTTERFIELD [facility] [id number] [facility] 2020-01-06 00:00:00 2020-01-06 00:00:00 Telephone Dunia Camar[facility] Office Building One .114 350.1.13.10 4.2.7.2.686 [id number] [facility] 2020-01-04 15:27:21 2020-01-04 15:47:21 Urgent Care Pob1, Acute Care Clinic Dunia Camar[place] [facility] [address] 1.2.840.114 350.1.13.10 4.2.7.2.686 [id number] [facility] 2020-01-04 15:40:00 2020-01-04 15:40:00 Outpatient R [facility] [id number] [facility] 2019-05-13 04:56:19 2019-05-13 10:45:00 [facility] 1.2.840.114 350.1.13.10 4.2.7.2.686 [id number] [facility] 2019-05-13 00:00:00 2019-05-13 00:00:00 Orders Only Doctor Unassigned, [place] [facility] 1.2.840.114 350.1.13.10 4.2.7.2.686 [id number] [id number] [facility] 2019-04-22 10:17:00 2019-04-22 13:55:00 [facility] 1.2.840.114 350.1.13.10 4.2.7.2.686 [id number] [facility] 2019-04-22 00:00:00 2019-04-22 00:00:00 Orders Only Doctor Unassigned, [place] [facility] 1.2.840.114 350.1.13.10 4.2.7.2.686 [id number] [facility] 2019-04-22 00:00:00 2019-04-22 00:00:00 Prep For Surgery Teodora Drew [facility] 1.2.840.114 350.1.13.10 4.2.7.2.686 [id number] [facility] 2019-04-21 09:50:02 2019-04-21 10:35:34 Routine Visit Velvet Dillon [facility] BUSINESS SYSTEMS MANAGER [facility] 1.2.840.114 350.1.13.10 4.2.7.2.686 [id number] [facility] 2019-04-06 10:43:43 2019-04-06 11:33:58 Nurse Visit Visit, HallieRmchp Nurse Miriam Shepherd [facility] BUSINESS SYSTEMS MANAGER [facility] 1.2.840.114 350.1.13.10 4.2.7.2.686 [id number] [facility] 2019-03-31 09:36:00 2019-04-02 15:52:00 Hospital Encounter Hope Navarro [facility] 1.2.840.114 350.1.13.10 4.2.7.2.686 [id number] 063 [id number] [facility] 2019-04-02 00:00:00 2019-04-02 00:00:00 [facility] 1.2840.114 350.1.13.10 4.2.7.2.686 [id number] [facility] Results Test Description Test Time Test Comments Results Result Co mments Source [facility] WITH [id number] 19:53:31* Test Item Value Reference Range Interpretation Comme nts WBC (test code = 6690-2) See_Comment [Automated Point Blank Rangea ge] The system which generated this result transmitted reference range: 4.30 - 11.10 10*3/?L. The reference range was not used to interpret this result as normal/abnormal. RBC (test code = 789-8) See_Comment [Automated Point Blank Rangea ge] The system which generated this result transmitted reference range: 3.93 - 5.25 10*6/?L. The reference range was not used to interpret this result as normal/abnormal. HGB (test code = 718-7) 9.7 g/dL 11.6-15.0 L HCT (test code = 4544-3) 32.3 % 35.7-45.2 L MCV (test code = 787-2) 76.0 fL 80.6-95.5 L MCH (test code = 785-6) 22.8 pg 25.9-32.8 L MCHC (test code = 786-4) 30.0 g/dL 31.6-35.1 L RDW-SD (test code = 45105-1) 50.2 fL 39.0-49.9 H RDW-CV (test code = 788-0) 18.1 % 12.0-15.5 H PLT (test code = 777-3) See_Comment H [Automated messa ge] The system which generated this result transmitted reference range: 166 - 358 10*3/?L. The reference range was not used to interpret this result as normal/abnormal. MPV (test code = 43062-1) 9.8 fL 9.5-12.9 NRBC/100 WBC (test code = 9745761519) See_Comment [Automated PeerSpace ssage] The system which generated this result transmitted reference range: 0.0 - 10.0 /100 WBCs. The reference range was not used to interpret this result as normal/abnormal. NRBC x10^3 (test code = 5159343358) <0.01 See_Comment [Automated messa ge] The system which generated this result transmitted reference range: 10*3/?L. The reference range was not used to interpret this result as normal/abnormal. GRAN MAT (NEUT) % (test code = 770-8) 51.2 % IMM GRAN % (test code = 3284462300) 0.20 % LYMPH % (test code = 736-9) 36.1 % MONO % (test code = 5905-5) 9.4 % EOS % (test code = 713-8) 2.4 % BASO % (test code = 706-2) 0.7 % GRAN MAT x10^3(ANC) (test code = 1955415792) 2.95 10*3/uL 1.88-7.09 IMM GRAN x10^3 (test code = 8004912828) <0.03 0.00-0.06 LYMPH x10^3 (test code = 731-0) 2.08 10*3/uL 1.32-3.29 MONO x10^3 (test code = 742-7) 0.54 10*3/uL 0.33-0.92 EOS x10^3 (test code = 711-2) 0.14 10*3/uL 0.03-0.39 BASO x10^3 (test code = 704-7) 0.04 10*3/uL 0.01-0.07 Lab Interpretation (test code = 70468-3) [facility] [id number] 01:40:00* Test Item Value Reference Range Interpretation Comme nts POCT PREG (test code = 1605) negative On board controls acceptable with C Line (test code = 3574) present POCT PREG LOT # (test code = 3575) [id number] POCT PREG TEST DATE ( test code = 3576) Lab Interpretation (test cod e = 76138-0) Normal [facility], [id number] 03:59:03* Test Item Value Reference Range Interpretation Comme nts PREG SERUM (test code = 8005897517) Negative SANGITA (test code = SANGITA) Less than 10 IU/L. ?If low titer or ectopic is suspected, resubmit specimen in 48-[address] [facility] METABOLIC PANEL (NA, K, CL, CO2, GLUCOSE, BUN, CREATININE, CA)2021-08-04 03:55:47* Test Item Value Reference Range Interpretation Comme nts NA (test code = 1231459705) 135 mmol/L 135-145 K (test code = 1907101855) 4.8 mmol/L 3.5-5.0 CL (test code = 7560325744) 102 mmol/L 98-108 CO2 TOTAL (test code = 2230535283) 25 mmol/L 23-31 AGAP (test code = 6733699255) 2-16 BUN (test code = 9260498177) 12 mg/dL 7-23 GLUCOSE (test code = 8363892451) 129 mg/dL 70-110 H CREATININE (test code = 6060252118) 0.70 mg/dL 0.50-1.04 CALCIUM (test code = 3241147542) 9.1 mg/dL 8.6-10.6 eGFR (test code = 2122242785) mL/min/1.73m2 SANGITA (test code = SANGITA) Association [...] imaging tests). Lab Interpretation (test code = 57741-7) Abnormal [facility] WITH [id number] 03:44:45* Test Item Value Reference Range Interpretation Comme nts WBC (test code = 6690-2) See_Comment [Automated Propable] The system which generated this result transmitted reference range: 4.30 - 11.10 10*3/?L. The reference range was not used to interpret this result as normal/abnormal. RBC (test code = 789-8) See_Comment [Automated Propable] The system which generated this result transmitted reference range: 3.93 - 5.25 10*6/?L. The reference range was not used to interpret this result as normal/abnormal. HGB (test code = 718-7) 9.6 g/dL 11.6-15.0 L HCT (test code = 4544-3) 31.1 % 35.7-45.2 L MCV (test code = 787-2) 76.4 fL 80.6-95.5 L MCH (test code = 785-6) 23.6 pg 25.9-32.8 L MCHC (test code = 786-4) 30.9 g/dL 31.6-35.1 L RDW-SD (test code = 12827-3) 45.8 fL 39.0-49.9 RDW-CV (test code = 788-0) 16.6 % 12.0-15.5 H PLT (test code = 777-3) See_Comment [Automated Point Blank Rangea ge] The system which generated this result transmitted reference range: 166 - 358 10*3/?L. The reference range was not used to interpret this result as normal/abnormal. MPV (test code = 91414-9) 9.7 fL 9.5-12.9 NRBC/100 WBC (test code = 3673176319) See_Comment [Automated PeerSpace ssage] The system which generated this result transmitted reference range: 0.0 - 10.0 /100 WBCs. The reference range was not used to interpret this result as normal/abnormal. NRBC x10^3 (test code = 3189571009) <0.01 See_Comment [Automated Point Blank Rangea ge] The system which generated this result transmitted reference range: 10*3/?L. The reference range was not used to interpret this result as normal/abnormal. GRAN MAT (NEUT) % (test code = 770-8) 49.9 % IMM GRAN % (test code = 5307019631) 0.20 % LYMPH % (test code = 736-9) 38.3 % MONO % (test code = 5905-5) 9.2 % EOS % (test code = 713-8) 1.7 % BASO % (test code = 706-2) 0.7 % GRAN MAT x10^3(ANC) (test code = 8240284573) 3.00 10*3/uL 1.88-7.09 IMM GRAN x10^3 (test code = 7765130664) <0.03 0.00-0.06 LYMPH x10^3 (test code = 731-0) 2.30 10*3/uL 1.32-3.29 MONO x10^3 (test code = 742-7) 0.55 10*3/uL 0.33-0.92 EOS x10^3 (test code = 711-2) 0.10 10*3/uL 0.03-0.39 BASO x10^3 (test code = 704-7) 0.04 10*3/uL 0.01-0.07 Lab Interpretation (test code = 04165-7) [facility]normal [facility] Center[facility] Met[facility] [id number] 14:54:39* Test Item Value Reference Range Interpretation Comme nts NA (test code = 7080250151) 137 mmol/L 135-145 K (test code = 7115386472) 3.8 mmol/L 3.5-5.0 CL (test code = 4203161418) 105 mmol/L 98-108 CO2 TOTAL (test code = 3280688965) 25 mmol/L 23-31 AGAP (test code = 9789880804) 2-16 BUN (test code = 9373040712) 9 mg/dL 7-23 GLUCOSE (test code = 1910673437) 126 mg/dL 70-110 H CREATININE (test code = 2835580296) 0.76 mg/dL 0.50-1.04 TOTAL BILI (test code = 7621660505) 0.4 mg/dL 0.1-1.1 CALCIUM (test code = 8945385764) 9.1 mg/dL 8.6-10.6 T PROTEIN (test code = 9813103056) 7.5 g/dL 6.3-8.2 ALBUMIN (test code = 7420366766) 4.0 g/dL 3.5-5.0 ALK PHOS (test code = 9531945779) 68 U/L 34-122 ALTv (test code = 1742-6) 13 U/L 5-35 AST(SGOT) (test code = 6568590103) 23 U/L 13-40 eGFR (test code = 6855474325) mL/min/1.73m2 SANGITA (test code = SANGITA) Association [...] imaging tests). Lab Interpretation (test code = 61594-4) Abnormal [facility] CenterLip[facility], [id number] 14:54:38* Test Item Value Reference Range Interpretation Comme nts LIPASE (test code = 2934965018) 78 U/L 0-220 Lab Interpretation (test cod e = 63273-3) Normal [facility] with [id number] 14:41:38* Test Item Value Reference Range Interpretation Comme nts WBC (test code = 6690-2) See_Comment [Automated Propable] The system which generated this result transmitted reference range: 4.30 - 11.10 10*3/?L. The reference range was not used to interpret this result as normal/abnormal. RBC (test code = 789-8) See_Comment [Automated Point Blank Rangea Restlet] The system which generated this result transmitted reference range: 3.93 - 5.25 10*6/?L. The reference range was not used to interpret this result as normal/abnormal. HGB (test code = 718-7) 9.6 g/dL 11.6-15.0 L HCT (test code = 4544-3) 31.4 % 35.7-45.2 L MCV (test code = 787-2) 76.2 fL 80.6-95.5 L MCH (test code = 785-6) 23.3 pg 25.9-32.8 L MCHC (test code = 786-4) 30.6 g/dL 31.6-35.1 L RDW-SD (test code = 73695-1) 46.2 fL 39.0-49.9 RDW-CV (test code = 788-0) 16.8 % 12.0-15.5 H PLT (test code = 777-3) See_Comment [Automated messa ge] The system which generated this result transmitted reference range: 166 - 358 10*3/?L. The reference range was not used to interpret this result as normal/abnormal. MPV (test code = 76408-6) 9.7 fL 9.5-12.9 NRBC/100 WBC (test code = 9094618978) See_Comment [Automated PeerSpace ssage] The system which generated this result transmitted reference range: 0.0 - 10.0 /100 WBCs. The reference range was not used to interpret this result as normal/abnormal. NRBC x10^3 (test code = 2229642092) <0.01 See_Comment [Automated messa ge] The system which generated this result transmitted reference range: 10*3/?L. The reference range was not used to interpret this result as normal/abnormal. GRAN MAT (NEUT) % (test code = 770-8) 50.0 % IMM GRAN % (test code = 0922822033) 0.20 % LYMPH % (test code = 736-9) 39.3 % MONO % (test code = 5905-5) 7.1 % EOS % (test code = 713-8) 2.8 % BASO % (test code = 706-2) 0.6 % GRAN MAT x10^3(ANC) (test code = 5194392622) 2.67 10*3/uL 1.88-7.09 IMM GRAN x10^3 (test code = 4013714952) <0.03 0.00-0.06 LYMPH x10^3 (test code = 731-0) 2.10 10*3/uL 1.32-3.29 MONO x10^3 (test code = 742-7) 0.38 10*3/uL 0.33-0.92 EOS x10^3 (test code = 711-2) 0.15 10*3/uL 0.03-0.39 BASO x10^3 (test code = 704-7) 0.03 10*3/uL 0.01-0.07 Lab Interpretation (test code = 14686-6) Abnormal [facility] [id number] 14:34:00* Test Item Value Reference Range Interpretation Comme nts POCT PREG (test code = 1605) negative On board controls acceptable with C Line (test code = 3574) present POCT PREG LOT # (test code = 3575) [id number] POCT PREG TEST DATE ( test code = 3576) Lab Interpretation (test cod e = 25613-7) [facility] STREP SCREEN FOR GROUP [id number] 23:58:00* Test Item Value Reference Range Interpretation Comme nts Streptococcus pyogenes (grou p A) antigen (test code = 37976-7) Positive Negative A Lab Interpretation (test cod e = 62117-8) Abnormal [facility] [id number] 23:01:00* Test Item Value Reference Range Interpretation Comme nts POCT PREG (test code = 1605) negative POCT PREG LOT # (test code = 3575) [id number] POCT PREG TEST DATE ( test code = 3576) 01/05/2022 Lab Interpretation (test cod e = 50920-8) Normal [facility] CenterINDIRECT ANTIGLOBULIN [id number] 13:02:18 * Test Item Value Reference Range Interpretation Comme nts IAT (test code = 1185) Negative Performed at [facility] B Laboratory Services - [facility] Blood [address] [address] Free: [phone] No. [id number] [facility] WITH [id number] 16:43:00* Test Item Value Reference Range Interpretation Comme nts WBC (test code = 6690-2) See_Comment L [Automated messa ge] The system which generated this result transmitted reference range: 4.30 - 11.10 10*3/?L. The reference range was not used to interpret this result as normal/abnormal. RBC (test code = 789-8) See_Comment [Automated messa ge] The system which generated this result transmitted reference range: 3.93 - 5.25 10*6/?L. The reference range was not used to interpret this result as normal/abnormal. HGB (test code = 718-7) 10.6 g/dL 11.6-15 L HCT (test code = 4544-3) 36.1 % 35.7-45.2 MCV (test code = 787-2) 78.5 fL 80.6-95.5 L MCH (test code = 785-6) 23.0 pg 25.9-32.8 L MCHC (test code = 786-4) 29.4 g/dL 31.6-35.1 L RDW-SD (test code = 31364-9) 54.3 fL 39-49.9 H RDW-CV (test code = 788-0) 19.1 % 12-15.5 H PLT (test code = 777-3) See_Comment [Automated messa ge] The system which generated this result transmitted reference range: 166 - 358 10*3/?L. The reference range was not used to interpret this result as normal/abnormal. MPV (test code = 77132-9) 11.1 fL 9.5-12.9 NRBC/100 WBC (test code = 3474071886) See_Comment [Automated PeerSpace ssage] The system which generated this result transmitted reference range: 0.0 - 10.0 /100 WBCs. The reference range was not used to interpret this result as normal/abnormal. NRBC x10^3 (test code = 2684102240) <0.01 See_Comment [Automated messa ge] The system which generated this result transmitted reference range: 10*3/?L. The reference range was not used to interpret this result as normal/abnormal. GRAN MAT (NEUT) % (test code = 770-8) 39.5 % IMM GRAN % (test code = 7487335732) 0.00 % LYMPH % (test code = 736-9) 48.6 % MONO % (test code = 5905-5) 7.7 % EOS % (test code = 713-8) 2.9 % BASO % (test code = 706-2) 1.3 % GRAN MAT x10^3(ANC) (test code = 4753947825) 1.23 10*3/uL 1.88-7.09 L IMM GRAN x10^3 (test code = 8723766819) <0.03 0-0.06 LYMPH x10^3 (test code = 731-0) 1.51 10*3/uL 1.32-3.29 MONO x10^3 (test code = 742-7) 0.24 10*3/uL 0.33-0.92 L EOS x10^3 (test code = 711-2) 0.09 10*3/uL 0.03-0.39 BASO x10^3 (test code = 704-7) 0.04 10*3/uL 0.01-0.07 ELLIPTO/OVAL (test code = 44397-5) 2+ See_Comment A [Automated messa ge] The system which generated this result transmitted reference range: (none). The reference range was not used to interpret this result as normal/abnormal. Lab Interpretation (test code = 19589-5) Abnormal [facility] Center[facility] - The Type and Screen expires at midnight on the 3rd day after it was drawn. A current Type and Screen is required when RBCs are requested. For all other blood products, a Type and Scr een performed during the current hospitalizati...2019-04-22 16:35:07* Test Item Value Reference Range Interpretation Comme nts ABO & RH (test code = 20) O POSITIVE Performed at [facility] Laboratory Services - [facility] Blood [address] Free: [phone] No. [id number] IAT (test code = 1185) Negative Performed at [facility] Laboratory Services - [facility] Blood [address] Free: [phone] No. [id number] [facility] [id number] 14:50:00* Test Item Value Reference Range Interpretation Comme nts Syphilis IgG/IgM (test code = 53112-5) Non-reactive Non-reactive SANGITA (test code = SANGITA) Non-reactive - No serologic evidence of T. pallidum infection. Cannot exclude incubating or early syphilis. Submit a second specimen in 2-4 weeks if syphilis is clinically suspected.Equivocal - Further testing to follow.Reactive - Further testing to follow. Lab Interpretation (test code = 70128-3) [facility] [id number] 07:57:00* Test Item Value Reference Range Interpretation Comme nts WBC (test code = 6690-2) See_Comment [Automated messa ge] The system which generated this result transmitted reference range: 4.30 - 11.10 10*3/?L. The reference range was not used to interpret this result as normal/abnormal. RBC (test code = 789-8) See_Comment L [Automated messa ge] The system which generated this result transmitted reference range: 3.93 - 5.25 10*6/?L. The reference range was not used to interpret this result as normal/abnormal. HGB (test code = 718-7) 7.9 g/dL 11.6-15 L HCT (test code = 4544-3) 27.1 % 35.7-45.2 L MCV (test code = 787-2) 79.9 fL 80.6-95.5 L MCH (test code = 785-6) 23.3 pg 25.9-32.8 L MCHC (test code = 786-4) 29.2 g/dL 31.6-35.1 L RDW-SD (test code = 61961-6) 56.2 fL 39-49.9 H RDW-CV (test code = 788-0) 19.7 % 12-15.5 H PLT (test code = 777-3) See_Comment L [Automated messa ge] The system which generated this result transmitted reference range: 166 - 358 10*3/?L. The reference range was not used to interpret this result as normal/abnormal. MPV (test code = 98581-3) 10.3 fL 9.5-12.9 NRBC/100 WBC (test code = 2617499588) See_Comment [Automated me ssage] The system which generated this result transmitted reference range: 0.0 - 10.0 /100 WBCs. The reference range was not used to interpret this result as normal/abnormal. NRBC x10^3 (test code = 4919015383) <0.01 See_Comment [Automated messa ge] The system which generated this result transmitted reference range: 10*3/?L. The reference range was not used to interpret this result as normal/abnormal. GRAN MAT (NEUT) % (test code = 770-8) 76.9 % IMM GRAN % (test code = 4004305616) 0.60 % LYMPH % (test code = 736-9) 14.2 % MONO % (test code = 5905-5) 7.6 % EOS % (test code = 713-8) 0.3 % BASO % (test code = 706-2) 0.4 % GRAN MAT x10^3(ANC) (test code = 7412383124) 5.96 10*3/uL 1.88-7.09 IMM GRAN x10^3 (test code = 5661211486) 0.05 10*3/uL 0-0.06 LYMPH x10^3 (test code = 731-0) 1.10 10*3/uL 1.32-3.29 L MONO x10^3 (test code = 742-7) 0.59 10*3/uL 0.33-0.92 EOS x10^3 (test code = 711-2) <0.03 0.03-0.39 L BASO x10^3 (test code = 704-7) 0.03 10*3/uL 0.01-0.07 Lab Interpretation (test code = 20811-0) [facility]normal [facility] Branch[facility] [id number] 03:33:00* Test Item Value Reference Range Interpretation Comme nts BASE EXCESS, CORD (test code = 6129065530) mEq/L AC PH, CORD (BEAKER) (test code = 9362495259) 7.18-7.38 PC02, CORD (test code = 9022451417) See_Comment [Automated messa ge] The system which generated this result transmitted reference range: 32 - 66 mmHg. The reference range was not used to interpret this result as normal/abnormal. PO2, CORD (test code = 1452730746) See_Comment [Automated messa ge] The system which generated this result transmitted reference range: 10 - 30 mmHg. The reference range was not used to interpret this result as normal/abnormal. BICARBONATE, CORD (test code = 1566214476) See_Comment [Automated messa ge] The system which generated this result transmitted reference range: 17 - 27 mEq/L. The reference range was not used to interpret this result as normal/abnormal. [facility] [id number] 03:31:00* Test Item Value Reference Range Interpretation Comme nts VENOUS BASE EXCESS, CORD (test code = 2428580448) mEq/L VENOUS PH, CORD (test code = 8445351524) 7.25-7.45 VENOUS PC02, CORD (test code = 1234632864) See_Comment [Automated messa ge] The system which generated this result transmitted reference range: 27 - 49 mmHg. The reference range was not used to interpret this result as normal/abnormal. VENOUS PO2, CORD (test code = 4010728002) See_Comment [Automated me ssage] The system which generated this result transmitted reference range: 17 - 41 mmHg. The reference range was not used to interpret this result as normal/abnormal. VENOUS BICARBONATE, CORD (test code = 5171599003) See_Comment [Automated messa ge] The system which generated this result transmitted reference range: 12 - 29 mEq/L. The reference range was not used to interpret this result as normal/abnormal. [facility] CenterUrinalysis2019-07-25 03:13:00* Test Item Value Reference Range Interpretation Comme nts APPEARANCE (test code = 2318835216) Hazy Clear A COLOR (test code = 8063234792) Yellow Yellow PH (test code = 3816570748) 4.8-8.0 SP GRAVITY (test code = 5328562147) 1.003-1.030 GLU U QUAL (test code = 4003358609) Normal Normal BLOOD (test code = 7934217915) 1+ Negative A KETONES (test code = 4392756649) 80 mg/dL Negative A PROTEIN (test code = 2887-8) 30 mg/dL Negative A UROBILIN (test code = 1495865172) 4.0 mg/dL Normal A BILIRUBIN (test code = 2744812001) Negative Negative NITRITE (test code = 7666743472) Negative Negative LEUK ALPHONSO (test code = 6922204752) 250/uL Negative A RBC/HPF (test code = 1019215482) See_Comment H [Automated messa ge] The system which generated this result transmitted reference range: 0 - 3 HPF. The reference range was not used to interpret this result as normal/abnormal. WBC/HPF (test code = 7162894932) See_Comment H [Automated messa ge] The system which generated this result transmitted reference range: 0 - 5 HPF. The reference range was not used to interpret this result as normal/abnormal. BACTERIA (test code = 8393654355) Negative Negative MUCOUS (test code = 4653199388) Slight Negative LPF A SQ EPITH (test code = 2864455440) See_Comment [Automated messa ge] The system which generated this result transmitted reference range: <=2 HPF. The reference range was not used to interpret this result as normal/abnormal. YEAST BUD (test code = 0632892751) <1 See_Comment [Automated messa ge] The system which generated this result transmitted reference range: <=1 HPF. The reference range was not used to interpret this result as normal/abnormal. Lab Interpretation (test code = 52661-4) Abnormal [facility] CenterUric Acid [id number] 02:58:00* Test Item Value Reference Range Interpretation Comme nts URIC ACID (test code = 8542272992) 4.9 mg/dL 2.9-6 Lab Interpretation (test cod e = 55813-5) Normal [facility] CenterSer Qvuyrlzuoi9469-35-43 02:58:00* Test Item Value Reference Range Interpretation Comme nts CREATININE (test code = 1878630904) 0.54 mg/dL 0.5-1.04 eGFR Calculation (Non-) (test code = 4850052115) mL/min/1.73m2 eGFR Calculation () (test code = 2308133180) mL/min/1.73m2 SANGITA (test code = SANGITA) Association [...] or urine or abnormalities in imaging tests). [facility] CenterSGOT (Asparate Amino Transfer)2019-04-01 02:58:00* Test Item Value Reference Range Interpretation Comme [facility] AST(SGOT) (test code = 4107234060) 28 U/L 13-40 Lab Interpretation (test cod e = 87667-9) Normal [facility] CenterAlanine Amino Transferase (SGPT)2019-04-01 02:58:00* Test Item Value Reference Range Interpretation Comme nts ALT(SGPT) (test code = 8166475741) 22 U/L 9-51 Lab Interpretation (test cod e = 67156-2) Normal [facility] CenterLactate Mtkfpfejkebtb1304-86-60 02:58:00* Test Item Value Reference Range Interpretation Comme nts LDH (test code = 0141709031) 597 U/L 300-600 Lab Interpretation (test cod e = 25797-8) Normal [facility] CenterProtein CREAT Ratio Urine Lsfcla8301-12-39 02:24:00* Test Item Value Reference Range Interpretation Comme nts T. PROT U (test code = 2888-6) 31 mg/dL CREAT U (test code = 7384110302) 132.3 mg/dL Protein/Creatinine Ratio Uri ne (test code = 3115964491) 0.0-2.0 [facility] WITH LEPDGFPTVUXM9736-53-04 02:17:00* Test Item Value Reference Range Interpretation Comme nts WBC (test code = 6690-2) See_Comment [Automated messa ge] The system which generated this result transmitted reference range: 4.30 - 11.10 10*3/?L. The reference range was not used to interpret this result as normal/abnormal. RBC (test code = 789-8) See_Comment [Automated messa ge] The system which generated this result transmitted reference range: 3.93 - 5.25 10*6/?L. The reference range was not used to interpret this result as normal/abnormal. HGB (test code = 718-7) 9.4 g/dL 11.6-15 L HCT (test code = 4544-3) 33.1 % 35.7-45.2 L MCV (test code = 787-2) 81.1 fL 80.6-95.5 MCH (test code = 785-6) 23.0 pg 25.9-32.8 L MCHC (test code = 786-4) 28.4 g/dL 31.6-35.1 L RDW-SD (test code = 69654-7) 57.6 fL 39-49.9 H RDW-CV (test code = 788-0) 20.3 % 12-15.5 H PLT (test code = 777-3) See_Comment L [Automated messa ge] The system which generated this result transmitted reference range: 166 - 358 10*3/?L. The reference range was not used to interpret this result as normal/abnormal. MPV (test code = 45102-8) 10.8 fL 9.5-12.9 NRBC/100 WBC (test code = 1801013777) See_Comment [Automated me ssage] The system which generated this result transmitted reference range: 0.0 - 10.0 /100 WBCs. The reference range was not used to interpret this result as normal/abnormal. NRBC x10^3 (test code = 5602258580) <0.01 See_Comment [Automated messa ge] The system which generated this result transmitted reference range: 10*3/?L. The reference range was not used to interpret this result as normal/abnormal. GRAN MAT (NEUT) % (test code = 770-8) 77.0 % IMM GRAN % (test code = 3270988799) 0.30 % LYMPH % (test code = 736-9) 14.7 % MONO % (test code = 5905-5) 7.2 % EOS % (test code = 713-8) 0.3 % BASO % (test code = 706-2) 0.5 % GRAN MAT x10^3(ANC) (test code = 4670764944) 6.70 10*3/uL 1.88-7.09 IMM GRAN x10^3 (test code = 0266710666) 0.03 10*3/uL 0-0.06 LYMPH x10^3 (test code = 731-0) 1.28 10*3/uL 1.32-3.29 L MONO x10^3 (test code = 742-7) 0.63 10*3/uL 0.33-0.92 EOS x10^3 (test code = 711-2) 0.03 10*3/uL 0.03-0.39 BASO x10^3 (test code = 704-7) 0.04 10*3/uL 0.01-0.07 Lab Interpretation (test code = 28871-3) Abnormal [facility] CenterHepatitis B Surface Gtatsqf5291-43-95 17:46:00 * Test Item Value Reference Range Interpretation Comme nts HBsAg Semi-Quantitative (leodan t code = 5195-3) [facility] CenterType and Screen - ONCE [id number] 17:23:20 * Test Item Value Reference Range Interpretation Comme nts ABO & RH (test code = 20) O POSITIVE Performed at [facility] Laboratory Services - [facility] Blood [address] [address]Sadf Free: [phone] No. [id number] IAT (test code = 1185) Negative Performed at [facility] Laboratory Services - [facility] Blood [address] [address]Krqi Free: [phone] No. [id number] [facility] CenterCBC WITH FZAGKCEEONSH8366-76-06 16:41:00* Test Item Value Reference Range Interpretation Comme nts WBC (test code = 6690-2) See_Comment [Automated messa ge] The system which generated this result transmitted reference range: 4.30 - 11.10 10*3/?L. The reference range was not used to interpret this result as normal/abnormal. RBC (test code = 789-8) See_Comment L [Automated messa ge] The system which generated this result transmitted reference range: 3.93 - 5.25 10*6/?L. The reference range was not used to interpret this result as normal/abnormal. HGB (test code = 718-7) 8.3 g/dL 11.6-15 L HCT (test code = 4544-3) 27.8 % 35.7-45.2 L MCV (test code = 787-2) 78.8 fL 80.6-95.5 L MCH (test code = 785-6) 23.5 pg 25.9-32.8 L MCHC (test code = 786-4) 29.9 g/dL 31.6-35.1 L RDW-SD (test code = 93248-3) 55.9 fL 39-49.9 H RDW-CV (test code = 788-0) 19.9 % 12-15.5 H PLT (test code = 777-3) See_Comment L [Automated messa ge] The system which generated this result transmitted reference range: 166 - 358 10*3/?L. The reference range was not used to interpret this result as normal/abnormal. MPV (test code = 78981-0) 10.4 fL 9.5-12.9 NRBC/100 WBC (test code = 3379903145) See_Comment [Automated [employer] ssage] The system which generated this result transmitted reference range: 0.0 - 10.0 /100 WBCs. The reference range was not used to interpret this result as normal/abnormal. NRBC x10^3 (test code = 9731298004) <0.01 See_Comment [Automated messa ge] The system which generated this result transmitted reference range: 10*3/?L. The reference range was not used to interpret this result as normal/abnormal. GRAN MAT (NEUT) % (test code = 770-8) 65.9 % IMM GRAN % (test code = 3917153641) 0.50 % LYMPH % (test code = 736-9) 24.3 % MONO % (test code = 5905-5) 8.1 % EOS % (test code = 713-8) 0.9 % BASO % (test code = 706-2) 0.3 % GRAN MAT x10^3(ANC) (test code = 9472177244) 3.83 10*3/uL 1.88-7.09 IMM GRAN x10^3 (test code = 0839494821) 0.03 10*3/uL 0-0.06 LYMPH x10^3 (test code = 731-0) 1.41 10*3/uL 1.32-3.29 MONO x10^3 (test code = 742-7) 0.47 10*3/uL 0.33-0.92 EOS x10^3 (test code = 711-2) 0.05 10*3/uL 0.03-0.39 BASO x10^3 (test code = 704-7) <0.03 0.01-0.07 Lab Interpretation (test code = 94596-5) Abnormal [facility]"
[2024-10-03] MEDS ORDERED: IBUPROFEN 200 MG TAB PO ONE (21:45)
--- NOTE | 2024-10-03 22:33 | RAD REPORT ---
EXAMINATION: Ankle Left 3 View CLINICAL INDICATION: Female, 29 years old. PAIN COMPARISON: No prior exam. FINDINGS: No acute fracture. No malalignment/dislocation. No significant focal degenerative change. Other: n/a IMPRESSION: No acute osseous abnormality.
--- NOTE | 2024-10-03 22:57 | EDPHYS ---
Physician Documentation [facility] Name: Aniyah Jiang Age: 29 yrs Sex: Female : 1995 Arrival Date: 10/03/2024 Time: 21:23 Bed IW3 Private MD: ED Physician Jorge Raza HPI: 10/03 21:51 This 29 yrs old Black Female presents to ER via Wheelchair with complaints of Ankle ms3 Injury - left. 21:51 Aniyah Jiang, a 29-year-old female, presents to the emergency department after ms3 sustaining a left ankle injury. She reports twisting her left ankle inward this morning at around 2 to 3 a.m. at work. The pain is described as an 8 out of 10 on the pain scale, with a shooting sensation extending up her calves. She experiences worsening pain with walking.. [place] MAGISTRATE: 21:48 LMP 09/22/2024, unknown me1 Historical: - Allergies: 21:47 No Known Allergies; me1 - PMHx: 21:47 Anemia; me1 - PSHx: 21:47 section; tubal ligation; Cholecystectomy; me1 - Immunization history:: Adult Immunizations up to date. - Infectious Disease History:: Denies. - Social history:: Smoking status: Reported history of juuling and/or vaping. ROS: 21:51 Constitutional: Negative for fever, and chills. Cardiovascular: Negative for chest ms3 pain, and palpitations. Respiratory: Negative for shortness of breath, cough, wheezing, and pleuritic chest pain, Abdomen/GI: Negative for abdominal pain, nausea, vomiting, diarrhea, and constipation, Skin: Negative for injury, rash, and discoloration, 21:51 MS/extremity: Positive for pain, of the left ankle, , Exam: 21:51 Constitutional: This is a well developed, well nourished patient who is awake, alert, ms3 and in no acute distress. Cardiovascular: Regular rate and rhythm with a normal S1 and S2. No gallops, murmurs, or rubs. Normal PMI, no JVD. No pulse deficits. Respiratory: Lungs have equal breath sounds bilaterally, clear to auscultation and percussion. No rales, rhonchi or wheezes noted. No increased work of breathing, no retractions or nasal flaring. Abdomen/GI: Soft, non-tender, with normal bowel sounds. No distension or tympany. No guarding or rebound. No evidence of tenderness throughout. Skin: Warm, dry with normal turgor. Normal color with no rashes, no lesions, and no evidence of cellulitis. 21:51 Musculoskeletal/extremity: Extremities: noted in the left ankle: pain, swelling, tenderness, Left lateral malleolus ttp, Vital Signs: 21:45 BP 118 / 76; Pulse 77; Resp 18; Temp 97.6; Pulse Ox 100% ; Weight 105.23 kg; Height 5 me1 ft. 8 in. ; Pain 8/10; 23:09 BP 124 / 71; Pulse 72; Resp 16; Temp 98.5; Pulse Ox 100% ; me1 23:09 Pain 7/10; me1 21:45 Body Mass Index 35.28 (105.23 kg, 172.72 cm) me1 21:45 Pain Scale: Adult me1 23:09 Pain Scale: Adult me1 MDM: 21:47 Medical Screening Exam initiated ms3 22:57 Differential diagnosis: fracture, sprain. Data reviewed: vital signs, nurses notes, ms3 radiologic studies, and as a result, I will discharge patient. I considered the following discharge prescriptions or medication management in the emergency department Medications were administered in the Emergency Department. See MAR. Independent interpretation of the following test(s) in the Emergency Department X-Ray: My interpretation is Left ankle x-ray images reviewed do not reveal fracutre. Counseling: I had a detailed discussion with the patient and/or guardian regarding the historical points, exam findings, and any diagnostic results supporting the discharge/admit diagnosis, radiology results, the need for outpatient follow up, to return to the emergency department if symptoms worsen or persist or if there are any questions or concerns that arise at home. Special discussion: I discussed with the patient/guardian in detail that at this point there is no indication for admission to the hospital. It is understood, however, that if the symptoms persist or worsen the patient needs to return immediately for re-evaluation. ED course: Discussed x-ray findings with patient. Patient to follow-up with Dr. Caceres in 2 to 3 days for reevaluation. Patient understands agrees with plan. All questions were answered. Return precautions discussed include worsening symptoms, or any other concerns.. 10/03 21:47 Order name: Ankle Left 3 View XRAY; Complete Time: 22:53 ms3 10/03 22:53 Order name: Crutches; Complete Time: 23:09 ms3 10/03 22:53 Order name: Ankle Splint: Aircast; Complete Time: 23:09 ms3 Administered Medications: 21:51 Drug: Ibuprofen PO 600 mg PO once Route: PO; me1 23:09 Follow up: Pain 03/17 Adult; Response: No adverse reaction; Pain is decreased me1 Disposition Summary: 10/03/24 22:56 Discharge Ordered Notes: Location: Home ms3 Condition: Stable ms3 Diagnosis - Pain in left ankle and joints of left foot ms3 Followup: ms3 - With: Damon Caceres MD - When: 2 - 3 days - Reason: Recheck today's complaints Discharge Instructions: - Discharge Summary Sheet ms3 - Crutch Use, Adult, Gtjf-vw-Jdet ms3 - Ankle Pain ms3 Forms: - Medication Reconciliation Form ms3 - Antibiotic Education ms3 - Prescription Opioid Use ms3 - Patient Portal Instructions ms3 - Leadership Thank You Letter ms3 - Work release form me1 Prescriptions: - Ibuprofen 600 mg Oral Tablet - take 1 tablet ORAL route every 6 hours As needed take with food; 30 tablet; ms3 Refills: 0, Product Selection Permitted Signatures: Dispatcher [employer] Jorge Argueta, DO ms3 Winnie Adames, RN RN me1 Corrections: (The following items were deleted from the chart) 21:54 21:51 Constitutional: Negative for fever, and chills. Cardiovascular: Negative for ms3 chest pain, and palpitations. Respiratory: Negative for shortness of breath, cough, wheezing, and pleuritic chest pain, Abdomen/GI: Negative for abdominal pain, nausea, vomiting, diarrhea, and constipation, Skin: Negative for injury, rash, and discoloration, ms3 21:54 21:51 MS/extremity: Positive for pain, of the left ankle, Left lateral malleolus ttp, ms3 ms3
--- NOTE | 2024-10-03 22:57 | ER ---
Nurse's Notes [facility] Name: Aniyah Jiang Age: 29 yrs Sex: Female : 1995 Arrival Date: 10/03/2024 Time: 21:23 Bed IW3 Private MD: Diagnosis: Pain in left ankle and joints of left foot Presentation: 10/03 21:45 Chief complaint: Patient states: slipped and fell at work between 2 and 3 am today and me1 twisted her left ankle. Pain 8/10. Coronavirus screen: Vaccine status: Patient reports receiving the 2nd dose of the covid vaccine. Ebola Screen: No symptoms or risks identified at this time. Initial Sepsis Screen: Does the patient meet any 2 criteria? No. Patient's initial sepsis screen is negative. Does the patient have a suspected source of infection? No. Patient's initial sepsis screen is negative. Risk Assessment: Do you want to hurt yourself or someone else? Patient reports no desire to harm self or others. Onset of symptoms was October 03, 2024 at 02:00. 21:45 Method Of Arrival: Wheelchair me1 21:45 Acuity: BRITTANI 4 me1 SHRIMPER: 21:48 LMP 09/22/2024, unknown me1 Historical: - Allergies: 21:47 No Known Allergies; me1 - PMHx: 21:47 Anemia; me1 - PSHx: 21:47 section; tubal ligation; Cholecystectomy; me1 - Immunization history:: Adult Immunizations up to date. - Infectious Disease History:: Denies. - Social history:: Smoking status: Reported history of juuling and/or vaping. Screenin:45 [facility] ED Fall Risk Assessment (Adult) History of falling in the last 3 months, me1 including since admission No falls in past 3 months (0 pts) Confusion or Disorientation No (0 pts) Intoxicated or Sedated No (0 pts) Impaired Gait Yes (1 pt) Mobility Assist Device Used Yes (1 pt) Altered Elimination No (0 pt) Score/Fall Risk Level 0 - 2 = Low Risk Maintained a safe environment, Provided non-skid footwear, Hourly rounding (assess needs \T\ fall precautionary measures) done. Abuse screen: Denies threats or abuse. Nutritional screening: No deficits noted. Tuberculosis screening: No symptoms or risk factors identified. Assessment: 21:45 General: Appears uncomfortable, obese, well groomed, well developed, Behavior is calm, me1 cooperative, appropriate for age, Reports slipped and fell at work between 2 and 3 am today and twisted her left ankle. Pain 8/10. Pain: Complains of pain in anterior aspect of left ankle Pain does not radiate. Pain currently is 7 out of 10 on a pain scale. Quality of pain is described as aching, Pain began suddenly, Is continuous. Neuro: Level of Consciousness is awake, alert, obeys commands, Oriented to person, place, time, situation, Appropriate for age. Cardiovascular: Patient's skin is warm and dry. Respiratory: Airway is patent Trachea midline Respiratory effort is even, unlabored, Respiratory pattern is regular, symmetrical. GI: No signs and/or symptoms were reported involving the gastrointestinal system. : No signs and/or symptoms were reported regarding the genitourinary system. EENT: No signs and/or symptoms were reported regarding the EENT system. Derm: Skin is intact, is healthy with good turgor, Skin is pink, warm \T\ dry. Musculoskeletal: Reports pain in left lateral ankle. Injury Description: slipped and fell at work between 2 and 3 am today and twisted her left ankle. Pain 8/10. Vital Signs: 21:45 BP 118 / 76; Pulse 77; Resp 18; Temp 97.6; Pulse Ox 100% ; Weight 105.23 kg; Height 5 me1 ft. 8 in. ; Pain 8/10; 23:09 BP 124 / 71; Pulse 72; Resp 16; Temp 98.5; Pulse Ox 100% ; me1 23:09 Pain 7/10; me1 21:45 Body Mass Index 35.28 (105.23 kg, 172.72 cm) me1 21:45 Pain Scale: Adult me1 23:09 Pain Scale: Adult me1 ED Course: 21:27 Patient arrived in ED. im 21:30 Jorge Raza DO is Attending Physician. ms3 21:45 Patient has correct armband on for positive identification. Bed in low position. Call me1 light in reach. Side rails up X 1. Provided Education on: POC. Verbalized understanding.. 21:45 No provider procedures requiring assistance completed. Patient did not have IV access me1 during this emergency room visit. 21:47 Triage completed. me1 21:48 Arm band placed on Patient placed in waiting room. me1 22:30 Ankle Left 3 View XRAY In Process Unspecified. EDMS 22:56 Damon Caceres MD is Referral Physician. ms3 23:05 Winnie Adames, RN is Primary Nurse. me1 23:15 Winnie Adames, RN is Primary Nurse. me1 Administered Medications: 21:51 Drug: Ibuprofen PO 600 mg PO once Route: PO; me1 23:09 Follow up: Pain 7/10 Adult; Response: No adverse reaction; Pain is decreased me1 Medication: 21:45 VIS not applicable for this client. me1 Outcome: 22:56 Discharge ordered by . ms3 23:18 Discharged to home ambulatory, with crutches, with family, me1 23:18 Condition: stable 23:18 Discharge instructions given to patient, Instructed on discharge instructions, follow up and referral plans. medication usage, crutch walking, Demonstrated understanding of instructions, follow-up care, medications, crutch walking, Prescriptions given X 1, 23:19 Patient left the ED. me1 Signatures: Dispatcher [employer] EDMS Jorge Raza DO DO ms3 Alejandra Evans Winnie Adames, RN RN me1 Corrections: (The following items were deleted from the chart) 23:06 21:45 Chief complaint: Patient states: slipped and fell at work between 2 and 3 am me1 today and twisted her left ankle. Pain 8/10. me1
[2024-10-04 05:26] VITALS: O2SAT 100
[2024-10-04 05:27] VITALS: BP 124/71; TEMP 98.5
== END 2024-10-03 23:19 | disposition home or self-care (01) ==
LOC: ER 21:23
DX: M25.572 Pain in left ankle and joints of left foot (principal)
CPT/HCPCS: 99284

== ENCOUNTER 2024-10-21 22:10 | Emergency (ER) | payer SELFPAY ==
--- OUTSIDE RECORDS SUMMARY | 2024-10-21 22:15 | XMS REPORT | Continuity of Care Document ---
Author Name Unknown Address [address] [place] [address] [facility] Address [address] [place] [address] Care Team Providers Care Inspector Experimental Assembly Name Role Phone Pcp, Patient Does Not Have A Primary Care Physic robbin ANDREA THORNE Attending Clinician Unavailable Andrea Thorne DO Attending Clinician [phone] LESLIE LYNN Attending Clinician Unavailable Leslie Lynn MD Attending Clinician [phone] Sandra BLAS Attending Clinician Unavailable Sandra Heart Attending Clinician [phone] Doctor Unassigned, [place] Attending Clinician U Osito Hampton MD Attending Clinician [phone] CHERY POMPA Attending Clinician Unavailable Chery Marie Attending Clinician [phone] XIMENA SANTANA Attending Clinician Unavailable Ximena Santana MD Attending Clinician [phone] Sravani Blackburn RN Attending Clinician Unavailable Ibikunle SQUADRON WORKER, Folusho F Attending Clinician [phone] KRYSTLE BUTTERFIELD Attending Clinician Unavailgustavo Camarillo MD, Dunia Causey Attending Clinician [facility], [facility] Attending Clinician Chavez Catalan MD Attending Clinician [phone] Rajendra PIERSON, Teodora Aguilar Attending Clinician Santana SQUADRON WORKER, Velvet Perez Attending Clinician [phone] [facility]ending Clinician Viviane Shepherd WHCNP, Miriam C Attending Clinician + Ramon PIERSON, Hope Attending Clinician [phone] Bryan PIERSON, Farhan Attending Clinician [phone] ANDREA THORNE Admitting Clinician Unavailable Osito Rojo MD Admitting Clinician [phone] CHERY POMPA Admitting Clinician Unavailable XIMENA SANTANA Admitting Clinician Unavailable Chavez Muñoz MD Admitting Clinician [phone] Ramon PIERSON, Hope Admitting Clinician [phone] Payers Payer Name Policy Type Policy Number Effective Date Expirati on Date Source [facility] [id number] 2019 00:00:00 Problems Condition Name Condition Details Condition Category Status Onset Date Resolution Date Last Treatment Date Treating Clinician Comments Source Request for sterilizat ion Request for sterilizat ion Disease Active 04-22 00:00: 00 Overview: Formattin g of this note might be different from the original. Added automatic ally from request for surgery [id number] [facility] care and examinatio n immediatel y after delivery care and examinatio n immediatel y after delivery Disease Active 14 00:00: 00 [facility] 38 weeks gestation of 38 weeks gestation of Disease Active 04-02 00:00: 00 [facility] S/P section S/P section Disease Active 04-02 00:00: 00 [facility] APH (antepartu m hemorrhage ), third trimester APH (antepartu m hemorrhage ), third trimester Disease Active 03-31 00:00: 00 [facility] Decreased movements, third trimester, not applicable or unspecifie d Decreased movements, third trimester, not applicable or unspecifie d Disease Active 03-31 00:00: 00 [facility] Susceptibl e to Varicella (non-immun e), currently in third trimester Susceptibl e to Varicella (non-immun e), currently in third trimester Disease Active 03-09 00:00: 00 [facility] BMI 39.0-39.9, adult BMI 39.0-39.9, adult Disease Active 03-08 00:00: 00 [facility] Limited care in third trimester Limited care in third trimester Disease Active 03-08 00:00: 00 [facility] Multiparit y Multiparit y Disease Active 03-08 00:00: 00 [facility] Tubal ligation status Tubal ligation status Disease Active 03-08 00:00: 00 [facility] Cessation of tobacco use in previous 12 months Cessation of tobacco use in previous 12 months Disease Active 03-08 00:00: 00 [facility] Tubal ligation status Tubal ligation status Disease Active 03-08 00:00: 00 [facility] History of delivery, currently in third trimester History of delivery, currently in third trimester Disease Active 03-08 00:00: 00 [facility] Obesity affecting in third trimester Obesity affecting in third trimester Disease Active 03-08 00:00: 00 [facility] Anemia of mother in , antepartum Anemia of mother in , antepartum Disease Active 12-09 00:00: 00 [facility] Anemia of mother in , antepartum Anemia of mother in , antepartum Disease Active 12-09 00:00: 00 [facility] Allergies, Adverse Reactions, Alerts Allergy Name Allergy Type Status Severity Reaction(s) Onset Date Inactive Date Treating Clinician Comments Source NO KNOWN ALLERGIE S Drug Class Active [facility] Social History Social Habit Start Date Stop Date Quantity Comments Source ASSERTION 2018-07-18 00:00:00 [facility] Sexual orientation U [facility] Exposure to SARS-CoV-2 (event) 2021-12-21 00:00:00 2021-12-31 13:31:00 Not sure [facility] Alcohol intake 2021-08-03 00:00:00 2021-08-03 00:00:00 Current non-drinker of alcohol (finding) [facility] History of Social function 2020-04-13 00:00:00 2020-04-13 00:00:00 [facility] Tobacco use and exposure 2019-04-20 00:00:00 2019-04-20 00:00:00 Smokeless tobacco non-user [facility] Education 2019-03-31 00:00:00 2019-03-31 00:00:00 13 [facility] History of tobacco use 2018-07-09 00:00:00 Cigarette Smoker [facility] Sex Assigned At 1995 00:00:00 1995 00:00:00 [facility] Smoking Status Start Date Stop Date Source Ex-smoker 2019-04-20 00:00:00 2019-04-20 00:00:00 [facility] Unknown if ever smoked [facility] Medications Ordered Medication Name Filled Medication Name Start Date Stop Date Current Medication? Ordering Clinician Indication Dosage Frequency Signature (SIG) Comments Components Source HYDROcodone -acetaminop hen (NORCO) 10-325 mg tablet 1 tablet 01-01 00:00: 00 12-31 22:51 :00 No 1{tbl} 1 tablet, Oral, ONCE, 1 dose, On Fri12/31/21 at 1900, Routine [facility] ketorolac 10 mg tablet 12-31 00:00: 00 Yes [id number] 10mg Take 1 tablet by mouth every 6 (six) hours as needed for Pain (scale 7-10). [facility] metroNIDAZO LE 500 mg tablet 12-31 00:00: 00 Yes [id number] 500mg Take 1 tablet by mouth 2 (two) times daily. [facility] ibuprofen 800 mg tablet 12-19 00:00: 00 Yes [id number] 800mg Take 1 tablet by mouth every 8 (eight) hours as needed for Pain (scale 4-6). [facility] methocarbam oL (ROBAXIN) 500 mg tablet 12-19 00:00: 00 Yes [id number] 500mg Take 1 tablet by mouth every 6 (six) hours as needed for Pain (scale 7-10) (MUSCLE SPASM). [facility] acetaminoph en (TYLENOL) tablet 1,000 mg 2020-09 05:30: 00 09-02 04:31 :00 No 1000mg 1,000 mg, Oral, ONCE, 1 dose, On 09/01/21 at 2330, CHERI [facility] ibuprofen (IBU) tablet 800 mg 2020-09 04:30: 00 09-02 03:32 :00 No 800mg 800 mg, Oral, ONCE, 1 dose, On 09/01/21 at 2230, CHERI [facility] benzonatate 100 mg capsule 2020-09 00:00: 00 Yes [id number] 100mg Take 1 capsule by mouth 3 (three) times daily as needed for Cough. [facility] ondansetron (ZOFRAN ODT) 4 mg disintegrat ing tablet 2020-09 00:00: 00 Yes [id number] 4mg Take 1 tablet by mouth every 8 (eight) hours as needed for Nausea and Vomiting (N/V). [facility] ibuprofen 600 mg tablet 2020-09 00:00: 00 12-31 00:00 :00 No [id number] 600mg Take 1 tablet by mouth every 6 (six) hours as needed for Pain (scale 4-6). [facility] fluconazole 150 mg tablet 2020-09 00:00: 08-09 05:59 :00 No [id number] 150mg Take 1 tablet by mouth once now for 1 dose. [facility] ibuprofen (IBU) tablet 400 mg 2020-09 09:15: 00 08-04 08:38 :00 No 400mg 400 mg, Oral, ONCE, 1 dose, On 08/04/21 at 0315, Routine [facility] lidocaine-e pinephrine (XYLOCAINE WITH EPINEPHRINE ) 1 %-1:100,000 injection 10 mL 2020-09 08:15: 00 08-04 08:38 :00 No 10mL 10 mL, Intraderma l, ONCE, 1 dose, On 08/04/21 at 0215, Routine [facility] maalox:diph enhydrAMINE :lidocaine 2 % viscous 1:1:1 (FIRST-MOUT HWASH BLM) oral suspension 15 mL 2020-09 04:30: 00 08-04 03:40 :00 No 15mL 15 mL, Oral, ONCE, 1 dose, On Fri08/03/21 at 2230, Routine [facility] dexamethaso ne (DECADRON PHOSPHATE) injection 10 mg 2020-09 04:30: 00 08-04 03:39 :00 No 10mg 10 mg, IV Push, ONCE, 1 dose, On Fri08/03/21 at 2230, STAT [facility] iopamidol (ISOVUE 370-500 mL) injection 100 mL 2020-09 03:50: 00 08-04 03:51 :00 No [id number] 100mL 100 mL, Intravenou s, ONCE, 1 dose, On Fri08/03/21 at 2200, Routine [facility] methylPREDN ISolone 4 mg tablets 2020-09 00:00: 00 Yes [id number] Take by mouth SEE-INSTRU CTIONS. follow package directions [facility] amoxicillin -clavulanat e (AUGMENTIN) 875-125 mg per tablet 2020-09 00:00: 00 08-15 05:59 :00 No [id number] 1{tbl} Take 1 tablet by mouth 2 (two) times daily for 10 days. [facility] lidocaine 2% viscous (LIDOCAINE VISCOUS) 2 % solution 15 mL 2020-09 18:45: 00 08-01 17:46 :00 No 15mL 15 mL, Oral, ONCE, 1 dose, On Fri08/01/21 at 1245, CHERI [facility] dexamethaso ne (DECADRON PHOSPHATE) injection 10 mg 2020-09 18:45: 00 08-01 17:46 :00 No 10mg 10 mg, Oral, ONCE, 1 dose, On Fri08/01/21 at 1245, Routine [facility] penicillin g benzathine (BICILLIN L-A) injection 1.2 Million Units 2020-09 18:45: 00 08-01 17:45 :00 No 1.210 1.2 Million Units, Intramuscu lar, ONCE, 1 dose, On Fri08/01/21 at 1245, CHERI
Re ason for Anti-Infec tive: Empiric Therapy for Suspected Infection< br>Empiric Therapy Site: HEENT
D uration of therapy: 72 hours [facility] iopamidol (ISOVUE 370-500 mL) injection 100 mL 2020-09 19:00: 00 07-06 17:40 :00 No [id number] 100mL 100 mL, Intravenou s, ONCE, 1 dose, On Fri07/06/21 at 1400, Routine [facility] FENTanyl PF (SUBLIMAZE (PF)) injection 100 mcg 2020-09 18:30: 00 07-06 17:52 :00 No 100ug 100 mcg, Slow IV Push, ONCE, 1 dose, On Fri07/06/21 at 1330, STAT [facility] dicyclomine 20 mg tablet 2020-09 00:00: 00 Yes [id number] 20mg Take 1 tablet by mouth 4 (four) times daily. [facility] ibuprofen 600 mg tablet 2020-09 00:00: 00 12-31 00:00 :00 No [id number] 600mg Take 1 tablet by mouth every 8 (eight) hours as needed for Pain (scale 4-6). [facility] ibuprofen (IBU) tablet 800 mg 2019-09 00:15: 00 07-29 23:30 :00 No 800mg 800 mg, Oral, ONCE, 1 dose, 07/29/20 at 1815, CHERI [facility] lidocaine 2% viscous (LIDOCAINE VISCOUS) 2 % solution 10 mL 2019-09 00:15: 00 07-29 23:30 :00 No 10mL 10 mL, Oral, ONCE, 1 dose, 07/29/20 at 1815, CHERI [facility] dexamethaso ne (DECADRON PHOSPHATE) injection 10 mg 2019-09 00:15: 00 07-29 23:30 :00 No 10mg 10 mg, Intramuscu lar, ONCE, 1 dose, 07/29/20 at 1815, STAT [facility] No known medications 2019-09 18:14: 13 No [facility] cephALEXin 500 mg tablet 2019-09 00:00: 00 08-09 05:59 :00 No [id number] 500mg Take 1 tablet by mouth 2 (two) times daily for 10 days. [facility] lactated ringers IV infusion 1,000 mL 05-13 14:15: 00 Yes 1000mL at 75 mL/hr, 1,000 mL, IV Infusion, CONTINUOUS , [facility] [place] 05/13/19 at 0915, Until Discontinu ed, Routine, PACU [facility] HYDROcodone -acetaminop hen (NORCO 5) 5-325 mg tablet 1 tablet 05-13 14:13: 31 Yes 1{tbl} 1 tablet, Oral, PRN, 1 dose, [place] 05/13/19 at 0913, Until Discontinu ed, Routine, Pain (scale 7-10), DSU Recovery [facility] ibuprofen (IBU) tablet 800 mg 05-13 14:13: 31 Yes 800mg 800 mg, Oral, PRN, 1 dose, [place] 05/13/19 at 0913, Until Discontinu ed, Routine, Pain (scale 1-3), Pain (scale 4-6), DSU Recovery [facility] HYDROmorpho ne (DILAUDID) injection 0.2 mg 05-13 14:13: 20 Yes .2mg 0.2 mg, Slow IV Push, Q5MIN PRN, 10 doses, [place] 05/13/19 at 0913, Until Discontinu ed, Routine, Pain (scale 7-10), PACU
Us e approved by (Faculty): Elizabeth OROZCO, PAIN SERVICE [facility] FENTanyl PF (SUBLIMAZE (PF)) injection 25 mcg 05-13 14:13: 20 Yes 25ug 25 mcg, Slow IV Push, Q5MIN PRN, 4 doses, [place] 05/13/19 at 0913, Until Discontinu ed, Routine, Pain (scale 4-6), PACU [facility] ondansetron (ZOFRAN (PF)) injection 4 mg 05-13 14:13: 20 Yes 4mg 4 mg, Slow IV Push, PRN, 1 dose, [place] 05/13/19 at 0913, Until Discontinu ed, Routine, Nausea and Vomiting (N/V), PACU [facility] bupivacaine (preserv free) (SENSORCAIN E MPF) 0.25 % (2.5 mg/mL) injection 05-13 13:56: 00 Yes PRN, [place] 05/13/19 at 0856, Until Discontinu ed, Routine, Intra-op [facility] ibuprofen 800 mg tablet 05-13 00:00: 00 Yes [id number] 800mg Take 1 tablet by mouth every 6 (six) hours as needed for Pain (scale 4-6). [facility] HYDROcodone -acetaminop hen 5-325 mg tablet 05-13 00:00: 00 Yes [id number] 108 1{tbl} Take 1 tablet by mouth every 6 (six) hours as needed for Pain (scale 7-10). [facility] ibuprofen 800 mg tablet 04-22 00:00: 00 05-13 00:00 :00 No [id number] 108 800mg Take 1 tablet by mouth every 6 (six) hours as needed for Pain (scale 4-6). [facility] HYDROcodone -acetaminop hen 5-325 mg tablet 04-22 00:00: 00 05-13 00:00 :00 No [id number] 108 1{tbl} Take 1 tablet by mouth every 6 (six) hours as needed for Pain (scale 7-10). [facility] ascorbic acid, vitamin C, (VITAMIN C) 500 mg tablet 04-02 00:00: 00 05-13 00:00 :00 No [id number] 500mg Take 1 tablet by mouth 3 (three) times daily. [facility] docusate calcium 240 mg capsule 04-02 00:00: 04-22 00:00 :00 No [id number] 240mg Take 1 capsule by mouth once daily as needed for Constipati on. May substitute for what is in stock and covered by patient plan [facility] ferrous sulfate 325 mg (65 mg iron) tablet 04-02 00:00: 00 04-22 00:00 :00 No [id number] 325mg Take 1 tablet by mouth 3 (three) times daily with meals. May substitute for what is in stock and covered by patient plan [facility] ibuprofen 600 mg tablet 04-02 00:00: 00 04-22 00:00 :00 No [id number] 600mg Take 1 tablet by mouth every 6 (six) hours as needed for Pain (scale 1-3) or Pain (scale 4-6) (Pain). Take with food or milk. [facility] foLIC acid 1 mg tablet 04-02 00:00: 00 04-22 00:00 :00 No [id number] 1mg Take 1 tablet by mouth daily. [facility] HYDROcodone -acetaminop hen 5-325 mg tablet 04-02 00:00: 00 04-22 00:00 :00 No [id number] 1{tbl} Take 1 tablet by mouth every 6 (six) hours as needed for Pain (scale 7-10). [facility] human papillomav vac,9-frank(P F) (GARDASIL 9 (PF)) vial 0.5 mL 04-01 11:42: 18 04-02 18:03 :00 No .5mL 0.5 mL, Intramuscu lar, ONCE-PRIOR TO DISCHARGE, 1 dose, Starting Fri04/01/19 at 0642, Until Discontinu ed, Routine, Give vaccine prior to discharge [facility] varicella virus vaccine live (VARIVAX (PF)) injection 0.5 mL 04-01 11:42: 08 04-02 19:25 :00 No .5mL 0.5 mL, Subcutaneo us, ONCE-PRIOR TO DISCHARGE, 1 dose, Starting Fri04/01/19 at 0642, Until Discontinu ed, Routine, Give vaccine prior to discharge [facility] HYDROcodone -acetaminop hen (NORCO 5) 5-325 mg tablet 2 tablet 04-01 05:14: 00 Yes 2{tbl} 2 tablet, Oral, Q6HPRN, [facility] [place] 04/01/19 at 0014, Until Discontinu ed, Routine, Pain (scale 7-10), If uncontroll ed by Ibuprofen [facility] HYDROcodone -acetaminop hen (NORCO 5) 5-325 mg tablet 1 tablet 04-01 05:14: 00 Yes 1{tbl} 1 tablet, Oral, Q6HPRN, [facility] 04/01/19 at 0014, Until Discontinu ed, Routine, Pain (scale 4-6), If uncontroll ed by Ibuprofen [facility] ibuprofen (IBU) tablet 600 mg 04-01 05:14: 00 Yes 600mg 600 mg, Oral, Q6HPRN, [facility] 04/01/19 at 0014, Until Discontinu ed, Routine, Pain (scale 1-3) [facility] diphenhydrA MINE (BENADRYL) tablet 25 mg 04-01 05:14: 00 Yes 25mg 25 mg, Oral, Q6HPRN, [facility] 04/01/19 at 0014, Until Discontinu ed, Routine, Sleep, Itching [facility] ondansetron (ZOFRAN (PF)) injection 4 mg 04-01 05:14: 00 Yes 4mg 4 mg, Slow IV Push, Q8HPRN, [facility] [place] 04/01/19 at 0014, Until Discontinu ed, Routine, Nausea and Vomiting (N/V) [facility] bisacodyl (DULCOLAX) suppository 10 mg 04-01 05:14: 00 Yes 10mg 10 mg, Rectal, QDAILYPRN, [facility] 04/01/19 at 0014, Until Discontinu ed, Routine, Constipati on [facility] simethicone (GAS RELIEF) chewable tablet 160 mg 04-01 05:14: 00 Yes 160mg 160 mg, Oral, PC+HSPRN, [facility] 04/01/19 at 0014, Until Discontinu ed, Routine, Gas [facility] docusate calcium (SURFAK) capsule 240 mg 04-01 05:14: 00 Yes 240mg 240 mg, Oral, QDAILYPRN, [facility] 04/01/19 at 0014, Until Discontinu ed, Routine, Constipati on [facility] magnesium hydroxide (MILK OF MAGNESIA) 400 mg/5 mL suspension 30 mL 04-01 05:14: 00 Yes 30mL 30 mL, Oral, QDAILYPRN, [facility] 04/01/19 at 0014, Until Discontinu ed, Routine, Constipati on [facility] naloxone (NARCAN) injection 0.4 mg 04-01 05:13: 52 04-03 05:12 :52 No .4mg 0.4 mg, Slow IV Push, PRN - SEE INSTRUCTIO NS, [facility] [place] 04/01/19 at 0013, Until 04/03/19 at 0012, Routine, Analgesia Recovery, PACU [facility] diphenhydrA MINE (BENADRYL) injection 25 mg 04-01 05:13: 52 04-02 05:12 :52 No 25mg 25 mg, Slow IV Push, Q4HPRN, [facility] [place] 04/01/19 at 0013, Until Fri04/02/19 at 0012, Routine, Itching, PACU [facility] vit calc,iron,f olic ( VITAMIN ORAL) 04-01 04:10: 56 03-31 00:00 :00 No Take by mouth. [facility] ferrous sulfate 325 mg (65 mg iron) tablet 04-01 04:10: 56 03-31 00:00 :00 No 325mg Take 325 mg by mouth 3 (three) times daily with meals. [facility] azithromyci n (ZITHROMAX) 500 mg in NaCl 0.9% (NS) 250 mL VIAL-MATE IV piggyback 04-01 01:59: 39 04-01 05:07 :00 No 500mg 500 mg, IV Piggyback, O.R. HOLDING ONCE, 1 dose, Starting Fri03/31/19 at 2058, Until Discontinu ed, 250 mL
Reas on for Anti-Infec tive: Surgical Prophylaxi s
Surgi ya Prophylaxi s: INTERNATIONAL TRADE MANAGER
Duration of therapy: within 24 hours of surgery [facility] ceFAZolin in dextrose (iso-os) (ANCEF) 2 gram/100 mL Piggyback 2 g 04-01 01:58: 45 04-01 02:08 :00 No 2000mg 2 g (2,000 mg), IV Piggyback, O.R. HOLDING ONCE, 1 dose, Starting Fri03/31/19 at 2057, Until Fri03/31/19 at 2107, 100 mL
Reas on for Anti-Infec tive: Surgical Prophylaxi s
Surgi ya Prophylaxi s: INTERNATIONAL TRADE MANAGER
Duration of therapy: within 24 hours of surgery [facility] sodium citrate-cit surya acid (BICITRA) 500-334 mg/5 mL solution 30 mL 04-01 01:58: 44 04-01 02:09 :00 No 30mL 30 mL, Oral, PRE-PROCED URE ONCE, 1 dose, Starting Fri03/31/19 at 2057, Until Fri03/31/19 at 2108, Routine, Surgery [facility] LR 1000 mL + oxytocin 20 units IV Solution 03-31 15:45: 16 04-01 05:14 :04 No 2mU/min 2 sushma-unit s/min (6 mL/hr), at 6 mL/hr, IV Infusion, TITRATE, Starting Fri03/31/19 at 1045, [place] 04/01/19 at 0014, CHERI, Oxytocin induction. [facility] sodium citrate-cit surya acid (BICITRA) 500-334 mg/5 mL solution 30 mL 03-31 15:44: 10 04-01 00:09 :00 No 30mL 30 mL, Oral, PRE-PROCED URE ONCE, 1 dose, Starting Fri03/31/19 at 1044, Until Discontinu ed, Routine, Surgery/Pr ocedure [facility] lactated ringers IV infusion 500 mL 03-31 15:44: 10 04-01 05:14 :04 No 500mL at 999 mL/hr, 500 mL, IV Infusion, PRN - SEE INSTRUCTIO NS, Starting Fri03/31/19 at 1044, Until [place] 04/01/19 at 0014, Routine [facility] No known medications No Un hardy [facility] No known medications No Un hardy [facility] Immunizations Ordered Immunization Name Filled Immunization Name Date Status Comments Source Varicella (varivax)(chicken pox) 2019-04-02 00:00:00 Completed [facility] HPV9 2019-04-02 00:00:00 Completed [facility] Varicella (varivax)(chicken pox) 2019-04-02 00:00:00 Completed [facility] HPV9 2019-04-02 00:00:00 Completed [facility] Varicella (varivax)(chicken pox) 2019-04-02 00:00:00 Completed [facility] HPV9 2019-04-02 00:00:00 Completed [facility] Varicella (varivax)(chicken pox) 2019-04-02 00:00:00 Completed [facility] HPV9 2019-04-02 00:00:00 Completed [facility] Varicella (varivax)(chicken pox) 2019-04-02 00:00:00 Completed [facility] HPV9 2019-04-02 00:00:00 Completed [facility] Varicella (varivax)(chicken pox) 2019-04-02 00:00:00 Completed [facility] HPV9 2019-04-02 00:00:00 Completed [facility] Varicella (varivax)(chicken pox) 2019-04-02 00:00:00 Completed [facility] HPV9 2019-04-02 00:00:00 Completed [facility] Varicella (varivax)(chicken pox) 2019-04-02 00:00:00 Completed [facility] HPV9 2019-04-02 00:00:00 Completed [facility] HPV9 2019-04-02 00:00:00 Completed [facility] Varicella (varivax)(chicken pox) 2019-04-02 00:00:00 Completed [facility] HPV9 2019-04-02 00:00:00 Completed [facility] Varicella (varivax)(chicken pox) 2019-04-02 00:00:00 Completed [facility] HPV9 2019-04-02 00:00:00 Completed [facility] Varicella (varivax)(chicken pox) 2019-04-02 00:00:00 Completed [facility] HPV9 2019-04-02 00:00:00 Completed [facility] Varicella (varivax)(chicken pox) 2019-04-02 00:00:00 Completed [facility] HPV9 2019-04-02 00:00:00 Completed [facility] Varicella (varivax)(chicken pox) 2019-04-02 00:00:00 Completed [facility] HPV9 2019-04-02 00:00:00 Completed [facility] Varicella (varivax)(chicken pox) 2019-04-02 00:00:00 Completed [facility] HPV9 2019-04-02 00:00:00 Completed [facility] Varicella (varivax)(chicken pox) 2019-04-02 00:00:00 Completed [facility] HPV9 2019-04-02 00:00:00 Completed [facility] Varicella (varivax)(chicken pox) 2019-04-02 00:00:00 Completed [facility] HPV9 2019-04-02 00:00:00 Completed [facility] Varicella (varivax)(chicken pox) 2019-04-02 00:00:00 Completed [facility] HPV9 2019-04-02 00:00:00 Completed [facility] Varicella (varivax)(chicken pox) 2019-04-02 00:00:00 Completed [facility] HPV9 2019-04-02 00:00:00 Completed [facility] Varicella (varivax)(chicken pox) 2019-04-02 00:00:00 Completed [facility] HPV9 2019-04-02 00:00:00 Completed [facility] Varicella (varivax)(chicken pox) 2019-04-02 00:00:00 Completed [facility] HPV9 2019-04-02 00:00:00 Completed [facility] Varicella (varivax)(chicken pox) 2019-04-02 00:00:00 Completed [facility] HPV9 2019-04-02 00:00:00 Completed [facility] Varicella (varivax)(chicken pox) 2019-04-02 00:00:00 Completed [facility] HPV9 2019-04-02 00:00:00 Completed [facility] Varicella (varivax)(chicken pox) 2019-04-02 00:00:00 Completed [facility] HPV9 2019-04-02 00:00:00 Completed [facility] Varicella (varivax)(chicken pox) 2019-04-02 00:00:00 Completed [facility] HPV9 2019-04-02 00:00:00 Completed [facility] TDAP (ADACEL) VACCINE 2019-03-08 00:00:00 Completed [facility] TDAP (ADACEL) VACCINE 2019-03-08 00:00:00 Completed [facility] TDAP (ADACEL) VACCINE 2019-03-08 00:00:00 Completed [facility] TDAP (ADACEL) VACCINE 2019-03-08 00:00:00 Completed [facility] TDAP (ADACEL) VACCINE 2019-03-08 00:00:00 Completed [facility] TDAP (ADACEL) VACCINE 2019-03-08 00:00:00 Completed [facility] TDAP (ADACEL) VACCINE 2019-03-08 00:00:00 Completed [facility] TDAP (ADACEL) VACCINE 2019-03-08 00:00:00 Completed [facility] TDAP (ADACEL) VACCINE 2019-03-08 00:00:00 Completed [facility] TDAP (ADACEL) VACCINE 2019-03-08 00:00:00 Completed [facility] TDAP (ADACEL) VACCINE 2019-03-08 00:00:00 Completed [facility] TDAP (ADACEL) VACCINE 2019-03-08 00:00:00 Completed [facility] TDAP (ADACEL) VACCINE 2019-03-08 00:00:00 Completed [facility] TDAP (ADACEL) VACCINE 2019-03-08 00:00:00 Completed [facility] TDAP (ADACEL) VACCINE 2019-03-08 00:00:00 Completed [facility] TDAP (ADACEL) VACCINE 2019-03-08 00:00:00 Completed [facility] TDAP (ADACEL) VACCINE 2019-03-08 00:00:00 Completed [facility] TDAP (ADACEL) VACCINE 2019-03-08 00:00:00 Completed [facility] TDAP (ADACEL) VACCINE 2019-03-08 00:00:00 Completed [facility] TDAP (ADACEL) VACCINE 2019-03-08 00:00:00 Completed [facility] TDAP (ADACEL) VACCINE 2019-03-08 00:00:00 Completed [facility] TDAP (ADACEL) VACCINE 2019-03-08 00:00:00 Completed [facility] TDAP (ADACEL) VACCINE 2019-03-08 00:00:00 Completed [facility] TDAP (ADACEL) VACCINE 2019-03-08 00:00:00 Completed [facility] TDAP (ADACEL) VACCINE 2019-03-08 00:00:00 Completed [facility] Varicella (varivax)(chicken pox) 2015-12-10 00:00:00 Completed [facility] Varicella (varivax)(chicken pox) 2015-12-10 00:00:00 Completed [facility] Varicella (varivax)(chicken pox) 2015-12-10 00:00:00 Completed [facility] Varicella (varivax)(chicken pox) 2015-12-10 00:00:00 Completed [facility] Varicella (varivax)(chicken pox) 2015-12-10 00:00:00 Completed [facility] Varicella (varivax)(chicken pox) 2015-12-10 00:00:00 Completed [facility] Varicella (varivax)(chicken pox) 2015-12-10 00:00:00 Completed [facility] Varicella (varivax)(chicken pox) 2015-12-10 00:00:00 Completed [facility] Varicella (varivax)(chicken pox) 2015-12-10 00:00:00 Completed [facility] Varicella (varivax)(chicken pox) 2015-12-10 00:00:00 Completed [facility] Varicella (varivax)(chicken pox) 2015-12-10 00:00:00 Completed [facility] Varicella (varivax)(chicken pox) 2015-12-10 00:00:00 Completed [facility] Varicella (varivax)(chicken pox) 2015-12-10 00:00:00 Completed [facility] Varicella (varivax)(chicken pox) 2015-12-10 00:00:00 Completed [facility] Varicella (varivax)(chicken pox) 2015-12-10 00:00:00 Completed [facility] Varicella (varivax)(chicken pox) 2015-12-10 00:00:00 Completed [facility] Varicella (varivax)(chicken pox) 2015-12-10 00:00:00 Completed [facility] Varicella (varivax)(chicken pox) 2015-12-10 00:00:00 Completed [facility] Varicella (varivax)(chicken pox) 2015-12-10 00:00:00 Completed [facility] Varicella (varivax)(chicken pox) 2015-12-10 00:00:00 Completed [facility] Varicella (varivax)(chicken pox) 2015-12-10 00:00:00 Completed [facility] Varicella (varivax)(chicken pox) 2015-12-10 00:00:00 Completed [facility] Varicella (varivax)(chicken pox) 2015-12-10 00:00:00 Completed [facility] Varicella (varivax)(chicken pox) 2015-12-10 00:00:00 Completed [facility] Varicella (varivax)(chicken pox) 2015-12-10 00:00:00 Completed [facility] Influenza Virus Vaccine (3+ yrs) 2014-06-21 00:00:00 Completed [facility] Influenza Virus Vaccine (3+ yrs) 2014-06-21 00:00:00 Completed [facility] Influenza Virus Vaccine (3+ yrs) 2014-06-21 00:00:00 Completed [facility] Influenza Virus Vaccine (3+ yrs) 2014-06-21 00:00:00 Completed [facility] Influenza Virus Vaccine (3+ yrs) 2014-06-21 00:00:00 Completed [facility] Influenza Virus Vaccine (3+ yrs) 2014-06-21 00:00:00 Completed [facility] Influenza Virus Vaccine (3+ yrs) 2014-06-21 00:00:00 Completed [facility] Influenza Virus Vaccine (3+ yrs) 2014-06-21 00:00:00 Completed [facility] Influenza Virus Vaccine (3+ yrs) 2014-06-21 00:00:00 Completed [facility] Influenza Virus Vaccine (3+ yrs) 2014-06-21 00:00:00 Completed [facility] Influenza Virus Vaccine (3+ yrs) 2014-06-21 00:00:00 Completed [facility] Influenza Virus Vaccine (3+ yrs) 2014-06-21 00:00:00 Completed [facility] Influenza Virus Vaccine (3+ yrs) 2014-06-21 00:00:00 Completed [facility] Influenza Virus Vaccine (3+ yrs) 2014-06-21 00:00:00 Completed [facility] Influenza Virus Vaccine (3+ yrs) 2014-06-21 00:00:00 Completed [facility] Influenza Virus Vaccine (3+ yrs) 2014-06-21 00:00:00 Completed [facility] Influenza Virus Vaccine (3+ yrs) 2014-06-21 00:00:00 Completed [facility] Influenza Virus Vaccine (3+ yrs) 2014-06-21 00:00:00 Completed [facility] Influenza Virus Vaccine (3+ yrs) 2014-06-21 00:00:00 Completed [facility] Influenza Virus Vaccine (3+ yrs) 2014-06-21 00:00:00 Completed [facility] Influenza Virus Vaccine (3+ yrs) 2014-06-21 00:00:00 Completed [facility] Influenza Virus Vaccine (3+ yrs) 2014-06-21 00:00:00 Completed [facility] Influenza Virus Vaccine (3+ yrs) 2014-06-21 00:00:00 Completed [facility] Influenza Virus Vaccine (3+ yrs) 2014-06-21 00:00:00 Completed [facility] Influenza Virus Vaccine (3+ yrs) 2014-06-21 00:00:00 Completed [facility] Tdap 2012-09-08 00:00:00 Completed [facility] Tdap 2012-09-08 00:00:00 Completed [facility] Tdap 2012-09-08 00:00:00 Completed [facility] Tdap 2012-09-08 00:00:00 Completed [facility] Tdap 2012-09-08 00:00:00 Completed [facility] Tdap 2012-09-08 00:00:00 Completed [facility] Tdap 2012-09-08 00:00:00 Completed [facility] Tdap 2012-09-08 00:00:00 Completed [facility] Tdap 2012-09-08 00:00:00 Completed [facility] Tdap 2012-09-08 00:00:00 Completed [facility] TDAP 2012-09-08 00:00:00 Completed [facility] TDAP 2012-09-08 00:00:00 Completed [facility] TDAP 2012-09-08 00:00:00 Completed [facility] TDAP 2012-09-08 00:00:00 Completed [facility] TDAP 2012-09-08 00:00:00 Completed [facility] TDAP 2012-09-08 00:00:00 Completed [facility] TDAP 2012-09-08 00:00:00 Completed [facility] TDAP 2012-09-08 00:00:00 Completed [facility] TDAP 2012-09-08 00:00:00 Completed [facility] TDAP 2012-09-08 00:00:00 Completed [facility] TDAP 2012-09-08 00:00:00 Completed [facility] TDAP 2012-09-08 00:00:00 Completed [facility] TDAP 2012-09-08 00:00:00 Completed [facility] Tdap 2012-09-08 00:00:00 Completed [facility] TDAP 2012-09-08 00:00:00 Completed [facility] TDAP Unknown Completed [facility] Influenza Virus Vaccine (3+ yrs) Unknown Completed [facility] Varicella (varivax)(chicken pox) Unknown Completed [facility] HPV9 Unknown Completed [facility] Vital Signs Vital Name Observation Time Observation Value Comments S ource Systolic blood pressure 2021-12-31 22:30:00 144 mm[Hg] [facility] Diastolic blood pressure 2021-12-31 22:30:00 99 mm[Hg] [facility] Heart rate 2021-12-31 22:30:00 74 /min [facility] Respiratory rate 2021-12-31 22:30:00 16 /min [facility] Oxygen saturation in Arterial blood by Pulse oximetry 2021-12-31 22:30:00 100 /min [facility] Body temperature 2021-12-31 18:32:00 36.83 Bisi [facility] Body weight 2021-12-31 18:32:00 107.049 kg [facility] BMI 2021-12-31 18:32:00 35.88 kg/m2 [facility] Systolic blood pressure 2021-12-20 02:40:00 133 mm[Hg] [facility] Diastolic blood pressure 2021-12-20 02:40:00 86 mm[Hg] [facility] Heart rate 2021-12-20 02:40:00 76 /min [facility] Respiratory rate 2021-12-20 02:40:00 16 /min [facility] Oxygen saturation in Arterial blood by Pulse oximetry 2021-12-20 02:40:00 99 /min [facility] Body temperature 2021-12-20 00:04:00 37.28 Bisi [facility] Body height 2021-12-20 00:04:00 172.7 cm [facility] Body weight 2021-12-20 00:04:00 107.049 kg [facility] BMI 2021-12-20 00:04:00 35.88 kg/m2 [facility] Systolic blood pressure 2021-09-02 05:42:00 134 mm[Hg] [facility] Diastolic blood pressure 2021-09-02 05:42:00 68 mm[Hg] [facility] Heart rate 2021-09-02 05:42:00 107 /min [facility] Body temperature 2021-09-02 05:42:00 38.11 [facility] Respiratory rate 2021-09-02 05:42:00 18 /min [facility] Oxygen saturation in Arterial blood by Pulse oximetry 2021-09-02 05:42:00 98 /min [facility] Body height 2021-09-02 03:25:00 172.7 cm [facility] Body weight 2021-09-02 03:25:00 111.585 kg [facility] BMI 2021-09-02 03:25:00 37.40 kg/m2 [facility] Systolic blood pressure 2021-08-08 13:49:00 139 mm[Hg] [facility] Diastolic blood pressure 2021-08-08 13:49:00 88 mm[Hg] [facility] Heart rate 2021-08-08 13:49:00 91 /min [facility] Body temperature 2021-08-08 13:49:00 36.72 [facility] Respiratory rate 2021-08-08 13:49:00 18 /min [facility] Body height 2021-08-08 13:49:00 172.7 cm [facility] Body weight 2021-08-08 13:49:00 107.049 kg [facility] BMI 2021-08-08 13:49:00 35.88 kg/m2 [facility] Oxygen saturation in Arterial blood by Pulse oximetry 2021-08-08 13:49:00 99 /min [facility] Systolic blood pressure 2021-08-04 06:52:00 123 mm[Hg] [facility] Diastolic blood pressure 2021-08-04 06:52:00 82 mm[Hg] [facility] Heart rate 2021-08-04 06:52:00 62 /min [facility] Body temperature 2021-08-04 06:52:00 36.72 Bisi [facility] Respiratory rate 2021-08-04 06:52:00 16 /min [facility] Body weight 2021-08-04 06:52:00 107.049 kg [facility] BMI 2021-08-04 06:52:00 35.88 kg/m2 [facility] Oxygen saturation in Arterial blood by Pulse oximetry 2021-08-04 06:52:00 99 /min [facility] Systolic blood pressure 2021-08-04 05:38:00 172 mm[Hg] [facility] Diastolic blood pressure 2021-08-04 05:38:00 105 mm[Hg] [facility] Heart rate 2021-08-04 05:38:00 74 /min [facility] Respiratory rate 2021-08-04 05:38:00 16 /min [facility] Oxygen saturation in Arterial blood by Pulse oximetry 2021-08-04 05:00:00 97 /min [facility] Body temperature 2021-08-04 03:02:00 37.06 Bisi [facility] Body height 2021-08-04 03:02:00 172.7 cm [facility] Body weight 2021-08-04 03:02:00 107.049 kg [facility] BMI 2021-08-04 03:02:00 35.88 kg/m2 [facility] Heart rate 2021-08-01 16:59:00 89 /min [facility] Body temperature 2021-08-01 16:59:00 37.17 Bisi [facility] Respiratory rate 2021-08-01 16:59:00 18 /min [facility] Body weight 2021-08-01 16:59:00 107.049 kg [facility] BMI 2021-08-01 16:59:00 35.88 kg/m2 [facility] Oxygen saturation in Arterial blood by Pulse oximetry 2021-08-01 16:59:00 99 /min [facility] Systolic blood pressure 2021-07-06 19:00:00 122 mm[Hg] [facility] Diastolic blood pressure 2021-07-06 19:00:00 76 mm[Hg] [facility] Heart rate 2021-07-06 19:00:00 54 /min [facility] Oxygen saturation in Arterial blood by Pulse oximetry 2021-07-06 19:00:00 100 /min [facility] Respiratory rate 2021-07-06 18:00:00 18 /min [facility] Body temperature 2021-07-06 14:24:00 36.72 Bisi [facility] Body weight 2021-07-06 14:24:00 107.049 kg [facility] BMI 2021-07-06 14:24:00 35.88 kg/m2 [facility] Systolic blood pressure 2020-07-30 00:00:00 119 mm[Hg] [facility] Diastolic blood pressure 2020-07-30 00:00:00 79 mm[Hg] [facility] Heart rate 2020-07-30 00:00:00 84 /min [facility] Body temperature 2020-07-30 00:00:00 36.83 Bisi [facility] Respiratory rate 2020-07-30 00:00:00 22 /min [facility] Oxygen saturation in Arterial blood by Pulse oximetry 2020-07-30 00:00:00 100 /min [facility] Body weight 2020-07-29 22:45:00 107.049 kg [facility] BMI 2020-07-29 22:45:00 35.88 kg/m2 [facility] Systolic blood pressure 2020-01-04 20:41:00 134 mm[Hg] [facility] Diastolic blood pressure 2020-01-04 20:41:00 87 mm[Hg] [facility] Heart rate 2020-01-04 20:41:00 91 /min [facility] Body temperature 2020-01-04 20:41:00 37.22 Bisi [facility] Respiratory rate 2020-01-04 20:41:00 18 /min [facility] Body weight 2020-01-04 20:41:00 105.235 kg [facility] BMI 2020-01-04 20:41:00 35.28 kg/m2 [facility] Oxygen saturation in Arterial blood by Pulse oximetry 2020-01-04 20:41:00 99 /min [facility] Oxygen saturation in Arterial blood by Pulse oximetry 2019-05-13 15:45:00 99 /min [facility] Systolic blood pressure 2019-05-13 15:15:00 123 mm[Hg] [facility] Diastolic blood pressure 2019-05-13 15:15:00 86 mm[Hg] [facility] Heart rate 2019-05-13 15:15:00 74 /min [facility] Respiratory rate 2019-05-13 15:15:00 17 /min [facility] Body temperature 2019-05-13 14:00:00 36.22 Bisi [facility] Body height 2019-05-13 11:12:00 172.7 cm [facility] Body weight 2019-05-13 11:12:00 109 kg [facility] BMI 2019-05-13 11:12:00 36.54 kg/m2 [facility] Systolic blood pressure 2019-04-22 15:26:00 142 mm[Hg] [facility] Diastolic blood pressure 2019-04-22 15:26:00 93 mm[Hg] [facility] Heart rate 2019-04-22 15:26:00 72 /min [facility] Body temperature 2019-04-22 15:26:00 35.28 Bisi [facility] Respiratory rate 2019-04-22 15:26:00 16 /min [facility] Body height 2019-04-22 15:26:00 172.7 cm [facility] Body weight 2019-04-22 15:26:00 105.8 kg [facility] BMI 2019-04-22 15:26:00 35.47 kg/m2 [facility] Oxygen saturation in Arterial blood by Pulse oximetry 2019-04-22 15:26:00 100 /min [facility] Systolic blood pressure 2019-04-21 15:07:00 120 mm[Hg] [facility] Diastolic blood pressure 2019-04-21 15:07:00 82 mm[Hg] [facility] Heart rate 2019-04-21 15:06:00 68 /min [facility] Body temperature 2019-04-21 15:06:00 36.67 Bisi [facility] Respiratory rate 2019-04-21 15:06:00 16 /min [facility] Body height 2019-04-21 15:06:00 172.7 cm [facility] Body weight 2019-04-21 15:06:00 106.369 kg [facility] BMI 2019-04-21 15:06:00 35.66 kg/m2 [facility] Systolic blood pressure 2019-04-06 16:16:00 124 mm[Hg] [facility] Diastolic blood pressure 2019-04-06 16:16:00 78 mm[Hg] [facility] Heart rate 2019-04-06 16:11:00 87 /min [facility] Body temperature 2019-04-06 16:11:00 37.22 Bisi [facility] Respiratory rate 2019-04-06 16:11:00 16 /min [facility] Body height 2019-04-06 16:11:00 172.7 cm [facility] Body weight 2019-04-06 16:11:00 110.791 kg [facility] BMI 2019-04-06 16:11:00 37.14 kg/m2 [facility] Systolic blood pressure 2019-04-02 13:00:00 122 mm[Hg] [facility] Diastolic blood pressure 2019-04-02 13:00:00 78 mm[Hg] [facility] Heart rate 2019-04-02 13:00:00 80 /min Melecio [facility] Body temperature 2019-04-02 13:00:00 36.61 Bisi [facility] Respiratory rate 2019-04-02 13:00:00 20 /min [facility] Oxygen saturation in Arterial blood by Pulse oximetry 2019-04-02 13:00:00 99 /min [facility] Procedures Procedure Date / Time Performed Performing Clinician Source US PELVIS COMPLETE WITH TRANSVAGINAL 2021-12-31 22:18:00 Andrea Thorne [facility] COMP. METABOLIC PANEL ([id number]) 2021-12-31 19:43:00 Singer [facility] CBC WITH DIFF 2021-12-31 19:43:00 Singer Andrea [facility] URINALYSIS 2021-12-31 19:43:00 Andrea Thorne [facility] ADC CLC OR LCC ONLY - WET PREP 2021-12-31 19:43:00 Singer Andrea [facility] CONSENT/REFUSAL FOR DIAGNOSIS AND TREATMENT 2021-12-31 18:24:53 Doctor Unassigned, [place] [facility] POCT TEST 2021-12-20 01:40:00 Leslie Lynn [facility] URINALYSIS 2021-12-20 01:38:00 Leslie Lynn [facility] RAPID INFLUENZA A/B 2021-09-02 03:32:00 Sandra Blas [facility] COVID-19 (ID NOW RAPID TESTING) 2021-09-02 03:32:00 Sandra Blas [facility] CONSENT/REFUSAL FOR DIAGNOSIS AND TREATMENT 2021-09-02 03:00:49 Doctor Unassigned, [place] [facility] CONSENT/REFUSAL FOR DIAGNOSIS AND TREATMENT 2021-08-08 13:45:43 Doctor Unassigned, [place] [facility] EMERGENCY DEPARTMENT DOCUMENTS 2021-08-04 06:01:00 Doctor Unassigned, [place] [facility] CT SOFT TISSUE NECK W CONTRAST 2021-08-04 03:55:42 Chery Pompa [facility] TEST, SERUM 2021-08-04 03:36:00 Nereida Pompa [facility] BASIC METABOLIC PANEL (NA, K, CL, CO2, GLUCOSE, BUN, CREATININE, CA) 2021-08-04 03:36:00 Chery Pompa [facility] CBC WITH DIFF 2021-08-04 03:36:00 Chery Pompa [facility] NOTICE OF PRIVACY PRACTICES 2021-08-04 02:57:07 Doctor Unassigned, [place] [facility] CONSENT/REFUSAL FOR DIAGNOSIS AND TREATMENT 2021-08-04 02:55:44 Doctor Unassigned, [place] [facility] RAPID STREP SCREEN FOR GROUP A 2021-08-01 17:03:00 Andrea Thorne [facility] CONSENT/REFUSAL FOR DIAGNOSIS AND TREATMENT 2021-08-01 16:53:00 Doctor Unassigned, [place] [facility] CT ABDOMEN PELVIS W CONTRAST 2021-07-06 17:50:39 Ximena Santana [facility] US PELVIS COMPLETE WITH TRANSVAGINAL 2021-07-06 16:38:35 Ximena Santana [facility] POCT TEST 2021-07-06 14:34:00 Kranthi Santana [facility] LIPASE 2021-07-06 14:31:00 [facility] COMP. METABOLIC PANEL ([id number]) 2021-07-06 14:31:00 Ximena Santana [facility] CBC WITH DIFF 2021-07-06 14:31:00 Ximena Santana [facility] URINALYSIS 2021-07-06 14:31:00 [facility] COVID-19 (ID NOW RAPID TESTING) 2021-07-06 14:31:00 Ximena Santana [facility] NOTICE OF PRIVACY PRACTICES 2021-07-06 14:20:02 Doctor Unassigned, [place] [facility] CONSENT/REFUSAL FOR DIAGNOSIS AND TREATMENT 2021-07-06 14:19:50 Doctor Unassigned, [place] [facility] RAPID STREP SCREEN FOR GROUP A 2020-07-29 23:28:00 Dimas Palomino [facility] POCT TEST 2020-07-29 23:01:00 Desitnee Palomino [facility] NOTICE OF [facility]ACTICES 2020-07-29 22:36:17 Doctor Unassigned, [place] [facility] CONSENT/REFUSAL FOR DIAGNOSIS AND TREATMENT 2020-07-29 22:36:05 Doctor Unassigned, [place] [facility] INDIRECT ANTIGLOBULIN TEST 2019-05-13 11:30:00 Teodora Drew [facility] ASSIGNMENT OF BENEFITS 2019-05-13 09:55:52 Docto r Unassigned, [place] [facility] TYPE AND SCREEN 2019-04-22 15:52:00 Farhna Adams [facility] CBC WITH DIFFERENTIAL 2019-04-22 15:51:00 Marielena Adams rn [facility] ASSIGNMENT OF BENEFITS 2019-04-22 15:15:47 Docto r Unassigned, [place] [facility] DAY SURGERY - [place] 2019-04-22 05:01:00 Doct or Unassigned, [place] [facility] CBC WITH DIFFERENTIAL 2019-04-01 07:36:00 Leonie Gomez [facility] VENOUS CORD GAS 2019-04-01 03:29:00 Jose Armando Zimmerman [facility] SECTION 2019-04-01 02:20:00 Munir Goff [facility] URIC ACID 2019-04-01 02:06:00 Luke Arreaga [facility] CBC WITH DIFFERENTIAL 2019-04-01 02:06:00 Miguelangel Arreaga [facility] SGOT (ASPARTATE AMINO TRANSFER) 2019-04-01 02:06:00 Luke Arreaga [facility] CREATININE 2019-04-01 02:06:00 Luke Arreaga [facility] ALANINE AMINO TRANSFERASE(SGPT 2019-04-01 02:06:00 Luke Arreaga [facility] LACTATE DEHYDROGENASE 2019-04-01 02:06:00 Miguelangel Arreaga [facility] URINALYSIS 2019-04-01 02:05:00 Luke Arreaga [facility] PROTEIN CREAT RATIO URINE RANDOM 2019-04-01 02:05:00 Luke Arreaga [facility] CBC WITH DIFFERENTIAL 2019-03-31 16:13:00 Elsie, Jose Armando [facility] HEPATITIS B SURFACE ANTIGEN 2019-03-31 16:13:00 Elsie, [facility] GALV ONLY - SYPHILIS IGG/IGM 2019-03-31 16:13:00 Elsie, [facility] TYPE AND SCREEN 2019-03-31 15:54:00 Elsie, [facility] Encounters Start Date/Time End Date/Time Encounter Type Admission Type Attending [facility] Facility Care Department Encounter ID Source 2021-07-07 07:04:[address] [facility] [id number] [facility] 2021-07-05 23:03:[address] [facility] [id number] [facility] 2023-05-20 14:53:18 2023-05-20 14:53:18 Outpatient [facility] [id number] Jordy Boggs 2021-12-31 13:33:00 2021-12-31 18:01:00 Emergency X ANDREA THORNE [facility] ERT [id number] [facility] 2021-12-31 13:33:00 2021-12-31 18:01:00 Emergency Andrea [facility] 1.2.840.114 350.1.13.10 4.2.7.2.686 [id number] [facility] 2021-12-19 19:06:00 2021-12-19 21:48:00 Emergency X LESLIE LYNN [facility] ERT [id number] [facility] 2021-12-19 19:06:00 2021-12-19 21:48:00 Emergency Leslie Lynn [facility] 1.2.840.114 350.1.13.10 4.2.7.2.686 [id number] 084 [id number] [facility] 2021-09-01 21:27:00 2021-09-01 23:45:00 Emergency X Sandra BLAS [facility] ERT [id number] [facility] 2021-09-01 21:27:00 2021-09-01 23:45:00 Emergency Sandra Blas Marixa [facility] 1.2.840.114 350.1.13.10 4.2.7.2.686 [id number] [facility] 2021-08-21 00:00:00 2021-08-21 00:00:00 Patient Secure Msg Doctor Unassigned, [place] [facility] 1.840.114 350.1.13.10 4.2.7.2.686 [id number] [facility] 2021-08-08 07:49:00 2021-08-08 08:30:00 Emergency X ANDREA THORNE [facility] ERT [id number] [facility] 2021-08-08 07:49:00 2021-08-08 08:30:00 Emergency Andrea Thorne [facility] 1.2840.114 350.1.13.10 4.2.7.2.686 [id number] [facility] 2021-08-04 00:53:00 2021-08-04 02:30:00 Emergency Alia [facility] 1.2840.114 350.1.13.10 4.2.7.2.686 [id number] [facility] 2021-08-04 00:00:00 2021-08-04 00:00:00 Orders Only Doctor Unassigned, [place] [facility] 1.2840.114 350.1.13.10 4.2.7.2.686 [id number] [facility] 2021-08-03 21:05:00 2021-08-03 23:46:00 Emergency X CHERY POMPA [facility] ERT [id number] [facility] 2021-08-03 21:05:00 2021-08-03 23:46:00 Emergency X CHERY POMPA [facility] ERT [id number] [facility] 2021-08-03 21:05:00 2021-08-03 23:46:00 Emergency Chery Pompa [facility] 1.2840.114 350.1.13.10 4.2.7.2.686 [id number] [facility] 2021-08-01 11:03:00 2021-08-01 12:01:00 Emergency X ANDREA THORNE [facility] ERT [id number] [facility] 2021-08-01 11:03:00 2021-08-01 12:01:00 Emergency Andrea Thorne [facility] 1.2840.114 350.1.13.10 4.2.7.2.686 [id number] 084 [id number] [facility] 2021-08-01 00:00:00 2021-08-01 00:00:00 Orders Only Doctor Unassigned, [place] [facility] 1.2840.114 350.1.13.10 4.2.7.2.686 [id number] [id number] [facility] 2021-07-06 09:23:00 2021-07-06 14:05:00 Emergency X XIMENA SANTANA [facility] ERT [id number] [facility] 2021-07-06 09:23:00 2021-07-06 14:05:00 Emergency Ximena Santana [facility] 1.2.840.114 350.1.13.10 4.2.7.2.686 [id number] [id number] [facility] 2021-07-06 00:00:00 2021-07-06 00:00:00 Orders Only Doctor Unassigned, [place] [facility] 1.2840.114 350.1.13.10 4.2.7.2.686 [id number] [facility] 2020-08-02 00:00:00 2020-08-02 00:00:00 Telephone Sravani Blackburn [facility] 1.840.114 350.1.13.10 4.2.7.2.686 [id number] 019 [id number] [facility] 2020-07-29 16:49:00 2020-07-29 18:31:00 Emergency Dimas Palomino [facility] 1..114 350.1.13.10 4.2.7.2.686 [id number] 084 [id number] [facility] 2020-07-29 00:00:00 2020-07-29 00:00:00 Orders Only Doctor Unassigned, [place] [facility] 1..114 350.1.13.10 4.2.7.2.686 [id number] [id number] [facility] 2020-03-20 11:00:00 2020-03-20 11:00:00 Outpatient R KRYSTLE [facility] [id number] [facility] 2020-01-06 00:00:00 2020-01-06 00:00:00 Telephone Dunia Camarillo [facility] [address] .114 350.1.13.10 4.2.7.2.686 [id number] 044 [id number] [facility] 2020-01-04 15:27:21 2020-01-04 15:47:21 Urgent Care Pob1, Acute Care Clinic Dunia [place] [facility] [address] .114 350.1.13.10 4.2.7.2.686 [id number] [id number] [facility] 2020-01-04 15:40:00 2020-01-04 15:40:[address] [facility] [id number] [facility] 2019-05-13 04:56:19 2019-05-13 10:45:00 Hospital Encounter [facility] 1.2840.114 350.1.13.10 4.2.7.2.686 [id number] [facility] 2019-05-13 00:00:00 2019-05-13 00:00:00 Orders Only Doctor Unassigned, [place] [facility] 1.2.114 350.1.13.10 4.2.7.2.686 [id number] [id number] [facility] 2019-04-22 10:17:00 2019-04-22 13:55:00 [facility] 1.20.114 350.1.13.10 4.2.7.2.686 [id number] [facility] 2019-04-22 00:00:00 2019-04-22 00:00:00 Orders Only Doctor Unassigned, [place] [facility] 1..114 350.1.13.10 4.2.7.2.686 [id number] [id number] [facility] 2019-04-22 00:00:00 2019-04-22 00:00:00 Prep For Surgery MandoTeodora Brasher [facility] 1.114 350.1.13.10 4.2.7.2.686 [id number] [facility] 2019-04-21 09:50:02 2019-04-21 10:35:34 Routine Visit Velvet Dillon [facility] [employer] [facility] 1.2.114 350.1.13.10 4.2.7.2.686 [id number] [facility] 2019-04-06 10:43:43 2019-04-06 11:33:58 Nurse Visit Visit, Ang-Rmchp Nurse Miriam Shepherd [facility] [employer] [facility] 1.2.840.114 350.1.13.10 4.2.7.2.686 [id number] [facility] 2019-03-31 09:36:00 2019-04-02 15:52:00 Hospital Encounter Cindy Navarrota [facility] 1.2840.114 350.1.13.10 4.2.7.2.686 [id number] [facility] 2019-04-02 00:00:00 2019-04-02 00:00:00 Prep For Surgery [facility] Farhan [facility] 1.2840.114 350.1.13.10 4.2.7.2.686 [id number] [facility] Results Test Description Test Time Test Comments Results Result Co mments Source [facility] WITH [id number] 19:53:31* Test Item Value Reference Range Interpretation Comme nts WBC (test code = 6690-2) See_Comment [Automated [employer]] The system which generated this result transmitted reference range: 4.30 - 11.10 10*3/?L. The reference range was not used to interpret this result as normal/abnormal. RBC (test code = 789-8) See_Comment [Automated Ask [employer]iggy[employer] ge] The system which generated this result [...] g/dL 31.6-35.1 L RDW-SD (test code = 58419-9) 50.2 fL 39.0-49.9 H RDW-CV (test code = 788-0) 18.1 % 12.0-15.5 H PLT (test code = 777-3) See_Comment H [Automated messa ge] The system which generated this result transmitted reference range: 166 - 358 10*3/?L. The reference range was not used to interpret this result as normal/abnormal. MPV (test code = 67692-3) 9.8 fL 9.5-12.9 NRBC/100 WBC (test code = 4069836021) See_Comment [Automated Parallels ssage] The system which generated this result transmitted reference range: 0.0 - 10.0 /100 WBCs. The reference range was not used to interpret this result as normal/abnormal. NRBC x10^3 (test code = 2896439387) <0.01 See_Comment [Automated messa ge] The system which generated this result transmitted reference range: 10*3/?L. The reference range was not used to interpret this result as normal/abnormal. GRAN MAT (NEUT) % (test code = 770-8) 51.2 % IMM GRAN % (test code = 4096250294) 0.20 % LYMPH % (test code = 736-9) 36.1 % MONO % (test code = 5905-5) 9.4 % EOS % (test code = 713-8) 2.4 % BASO % (test code = 706-2) 0.7 % GRAN MAT x10^3(ANC) (test code = 1161283576) 2.95 10*3/uL 1.88-7.09 IMM GRAN x10^3 (test code = 2260529015) <0.03 0.00-0.06 LYMPH x10^3 (test code = 731-0) 2.08 10*3/uL 1.32-3.29 MONO x10^3 (test code = 742-7) 0.54 10*3/uL 0.33-0.92 EOS x10^3 (test code = 711-2) 0.14 10*3/uL 0.03-0.39 BASO x10^3 (test code = 704-7) 0.04 10*3/uL 0.01-0.07 Lab Interpretation (test code = 16959-7) [facility]normal [facility] [id number] 01:40:00* Test Item Value Reference Range Interpretation Comme nts POCT PREG (test code = 1605) negative On board controls acceptable with C Line (test code = 3574) present POCT PREG LOT # (test code = 3575) [id number] POCT PREG TEST DATE ( test code = 3576) Lab Interpretation (test cod e = 23301-7) Normal [facility] TEST, [id number] 03:59:03* Test Item Value Reference Range Interpretation Comme [facility] PREG SERUM (test code = 6869043826) Negative SANGITA (test code = SANGITA) Less than 10 IU/L. ?If low titer or ectopic is suspected, resubmit specimen in 48-72 hours. [facility] METABOLIC PANEL (NA, K, CL, CO2, GLUCOSE, BUN, CREATININE, CA)2021-08-04 03:55:47* Test Item Value Reference Range Interpretation Comme [facility] NA (test code = 7894676753) 135 mmol/L 135-145 K (test code = 1438184651) 4.8 mmol/L 3.5-5.0 CL (test code = 9952352550) 102 mmol/L 98-108 CO2 TOTAL (test code = 1094023789) 25 mmol/L 23-31 AGAP (test code = 2731345350) 2-16 BUN (test code = 4688049750) 12 mg/dL 7-23 GLUCOSE (test code = 5313649172) 129 mg/dL 70-110 H CREATININE (test code = 0592862090) 0.70 mg/dL 0.50-1.04 CALCIUM (test code = 4665648413) 9.1 mg/dL 8.6-10.6 eGFR (test code = 3282783108) mL/min/1.73m2 SANGITA (test code = SANGITA) Association [...] imaging tests). Lab Interpretation (test code = 64405-0) Abnormal [facility] WITH [id number] 03:44:45* Test Item Value Reference Range Interpretation Comme nts WBC (test code = 6690-2) See_Comment [Automated [employer]] The system which generated this result transmitted reference range: 4.30 - 11.10 10*3/?L. The reference range was not used to interpret this result as normal/abnormal. RBC (test code = 789-8) See_Comment [Automated [employer]] The system which generated this result transmitted [...] g/dL 31.6-35.1 L RDW-SD (test code = 37651-3) 45.8 fL 39.0-49.9 RDW-CV (test code = 788-0) 16.6 % 12.0-15.5 H PLT (test code = 777-3) See_Comment [Automated messa ge] The system which generated this result transmitted reference range: 166 - 358 10*3/?L. The reference range was not used to interpret this result as normal/abnormal. MPV (test code = 08921-7) 9.7 fL 9.5-12.9 NRBC/100 WBC (test code = 5086502581) See_Comment [Automated Parallels ssage] The system which generated this result transmitted reference range: 0.0 - 10.0 /100 WBCs. The reference range was not used to interpret this result as normal/abnormal. NRBC x10^3 (test code = 7143029516) <0.01 See_Comment [Automated messa ge] The system which generated this result transmitted reference range: 10*3/?L. The reference range was not used to interpret this result as normal/abnormal. GRAN MAT (NEUT) % (test code = 770-8) 49.9 % IMM GRAN % (test code = 7389885167) 0.20 % LYMPH % (test code = 736-9) 38.3 % MONO % (test code = 5905-5) 9.2 % EOS % (test code = 713-8) 1.7 % BASO % (test code = 706-2) 0.7 % GRAN MAT x10^3(ANC) (test code = 8623208227) 3.00 10*3/uL 1.88-7.09 IMM GRAN x10^3 (test code = 2160273846) <0.03 0.00-0.06 LYMPH x10^3 (test code = 731-0) 2.30 10*3/uL 1.32-3.29 MONO x10^3 (test code = 742-7) 0.55 10*3/uL 0.33-0.92 EOS x10^3 (test code = 711-2) 0.10 10*3/uL 0.03-0.39 BASO x10^3 (test code = 704-7) 0.04 10*3/uL 0.01-0.07 Lab Interpretation (test code = 48732-5) Abnormal [facility] Metabolic [id number] 14:54:39* Test Item Value Reference Range Interpretation Comme nts NA (test code = 1742537121) 137 mmol/L 135-145 K (test code = 1606838130) 3.8 mmol/L 3.5-5.0 CL (test code = 6558229157) 105 mmol/L 98-108 CO2 TOTAL (test code = 4087851910) 25 mmol/L 23-31 AGAP (test code = 2752191433) 2-16 BUN (test code = 9664275866) 9 mg/dL 7-23 GLUCOSE (test code = 4327434789) 126 mg/dL 70-110 H CREATININE (test code = 1937837268) 0.76 mg/dL 0.50-1.04 TOTAL BILI (test code = 5237628776) 0.4 mg/dL 0.1-1.1 CALCIUM (test code = 3678081572) 9.1 mg/dL 8.6-10.6 T PROTEIN (test code = 5943454360) 7.5 g/dL 6.3-8.2 ALBUMIN (test code = 5241298878) 4.0 g/dL 3.5-5.0 ALK PHOS (test code = 5718304275) 68 U/L 34-122 ALTv (test code = 1742-6) 13 U/L 5-35 AST(SGOT) (test code = 8264355137) 23 U/L 13-40 eGFR (test code = 9414722855) mL/min/1.73m2 SANGITA (test code = SANGITA) Association [...] imaging tests). Lab Interpretation (test code = 22842-7) Abnormal [facility] HospitalLipase, [id number] 14:54:38* Test Item Value Reference Range Interpretation Comme [facility] LIPASE (test code = 6517369070) 78 U/L 0-220 Lab Interpretation (test cod e = 15277-0) Normal [facility] with [id number] 14:41:38* Test Item Value Reference Range Interpretation Comme nts WBC (test code = 6690-2) See_Comment [Automated [employer]] The system which generated this result transmitted reference range: 4.30 - 11.10 10*3/?L. The reference range was not used to interpret this result as normal/abnormal. RBC (test code = 789-8) See_Comment [Automated [employer]] The system which generated this result transmitted [...] g/dL 31.6-35.1 L RDW-SD (test code = 62134-2) 46.2 fL 39.0-49.9 RDW-CV (test code = 788-0) 16.8 % 12.0-15.5 H PLT (test code = 777-3) See_Comment [Automated Ask [employer]ig[employer] ge] The system which generated this result transmitted reference range: 166 - 358 10*3/?L. The reference range was not used to interpret this result as normal/abnormal. MPV (test code = 20274-3) 9.7 fL 9.5-12.9 NRBC/100 WBC (test code = 3230610986) See_Comment [Automated Parallels ssage] The system which generated this result transmitted reference range: 0.0 - 10.0 /100 WBCs. The reference range was not used to interpret this result as normal/abnormal. NRBC x10^3 (test code = 4677267907) <0.01 See_Comment [Automated Ask [employer]iggya ge] The system which generated this result transmitted reference range: 10*3/?L. The reference range was not used to interpret this result as normal/abnormal. GRAN MAT (NEUT) % (test code = 770-8) 50.0 % IMM GRAN % (test code = 4107287301) 0.20 % LYMPH % (test code = 736-9) 39.3 % MONO % (test code = 5905-5) 7.1 % EOS % (test code = 713-8) 2.8 % BASO % (test code = 706-2) 0.6 % GRAN MAT x10^3(ANC) (test code = 6269190310) 2.67 10*3/uL 1.88-7.09 IMM GRAN x10^3 (test code = 9865425000) <0.03 0.00-0.06 LYMPH x10^3 (test code = 731-0) 2.10 10*3/uL 1.32-3.29 MONO x10^3 (test code = 742-7) 0.38 10*3/uL 0.33-0.92 EOS x10^3 (test code = 711-2) 0.15 10*3/uL 0.03-0.39 BASO x10^3 (test code = 704-7) 0.03 10*3/uL 0.01-0.07 Lab Interpretation (test code = 85429-5) Abnormal [facility] [id number] 14:34:00* Test Item Value Reference Range Interpretation Comme nts POCT PREG (test code = 1605) negative On board controls acceptable with C Line (test code = 3574) present POCT PREG LOT # (test code = 3575) [id number] POCT PREG TEST DATE ( test code = 3576) Lab Interpretation (test cod e = 97019-7) Normal [facility] HospitalRAPID STREP SCREEN FOR GROUP [id number] 23:58:00* Test Item Value Reference Range Interpretation Comme nts Streptococcus pyogenes (grou p A) antigen (test code = 97231-1) Positive Negative A Lab Interpretation (test cod e = 11965-9) Abnormal [facility] [id number] 23:01:00* Test Item Value Reference Range Interpretation Comme nts POCT PREG (test code = 1605) negative POCT PREG LOT # (test code = 3575) [id number] POCT PREG TEST DATE ( test code = 3576) 01/05/2022 Lab Interpretation (test cod e = 41373-5) Normal [facility] HospitalINDIRECT ANTIGLOBULIN [id number] 13:02:18 * Test Item Value Reference Range Interpretation Comme nts IAT (test code = 1185) Negative Performed at [facility] B Laboratory Services - [facility] Blood [address] [place] [address]Anqf Free: [phone] No. [id number] [facility] WITH [id number] 16:43:00* Test Item Value Reference Range Interpretation [...] g/dL 31.6-35.1 L RDW-SD (test code = 27530-8) 54.3 fL 39-49.9 H RDW-CV (test code = 788-0) 19.1 % 12-15.5 H PLT (test code = 777-3) See_Comment [Automated messa ge] The system which generated this result transmitted reference range: 166 - 358 10*3/?L. The reference range was not used to interpret this result as normal/abnormal. MPV (test code = 52307-2) 11.1 fL 9.5-12.9 NRBC/100 WBC (test code = 4189498542) See_Comment [Automated Parallels ssage] The system which generated this result transmitted reference range: 0.0 - 10.0 /100 WBCs. The reference range was not used to interpret this result as normal/abnormal. NRBC x10^3 (test code = 3019024359) <0.01 See_Comment [Automated messa ge] The system which generated this result transmitted reference range: 10*3/?L. The reference range was not used to interpret this result as normal/abnormal. GRAN MAT (NEUT) % (test code = 770-8) 39.5 % IMM GRAN % (test code = 5512400905) 0.00 % LYMPH % (test code = 736-9) 48.6 % MONO % (test code = 5905-5) 7.7 % EOS % (test code = 713-8) 2.9 % BASO % (test code = 706-2) 1.3 % GRAN MAT x10^3(ANC) (test code = 5102500077) 1.23 10*3/uL 1.88-7.09 L IMM GRAN x10^3 (test code = 4112064063) <0.03 0-0.06 LYMPH x10^3 (test code = 731-0) 1.51 10*3/uL 1.32-3.29 MONO x10^3 (test code = 742-7) 0.24 10*3/uL 0.33-0.92 L EOS x10^3 (test code = 711-2) 0.09 10*3/uL 0.03-0.39 BASO x10^3 (test code = 704-7) 0.04 10*3/uL 0.01-0.07 ELLIPTO/OVAL (test code = 96090-5) 2+ See_Comment A [Automated messa ge] The system which generated this result transmitted reference range: (none). The reference range was not used to interpret this result as normal/abnormal. Lab Interpretation (test code = 14645-3) Abnormal [facility] HospitalType and Screen - The Type and [...] code = 20) O POSITIVE Performed at [facility] Laboratory Services - [facility] Blood [address] [address]Xzpz Free: [phone] No. [id number] IAT (test code = 1185) Negative Performed at [facility] Laboratory Services - [facility] Blood [address] [address]Qhsk Free: [phone] No. [id number] [facility] HospitalGALV ONLY - SYPHILIS [id number] 14:50:00* Test Item Value Reference Range Interpretation Comme nts Syphilis IgG/IgM (test code = 03845-6) Non-reactive Non-reactive SANGITA (test code = SANGITA) Non-reactive - No serologic evidence of T. pallidum infection. Cannot exclude incubating or early syphilis. Submit a second specimen in 2-4 weeks if syphilis is clinically suspected.Equivocal - Further testing to follow.Reactive - Further testing to follow. Lab Interpretation (test code = 17810-4) Normal [facility] WITH [id number] 07:57:00* Test Item Value Reference Range Interpretation Comme nts WBC (test code = 6690-2) See_Comment [Automated [employer]ig[employer] ge] The system which generated this result transmitted reference range: 4.30 - 11.10 10*3/?L. The reference range was not used to interpret this result as normal/abnormal. RBC (test code = 789-8) See_Comment L [Automated Ask [employer]ig[employer] ge] The system which generated this result [...] g/dL 31.6-35.1 L RDW-SD (test code = 06297-8) 56.2 fL 39-49.9 H RDW-CV (test code = 788-0) 19.7 % 12-15.5 H PLT (test code = 777-3) See_Comment L [Automated Ask [employer]ig[employer] ge] The system which generated this result transmitted reference range: 166 - 358 10*3/?L. The reference range was not used to interpret this result as normal/abnormal. MPV (test code = 78900-4) 10.3 fL 9.5-12.9 NRBC/100 WBC (test code = 1069999436) See_Comment [Automated Par[employer] ssage] The system which generated this result transmitted reference range: 0.0 - 10.0 /100 WBCs. The reference range was not used to interpret this result as normal/abnormal. NRBC x10^3 (test code = 5597735838) <0.01 See_Comment [Automated messa ge] The system which generated this result transmitted reference range: 10*3/?L. The reference range was not used to interpret this result as normal/abnormal. GRAN MAT (NEUT) % (test code = 770-8) 76.9 % IMM GRAN % (test code = 3572438012) 0.60 % LYMPH % (test code = 736-9) 14.2 % MONO % (test code = 5905-5) 7.6 % EOS % (test code = 713-8) 0.3 % BASO % (test code = 706-2) 0.4 % GRAN MAT x10^3(ANC) (test code = 4209220423) 5.96 10*3/uL 1.88-7.09 IMM GRAN x10^3 (test code = 2641947584) 0.05 10*3/uL 0-0.06 LYMPH x10^3 (test code = 731-0) 1.10 10*3/uL 1.32-3.29 L MONO x10^3 (test code = 742-7) 0.59 10*3/uL 0.33-0.92 EOS x10^3 (test code = 711-2) <0.03 0.03-0.39 L BASO x10^3 (test code = 704-7) 0.03 10*3/uL 0.01-0.07 Lab Interpretation (test code = 67207-4) [id number]:33:00* Test Item Value Reference Range Interpretation Comme nts BASE EXCESS, CORD (test code = [id number]) mEq/L AC PH, CORD (BEAKER) (test code = 5453122080) 7.18-7.38 PC02, CORD (test code = 2642739835) See_Comment [Automated messa ge] The system which generated this result transmitted reference range: 32 - 66 mmHg. The reference range was not used to interpret this result as normal/abnormal. PO2, CORD (test code = 6791233657) See_Comment [Automated messa ge] The system which generated this result transmitted reference range: 10 - 30 mmHg. The reference range was not used to interpret this result as normal/abnormal. BICARBONATE, CORD (test code = 9012287096) See_Comment [Automated messa ge] The system which generated this result transmitted reference range: 17 - 27 mEq/L. The reference range was not used to interpret this result as normal/abnormal. [facility] HospitalVENOUS CORD [id number] 03:31:00* Test Item Value Reference Range Interpretation Comme nts VENOUS BASE EXCESS, CORD (test code = 6965640543) mEq/L VENOUS PH, CORD (test code = 0448289694) 7.25-7.45 VENOUS PC02, CORD (test code = 5389092719) See_Comment [Automated messa ge] The system which generated this result transmitted reference range: 27 - 49 mmHg. The reference range was not used to interpret this result as normal/abnormal. VENOUS PO2, CORD (test code = 7953607135) See_Comment [Automated me ssage] The system which generated this result transmitted reference range: 17 - 41 mmHg. The reference range was not used to interpret this result as normal/abnormal. VENOUS BICARBONATE, CORD (test code = 4737577147) See_Comment [Automated messa ge] The system which generated this result transmitted reference range: 12 - 29 mEq/L. The reference range was not used to interpret this result as normal/abnormal. [facility] HospitalUrinalysis2019-07-25 03:13:00* Test Item Value Reference Range Interpretation Comme nts APPEARANCE (test code = 7547520082) Hazy Clear A COLOR (test code = 7732141986) Yellow Yellow PH (test code = 3259705453) 4.8-8.0 SP GRAVITY (test code = 5556894567) 1.003-1.030 GLU U QUAL (test code = 8480174749) Normal Normal BLOOD (test code = 9944980682) 1+ Negative A KETONES (test code = 3763963162) 80 mg/dL Negative A PROTEIN (test code = 2887-8) 30 mg/dL Negative A UROBILIN (test code = 9549069517) 4.0 mg/dL Normal A BILIRUBIN (test code = 4124158998) Negative Negative NITRITE (test code = 8488845532) Negative Negative LEUK ALPHONSO (test code = 0452529076) 250/uL Negative A RBC/HPF (test code = 4125059200) See_Comment H [Automated messa ge] The system which generated this result transmitted reference range: 0 - 3 HPF. The reference range was not used to interpret this result as normal/abnormal. WBC/HPF (test code = 4159009102) See_Comment H [Automated messa ge] The system which generated this result transmitted reference range: 0 - 5 HPF. The reference range was not used to interpret this result as normal/abnormal. BACTERIA (test code = 6180511208) Negative Negative MUCOUS (test code = 5928705704) Slight Negative LPF A SQ EPITH (test code = 4560094776) See_Comment [Automated messa ge] The system which generated this result transmitted reference range: <=2 HPF. The reference range was not used to interpret this result as normal/abnormal. YEAST BUD (test code = 4917989079) <1 See_Comment [Automated messa ge] The system which generated this result transmitted reference range: <=1 HPF. The reference range was not used to interpret this result as normal/abnormal. Lab Interpretation (test code = 73606-4) Abnormal [facility] HospitalUric Acid [id number] 02:58:00* Test Item Value Reference Range Interpretation Comme [facility] URIC ACID (test code = 7938473966) 4.9 mg/dL 2.9-6 Lab Interpretation (test cod e = 13895-4) Normal [facility] HospitalSer [id number] 02:58:00* Test Item Value Reference Range Interpretation Comme nts CREATININE (test code = 0310668660) 0.54 mg/dL 0.5-1.04 eGFR Calculation (Non-) (test code = 8219260260) mL/min/1.73m2 eGFR Calculation () (test code = 6615609035) mL/min/1.73m2 SANGITA (test code = SANGITA) Association [...] or urine or abnormalities in imaging tests). [facility] HospitalSGOT (Asparate Amino Transfer)2019-04-01 02:58:00* Test Item Value Reference Range Interpretation Comme [facility] AST(SGOT) (test code = 7790953263) 28 U/L 13-40 Lab Interpretation (test cod e = 68532-0) Normal [facility] HospitalAlanine Amino Transferase (SGPT)2019-04-01 02:58:00* Test Item Value Reference Range Interpretation Comme [facility] ALT(SGPT) (test code = 4932235992) 22 U/L 9-51 Lab Interpretation (test cod e = 22521-5) Normal [facility] HospitalLactate Bseynvcrvqixw8152-34-87 02:58:00* Test Item Value Reference Range Interpretation Comme [facility] LDH (test code = 9640633848) 597 U/L 300-600 Lab Interpretation (test cod e = 83884-9) Normal [facility] HospitalProtein CREAT Ratio Urine [id number] 02:24:00* Test Item Value Reference Range Interpretation Comme nts T. PROT U (test code = 2888-6) 31 mg/dL CREAT U (test code = 9105306300) 132.3 mg/dL Protein/Creatinine Ratio Uri ne (test code = 8435496673) 0.0-2.0 [facility] WITH [id number] 02:17:00* Test Item Value Reference Range Interpretation [...] g/dL 31.6-35.1 L RDW-SD (test code = 03584-9) 57.6 fL 39-49.9 H RDW-CV (test code = 788-0) 20.3 % 12-15.5 H PLT (test code = 777-3) See_Comment L [Automated messa ge] The system which generated this result transmitted reference range: 166 - 358 10*3/?L. The reference range was not used to interpret this result as normal/abnormal. MPV (test code = 90890-1) 10.8 fL 9.5-12.9 NRBC/100 WBC (test code = 1844685165) See_Comment [Automated Parallels ssage] The system which generated this result transmitted reference range: 0.0 - 10.0 /100 WBCs. The reference range was not used to interpret this result as normal/abnormal. NRBC x10^3 (test code = 5289323506) <0.01 See_Comment [Automated messa ge] The system which generated this result transmitted reference range: 10*3/?L. The reference range was not used to interpret this result as normal/abnormal. GRAN MAT (NEUT) % (test code = 770-8) 77.0 % IMM GRAN % (test code = 3069371139) 0.30 % LYMPH % (test code = 736-9) 14.7 % MONO % (test code = 5905-5) 7.2 % EOS % (test code = 713-8) 0.3 % BASO % (test code = 706-2) 0.5 % GRAN MAT x10^3(ANC) (test code = 7503717109) 6.70 10*3/uL 1.88-7.09 IMM GRAN x10^3 (test code = 0829432811) 0.03 10*3/uL 0-0.06 LYMPH x10^3 (test code = 731-0) 1.28 10*3/uL 1.32-3.29 L MONO x10^3 (test code = 742-7) 0.63 10*3/uL 0.33-0.92 EOS x10^3 (test code = 711-2) 0.03 10*3/uL 0.03-0.39 BASO x10^3 (test code = 704-7) 0.04 10*3/uL 0.01-0.07 Lab Interpretation (test code = 77031-9) Abnormal [facility] HospitalHepatitis B Surface [id number] 17:46:00 * Test Item Value Reference Range Interpretation Comme nts HBsAg Semi-Quantitative (leodan t code = 5195-3) [facility] HospitalType and Screen - ONCE [id number] 17:23:20 * Test Item Value Reference Range Interpretation Comme nts ABO & RH (test code = 20) O POSITIVE Performed at [facility] Laboratory Services [facility] Blood [address] [address]Bcrd Free: [phone] No. [id number] IAT (test code = 1185) Negative Performed at [facility] Laboratory Services [facility] Blood [address] [address]Ldvx Free: [phone] No. [id number] [facility] HospitalCBC WITH [id number] 16:41:00* Test Item Value Reference Range Interpretation [...] g/dL 31.6-35.1 L RDW-SD (test code = 51321-9) 55.9 fL 39-49.9 H RDW-CV (test code = 788-0) 19.9 % 12-15.5 H PLT (test code = 777-3) See_Comment L [Automated messa ge] The system which generated this result transmitted reference range: 166 - 358 10*3/?L. The reference range was not used to interpret this result as normal/abnormal. MPV (test code = 06179-8) 10.4 fL 9.5-12.9 NRBC/100 WBC (test code = 4618128171) See_Comment [Automated Parallels ssage] The system which generated this result transmitted reference range: 0.0 - 10.0 /100 WBCs. The reference range was not used to interpret this result as normal/abnormal. NRBC x10^3 (test code = 3130998077) <0.01 See_Comment [Automated messa ge] The system which generated this result transmitted reference range: 10*3/?L. The reference range was not used to interpret this result as normal/abnormal. GRAN MAT (NEUT) % (test code = 770-8) 65.9 % IMM GRAN % (test code = 2899216356) 0.50 % LYMPH % (test code = 736-9) 24.3 % MONO % (test code = 5905-5) 8.1 % EOS % (test code = 713-8) 0.9 % BASO % (test code = 706-2) 0.3 % GRAN MAT x10^3(ANC) (test code = 3382073492) 3.83 10*3/uL 1.88-7.09 IMM GRAN x10^3 (test code = 4569337501) 0.03 10*3/uL 0-0.06 LYMPH x10^3 (test code = 731-0) 1.41 10*3/uL 1.32-3.29 MONO x10^3 (test code = 742-7) 0.47 10*3/uL 0.33-0.92 EOS x10^3 (test code = 711-2) 0.05 10*3/uL 0.03-0.39 BASO x10^3 (test code = 704-7) <0.03 0.01-0.07 Lab Interpretation (test code = 59243-4) Abnormal [facility]"
[2024-10-21 23:20] LABS: Specific Gravity 1.027 (1.005-1.030); Sqamous Epithelial <5 /HPF (None Seen); Urine Bacteria None Seen /HPF (<20); Urine Bilirubin NEGATIVE (Negative); Urine Blood Negative (Negative); Urine Clarity Clear (Clear); Urine Color Light-Yellow (Yellow); Urine Culture Reflex Order NOT NEEDED; Urine Glucose NEGATIVE (Negative); Urine Ketones NEGATIVE (Negative); Urine Micro Reflex YN NO BILL MICROSCOPIC; Urine Nitrite NEGATIVE (Negative); Urine Protein NEGATIVE (Negative); Urine RBC <5 /HPF (None Seen); Urine Urobilinogen 1+ (Normal); Urine WBC <5 /HPF (<5)
[2024-10-21 23:21] LABS: Specific Gravity 1.027 (1.005-1.030)
[2024-10-21 23:26] LABS: SARS-CoV-2 Antigen CONTROL BLUE LINE VIS/BG OK; SARS-CoV-2 Antigen Rapid Res Negative (Negative)
--- NOTE | 2024-10-21 23:40 | EDPHYS ---
Physician Documentation [facility] Name: Aniyah Jiang Age: 29 yrs Sex: Female : 1995 Arrival Date: 10/21/2024 Time: 22:10 Bed DX3 Private MD: ED Physician David Davis HPI: 10/21 23:07 This 29 yrs old Black Female presents to ER via Ambulatory with complaints of Flu sb4 Symptoms. 23:07 cough, congestion, body aches, nausea, frequent urination x 2 days. states family sb4 members are sick with similar symptoms. her work wanted her to be evaluated before she could return. Historical: - Allergies: 22:33 No Known Allergies; iw - PMHx: 22:33 Anemia; iw - PSHx: 22:33 section; Cholecystectomy; tubal ligation; iw - Immunization history:: Adult Immunizations not up to date. - Infectious Disease History:: Denies. - Social history:: Smoking status: Reported history of juuling and/or vaping. ROS: 23:07 Cardiovascular: Negative for chest pain, palpitations, and edema, sb4 23:07 Constitutional: Positive for body aches, chills, fatigue, 23:07 ENT: Positive for sinus congestion, 23:07 Respiratory: Positive for cough, 23:07 Abdomen/GI: Positive for nausea, 23:07 : Positive for frequent urination, 23:07 All other systems are negative, Exam: 23:07 Head/Face: Normocephalic, atraumatic. Eyes: Extra-ocular motions intact. Periorbital sb4 areas with no swelling, redness, or edema. ENT: Mucous membranes moist. Cardiovascular: Regular rate and rhythm with a normal S1 and S2. Respiratory: No increased work of breathing, no retractions or nasal flaring. Abdomen/GI: Soft, non-tender, no distension. Skin: Warm, dry with normal turgor. Normal color with no rashes, no lesions, and no evidence of cellulitis. MS/ Extremity: Pulses equal, no cyanosis. Neurovascular intact. Full, normal range of motion. 23:07 Constitutional: The patient appears alert, awake, obviously ill, 23:07 ENT: TM's: are normal, Posterior pharynx: is normal, Vital Signs: 22:32 BP 138 / 96; Pulse 75; Resp 16; Temp 97.6; Pulse Ox 100% on R/A; Weight 105.23 kg; iw Height 5 ft. 8 in. ; Pain 7/10; 23:55 BP 128 / 91; Pulse 69; Resp 17 S; Pulse Ox 100% on R/A; ha1 22:32 Body Mass Index 35.28 (105.23 kg, 172.72 cm) iw 22:32 Pain Scale: Adult iw MDM: 22:12 Medical Screening Exam initiated sb4 23:49 Data reviewed: vital signs, nurses notes, lab test result(s), radiologic studies, and sb4 as a result, I will discharge patient. Counseling: I had a detailed discussion with the patient and/or guardian regarding the historical points, exam findings, and any diagnostic results supporting the discharge/admit diagnosis, lab results, radiology results, the need for outpatient follow up, for definitive care, to return to the emergency department if symptoms worsen or persist or if there are any questions or concerns that arise at home. 10/21 22:42 Order name: SARS RAPID; Complete Time: 23:29 sb4 10/21 22:42 Order name: Flu; Complete Time: 23:39 sb4 10/21 22:42 Order name: Strep; Complete Time: 23:29 sb4 10/21 22:42 Order name: UAM; Complete Time: 23:23 sb4 10/21 22:42 Order name: Test, Urine; Complete Time: 23:23 sb4 10/21 23:29 Order name: Throat Culture EDMS 10/21 22:42 Order name: Chest Pa And Lat (2 Views) XRAY sb4 Administered Medications: 23:42 Drug: predniSONE PO 40 mg PO once Route: PO; ha1 23:54 Follow up: Response: No adverse reaction ha1 Disposition Summary: 10/21/24 23:39 Discharge Ordered Notes: Location: Home sb4 Problem: new sb4 Symptoms: are unchanged sb4 Condition: Stable sb4 Diagnosis - Viral infection, unspecified sb4 Followup: sb4 - With: Emergency Department - When: As needed - Reason: Trouble breathing, Worsening of condition Discharge Instructions: - Discharge Summary Sheet sb4 - Viral Respiratory Infection, Dpgj-Cu-Httn sb4 - Viral Illness, Adult sb4 Forms: - Work release form sb4 - Patient Portal Instructions sb4 - Leadership Thank You Letter sb4 Prescriptions: - Medrol (Davey) 4 mg Oral Tablets, Dose Pack - take 1 tablet ORAL route as directed - follow package instructions; 1 packet; sb4 Refills: 0, Product Selection Permitted Addendum: 10/23/2024 00:55 Co-signature as Attending Physician, David Davis MD I agree with the assessment s p4 and plan of care. I reviewed the patient's care provided by the Advanced Practice Provider and agree with the diagnosis and treatment plan. Signatures: Dispatcher [employer] Gabbi Scott, RN Zohra Zafar RN RN ha1 Shanthi Greer, PA-C PA-C sb4 Ryan, MD DANGELO Hernandez sp4 Corrections: (The following items were deleted from the chart) 10/21 22:43 22:43 SARS-COV-2 Antigen Rapid+I.LAB.BRZ ordered. EDMS EDMS 22:43 22:43 Influenza Screen (A \T\ B)+BA.LAB.BRZ ordered. EDMS EDMS 22:43 22:43 Group A Streptococcus Rapid Sc+BA.LAB.BRZ ordered. EDMS EDMS 22:43 22:43 Urinalysis W/Microscopic+U.LAB.BRZ ordered. EDMS EDMS 22:43 22:43 Test, Urine+UC.LAB.BRZ ordered. EDMS EDMS 22:43 22:43 Chest Pa And Lat (2 Views)+RAD.RAD.BRZ ordered. EDMS EDMS
--- NOTE | 2024-10-21 23:40 | ER ---
Nurse's Notes [facility] Name: Aniyah Jiang Age: 29 yrs Sex: Female : 1995 Arrival Date: 10/21/2024 Time: 22:10 Bed DX3 Private MD: Diagnosis: Viral infection, unspecified Presentation: 10/21 22:32 Chief complaint: Patient states: body aches, diarrhea, stuffy nose, cough, frequent iw urination, head pressure , symptoms started Friday. Coronavirus screen: Client presents with at least one sign or symptom that may indicate coronavirus-19. Ebola Screen: No symptoms or risks identified at this time. Initial Sepsis Screen: Does the patient meet any 2 criteria? No. Patient's initial sepsis screen is negative. Does the patient have a suspected source of infection? No. Patient's initial sepsis screen is negative. Risk Assessment: Do you want to hurt yourself or someone else? Patient reports no desire to harm self or others. Onset of symptoms was October 19, 2024. 22:32 Method Of Arrival: Ambulatory iw 22:32 Acuity: BRITTANI 4 iw Triage Assessment: 23:57 General: Appears uncomfortable, Behavior is cooperative. Pain: Complains of pain in ha1 BODY ACHES. Neuro: Level of Consciousness is awake, alert, obeys commands, Oriented to person, place, time, situation. Cardiovascular: Patient's skin is warm and dry. Respiratory: Airway is patent Respiratory effort is even, unlabored, Respiratory pattern is regular, symmetrical. Historical: - Allergies: 22:33 No Known Allergies; iw - PMHx: 22:33 Anemia; iw - PSHx: 22:33 section; Cholecystectomy; tubal ligation; iw - Immunization history:: Adult Immunizations not up to date. - Infectious Disease History:: Denies. - Social history:: Smoking status: Reported history of juuling and/or vaping. Screenin:56 [facility] ED Fall Risk Assessment (Adult) History of falling in the last 3 months, ha1 including since admission No falls in past 3 months (0 pts) Confusion or Disorientation No (0 pts) Intoxicated or Sedated No (0 pts) Impaired Gait No (0 pts) Mobility Assist Device Used No (0 pt) Altered Elimination No (0 pt) Score/Fall Risk Level 0 - 2 = Low Risk Oriented to surroundings, Maintained a safe environment, Educated pt \T\ family on fall prevention, incl call for assistance when getting out of bed, Hourly rounding (assess needs \T\ fall precautionary measures) done. Abuse screen: Denies threats or abuse. Denies injuries from another. Nutritional screening: No deficits noted. Tuberculosis screening: No symptoms or risk factors identified. Assessment: 23:55 Reassessment: Patient and/or family updated on plan of care and expected duration. Pain ha1 level reassessed. Patient is alert, oriented x 3, equal unlabored respirations, skin warm/dry/pink. Vital Signs: 22:32 BP 138 / 96; Pulse 75; Resp 16; Temp 97.6; Pulse Ox 100% on R/A; Weight 105.23 kg; iw Height 5 ft. 8 in. ; Pain 7/10; 23:55 BP 128 / 91; Pulse 69; Resp 17 S; Pulse Ox 100% on R/A; ha1 22:32 Body Mass Index 35.28 (105.23 kg, 172.72 cm) iw 22:32 Pain Scale: Adult iw ED Course: 22:11 Patient arrived in ED. jj6 22:12 Shanthi Greer PA-C is PHCP. sb4 22:12 David Davis MD is Attending Physician. sb4 22:33 Triage completed. iw 22:34 Arm band placed on. iw 23:00 Test, Urine Sent. ha1 23:00 UAM Sent. ha1 23:20 Patient has correct armband on for positive identification. Bed in low position. Call ha1 light in reach. Side rails up X 1. 23:20 Provided Education on: PLAN OF CARE . ha1 23:24 Chest Pa And Lat (2 Views) XRAY In Process Unspecified. EDMS 23:58 No provider procedures requiring assistance completed. Patient did not have IV access ha1 during this emergency room visit. Administered Medications: 23:42 Drug: predniSONE PO 40 mg PO once Route: PO; ha1 23:54 Follow up: Response: No adverse reaction ha1 Medication: 23:56 VIS not applicable for this client. ha1 Outcome: 23:39 Discharge ordered by MD. sb4 23:58 Discharged to home ambulatory, ha1 23:58 Condition: stable 23:58 Discharge instructions given to patient, Instructed on discharge instructions, follow up and referral plans. medication usage, Demonstrated understanding of instructions, follow-up care, medications, Prescriptions given X , 23:59 Patient left the ED. ha1 Signatures: Dispatcher [employer] Gabbi Scott, RN Kina Frazier jj6 Zohra Izaguirre RN RN ha1 Shanthi Greer, PAMinna PAMinna sb4
[2024-10-21] MEDS ORDERED: predniSONE 20 MG TAB ONE (23:42)
[2024-10-22 00:14] VITALS: TEMP 97.6; O2SAT 100
[2024-10-22 00:16] VITALS: BP 128/91
--- NOTE | 2024-10-22 05:33 | RAD REPORT ---
EXAM DESCRIPTION: Chest Pa And Lat (2 Views) CLINICAL HISTORY: Congestion;Cough TECHNIQUE: PA and lateral COMPARISON: May 2023 FINDINGS: CHEST: Heart: The cardiomediastinal silhouette is within normal limits. Lungs: No focal consolidation. Mediastinum: Unremarkable Pleura: No appreciable effusion. No pneumothorax. Bones: Intact IMPRESSION: No acute cardiopulmonary disease. Electronically signed by: Sudhir Christine MD 10/21/2024 11:31 PM [facility] Due to temporary technical issues with the PACS/[employer]unch[employer] reporting system, reports are being rosanna d by the in-house radiologist without review as a courtesy to ensure prompt reporting the interpreting radiologist is fully responsible for the content of the report. Transcribed Date/Time: 10/22/2024 5:33 AM
== END 2024-10-21 23:59 | disposition home or self-care (01) ==
LOC: ER 22:10
DX: B34.9 Viral infection, unspecified (principal); Z11.52 Encounter for screening for COVID-19
CPT/HCPCS: 36415; 71046; 81001; 81025; 87070; 87081; 87804; 87811; 99283; J7512

== ENCOUNTER 2024-12-26 21:15 | Emergency (ER) | payer OTHER ==
--- OUTSIDE RECORDS SUMMARY | 2024-12-26 21:21 | XMS REPORT | Continuity of Care Document ---
Author Name Unknown Address [address] [place] [address] [facility] Address [address] [place] [address] Care Team Providers Care Coupon Clerk Name Role Phone Pcp, Patient Does Not Have A Primary Care Physic robbin ANDREA THORNE Attending Clinician Unavailable Andrea Thorne DO Attending Clinician [phone] LESLIE LYNN Attending Clinician Unavailable Leslie Lynn MD Attending Clinician [phone] Sandra BLAS Attending Clinician Unavailable Sandra Heart Attending Clinician [phone] Doctor Unassigned, [place] Attending Clinician U Osito Hampton MD Attending Clinician [phone] CHERY POMPA Attending Clinician Unavailable Chery Marie Attending Clinician [phone] XIMENA SANTANA Attending Clinician Unavailable Ximena Santana MD Attending Clinician [phone] Sravani Blackburn RN Attending Clinician Unavailable Dimas Shin Attending Clinician KRYSTLE BUTTERFIELD Attending Clinician Natali Camarillo MD, Dunia Causey Attending Clinician [facility] Attending Clinician Chavez Catalan MD Attending Clinician [phone] Rajendra PIERSON, Teodora Aguilar Attending Clinician Santana CABLE TELEVISION PROGRAM DIRECTOR, Velvet Perez Attending Clinician + [phone] [facility] Viviane Shepherd WHCNP, Miriam Zuniga Attending Clinician + Ramon PIERSON, Hope Attending Clinician [phone] Bryan PIERSON, Farhan Attending Clinician [phone] ANDREA THORNE Admitting Clinician Unavailable Osito Rojo MD Admitting Clinician [phone] CHERY POMPA Admitting Clinician Unavailable XIMENA SANTANA Admitting Clinician Unavailable Chavez Muñoz MD Admitting Clinician [phone] Ramon PIERSON, Hope Admitting Clinician [phone] Payers Payer Name Policy Type Policy Number Effective Date Expirati on Date Source [facility] [id number] 2019 00:00:00 Problems Condition Name Condition Details Condition Category Status Onset Date Resolution Date Last Treatment Date Treating Clinician Comments Source Request for sterilizat ion Request for sterilizat ion Disease Active 04-22 00:00: 00 Overview: Formattin g of this note might be different from the original. Added automatic ally from request for surgery [id number] [facility] care and examinatio n immediatel y after delivery care and examinatio n immediatel y after delivery Disease Active 04-21 00:00: 00 [facility] 38 weeks gestation of 38 weeks gestation of Disease Active 04-02 00:00: 00 [facility] S/P section S/P section Disease Active 04-02 00:00: 00 [facility] APH (antepartu m hemorrhage ), third trimester APH (antepartu m hemorrhage ), third trimester Disease Active 03-31 00:00: 00 [facility] Decreased movements, third trimester, not applicable or unspecifie d Decreased movements, third trimester, not applicable or unspecifie d Disease Active 03-31 00:00: 00 [facility] Susceptibl e to Varicella (non-immun e), currently in third trimester Susceptibl e to Varicella (non-immun e), currently in third trimester Disease Active 03-09 00:00: 00 [facility] BMI 39.0-39.9, adult BMI 39.0-39.9, adult Disease Active 03-08 00:00: 00 [facility] Limited care in third trimester Limited care in third trimester Disease Active 03-08 00:00: 00 [facility] Multiparit y Multiparit y Disease Active 03-08 00:00: 00 [facility] Tubal ligation status Tubal ligation status Disease Active 03-08 00:00: 00 [facility] Cessation of tobacco use in previous 12 months Cessation of tobacco use in previous 12 months Disease Active 03-08 00:00: 00 [facility] Tubal ligation status Tubal ligation status Disease Active 03-08 00:00: 00 [facility] History of delivery, currently in third trimester History of delivery, currently in third trimester Disease Active 03-08 00:00: 00 [facility] Obesity affecting in third trimester Obesity affecting in third trimester Disease Active 03-08 00:00: 00 [facility] Anemia of mother in , antepartum Anemia of mother in , antepartum Disease Active 12-09 00:00: 00 [facility] Anemia of mother in , antepartum Anemia of mother in , antepartum Disease Active 12-09 00:00: 00 [facility] Allergies, Adverse Reactions, Alerts Allergy Name Allergy Type Status Severity Reaction(s) Onset Date Inactive Date Treating Clinician Comments Source NO KNOWN ALLERGIE S Drug Class Active [facility] Social History Social Habit Start Date Stop Date Quantity Comments Source ASSERTION 2018-07-18 00:00:00 [facility] Sexual orientation U [facility] Exposure to SARS-CoV-2 (event) 2021-12-21 00:00:00 2021-12-31 13:31:00 Not sure [facility] Alcohol intake 2021-08-03 00:00:00 2021-08-03 00:00:00 Current non-drinker of alcohol (finding) [facility] History of Social function 2020-04-13 00:00:00 2020-04-13 00:00:00 [facility] Tobacco use and exposure 2019-04-20 00:00:00 2019-04-20 00:00:00 Smokeless tobacco non-user [facility] Education 2019-03-31 00:00:00 2019-03-31 00:00:00 13 [facility] History of tobacco use 2018-07-09 00:00:00 Cigarette Smoker [facility] Sex Assigned At 1995 00:00:00 1995 00:00:00 [facility] Smoking Status Start Date Stop Date Source Ex-smoker 2019-04-20 00:00:00 2019-04-20 00:00:00 [facility] Unknown if ever smoked [facility] Medications Ordered Medication Name Filled Medication Name Start Date Stop Date Current Medication? Ordering Clinician Indication Dosage Frequency Signature (SIG) Comments Components Source HYDROcodone -acetaminop hen (NORCO) 10-325 mg tablet 1 tablet 01-01 00:00: 00 12-31 22:51 :00 No 1{tbl} 1 tablet, Oral, ONCE, 1 dose, On Fri12/31/21 at 1900, Routine [facility] ketorolac 10 mg tablet 12-31 00:00: 00 Yes [id number] 10mg Take 1 tablet by mouth every 6 (six) hours as needed for Pain (scale 7-10). [facility] metroNIDAZO LE 500 mg tablet 12-31 00:00: 00 Yes [id number] 500mg Take 1 tablet by mouth 2 (two) times daily. [facility] ibuprofen 800 mg tablet 12-19 00:00: 00 Yes [id number] 800mg Take 1 tablet by mouth every 8 (eight) hours as needed for Pain (scale 4-6). [facility] methocarbam oL (ROBAXIN) 500 mg tablet 12-19 00:00: 00 Yes [id number] 500mg Take 1 tablet by mouth every 6 (six) hours as needed for Pain (scale 7-10) (MUSCLE SPASM). [facility] acetaminoph en (TYLENOL) tablet 1,000 mg 2020-09 05:30: 00 09-02 04:31 :00 No 1000mg 1,000 mg, Oral, ONCE, 1 dose, On 09/01/21 at 2330, CHERI [facility] ibuprofen (IBU) tablet 800 mg 2020-09 04:30: 00 09-02 03:32 :00 No 800mg 800 mg, Oral, ONCE, 1 dose, On 09/01/21 at 2230, CHERI [facility] benzonatate 100 mg capsule 2020-09 00:00: 00 Yes [id number] 100mg Take 1 capsule by mouth 3 (three) times daily as needed for Cough. [facility] ondansetron (ZOFRAN ODT) 4 mg disintegrat ing tablet 2020-09 00:00: 00 Yes [id number] 4mg Take 1 tablet by mouth every 8 (eight) hours as needed for Nausea and Vomiting (N/V). [facility] ibuprofen 600 mg tablet 2020-09 00:00: 00 12-31 00:00 :00 No [id number] 600mg Take 1 tablet by mouth every 6 (six) hours as needed for Pain (scale 4-6). [facility] fluconazole 150 mg tablet 2020-09 00:00: 08-09 05:59 :00 No [id number] 150mg Take 1 tablet by mouth once now for 1 dose. [facility] ibuprofen (IBU) tablet 400 mg 2020-09 09:15: 00 08-04 08:38 :00 No 400mg 400 mg, Oral, ONCE, 1 dose, On 08/04/21 at 0315, Routine [facility] lidocaine-e pinephrine (XYLOCAINE WITH EPINEPHRINE ) 1 %-1:100,000 injection 10 mL 2020-09 08:15: 00 08-04 08:38 :00 No 10mL 10 mL, Intraderma l, ONCE, 1 dose, On 08/04/21 at 0215, Routine [facility] maalox:diph enhydrAMINE :lidocaine 2 % viscous 1:1:1 (FIRST-MOUT HWASH BLM) oral suspension 15 mL 2020-09 04:30: 00 08-04 03:40 :00 No 15mL 15 mL, Oral, ONCE, 1 dose, On Fri08/03/21 at 2230, Routine [facility] dexamethaso ne (DECADRON PHOSPHATE) injection 10 mg 2020-09 04:30: 00 08-04 03:39 :00 No 10mg 10 mg, IV Push, ONCE, 1 dose, On Fri08/03/21 at 2230, STAT [facility] iopamidol (ISOVUE 370-500 mL) injection 100 mL 2020-09 03:50: 00 08-04 03:51 :00 No [id number] 100mL 100 mL, Intravenou s, ONCE, 1 dose, On Fri08/03/21 at 2200, Routine [facility] methylPREDN ISolone 4 mg tablets 2020-09 00:00: 00 Yes [id number] Take by mouth SEE-INSTRU CTIONS. follow package directions [facility] amoxicillin -clavulanat e (AUGMENTIN) 875-125 mg per tablet 2020-09 00:00: 00 08-15 05:59 :00 No [id number] 1{tbl} Take 1 tablet by mouth 2 (two) times daily for 10 days. [facility] lidocaine 2% viscous (LIDOCAINE VISCOUS) 2 % solution 15 mL 2020-09 18:45: 00 08-01 17:46 :00 No 15mL 15 mL, Oral, ONCE, 1 dose, On Fri08/01/21 at 1245, CHERI [facility] dexamethaso ne (DECADRON PHOSPHATE) injection 10 mg 2020-09 18:45: 00 08-01 17:46 :00 No 10mg 10 mg, Oral, ONCE, 1 dose, On Fri08/01/21 at 1245, Routine [facility] penicillin g benzathine (BICILLIN L-A) injection 1.2 Million Units 2020-09 18:45: 00 08-01 17:45 :00 No 1.210 1.2 Million Units, Intramuscu lar, ONCE, 1 dose, On Fri08/01/21 at 1245, CHERI
Re ason for Anti-Infec tive: Empiric Therapy for Suspected Infection< br>Empiric Therapy Site: HEENT
D uration of therapy: 72 hours [facility] iopamidol (ISOVUE 370-500 mL) injection 100 mL 2020-09 19:00: 00 07-06 17:40 :00 No [id number] 100mL 100 mL, Intravenou s, ONCE, 1 dose, On Fri07/06/21 at 1400, Routine [facility] FENTanyl PF (SUBLIMAZE (PF)) injection 100 mcg 2020-09 18:30: 00 07-06 17:52 :00 No 100ug 100 mcg, Slow IV Push, ONCE, 1 dose, On Fri07/06/21 at 1330, STAT [facility] dicyclomine 20 mg tablet 2020-09 00:00: 00 Yes [id number] 20mg Take 1 tablet by mouth 4 (four) times daily. [facility] ibuprofen 600 mg tablet 2020-09 00:00: 00 12-31 00:00 :00 No [id number] 600mg Take 1 tablet by mouth every 8 (eight) hours as needed for Pain (scale 4-6). [facility] ibuprofen (IBU) tablet 800 mg 2019-09 00:15: 00 07-29 23:30 :00 No 800mg 800 mg, Oral, ONCE, 1 [facility] viscous (LIDOCAINE VISCOUS) 2 % solution 10 mL 2019-09 00:15: 00 07-29 23:30 :00 No 10mL 10 mL, Oral, ONCE, 1 dose, 07/29/20 at 1815[facility] dexamethaso [facility] (DECADRON PHOSPHATE) injection 10 mg 2019-09 00:15: 00 07-29 23:30 :00 No 10mg 10 mg, Intramuscu lar, ONCE, 1 dose, 07/29/20 at 1815, STAT [facility] No known medications 2019-09 18:14: 13 No [facility] cephALEXin 500 mg tablet 2019-09 00:00: 00 08-09 05:59 :00 No [id number] 500mg Take 1 tablet by mouth 2 (two) times daily for 10 days. [facility] lactated ringers IV infusion 1,000 mL 05-13 14:15: 00 Yes 1000mL at 75 mL/hr, 1,000 mL, IV Infusion, CONTINUOUS , Starting [place] 05/13/19 at 0915, Until Discontinu ed, Routine, PACU [facility] HYDROcodone -acetaminop hen (NORCO 5) 5-325 mg tablet 1 tablet 05-13 14:13: 31 Yes 1{tbl} 1 tablet, Oral, PRN, 1 dose, Starting [place] 05/13/19 at 0913, Until Discontinu ed, Routine, Pain (scale 7-10), DSU Recovery [facility] ibuprofen (IBU) tablet 800 mg 05-13 14:13: 31 Yes 800mg 800 mg, Oral, PRN, 1 dose, Starting [place] 05/13/19 at 0913, Until Discontinu ed, Routine, Pain (scale 1-3), Pain (scale 4-6), DSU Recovery [facility] HYDROmorpho ne (DILAUDID) injection 0.2 mg 05-13 14:13: 20 Yes .2mg 0.2 mg, Slow IV Push, Q5MIN PRN, 10 doses, Starting [place] 05/13/19 at 0913, Until Discontinu ed, Routine, Pain (scale 7-10), PACU
Us e approved by (Faculty): Elizabeth OROZCO, PAIN SERVICE [facility] FENTanyl PF (SUBLIMAZE (PF)) injection 25 mcg 05-13 14:13: 20 Yes 25ug 25 mcg, Slow IV Push, Q5MIN PRN, 4 doses, Starting [place] 05/13/19 at 0913, Until Discontinu ed, Routine, Pain (scale 4-6), PACU [facility] ondansetron (ZOFRAN (PF)) injection 4 mg 05-13 14:13: 20 Yes 4mg 4 mg, Slow IV Push, PRN, 1 dose, Starting [place] 05/13/19 at 0913, Until Discontinu ed, Routine, Nausea and Vomiting (N/V), PACU [facility] bupivacaine (preserv free) (SENSORCAIN E MPF) 0.25 % (2.5 mg/mL) injection 05-13 13:56: 00 Yes PRN, Starting [facility] 05/13/19 at 0856, Until Discontinu ed, Routine, Intra-op [facility] ibuprofen 800 mg tablet 05-13 00:00: 00 Yes [id number] 800mg Take 1 tablet by mouth every 6 (six) hours as needed for Pain (scale 4-6). [facility] HYDROcodone -acetaminop hen 5-325 mg tablet 05-13 00:00: 00 Yes [id number] 108 1{tbl} Take 1 tablet by mouth every 6 (six) hours as needed for Pain (scale 7-10). [facility] ibuprofen 800 mg tablet 04-22 00:00: 00 05-13 00:00 :00 No [id number] 108 800mg Take 1 tablet by mouth every 6 (six) hours as needed for Pain (scale 4-6). [facility] HYDROcodone -acetaminop hen 5-325 mg tablet 04-22 00:00: 05-13 00:00 :00 No [id number] 108 1{tbl} Take 1 tablet by mouth every 6 (six) hours as needed for Pain (scale 7-10). [facility] ascorbic acid, vitamin C, (VITAMIN C) 500 mg tablet 04-02 00:00: 05-13 00:00 :00 No [id number] 500mg Take 1 tablet by mouth 3 (three) times daily. [facility] docusate calcium 240 mg capsule 04-02 00:00: 04-22 00:00 :00 No [id number] 240mg Take 1 capsule by mouth once daily as needed for Constipati on. May substitute for what is in stock and covered by patient plan [facility] ferrous sulfate 325 mg (65 mg iron) tablet 04-02 00:00: 00 04-22 00:00 :00 No [id number] 325mg Take 1 tablet by mouth 3 (three) times daily with meals. May substitute for what is in stock and covered by patient plan [facility] ibuprofen 600 mg tablet 04-02 00:00: 00 04-22 00:00 :00 No [id number] 600mg Take 1 tablet by mouth every 6 (six) hours as needed for Pain (scale 1-3) or Pain (scale 4-6) (Pain). Take with food or milk. [facility] foLIC acid 1 mg tablet 04-02 00:00: 00 04-22 00:00 :00 No [id number] 1mg Take 1 tablet by mouth daily. [facility] HYDROcodone -acetaminop hen 5-325 mg tablet 04-02 00:00: 00 04-22 00:00 :00 No [id number] 1{tbl} Take 1 tablet by mouth every 6 (six) hours as needed for Pain (scale 7-10). [facility] human papillomav vac,9-frank(P F) (GARDASIL 9 (PF)) vial 0.5 mL 04-01 11:42: 18 04-02 18:03 :00 No .5mL 0.5 mL, Intramuscu lar, ONCE-PRIOR TO DISCHARGE, 1 dose, Starting [place] 04/01/19 at 0642, Until Discontinu ed, Routine, Give vaccine prior to discharge [facility] varicella virus vaccine live (VARIVAX (PF)) injection 0.5 mL 04-01 11:42: 08 04-02 19:25 :00 No .5mL 0.5 mL, Subcutaneo us, ONCE-PRIOR TO DISCHARGE, 1 dose, Starting Fri04/01/19 at 0642, Until Discontinu ed, Routine, Give vaccine prior to discharge [facility] HYDROcodone -acetaminop hen (NORCO 5) 5-325 mg tablet 2 tablet 04-01 05:14: 00 Yes 2{tbl} 2 tablet, Oral, Q6HPRN, Starting [place] 04/01/19 at 0014, Until Discontinu ed, Routine, Pain (scale 7-10), If uncontroll ed by Ibuprofen [facility] HYDROcodone -acetaminop hen (NORCO 5) 5-325 mg tablet 1 tablet 04-01 05:14: 00 Yes 1{tbl} 1 tablet, Oral, Q6HPRN, Starting [facility] 04/01/19 at 0014, Until Discontinu ed, Routine, Pain (scale 4-6), If uncontroll ed by Ibuprofen [facility] ibuprofen (IBU) tablet 600 mg 04-01 05:14: 00 Yes 600mg 600 mg, Oral, Q6HPRN, Starting [facility] 04/01/19 at 0014, Until Discontinu ed, Routine, Pain (scale 1-3) [facility] diphenhydrA MINE (BENADRYL) tablet 25 mg 04-01 05:14: 00 Yes 25mg 25 mg, Oral, Q6HPRN, Starting [facility] 04/01/19 at 0014, Until Discontinu ed, Routine, Sleep, Itching [facility] ondansetron (ZOFRAN (PF)) injection 4 mg 04-01 05:14: 00 Yes 4mg 4 mg, Slow IV Push, Q8HPRN, Starting [place] 04/01/19 at 0014, Until Discontinu ed, Routine, Nausea and Vomiting (N/V) [facility] bisacodyl (DULCOLAX) suppository 10 mg 04-01 05:14: 00 Yes 10mg 10 mg, Rectal, QDAILYPRN, Starting [facility] 04/01/19 at 0014, Until Discontinu ed, Routine, Constipati on [facility] simethicone (GAS RELIEF) chewable tablet 160 mg 04-01 05:14: 00 Yes 160mg 160 mg, Oral, PC+HSPRN, Starting [facility] 04/01/19 at 0014, Until Discontinu ed, Routine, Gas [facility] docusate calcium (SURFAK) capsule 240 mg 04-01 05:14: 00 Yes 240mg 240 mg, Oral, QDAILYPRN, Starting [facility] 04/01/19 at 0014, Until Discontinu ed, Routine, Constipati on [facility] magnesium hydroxide (MILK OF MAGNESIA) 400 mg/5 mL suspension 30 mL 04-01 05:14: 00 Yes 30mL 30 mL, Oral, QDAILYPRN, Starting [facility] 04/01/19 at 0014, Until Discontinu ed, Routine, Constipati on [facility] naloxone (NARCAN) injection 0.4 mg 04-01 05:13: 52 04-03 05:12 :52 No .4mg 0.4 mg, Slow IV Push, PRN - SEE INSTRUCTIO NS, Starting [place] 04/01/19 at 0013, Until 04/03/19 at 0012, Routine, Analgesia Recovery, PACU [facility] diphenhydrA MINE (BENADRYL) injection 25 mg 04-01 05:13: 52 04-02 05:12 :52 No 25mg 25 mg, Slow IV Push, Q4HPRN, Starting [place] 04/01/19 at 0013, Until Fri04/02/19 at 0012, Routine, Itching, PACU [facility] vit calc,iron,f olic ( VITAMIN ORAL) 04-01 04:10: 56 03-31 00:00 :00 No Take by mouth. [facility] ferrous sulfate 325 mg (65 mg iron) tablet 04-01 04:10: 56 03-31 00:00 :00 No 325mg Take 325 mg by mouth 3 (three) times daily with meals. [facility] azithromyci n (ZITHROMAX) 500 mg in NaCl 0.9% (NS) 250 mL VIAL-MATE IV piggyback 04-01 01:59: 39 04-01 05:07 :00 No 500mg 500 mg, IV Piggyback, O.R. HOLDING ONCE, 1 dose, Starting Fri03/31/19 at 2058, Until Discontinu ed, 250 mL
Reas on for Anti-Infec tive: Surgical Prophylaxi s
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
Duration of therapy: within 24 hours of surgery [facility] ceFAZolin in dextrose (iso-os) (ANCEF) 2 gram/100 mL Piggyback 2 g 04-01 01:58: 45 04-01 02:08 :00 No 2000mg 2 g (2,000 mg), IV Piggyback, O.R. HOLDING ONCE, 1 dose, Starting Fri03/31/19 at 2057, Until Fri03/31/19 at 2107, 100 mL
Reas on for Anti-Infec tive: Surgical Prophylaxi s
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
Duration of therapy: within 24 hours of surgery [facility] sodium citrate-cit surya acid (BICITRA) 500-334 mg/5 mL solution 30 mL 04-01 01:58: 44 04-01 02:09 :00 No 30mL 30 mL, Oral, PRE-PROCED URE ONCE, 1 dose, Starting Fri03/31/19 at 2057, Until Fri03/31/19 at 2108, Routine, Surgery [facility] LR 1000 mL + oxytocin 20 units IV Solution 03-31 15:45: 16 04-01 05:14 :04 No 2mU/min 2 sushma-unit s/min (6 mL/hr), at 6 mL/hr, IV Infusion, TITRATE, Starting Fri03/31/19 at 1045, Until [place] 04/01/19 at 0014, CHERI, Oxytocin induction. [facility] sodium citrate-cit surya acid (BICITRA) 500-334 mg/5 mL solution 30 mL 03-31 15:44: 10 04-01 00:09 :00 No 30mL 30 mL, Oral, PRE-PROCED URE ONCE, 1 dose, Starting Fri03/31/19 at 1044, Until Discontinu ed, Routine, Surgery/Pr ocedure [facility] lactated ringers IV infusion 500 mL 03-31 15:44: 10 04-01 05:14 :04 No 500mL at 999 mL/hr, 500 mL, IV Infusion, PRN - SEE INSTRUCTIO NS, Starting Fri03/31/19 at 1044, Until [place] 04/01/19 at 0014, Routine [facility] No known medications No [facility] No known medications No [facility] Immunizations Ordered Immunization Name Filled Immunization Name Date Status Comments Source Varicella (varivax)(chicken pox) 2019-04-02 00:00:00 Completed [facility] HPV9 2019-04-02 00:00:00 Completed [facility] Varicella (varivax)(chicken pox) 2019-04-02 00:00:00 Completed [facility] HPV9 2019-04-02 00:00:00 Completed [facility] Varicella (varivax)(chicken pox) 2019-04-02 00:00:00 Completed [facility] HPV9 2019-04-02 00:00:00 Completed [facility] Varicella (varivax)(chicken pox) 2019-04-02 00:00:00 Completed [facility] HPV9 2019-04-02 00:00:00 Completed [facility] Varicella (varivax)(chicken pox) 2019-04-02 00:00:00 Completed [facility] HPV9 2019-04-02 00:00:00 Completed [facility] Varicella (varivax)(chicken pox) 2019-04-02 00:00:00 Completed [facility] HPV9 2019-04-02 00:00:00 Completed [facility] Varicella (varivax)(chicken pox) 2019-04-02 00:00:00 Completed [facility] HPV9 2019-04-02 00:00:00 Completed [facility] Varicella (varivax)(chicken pox) 2019-04-02 00:00:00 Completed [facility] HPV9 2019-04-02 00:00:00 Completed [facility] HPV9 2019-04-02 00:00:00 Completed [facility] Varicella (varivax)(chicken pox) 2019-04-02 00:00:00 Completed [facility] HPV9 2019-04-02 00:00:00 Completed [facility] Varicella (varivax)(chicken pox) 2019-04-02 00:00:00 Completed [facility] HPV9 2019-04-02 00:00:00 Completed [facility] Varicella (varivax)(chicken pox) 2019-04-02 00:00:00 Completed [facility] HPV9 2019-04-02 00:00:00 Completed [facility] Varicella (varivax)(chicken pox) 2019-04-02 00:00:00 Completed [facility] HPV9 2019-04-02 00:00:00 Completed [facility] Varicella (varivax)(chicken pox) 2019-04-02 00:00:00 Completed [facility] HPV9 2019-04-02 00:00:00 Completed [facility] Varicella (varivax)(chicken pox) 2019-04-02 00:00:00 Completed [facility] HPV9 2019-04-02 00:00:00 Completed [facility] Varicella (varivax)(chicken pox) 2019-04-02 00:00:00 Completed [facility] HPV9 2019-04-02 00:00:00 Completed [facility] Varicella (varivax)(chicken pox) 2019-04-02 00:00:00 Completed [facility] HPV9 2019-04-02 00:00:00 Completed [facility] Varicella (varivax)(chicken pox) 2019-04-02 00:00:00 Completed [facility] HPV9 2019-04-02 00:00:00 Completed [facility] Varicella (varivax)(chicken pox) 2019-04-02 00:00:00 Completed [facility] HPV9 2019-04-02 00:00:00 Completed [facility] Varicella (varivax)(chicken pox) 2019-04-02 00:00:00 Completed [facility] HPV9 2019-04-02 00:00:00 Completed [facility] Varicella (varivax)(chicken pox) 2019-04-02 00:00:00 Completed [facility] HPV9 2019-04-02 00:00:00 Completed [facility] Varicella (varivax)(chicken pox) 2019-04-02 00:00:00 Completed [facility] HPV9 2019-04-02 00:00:00 Completed [facility] Varicella (varivax)(chicken pox) 2019-04-02 00:00:00 Completed [facility] HPV9 2019-04-02 00:00:00 Completed [facility] Varicella (varivax)(chicken pox) 2019-04-02 00:00:00 Completed [facility] HPV9 2019-04-02 00:00:00 Completed [facility] Varicella (varivax)(chicken pox) 2019-04-02 00:00:00 Completed [facility] HPV9 2019-04-02 00:00:00 Completed [facility] TDAP (ADACEL) VACCINE 2019-03-08 00:00:00 Completed [facility] TDAP (ADACEL) VACCINE 2019-03-08 00:00:00 Completed [facility] TDAP (ADACEL) VACCINE 2019-03-08 00:00:00 Completed [facility] TDAP (ADACEL) VACCINE 2019-03-08 00:00:00 Completed [facility] TDAP (ADACEL) VACCINE 2019-03-08 00:00:00 Completed [facility] TDAP (ADACEL) VACCINE 2019-03-08 00:00:00 Completed [facility] TDAP (ADACEL) VACCINE 2019-03-08 00:00:00 Completed [facility] TDAP (ADACEL) VACCINE 2019-03-08 00:00:00 Completed [facility] TDAP (ADACEL) VACCINE 2019-03-08 00:00:00 Completed [facility] TDAP (ADACEL) VACCINE 2019-03-08 00:00:00 Completed [facility] TDAP (ADACEL) VACCINE 2019-03-08 00:00:00 Completed [facility] TDAP (ADACEL) VACCINE 2019-03-08 00:00:00 Completed [facility] TDAP (ADACEL) VACCINE 2019-03-08 00:00:00 Completed [facility] TDAP (ADACEL) VACCINE 2019-03-08 00:00:00 Completed [facility] TDAP (ADACEL) VACCINE 2019-03-08 00:00:00 Completed [facility] TDAP (ADACEL) VACCINE 2019-03-08 00:00:00 Completed [facility] TDAP (ADACEL) VACCINE 2019-03-08 00:00:00 Completed [facility] TDAP (ADACEL) VACCINE 2019-03-08 00:00:00 Completed [facility] TDAP (ADACEL) VACCINE 2019-03-08 00:00:00 Completed [facility] TDAP (ADACEL) VACCINE 2019-03-08 00:00:00 Completed [facility] TDAP (ADACEL) VACCINE 2019-03-08 00:00:00 Completed [facility] TDAP (ADACEL) VACCINE 2019-03-08 00:00:00 Completed [facility] TDAP (ADACEL) VACCINE 2019-03-08 00:00:00 Completed [facility] TDAP (ADACEL) VACCINE 2019-03-08 00:00:00 Completed [facility] TDAP (ADACEL) VACCINE 2019-03-08 00:00:00 Completed [facility] Varicella (varivax)(chicken pox) 2015-12-10 00:00:00 Completed [facility] Varicella (varivax)(chicken pox) 2015-12-10 00:00:00 Completed [facility] Varicella (varivax)(chicken pox) 2015-12-10 00:00:00 Completed [facility] Varicella (varivax)(chicken pox) 2015-12-10 00:00:00 Completed [facility] Varicella (varivax)(chicken pox) 2015-12-10 00:00:00 Completed [facility] Varicella (varivax)(chicken pox) 2015-12-10 00:00:00 Completed [facility] Varicella (varivax)(chicken pox) 2015-12-10 00:00:00 Completed [facility] Varicella (varivax)(chicken pox) 2015-12-10 00:00:00 Completed [facility] Varicella (varivax)(chicken pox) 2015-12-10 00:00:00 Completed [facility] Varicella (varivax)(chicken pox) 2015-12-10 00:00:00 Completed [facility] Varicella (varivax)(chicken pox) 2015-12-10 00:00:00 Completed [facility] Varicella (varivax)(chicken pox) 2015-12-10 00:00:00 Completed [facility] Varicella (varivax)(chicken pox) 2015-12-10 00:00:00 Completed [facility] Varicella (varivax)(chicken pox) 2015-12-10 00:00:00 Completed [facility] Varicella (varivax)(chicken pox) 2015-12-10 00:00:00 Completed [facility] Varicella (varivax)(chicken pox) 2015-12-10 00:00:00 Completed [facility] Varicella (varivax)(chicken pox) 2015-12-10 00:00:00 Completed [facility] Varicella (varivax)(chicken pox) 2015-12-10 00:00:00 Completed [facility] Varicella (varivax)(chicken pox) 2015-12-10 00:00:00 Completed [facility] Varicella (varivax)(chicken pox) 2015-12-10 00:00:00 Completed [facility] Varicella (varivax)(chicken pox) 2015-12-10 00:00:00 Completed [facility] Varicella (varivax)(chicken pox) 2015-12-10 00:00:00 Completed [facility] Varicella (varivax)(chicken pox) 2015-12-10 00:00:00 Completed [facility] Varicella (varivax)(chicken pox) 2015-12-10 00:00:00 Completed [facility] Varicella (varivax)(chicken pox) 2015-12-10 00:00:00 Completed [facility] Influenza Virus Vaccine (3+ yrs) 2014-06-21 00:00:00 Completed [facility] Influenza Virus Vaccine (3+ yrs) 2014-06-21 00:00:00 Completed [facility] Influenza Virus Vaccine (3+ yrs) 2014-06-21 00:00:00 Completed [facility] Influenza Virus Vaccine (3+ yrs) 2014-06-21 00:00:00 Completed [facility] Influenza Virus Vaccine (3+ yrs) 2014-06-21 00:00:00 Completed [facility] Influenza Virus Vaccine (3+ yrs) 2014-06-21 00:00:00 Completed [facility] Influenza Virus Vaccine (3+ yrs) 2014-06-21 00:00:00 Completed [facility] Influenza Virus Vaccine (3+ yrs) 2014-06-21 00:00:00 Completed [facility] Influenza Virus Vaccine (3+ yrs) 2014-06-21 00:00:00 Completed [facility] Influenza Virus Vaccine (3+ yrs) 2014-06-21 00:00:00 Completed [facility] Influenza Virus Vaccine (3+ yrs) 2014-06-21 00:00:00 Completed [facility] Influenza Virus Vaccine (3+ yrs) 2014-06-21 00:00:00 Completed [facility] Influenza Virus Vaccine (3+ yrs) 2014-06-21 00:00:00 Completed [facility] Influenza Virus Vaccine (3+ yrs) 2014-06-21 00:00:00 Completed [facility] Influenza Virus Vaccine (3+ yrs) 2014-06-21 00:00:00 Completed [facility] Influenza Virus Vaccine (3+ yrs) 2014-06-21 00:00:00 Completed [facility] Influenza Virus Vaccine (3+ yrs) 2014-06-21 00:00:00 Completed [facility] Influenza Virus Vaccine (3+ yrs) 2014-06-21 00:00:00 Completed [facility] Influenza Virus Vaccine (3+ yrs) 2014-06-21 00:00:00 Completed [facility] Influenza Virus Vaccine (3+ yrs) 2014-06-21 00:00:00 Completed [facility] Influenza Virus Vaccine (3+ yrs) 2014-06-21 00:00:00 Completed [facility] Influenza Virus Vaccine (3+ yrs) 2014-06-21 00:00:00 Completed [facility] Influenza Virus Vaccine (3+ yrs) 2014-06-21 00:00:00 Completed [facility] Influenza Virus Vaccine (3+ yrs) 2014-06-21 00:00:00 Completed [facility] Influenza Virus Vaccine (3+ yrs) 2014-06-21 00:00:00 Completed [facility] Tdap 2012-09-08 00:00:00 Completed [facility] Tdap 2012-09-08 00:00:00 Completed [facility] Tdap 2012-09-08 00:00:00 Completed [facility] Tdap 2012-09-08 00:00:00 Completed [facility] Tdap 2012-09-08 00:00:00 Completed [facility] Tdap 2012-09-08 00:00:00 Completed [facility] Tdap 2012-09-08 00:00:00 Completed [facility] Tdap 2012-09-08 00:00:00 Completed [facility] Tdap 2012-09-08 00:00:00 Completed [facility] Tdap 2012-09-08 00:00:00 Completed [facility] TDAP 2012-09-08 00:00:00 Completed [facility] TDAP 2012-09-08 00:00:00 Completed [facility] TDAP 2012-09-08 00:00:00 Completed [facility] TDAP 2012-09-08 00:00:00 Completed [facility] TDAP 2012-09-08 00:00:00 Completed [facility] TDAP 2012-09-08 00:00:00 Completed [facility] TDAP 2012-09-08 00:00:00 Completed [facility] TDAP 2012-09-08 00:00:00 Completed [facility] TDAP 2012-09-08 00:00:00 Completed [facility] TDAP 2012-09-08 00:00:00 Completed [facility] TDAP 2012-09-08 00:00:00 Completed [facility] TDAP 2012-09-08 00:00:00 Completed [facility] TDAP 2012-09-08 00:00:00 Completed [facility] Tdap 2012-09-08 00:00:00 Completed [facility] TDAP 2012-09-08 00:00:00 Completed [facility] TDAP Unknown Completed [facility] Influenza Virus Vaccine (3+ yrs) Unknown Completed [facility] Varicella (varivax)(chicken pox) Unknown Completed [facility] HPV9 Unknown Completed [facility] Vital Signs Vital Name Observation Time Observation Value Comments S ource Systolic blood pressure 2021-12-31 22:30:00 144 mm[Hg] [facility] Diastolic blood pressure 2021-12-31 22:30:00 99 mm[Hg] [facility] Heart rate 2021-12-31 22:30:00 74 /min [facility] Respiratory rate 2021-12-31 22:30:00 16 /min [facility] Oxygen saturation in Arterial blood by Pulse oximetry 2021-12-31 22:30:00 100 /min [facility] Body temperature 2021-12-31 18:32:00 36.83 Bisi [facility] Body weight 2021-12-31 18:32:00 107.049 kg [facility] BMI 2021-12-31 18:32:00 35.88 kg/m2 [facility] Systolic blood pressure 2021-12-20 02:40:00 133 mm[Hg] [facility] Diastolic blood pressure 2021-12-20 02:40:00 86 mm[Hg] [facility] Heart rate 2021-12-20 02:40:00 76 /min [facility] Respiratory rate 2021-12-20 02:40:00 16 /min [facility] Oxygen saturation in Arterial blood by Pulse oximetry 2021-12-20 02:40:00 99 /min [facility] Body temperature 2021-12-20 00:04:00 37.28 Bisi [facility] Body height 2021-12-20 00:04:00 172.7 cm [facility] Body weight 2021-12-20 00:04:00 107.049 kg [facility] BMI 2021-12-20 00:04:00 35.88 kg/m2 [facility] Systolic blood pressure 2021-09-02 05:42:00 134 mm[Hg] [facility] Diastolic blood pressure 2021-09-02 05:42:00 68 mm[Hg] [facility] Heart rate 2021-09-02 05:42:00 107 [facility] Body temperature 2021-09-02 05:42:00 38.11 [facility] Respiratory rate 2021-09-02 05:42:00 18 /min [facility] Oxygen saturation in Arterial blood by Pulse oximetry 2021-09-02 05:42:00 98 /min [facility] Body height 2021-09-02 03:25:00 172.7 cm [facility] Body weight 2021-09-02 03:25:00 111.585 kg [facility] BMI 2021-09-02 03:25:00 37.40 kg/m2 [facility] Systolic blood pressure 2021-08-08 13:49:00 139 mm[Hg] [facility] Diastolic blood pressure 2021-08-08 13:49:00 88 mm[Hg] [facility] Heart rate 2021-08-08 13:49:00 91 /min [facility] Body temperature 2021-08-08 13:49:00 36.72 [facility] Respiratory rate 2021-08-08 13:49:00 18 /min [facility] Body height 2021-08-08 13:49:00 172.7 cm [facility] Body weight 2021-08-08 13:49:00 107.049 kg [facility] BMI 2021-08-08 13:49:00 35.88 kg/m2 [facility] Oxygen saturation in Arterial blood by Pulse oximetry 2021-08-08 13:49:00 99 /min [facility] Systolic blood pressure 2021-08-04 06:52:00 123 mm[Hg] [facility] Diastolic blood pressure 2021-08-04 06:52:00 82 mm[Hg] [facility] Heart rate 2021-08-04 06:52:00 62 /min [facility] Body temperature 2021-08-04 06:52:00 36.72 Bisi [facility] Respiratory rate 2021-08-04 06:52:00 16 /min [facility] Body weight 2021-08-04 06:52:00 107.049 kg [facility] BMI 2021-08-04 06:52:00 35.88 kg/m2 [facility] Oxygen saturation in Arterial blood by Pulse oximetry 2021-08-04 06:52:00 99 /min [facility] Systolic blood pressure 2021-08-04 05:38:00 172 mm[Hg] [facility] Diastolic blood pressure 2021-08-04 05:38:00 105 mm[Hg] [facility] Heart rate 2021-08-04 05:38:00 74 /min [facility] Respiratory rate 2021-08-04 05:38:00 16 /min [facility] Oxygen saturation in Arterial blood by Pulse oximetry 2021-08-04 05:00:00 97 /min [facility] Body temperature 2021-08-04 03:02:00 37.06 Bisi [facility] Body height 2021-08-04 03:02:00 172.7 cm [facility] Body weight 2021-08-04 03:02:00 107.049 kg [facility] BMI 2021-08-04 03:02:00 35.88 kg/m2 [facility] Heart rate 2021-08-01 16:59:00 89 /min [facility] Body temperature 2021-08-01 16:59:00 37.17 Bisi [facility] Respiratory rate 2021-08-01 16:59:00 18 /min [facility] Body weight 2021-08-01 16:59:00 107.049 kg [facility] BMI 2021-08-01 16:59:00 35.88 kg/m2 [facility] Oxygen saturation in Arterial blood by Pulse oximetry 2021-08-01 16:59:00 99 /min [facility] Systolic blood pressure 2021-07-06 19:00:00 122 mm[Hg] [facility] Diastolic blood pressure 2021-07-06 19:00:00 76 mm[Hg] [facility] Heart rate 2021-07-06 19:00:00 54 /min [facility] Oxygen saturation in Arterial blood by Pulse oximetry 2021-07-06 19:00:00 100 /min [facility] Respiratory rate 2021-07-06 18:00:00 18 /min [facility] Body temperature 2021-07-06 14:24:00 36.72 Bisi [facility] Body weight 2021-07-06 14:24:00 107.049 kg [facility] BMI 2021-07-06 14:24:00 35.88 kg/m2 [facility] Systolic blood pressure 2020-07-30 00:00:00 119 mm[Hg] [facility] Diastolic blood pressure 2020-07-30 00:00:00 79 mm[Hg] [facility] Heart rate 2020-07-30 00:00:00 84 /min [facility] Body temperature 2020-07-30 00:00:00 36.83 Bisi [facility] Respiratory rate 2020-07-30 00:00:00 22 /min [facility] Oxygen saturation in Arterial blood by Pulse oximetry 2020-07-30 00:00:00 100 /min [facility] Body weight 2020-07-29 22:45:00 107.049 kg [facility] BMI 2020-07-29 22:45:00 35.88 kg/m2 [facility] Systolic blood pressure 2020-01-04 20:41:00 134 mm[Hg] [facility] Diastolic blood pressure 2020-01-04 20:41:00 87 mm[Hg] [facility] Heart rate 2020-01-04 20:41:00 91 /min [facility] Body temperature 2020-01-04 20:41:00 37.22 Bisi [facility] Respiratory rate 2020-01-04 20:41:00 18 /min [facility] Body weight 2020-01-04 20:41:00 105.235 kg [facility] BMI 2020-01-04 20:41:00 35.28 kg/m2 [facility] Oxygen saturation in Arterial blood by Pulse oximetry 2020-01-04 20:41:00 99 /min [facility] Oxygen saturation in Arterial blood by Pulse oximetry 2019-05-13 15:45:00 99 /min [facility] Systolic blood pressure 2019-05-13 15:15:00 123 mm[Hg] [facility] Diastolic blood pressure 2019-05-13 15:15:00 86 mm[Hg] [facility] Heart rate 2019-05-13 15:15:00 74 /min [facility] Respiratory rate 2019-05-13 15:15:00 17 /min [facility] Body temperature 2019-05-13 14:00:00 36.22 Bisi [facility] Body height 2019-05-13 11:12:00 172.7 cm [facility] Body weight 2019-05-13 11:12:00 109 kg [facility] BMI 2019-05-13 11:12:00 36.54 kg/m2 [facility] Systolic blood pressure 2019-04-22 15:26:00 142 mm[Hg] [facility] Diastolic blood pressure 2019-04-22 15:26:00 93 mm[Hg] [facility] Heart rate 2019-04-22 15:26:00 72 /min [facility] Body temperature 2019-04-22 15:26:00 35.28 Bisi [facility] Respiratory rate 2019-04-22 15:26:00 16 /min [facility] Body height 2019-04-22 15:26:00 172.7 cm [facility] Body weight 2019-04-22 15:26:00 105.8 kg [facility] BMI 2019-04-22 15:26:00 35.47 kg/m2 [facility] Oxygen saturation in Arterial blood by Pulse oximetry 2019-04-22 15:26:00 100 /min [facility] Systolic blood pressure 2019-04-21 15:07:00 120 mm[Hg] [facility] Diastolic blood pressure 2019-04-21 15:07:00 82 mm[Hg] [facility] Heart rate 2019-04-21 15:06:00 68 /min [facility] Body temperature 2019-04-21 15:06:00 36.67 Bisi [facility] Respiratory rate 2019-04-21 15:06:00 16 /min [facility] Body height 2019-04-21 15:06:00 172.7 cm [facility] Body weight 2019-04-21 15:06:00 106.369 kg [facility] BMI 2019-04-21 15:06:00 35.66 kg/m2 [facility] Systolic blood pressure 2019-04-06 16:16:00 124 mm[Hg] [facility] Diastolic blood pressure 2019-04-06 16:16:00 78 mm[Hg] [facility] Heart rate 2019-04-06 16:11:00 87 /min [facility] Body temperature 2019-04-06 16:11:00 37.22 Bisi [facility] Respiratory rate 2019-04-06 16:11:00 16 /min [facility] Body height 2019-04-06 16:11:00 172.7 cm [facility] Body weight 2019-04-06 16:11:00 110.791 kg [facility] BMI 2019-04-06 16:11:00 37.14 kg/m2 [facility] Systolic blood pressure 2019-04-02 13:00:00 122 mm[Hg] [facility] Diastolic blood pressure 2019-04-02 13:00:00 78 mm[Hg] [facility] Heart rate 2019-04-02 13:00:00 80 /min [facility] Body temperature 2019-04-02 13:00:00 36.61 Bisi [facility] Respiratory rate 2019-04-02 13:00:00 20 /min [facility] Oxygen saturation in Arterial blood by Pulse oximetry 2019-04-02 13:00:00 99 /min [facility] Procedures Procedure Date / Time Performed Performing Clinician Source US PELVIS COMPLETE WITH TRANSVAGINAL 2021-12-31 22:18:00 Andrea Thorne [facility] COMP. METABOLIC PANEL (31388) 2021-12-31 19:43:00 Singer [facility] CBC WITH DIFF 2021-12-31 19:43:00 Thorne, [facility] URINALYSIS 2021-12-31 19:43:00 Andrea Thorne [facility] ADC CLC OR LCC ONLY - WET PREP 2021-12-31 19:43:00 Singer Andrea [facility] CONSENT/REFUSAL FOR DIAGNOSIS AND TREATMENT 2021-12-31 18:24:53 Doctor Unassigned, [place] [facility] POCT TEST 2021-12-20 01:40:00 Leslie Lynn [facility] URINALYSIS 2021-12-20 01:38:00 Leslie Lynn [facility] RAPID INFLUENZA A/B 2021-09-02 03:32:00 Sandra Blas [facility] COVID-19 (ID NOW RAPID TESTING) 2021-09-02 03:32:00 Sandra Blas [facility] CONSENT/REFUSAL FOR DIAGNOSIS AND TREATMENT 2021-09-02 03:00:49 Doctor Unassigned, [place] [facility] CONSENT/REFUSAL FOR DIAGNOSIS AND TREATMENT 2021-08-08 13:45:43 Doctor Unassigned, [place] [facility] EMERGENCY DEPARTMENT DOCUMENTS 2021-08-04 06:01:00 Doctor Unassigned, [place] [facility] CT SOFT TISSUE NECK W CONTRAST 2021-08-04 03:55:42 Chery Pompa [facility] TEST, SERUM 2021-08-04 03:36:00 Nereida Pompa [facility] BASIC METABOLIC PANEL (NA, K, CL, CO2, GLUCOSE, BUN, CREATININE, CA) 2021-08-04 03:36:00 Chery Pompa [facility] CBC WITH DIFF 2021-08-04 03:36:00 Chery Pompa [facility] NOTICE OF PRIVACY PRACTICES 2021-08-04 02:57:07 Doctor Unassigned, [place] [facility] CONSENT/REFUSAL FOR DIAGNOSIS AND TREATMENT 2021-08-04 02:55:44 Doctor Unassigned, [place] [facility] RAPID STREP SCREEN FOR GROUP A 2021-08-01 17:03:00 Andrea Thorne [facility] CONSENT/REFUSAL FOR DIAGNOSIS AND TREATMENT 2021-08-01 16:53:00 Doctor Unassigned, [place] [facility] CT ABDOMEN PELVIS W CONTRAST 2021-07-06 17:50:39 Ximena Santana [facility] US PELVIS COMPLETE WITH TRANSVAGINAL 2021-07-06 16:38:35 Ximena Santana [facility] POCT TEST 2021-07-06 14:34:00 Kranthi Santana [facility] LIPASE 2021-07-06 14:31:00 [facility] COMP. METABOLIC PANEL ([id number]) 2021-07-06 14:31:00 Ximena Santana [facility] CBC WITH DIFF 2021-07-06 14:31:00 Ximena Santana [facility] URINALYSIS 2021-07-06 14:31:00 [facility] COVID-19 (ID NOW RAPID TESTING) 2021-07-06 14:31:00 Ximena Santana [facility] NOTICE OF PRIVACY PRACTICES 2021-07-06 14:20:02 Doctor Unassigned, [place] [facility] CONSENT/REFUSAL FOR DIAGNOSIS AND TREATMENT 2021-07-06 14:19:50 Doctor Unassigned, [place] [facility] RAPID STREP SCREEN FOR GROUP A 2020-07-29 23:28:00 Dimas Palomino [facility] POCT TEST 2020-07-29 23:01:00 Destinee Palomino [facility] NOTICE OF PRIVACY PRACTICES 2020-07-29 22:36:17 Doctor Unassigned, [place] [facility] CONSENT/REFUSAL FOR DIAGNOSIS AND TREATMENT 2020-07-29 22:36:05 Doctor Unassigned, [place] [facility] INDIRECT ANTIGLOBULIN TEST 2019-05-13 11:30:00 Teodora Drew [facility] ASSIGNMENT OF BENEFITS 2019-05-13 09:55:52 Docto r Unassigned, [place] [facility] TYPE AND SCREEN 2019-04-22 15:52:00 Farhan Adams [facility] CBC WITH DIFFERENTIAL 2019-04-22 15:51:00 Marielena Adams rn [facility] ASSIGNMENT OF BENEFITS 2019-04-22 15:15:47 Docto r Unassigned, [place] [facility] DAY SURGERY - [place] 2019-04-22 05:01:00 Doct or Unassigned, [place] [facility] CBC WITH DIFFERENTIAL 2019-04-01 07:36:00 Leonie Gomez [facility] VENOUS CORD GAS 2019-04-01 03:29:00 Jose Armando Zimmerman [facility] SECTION 2019-04-01 02:20:00 Munir Goff [facility] URIC ACID 2019-04-01 02:06:00 Luke Arreaga [facility] CBC WITH DIFFERENTIAL 2019-04-01 02:06:00 Miguelangel Arreaga [facility] SGOT (ASPARTATE AMINO TRANSFER) 2019-04-01 02:06:00 Luke Arreaga [facility] CREATININE 2019-04-01 02:06:00 Luke Arreaga [facility] ALANINE AMINO TRANSFERASE(SGPT 2019-04-01 02:06:00 Luke Arreaga [facility] LACTATE DEHYDROGENASE 2019-04-01 02:06:00 Miguelangel Arreaga [facility] URINALYSIS 2019-04-01 02:05:00 [facility] PROTEIN CREAT RATIO URINE RANDOM 2019-04-01 02:05:00 Luke Arreaga [facility] CBC WITH DIFFERENTIAL 2019-03-31 16:13:00 Elsie, [facility] HEPATITIS B SURFACE ANTIGEN 2019-03-31 16:13:00 Elsie, [facility] GALV ONLY - SYPHILIS IGG/IGM 2019-03-31 16:13:00 Elsie, [facility] TYPE AND SCREEN 2019-03-31 15:54:00 Elsie, [facility] Encounters Start Date/Time End Date/Time Encounter Type Admission Type Attending [facility] Facility Care Department Encounter ID Source 2021-07-07 07:04:42 Emergency [facility] [id number] [facility] 2021-07-05 23:03:26 Emergency [facility] [id number] [facility] 2023-05-20 14:53:18 2023-05-20 14:53:18 Outpatient [facility] [id number] Jordy Helene Ambrose 2021-12-31 13:33:00 2021-12-31 18:01:00 Emergency X ANDREA THORNE RUST ERT [id number] [facility] 2021-12-31 13:33:00 2021-12-31 18:01:00 Emergency Aidanip [facility] [id number] [facility] 2021-12-19 19:06:00 2021-12-19 21:48:00 Emergency X LESLIE LYNN RUST ERT [id number] [facility] 2021-12-19 19:06:00 2021-12-19 21:48:00 Emergency Leslie Lynn [facility] [id number] [facility] 2021-09-01 21:27:00 2021-09-01 23:45:00 Emergency X Sandra BLAS RUST ERT [id number] [facility] 2021-09-01 21:27:00 2021-09-01 23:45:00 Emergency Sandra Blas Marixa [facility] [id number] [facility] 2021-08-21 00:00:00 2021-08-21 00:00:00 Patient Secure Msg Doctor Unassigned, [place] [facility] [id number] [facility] 2021-08-08 07:49:00 2021-08-08 08:30:00 Emergency ANDREA FARFAN RUST ERT [id number] [facility] 2021-08-08 07:49:00 2021-08-08 08:30:00 Emergency Andrea Thorne [facility] [id number] [facility] 2021-08-04 00:53:00 2021-08-04 02:30:00 Emergency Alia [facility] CENTER [id number] [facility] 2021-08-04 00:00:00 2021-08-04 00:00:00 Orders Only Doctor Unassigned, [place] [facility] [id number] [facility] 2021-08-03 21:05:00 2021-08-03 23:46:00 Emergency X CHERY POMPA RUST ERT [id number] [facility] 2021-08-03 21:05:00 2021-08-03 23:46:00 Emergency X CHERY POMPA RUST ERT [id number] [facility] 2021-08-03 21:05:00 2021-08-03 23:46:00 Emergency Chery Pompa [facility] 1.2840.114 350.1.13.10 4.2.7.2.686 [id number] [facility] 2021-08-01 11:03:00 2021-08-01 12:01:00 Emergency X ANDREA THORNE RUST ERT [id number] [facility] 2021-08-01 11:03:00 2021-08-01 12:01:00 Emergency Andrea Thorne [facility] 1.2840.114 350.1.13.10 4.2.7.2.686 [id number] [facility] 2021-08-01 00:00:00 2021-08-01 00:00:00 Orders Only Doctor Unassigned, [place] [facility] 1.2840.114 350.1.13.10 4.2.7.2.686 [id number] [id number] [facility] 2021-07-06 09:23:00 2021-07-06 14:05:00 Emergency X XIMENA SANTANA RUST ERT [id number] [facility] 2021-07-06 09:23:00 2021-07-06 14:05:00 Emergency Ximena Santana [facility] 1.2.840.114 350.1.13.10 4.2.7.2.686 [id number] [facility] 2021-07-06 00:00:00 2021-07-06 00:00:00 Orders Only Doctor Unassigned, [place] [facility] 1.2840.114 350.1.13.10 4.2.7.2.686 [id number] [id number] [facility] 2020-08-02 00:00:00 2020-08-02 00:00:00 Telephone AlexeySravani [facility] 1.840.114 350.1.13.10 4.2.7.2.686 [id number] [facility] 2020-07-29 16:49:00 2020-07-29 18:31:00 Emergency Dimas Palomino [facility] 1.840.114 350.1.13.10 4.2.7.2.686 [id number] [facility] 2020-07-29 00:00:00 2020-07-29 00:00:00 Orders Only Doctor Unassigned, [place] [facility] 1.0.114 350.1.13.10 4.2.7.2.686 [id number] [id number] [facility] 2020-03-20 11:00:00 2020-03-20 11:00:00 Outpatient R KRYSTLE BUTTERFIELD [facility] [id number] [facility] 2020-01-06 00:00:00 2020-01-06 00:00:00 Telephone [place] [facility] [address] .114 350.1.13.10 4.2.7.2.686 [id number] 044 [id number] [facility] 2020-01-04 15:27:21 2020-01-04 15:47:21 Urgent Care Pob1, Acute Care Clinic [place] [facility] 1..114 350.1.13.10 4.2.7.2.686 [id number] [facility] 2020-01-04 15:40:00 2020-01-04 15:40:00 Outpatient R [facility] [id number] [facility] 2019-05-13 04:56:19 2019-05-13 10:45:00 Hospital Encounter [facility] 1.2840.114 350.1.13.10 4.2.7.2.686 [id number] [facility] 2019-05-13 00:00:00 2019-05-13 00:00:00 Orders Only Doctor Unassigned, [place] [facility] 1.2.114 350.1.13.10 4.2.7.2.686 [id number] 009 [id number] [facility] 2019-04-22 10:17:00 2019-04-22 13:55:00 [facility] 1.20.114 350.1.13.10 4.2.7.2.686 [id number] [facility] 2019-04-22 00:00:00 2019-04-22 00:00:00 Orders Only Doctor Unassigned, [place] [facility] 1.2.114 350.1.13.10 4.2.7.2.686 [id number] [id number] [facility] 2019-04-22 00:00:00 2019-04-22 00:00:00 Prep For Surgery [facility] 1..114 350.1.13.10 4.2.7.2.686 [id number] [facility] 2019-04-21 09:50:02 2019-04-21 10:35:34 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 Visit 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 [facility] 1.2.114 350.1.13.10 4.2.7.2.686 [id number] [facility] 2019-04-06 10:43:43 2019-04-06 11:33:58 Nurse Visit Visit, Jasen-Rmchp Nurse Miriam Shepherd 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 [facility] 1.2.840.114 350.1.13.10 4.2.7.2.686 [id number] [facility] 2019-03-31 09:36:00 2019-04-02 15:52:00 Hospital Encounter Navarro Hope [facility] 1.2840.114 350.1.13.10 4.2.7.2.686 [id number] [facility] 2019-04-02 00:00:00 2019-04-02 00:00:00 Prep For Surgery [facility] 1.2840.114 350.1.13.10 4.2.7.2.686 [id number] [facility] Results Test Description Test Time Test Comments Results Result Co mments Source [facility] WITH [id number] 19:53:31* Test Item Value Reference Range Interpretation Comme nts WBC (test code = 6690-2) See_Comment [Automated [employer]] The system which generated this result [...] g/dL 31.6-35.1 L RDW-SD (test code = 22644-6) 50.2 fL 39.0-49.9 H RDW-CV (test code = 788-0) 18.1 % 12.0-15.5 H PLT (test code = 777-3) See_Comment H [Automated messa ge] The system which generated this result transmitted reference range: 166 - 358 10*3/?L. The reference range was not used to interpret this result as normal/abnormal. MPV (test code = 59881-9) 9.8 fL 9.5-12.9 NRBC/100 WBC (test code = 5750605985) See_Comment [Automated [employer] ssage] The system which generated this result transmitted reference range: 0.0 - 10.0 /100 WBCs. The reference range was not used to interpret this result as normal/abnormal. NRBC x10^3 (test code = 7809099293) <0.01 See_Comment [Automated messa ge] The system which generated this result transmitted reference range: 10*3/?L. The reference range was not used to interpret this result as normal/abnormal. GRAN MAT (NEUT) % (test code = 770-8) 51.2 % IMM GRAN % (test code = 2663637505) 0.20 % LYMPH % (test code = 736-9) 36.1 % MONO % (test code = 5905-5) 9.4 % EOS % (test code = 713-8) 2.4 % BASO % (test code = 706-2) 0.7 % GRAN MAT x10^3(ANC) (test code = 5254994440) 2.95 10*3/uL 1.88-7.09 IMM GRAN x10^3 (test code = 6032876647) <0.03 0.00-0.06 LYMPH x10^3 (test code = 731-0) 2.08 10*3/uL 1.32-3.29 MONO x10^3 (test code = 742-7) 0.54 10*3/uL 0.33-0.92 EOS x10^3 (test code = 711-2) 0.14 10*3/uL 0.03-0.39 BASO x10^3 (test code = 704-7) 0.04 10*3/uL 0.01-0.07 Lab Interpretation (test code = 58772-4) [facility] [id number] 01:40:00* Test Item Value Reference Range Interpretation Comme nts POCT PREG (test code = 1605) negative On board controls acceptable with C Line (test code = 3574) present POCT PREG LOT # (test code = 3575) [id number] POCT PREG TEST DATE ( test code = 3576) Lab Interpretation (test cod e = 23216-5) Normal [facility] CenterPREG[facility]NCY TEST, [id number] 03:59:03* Test Item Value Reference Range Interpretation Comme [facility] PREG SERUM (test code = 5081386230) Negative SANGITA (test code = SANGITA) Less than 10 IU/L. ?If low titer or ectopic is suspected, resubmit specimen in 48-72 hours. [facility] METABOLIC PANEL (NA, K, CL, CO2, GLUCOSE, BUN, CREATININE, CA)2021-08-04 03:55:47* Test Item Value Reference Range Interpretation Comme [facility] NA (test code = 0599024364) 135 mmol/L 135-145 K (test code = 8772127541) 4.8 mmol/L 3.5-5.0 CL (test code = 2397915434) 102 mmol/L 98-108 CO2 TOTAL (test code = 5225860023) 25 mmol/L 23-31 AGAP (test code = 1314888430) 2-16 BUN (test code = 5767423052) 12 mg/dL 7-23 GLUCOSE (test code = 8491183761) 129 mg/dL 70-110 H CREATININE (test code = 7188358507) 0.70 mg/dL 0.50-1.04 CALCIUM (test code = 0326658878) 9.1 mg/dL 8.6-10.6 eGFR (test code = 5725831524) mL/min/1.73m2 SANGITA (test code = SANGITA) Association [...] imaging tests). Lab Interpretation (test code = 84296-8) Abnormal [facility] WITH [id number] 03:44:45* Test Item Value Reference Range Interpretation Comme nts WBC (test code = 6690-2) See_Comment [Automated [employer]] The system which generated this result transmitted reference range: 4.30 - 11.10 10*3/?L. The reference range was not used to interpret this result as normal/abnormal. RBC (test code = 789-8) See_Comment [Automated [employer]] The system which generated this result transmitted [...] g/dL 31.6-35.1 L RDW-SD (test code = 58789-7) 45.8 fL 39.0-49.9 RDW-CV (test code = 788-0) 16.6 % 12.0-15.5 H PLT (test code = 777-3) See_Comment [Automated messa ge] The system which generated this result transmitted reference range: 166 - 358 10*3/?L. The reference range was not used to interpret this result as normal/abnormal. MPV (test code = 82266-6) 9.7 fL 9.5-12.9 NRBC/100 WBC (test code = 3465787684) See_Comment [Automated [employer] ssage] The system which generated this result transmitted reference range: 0.0 - 10.0 /100 WBCs. The reference range was not used to interpret this result as normal/abnormal. NRBC x10^3 (test code = 1856257132) <0.01 See_Comment [Automated messa ge] The system which generated this result transmitted reference range: 10*3/?L. The reference range was not used to interpret this result as normal/abnormal. GRAN MAT (NEUT) % (test code = 770-8) 49.9 % IMM GRAN % (test code = 7660419935) 0.20 % LYMPH % (test code = 736-9) 38.3 % MONO % (test code = 5905-5) 9.2 % EOS % (test code = 713-8) 1.7 % BASO % (test code = 706-2) 0.7 % GRAN MAT x10^3(ANC) (test code = 2839985079) 3.00 10*3/uL 1.88-7.09 IMM GRAN x10^3 (test code = 2424589624) <0.03 0.00-0.06 LYMPH x10^3 (test code = 731-0) 2.30 10*3/uL 1.32-3.29 MONO x10^3 (test code = 742-7) 0.55 10*3/uL 0.33-0.92 EOS x10^3 (test code = 711-2) 0.10 10*3/uL 0.03-0.39 BASO x10^3 (test code = 704-7) 0.04 10*3/uL 0.01-0.07 Lab Interpretation (test code = 54932-2) Abnormal [facility] Metabolic Xaiye8883-71-29 14:54:39* Test Item Value Reference Range Interpretation Comme nts NA (test code = 2895723998) 137 mmol/L 135-145 K (test code = 3538990537) 3.8 mmol/L 3.5-5.0 CL (test code = 7741571366) 105 mmol/L 98-108 CO2 TOTAL (test code = 4074543353) 25 mmol/L 23-31 AGAP (test code = 3007684648) 2-16 BUN (test code = 5181686181) 9 mg/dL 7-23 GLUCOSE (test code = 7723939064) 126 mg/dL 70-110 H CREATININE (test code = 5050427174) 0.76 mg/dL 0.50-1.04 TOTAL BILI (test code = 1910618565) 0.4 mg/dL 0.1-1.1 CALCIUM (test code = 3859431166) 9.1 mg/dL 8.6-10.6 T PROTEIN (test code = 3454586723) 7.5 g/dL 6.3-8.2 ALBUMIN (test code = 9312408191) 4.0 g/dL 3.5-5.0 ALK PHOS (test code = 9568894850) 68 U/L 34-122 ALTv (test code = 1742-6) 13 U/L 5-35 AST(SGOT) (test code = 5922999557) 23 U/L 13-40 eGFR (test code = 8088590923) mL/min/1.73m2 SANGITA (test code = SANGITA) Association [...] imaging tests). Lab Interpretation (test code = 92864-8) Abnormal [facility] CenterLipase, Jrpfs0207-42-79 14:54:38* Test Item Value Reference Range Interpretation Comme [facility] LIPASE (test code = 1676802775) 78 U/L 0-220 Lab Interpretation (test cod e = 72224-4) Normal [facility] with Lqttcbbortci3178-75-67 14:41:38* Test Item Value Reference Range Interpretation Comme nts WBC (test code = 6690-2) See_Comment [Automated [employer]] The system which generated this result transmitted reference range: 4.30 - 11.10 10*3/?L. The reference range was not used to interpret this result as normal/abnormal. RBC (test code = 789-8) See_Comment [Automated [employer]] The system which generated this result transmitted [...] g/dL 31.6-35.1 L RDW-SD (test code = 02033-2) 46.2 fL 39.0-49.9 RDW-CV (test code = 788-0) 16.8 % 12.0-15.5 H PLT (test code = 777-3) See_Comment [Automated [employer]] The system which generated this result transmitted reference range: 166 - 358 10*3/?L. The reference range was not used to interpret this result as normal/abnormal. MPV (test code = 92942-5) 9.7 fL 9.5-12.9 NRBC/100 WBC (test code = 2619132363) See_Comment [Automated [employer] ssage] The system which generated this result transmitted reference range: 0.0 - 10.0 /100 WBCs. The reference range was not used to interpret this result as normal/abnormal. NRBC x10^3 (test code = 1620210870) <0.01 See_Comment [Automated [employer]] The system which generated this result transmitted reference range: 10*3/?L. The reference range was not used to interpret this result as normal/abnormal. GRAN MAT (NEUT) % (test code = 770-8) 50.0 % IMM GRAN % (test code = 5611149894) 0.20 % LYMPH % (test code = 736-9) 39.3 % MONO % (test code = 5905-5) 7.1 % EOS % (test code = 713-8) 2.8 % BASO % (test code = 706-2) 0.6 % GRAN MAT x10^3(ANC) (test code = 7570124626) 2.67 10*3/uL 1.88-7.09 IMM GRAN x10^3 (test code = 4101464199) <0.03 0.00-0.06 LYMPH x10^3 (test code = 731-0) 2.10 10*3/uL 1.32-3.29 MONO x10^3 (test code = 742-7) 0.38 10*3/uL 0.33-0.92 EOS x10^3 (test code = 711-2) 0.15 10*3/uL 0.03-0.39 BASO x10^3 (test code = 704-7) 0.03 10*3/uL 0.01-0.07 Lab Interpretation (test code = 64216-3) Abnormal [facility] CenterPOCO Xbdf4044-98-51 14:34:00* Test Item Value Reference Range Interpretation Comme nts POCT PREG (test code = 1605) negative On board controls acceptable with C Line (test code = 3574) present POCT PREG LOT # (test code = 3575) [id number] POCT PREG TEST DATE ( test code = 3576) Lab Interpretation (test cod e = 00875-1) Normal [facility] CenterRAPID STREP SCREEN FOR GROUP [id number] 23:58:00* Test Item Value Reference Range Interpretation Comme nts Streptococcus pyogenes (grou p A) antigen (test code = 78443-8) Positive Negative A Lab Interpretation (test cod e = 86625-9) Abnormal [facility] [id number] 23:01:00* Test Item Value Reference Range Interpretation Comme nts POCT PREG (test code = 1605) negative POCT PREG LOT # (test code = 3575) [id number] POCT PREG TEST DATE ( test code = 3576) 01/05/2022 Lab Interpretation (test cod e = 45355-3) Normal [facility] CenterINDIRECT ANTIGLOBULIN HPDH7434-15-91 13:02:18 * Test Item Value Reference Range Interpretation Comme nts IAT (test code = 1185) Negative Performed at [facility] B Laboratory Services - [facility] Blood [address] [place] [address]Ctkd Free: [phone] No. [id number] [facility]CB WITH OZHKYTNGBCWU0007-19-06 16:43:00* Test Item Value Reference Range Interpretation [...] g/dL 31.6-35.1 L RDW-SD (test code = 61875-3) 54.3 fL 39-49.9 H RDW-CV (test code = 788-0) 19.1 % 12-15.5 H PLT (test code = 777-3) See_Comment [Automated messa ge] The system which generated this result transmitted reference range: 166 - 358 10*3/?L. The reference range was not used to interpret this result as normal/abnormal. MPV (test code = 89709-0) 11.1 fL 9.5-12.9 NRBC/100 WBC (test code = 1521555065) See_Comment [Automated [employer] ssage] The system which generated this result transmitted reference range: 0.0 - 10.0 /100 WBCs. The reference range was not used to interpret this result as normal/abnormal. NRBC x10^3 (test code = 8011709059) <0.01 See_Comment [Automated messa ge] The system which generated this result transmitted reference range: 10*3/?L. The reference range was not used to interpret this result as normal/abnormal. GRAN MAT (NEUT) % (test code = 770-8) 39.5 % IMM GRAN % (test code = 5571350845) 0.00 % LYMPH % (test code = 736-9) 48.6 % MONO % (test code = 5905-5) 7.7 % EOS % (test code = 713-8) 2.9 % BASO % (test code = 706-2) 1.3 % GRAN MAT x10^3(ANC) (test code = 8480791791) 1.23 10*3/uL 1.88-7.09 L IMM GRAN x10^3 (test code = 4294192841) <0.03 0-0.06 LYMPH x10^3 (test code = 731-0) 1.51 10*3/uL 1.32-3.29 MONO x10^3 (test code = 742-7) 0.24 10*3/uL 0.33-0.92 L EOS x10^3 (test code = 711-2) 0.09 10*3/uL 0.03-0.39 BASO x10^3 (test code = 704-7) 0.04 10*3/uL 0.01-0.07 ELLIPTO/OVAL (test code = 91078-3) 2+ See_Comment A [Automated messa ge] The system which generated this result transmitted reference range: (none). The reference range was not used to interpret this result as normal/abnormal. Lab Interpretation (test code = 73764-5) Abnormal [facility] and Screen - The Type [...] code = 20) O POSITIVE Performed at [facility] Laboratory Services - [facility] Blood [address] [address]Hpqy Free: [phone] No. [id number] IAT (test code = 1185) Negative Performed at [facility] Laboratory Services - [facility] Blood [address] [address]Cmdb Free: [phone] No. [id number] [facility] CenterGALV ONLY - SYPHILIS IGG/DNO1133-20-98 14:50:00* Test Item Value Reference Range Interpretation Comme nts Syphilis IgG/IgM (test code = 15000-7) Non-reactive Non-reactive SANGITA (test code = SANGITA) Non-reactive - No serologic evidence of T. pallidum infection. Cannot exclude incubating or early syphilis. Submit a second specimen in 2-4 weeks if syphilis is clinically suspected.Equivocal - Further testing to follow.Reactive - Further testing to follow. Lab Interpretation (test code = 49013-1) Normal [facility] WITH PIKBKNEDQGKX3891-21-26 07:57:00* Test Item Value Reference Range Interpretation Comme nts WBC (test code = 6690-2) See_Comment [Automated [employer]] The system which generated this result transmitted reference range: 4.30 - 11.10 10*3/?L. The reference range was not used to interpret this result as normal/abnormal. RBC (test code = 789-8) See_Comment L [Automated [employer]] The system which generated this result [...] g/dL 31.6-35.1 L RDW-SD (test code = 17977-9) 56.2 fL 39-49.9 H RDW-CV (test code = 788-0) 19.7 % 12-15.5 H PLT (test code = 777-3) See_Comment L [Automated [employer]] The system which generated this result transmitted reference range: 166 - 358 10*3/?L. The reference range was not used to interpret this result as normal/abnormal. MPV (test code = 82005-2) 10.3 fL 9.5-12.9 NRBC/100 WBC (test code = 2136958138) See_Comment [Automated [employer] ssage] The system which generated this result transmitted reference range: 0.0 - 10.0 /100 WBCs. The reference range was not used to interpret this result as normal/abnormal. NRBC x10^3 (test code = 1442181246) <0.01 See_Comment [Automated messa ge] The system which generated this result transmitted reference range: 10*3/?L. The reference range was not used to interpret this result as normal/abnormal. GRAN MAT (NEUT) % (test code = 770-8) 76.9 % IMM GRAN % (test code = 4761575551) 0.60 % LYMPH % (test code = 736-9) 14.2 % MONO % (test code = 5905-5) 7.6 % EOS % (test code = 713-8) 0.3 % BASO % (test code = 706-2) 0.4 % GRAN MAT x10^3(ANC) (test code = 1075662264) 5.96 10*3/uL 1.88-7.09 IMM GRAN x10^3 (test code = 3356041741) 0.05 10*3/uL 0-0.06 LYMPH x10^3 (test code = 731-0) 1.10 10*3/uL 1.32-3.29 L MONO x10^3 (test code = 742-7) 0.59 10*3/uL 0.33-0.92 EOS x10^3 (test code = 711-2) <0.03 0.03-0.39 L BASO x10^3 (test code = 704-7) 0.03 10*3/uL 0.01-0.07 Lab Interpretation (test code = 35514-5) [facility] [id number] 03:33:00* Test Item Value Reference Range Interpretation Comme nts BASE EXCESS, CORD (test code = 1520589113) mEq/L AC PH, CORD (BEAKER) (test code = 6968164004) 7.18-7.38 PC02, CORD (test code = 2462486756) See_Comment [Automated messa ge] The system which generated this result transmitted reference range: 32 - 66 mmHg. The reference range was not used to interpret this result as normal/abnormal. PO2, CORD (test code = 0336819090) See_Comment [Automated messa ge] The system which generated this result transmitted reference range: 10 - 30 mmHg. The reference range was not used to interpret this result as normal/abnormal. BICARBONATE, CORD (test code = 7645809556) See_Comment [Automated messa ge] The system which generated this result transmitted reference range: 17 - 27 mEq/L. The reference range was not used to interpret this result as normal/abnormal. [facility] Center[facility]OUS CORD [id number] 03:31:00* Test Item Value Reference Range Interpretation Comme nts VENOUS BASE EXCESS, CORD (test code = 8627377773) mEq/L VENOUS PH, CORD (test code = 4625507001) 7.25-7.45 VENOUS PC02, CORD (test code = 1563237603) See_Comment [Automated messa ge] The system which generated this result transmitted reference range: 27 - 49 mmHg. The reference range was not used to interpret this result as normal/abnormal. VENOUS PO2, CORD (test code = 8896656998) See_Comment [Automated me ssage] The system which generated this result transmitted reference range: 17 - 41 mmHg. The reference range was not used to interpret this result as normal/abnormal. VENOUS BICARBONATE, CORD (test code = 3718352336) See_Comment [Automated messa ge] The system which generated this result transmitted reference range: 12 - 29 mEq/L. The reference range was not used to interpret this result as normal/abnormal. [facility] CenterUrinalysis2019-07-25 03:13:00* Test Item Value Reference Range Interpretation Comme nts APPEARANCE (test code = 9926249170) Hazy Clear A COLOR (test code = 2346654700) Yellow Yellow PH (test code = 0451449467) 4.8-8.0 SP GRAVITY (test code = 0768053794) 1.003-1.030 GLU U QUAL (test code = 4586972191) Normal Normal BLOOD (test code = 4333590060) 1+ Negative A KETONES (test code = 1301370678) 80 mg/dL Negative A PROTEIN (test code = 2887-8) 30 mg/dL Negative A UROBILIN (test code = 0224668555) 4.0 mg/dL Normal A BILIRUBIN (test code = 3218655910) Negative Negative NITRITE (test code = 3357972610) Negative Negative LEUK ALPHONSO (test code = 8067235775) 250/uL Negative A RBC/HPF (test code = 1892158103) See_Comment H [Automated messa ge] The system which generated this result transmitted reference range: 0 - 3 HPF. The reference range was not used to interpret this result as normal/abnormal. WBC/HPF (test code = 5879473644) See_Comment H [Automated messa ge] The system which generated this result transmitted reference range: 0 - 5 HPF. The reference range was not used to interpret this result as normal/abnormal. BACTERIA (test code = 4551185875) Negative Negative MUCOUS (test code = 7833743236) Slight Negative LPF A SQ EPITH (test code = 6344337898) See_Comment [Automated messa ge] The system which generated this result transmitted reference range: <=2 HPF. The reference range was not used to interpret this result as normal/abnormal. YEAST BUD (test code = 8834252482) <1 See_Comment [Automated messa ge] The system which generated this result transmitted reference range: <=1 HPF. The reference range was not used to interpret this result as normal/abnormal. Lab Interpretation (test code = 55402-4) Abnormal [facility] CenterUric Acid Hqxpo8401-19-74 02:58:00* Test Item Value Reference Range Interpretation Comme [facility] URIC ACID (test code = 9552931578) 4.9 mg/dL 2.9-6 Lab Interpretation (test cod e = 00649-5) Normal [facility] CenterSer Eptpifqtyz2700-70-01 02:58:00* Test Item Value Reference Range Interpretation Comme nts CREATININE (test code = 2797261819) 0.54 mg/dL 0.5-1.04 eGFR Calculation (Non-) (test code = 5389559587) mL/min/1.73m2 eGFR Calculation () (test code = 4854917069) mL/min/1.73m2 SANGITA (test code = SANGITA) Association [...] or urine or abnormalities in imaging tests). [facility] CenterSGOT (Asparate Amino Transfer)2019-04-01 02:58:00* Test Item Value Reference Range Interpretation Comme [facility] AST(SGOT) (test code = 0920963178) 28 U/L 13-40 Lab Interpretation (test cod e = 37424-1) Normal [facility] (SGPT)2019-04-01 02:58:00* Test Item Value Reference Range Interpretation Comme [facility] ALT(SGPT) (test code = 0548275542) 22 U/L 9-51 Lab Interpretation (test cod e = 86551-5) Normal [facility] Fvnyiiukxhcqk2530-24-64 02:58:00* Test Item Value Reference Range Interpretation Comme nts LDH (test code = 5350115604) 597 U/L 300-600 Lab Interpretation (test cod e = 52502-1) [facility] CREAT Ratio Urine Erhbxs7874-65-01 02:24:00* Test Item Value Reference Range Interpretation Comme nts T. PROT U (test code = 2888-6) 31 mg/dL CREAT U (test code = 4229697826) 132.3 mg/dL Protein/Creatinine Ratio Uri ne (test code = [id number]) 0.0-2.0 [facility] WITH [id number] 02:17:00* Test Item Value Reference Range Interpretation [...] g/dL 31.6-35.1 L RDW-SD (test code = 39810-0) 57.6 fL 39-49.9 H RDW-CV (test code = 788-0) 20.3 % 12-15.5 H PLT (test code = 777-3) See_Comment L [Automated messa ge] The system which generated this result transmitted reference range: 166 - 358 10*3/?L. The reference range was not used to interpret this result as normal/abnormal. MPV (test code = 23845-6) 10.8 fL 9.5-12.9 NRBC/100 WBC (test code = 8516920200) See_Comment [Automated Spinal Kinetics ssage] The system which generated this result transmitted reference range: 0.0 - 10.0 /100 WBCs. The reference range was not used to interpret this result as normal/abnormal. NRBC x10^3 (test code = 4398593262) <0.01 See_Comment [Automated messa ge] The system which generated this result transmitted reference range: 10*3/?L. The reference range was not used to interpret this result as normal/abnormal. GRAN MAT (NEUT) % (test code = 770-8) 77.0 % IMM GRAN % (test code = 8166873434) 0.30 % LYMPH % (test code = 736-9) 14.7 % MONO % (test code = 5905-5) 7.2 % EOS % (test code = 713-8) 0.3 % BASO % (test code = 706-2) 0.5 % GRAN MAT x10^3(ANC) (test code = 1198464425) 6.70 10*3/uL 1.88-7.09 IMM GRAN x10^3 (test code = 2212306478) 0.03 10*3/uL 0-0.06 LYMPH x10^3 (test code = 731-0) 1.28 10*3/uL 1.32-3.29 L MONO x10^3 (test code = 742-7) 0.63 10*3/uL 0.33-0.92 EOS x10^3 (test code = 711-2) 0.03 10*3/uL 0.03-0.39 BASO x10^3 (test code = 704-7) 0.04 10*3/uL 0.01-0.07 Lab Interpretation (test code = 24643-7) [facility] [id number] 17:46:00 * Test Item Value Reference Range Interpretation Comme nts HBsAg Semi-Quantitative (leodan t code = 5195-3) [facility] - ONCE [id number] 17:23:20 * Test Item Value Reference Range Interpretation Comme nts ABO & RH (test code = 20) O POSITIVE Performed at [facility] Laboratory Services - [facility] Blood [address] [address]Gxbm Free: [phone] No. [id number] IAT (test code = 1185) Negative Performed at [facility] Laboratory Services [facility] Blood [address] [address]Auft Free: [phone] No. [id number] [facility] WITH [id number] 16:41:00* Test Item Value Reference Range Interpretation [...] g/dL 31.6-35.1 L RDW-SD (test code = 60328-7) 55.9 fL 39-49.9 H RDW-CV (test code = 788-0) 19.9 % 12-15.5 H PLT (test code = 777-3) See_Comment L [Automated messa ge] The system which generated this result transmitted reference range: 166 - 358 10*3/?L. The reference range was not used to interpret this result as normal/abnormal. MPV (test code = 40173-0) 10.4 fL 9.5-12.9 NRBC/100 WBC (test code = 2879108820) See_Comment [Automated me ssage] The system which generated this result transmitted reference range: 0.0 - 10.0 /100 WBCs. The reference range was not used to interpret this result as normal/abnormal. NRBC x10^3 (test code = 4246928711) <0.01 See_Comment [Automated messa ge] The system which generated this result transmitted reference range: 10*3/?L. The reference range was not used to interpret this result as normal/abnormal. GRAN MAT (NEUT) % (test code = 770-8) 65.9 % IMM GRAN % (test code = 3395965759) 0.50 % LYMPH % (test code = 736-9) 24.3 % MONO % (test code = 5905-5) 8.1 % EOS % (test code = 713-8) 0.9 % BASO % (test code = 706-2) 0.3 % GRAN MAT x10^3(ANC) (test code = 9248116993) 3.83 10*3/uL 1.88-7.09 IMM GRAN x10^3 (test code = 9148856237) 0.03 10*3/uL 0-0.06 LYMPH x10^3 (test code = 731-0) 1.41 10*3/uL 1.32-3.29 MONO x10^3 (test code = 742-7) 0.47 10*3/uL 0.33-0.92 EOS x10^3 (test code = 711-2) 0.05 10*3/uL 0.03-0.39 BASO x10^3 (test code = 704-7) <0.03 0.01-0.07 Lab Interpretation (test code = 96472-7) Abnormal [facility]"
[2024-12-26] MEDS ORDERED: KETOROLAC 30 MG/ML INJ ONE (23:36)
[2024-12-26] MEDS ORDERED: CLINDAMYCIN 900MG/D5W 900 MG/50 ML IVPB IV ONE (23:36)
[2024-12-26] MEDS ORDERED: NA CHLORIDE 0.9% 1,000 ML ONE (23:37)
[2024-12-26 23:53] LABS: Absolute Basophils 0.1 K/uL (0-0.5); Absolute Eosinophils 0.1 K/uL (0-0.5); Absolute Monocytes 0.6 K/uL (0.1-1.3); Absolute Neutrophil 3.2 K/uL (1.8-8.0); Basophils % 1.2 % (0-1.3); Eosinophils % 1.9 % (0-4.4); Hemoglobin 8.4 g/dL (12.0-15.0); Lymphocytes % 33.6 % (15.3-44.8); MCH 22.1 pg (27.0-35.0); MCHC 32.4 g/dL (32.0-36.0); MCV 68.4 fL (80-100); MPV 8.2 fL (7.6-11.3); Monocytes % 9.8 % (3.3-12.3); Neutrophils % 53.5 % (41.7-73.7); Nucleated Red Blood Cells % 0.1 % (0-0); Platelets 288 thou/uL (152-406); RBC Red Blood Cell Count 3.79 M/uL (3.86-4.86); Red Cell Distribution Width 19.3 % (12.1-15.2)
[2024-12-27 00:01] LABS: Anion Gap 4.6 mEq/L (5.0-15.0); Potassium 3.6 mEq/L (3.5-5.1)
[2024-12-27 00:02] LABS: Blood Morphology Comment NOTED (NOT SEEN); Microcytosis 1+; Platelet Estimate ADEQ; White Blood Cell Scan OK (OK)
--- NOTE | 2024-12-27 01:33 | RAD REPORT ---
EXAM: CT Maxillofacial With Intravenous Contrast CLINICAL HISTORY: The patient is 29 years old and is Female; left facial swelling TECHNIQUE: Axial computed tomography images of the face with intravenous contrast. Sagittal and coronal refo rmatted images were created and reviewed. This CT exam was performed using one or more of the following dose reduction techniques: automated exposure control, adjustment of the mA and/or kV acc ording to patient size, and/or use of iterative reconstruction technique. COMPARISON: No relevant prior studies available. FINDINGS: LIMITATIONS: Examination is limited secondary to patient positioning the scanner and incomplete v isualization of the bones of the face. BONES/JOINTS: The orbital floors and amaya are intact. The zygomatic arches and pterygoid plate s are intact. The visualized maxilla and mandible are intact. There is no acute fracture. SOFT TISSUES: Minimal left facial soft tissue swelling is present. ORBITS: The globes, extraocular muscles, and optic nerve complexes are within normal limits. SINUSES: The paranasal sinuses are clear. No air-fluid levels. NASAL CAVITY/SEPTUM: The nasal bones are intact. IMPRESSION: Minimal soft tissue swelling along the left face which may be secondary to mild cellulitis. There i s no drainable fluid collection. Electronically signed by: Myah Nguyen MD 12/27/2024 01:29 AM CDT RP Due to temporary technical issues with the PACS/[employer] reporting system, reports are being rosanna d by the in-house radiologist without review as a courtesy to ensure prompt reporting the interpreting radiologist is fully responsible for the content of the report. Transcribed Date/Time: 12/27/2024 1:33 AM
--- NOTE | 2024-12-27 02:00 | EDPHYS ---
Physician Documentation [facility] Name: Aniyah Jiang Age: 29 yrs Sex: Female : 1995 Arrival Date: 12/26/2024 Time: 21:15 Bed 9 Private MD: ED Physician David Davis HPI: 12/26 22:35 This 29 yrs old Black Female presents to ER via Ambulatory with complaints of Toothache.cp 22:35 The patient presents with pain. The problem is located in the left upper molar. cp 22:35 Onset: The symptoms/episode began/occurred yesterday. cp 22:35 Duration: The symptoms are continuous, and are steadily getting worse. Associated signs cp and symptoms: Pertinent positives: left side facial swelling and left upper gum swelling, Pertinent negatives: anorexia, chills, dysphagia, fever, inability to eat. Historical: - Allergies: 21:45 No Known Allergies; br2 - PMHx: 21:45 Anemia; br2 - PSHx: 21:45 section; Cholecystectomy; tubal ligation; br2 - Immunization history:: Adult Immunizations not up to date. - Infectious Disease History:: Denies. - Social history:: Smoking status: Reported history of juuling and/or vaping. Patient uses alcohol, but reports only rare drinking. Patient/guardian denies using street drugs. ROS: 22:40 Constitutional: Negative for body aches, chills, fever, poor PO intake, cp 22:40 Eyes: Negative for injury, pain, redness, and discharge, cp 22:40 ENT: Positive for dental pain, 22:40 Cardiovascular: Negative for chest pain, palpitations, 22:40 Respiratory: Negative for cough, shortness of breath, wheezing, 22:40 Skin: Positive for swelling, of the left facial cheek, tenderness, 22:40 Neuro: Negative for altered mental status, dizziness, headache, weakness, 22:40 All other systems are negative, Exam: 22:45 Constitutional: The patient appears in no acute distress, alert, awake, non-toxic, well cp developed, well nourished, obese, 22:45 Head/face: Noted is swelling, that is mild, of the left cheek, tenderness, that is cp moderate, of the left cheek, 22:45 Eyes: Periorbital structures: appear normal, Pupils: equal, round, and reactive to light and accomodation, Extraocular movements: intact throughout, Conjunctiva: normal, no exudate, no injection, Sclera: no appreciated abnormality, Lids and lashes: appear normal, bilaterally, 22:45 ENT: External ear(s): are unremarkable, Ear canal(s): are normal, clear, TM's: are normal, no evidence of bulging, no erythema, Nose: is normal, Mouth: Lips: moist, Oral mucosa: pink and intact, moist, Gums: mild swelling noted left upper outer gum line with no abscess, Tongue: is normal, Posterior pharynx: Airway: no evidence of obstruction, patent, Tonsils: no enlargement, no exudate, erythema, is not appreciated, exudate, is not appreciated, 22:45 Neck: ROM/movement: limited range of motion, is not appreciated, Meningeal signs: are not present, nuchal rigidity, is not appreciated, Lymph nodes: no appreciated lymphadenopathy, 22:45 Chest/axilla: Inspection: normal, 22:45 Cardiovascular: Rate: normal, Rhythm: regular, 22:45 Respiratory: the patient does not display signs of respiratory distress, Respirations: normal, no use of accessory muscles, no retractions, labored breathing, is not present, Breath sounds: are clear throughout, no decreased breath sounds, no stridor, no wheezing, 22:45 Abdomen/GI: Exam negative for discomfort, distension, guarding, Inspection: abdomen appears normal, 22:45 Skin: no rash present. Vital Signs: 21:43 BP 150 / 98; Pulse 77; Resp 18; Temp 9.1; Pulse Ox 100% ; Weight 107.05 kg; Height 5 br2 ft. 8 in. ; Pain 8/10; 12/27 00:54 BP 127 / 90; Pulse 78; Resp 16; Pulse Ox 98% on R/A; jb4 02:19 Temp 97.1; jb4 12/26 21:43 Body Mass Index 35.88 (107.05 kg, 172.72 cm) br2 12/26 21:43 Pain Scale: Adult br2 MDM: 02:00 Medical Screening Exam initiated cp 02:00 Data reviewed: vital signs, nurses notes, lab test result(s), radiologic studies, CT cp scan, and as a result, I will discharge patient. 02:00 Differential diagnosis: dental caries, gingivitis, dental abscess, pericoronitis, cp gingivostomatitis. I considered the following discharge prescriptions or medication management in the emergency department Medications were administered in the Emergency Department. See MAR. Care significantly affected by the following chronic conditions: Obesity, anemia. Counseling: I had a detailed discussion with the patient and/or guardian regarding the historical points, exam findings, and any diagnostic results supporting the discharge/admit diagnosis, lab results, radiology results, the need for outpatient follow up, for definitive care, a dentist, a family practitioner. Response to treatment: the patient's symptoms have mildly improved after treatment, and as a result, I will discharge patient. 12/26 22:33 Order name: CBC with Diff; Complete Time: 00:56 cp 12/27 00:56 Interpretation: Normal except: RBC 3.79; HGB 8.4; HCT 26.0; MCV 68.4; MCH 22.1; RDW cp 19.3. 12/26 22:33 Order name: BMP; Complete Time: 00:56 cp 12/27 00:56 Interpretation: Normal except: ANION GAP 4.6. cp 12/26 22:33 Order name: Urinalysis W/Microscopic cp 12/27 00:04 Order name: CBC Smear Scan; Complete Time: 00:56 EDMS 12/27 02:09 Order name: Test, Urine EDMS 12/26 22:33 Order name: CT Facial Bones W/ Con \T\ Mpr cp 12/26 22:33 Order name: IV; Complete Time: 23:32 cp Administered Medications: 12/26 23:52 Drug: NS 0.9% IV 1000 ml IV at 1000 ml once; to be given as a bolus over 60 minutes jb4 Route: IV; Rate: 1000 ml; Site: right antecubital; 12/27 02:24 Follow up: Response: No adverse reaction; IV Status: Completed infusion; IV Intake: jb4 1000ml 12/26 23:52 Drug: Ketorolac IVP 30 mg IVP once Route: IVP; Site: right antecubital; jb4 12/27 00:22 Follow up: Response: No adverse reaction; Marked relief of symptoms jb4 12/26 23:52 Drug: Clindamycin IVPB 900 mg IVPB once over 30 mins; (mix in 50 mL) Route: IVPB; jb4 Infused Over: 30 mins; Site: right antecubital; 12/27 00:22 Follow up: Response: No adverse reaction; IV Status: Completed infusion; IV Intake: [id number] Disposition: 19:23 Chart complete. cp Disposition Summary: 12/27/24 02:00 Discharge Ordered Notes: Location: Home cp Problem: new cp Symptoms: have improved cp Condition: Stable cp Diagnosis - Disorder of teeth and supporting structures, unspecified cp - Cellulitis of face cp - Anemia, unspecified cp Followup: cp - With: Private Physician - When: 2 - 3 days - Reason: Recheck today's complaints Discharge Instructions: - Discharge Summary Sheet cp - Anemia cp - Cellulitis, Adult cp - Dental Pain cp Forms: - Medication Reconciliation Form cp - Antibiotic Education cp - Prescription Opioid Use cp - Patient Portal Instructions cp - Leadership Thank You Letter cp - Work release form jb4 Prescriptions: - Clindamycin HCl 300 mg Oral Capsule - take 1 capsule ORAL route every 6 hours for 10 days; 40 capsule; Refills: 0, cp Product Selection Permitted - Ibuprofen 800 mg Oral Tablet - take 1 tablet ORAL route every 8 hours As needed take with food; 30 tablet; cp Refills: 0, Product Selection Permitted - Bactrim DS 800-160 mg Oral Tablet - take 1 tablet ORAL route every 12 hours for 10 days; 20 tablet; Refills: 0, cp Product Selection Permitted Addendum: 12/28/2024 02:26 Co-signature as Attending Physician, David Davis MD I agree with the assessment s p4 and plan of care. I reviewed the patient's care provided by the Advanced Practice Provider and agree with the diagnosis and treatment plan. Signatures: Dispatcher [employer] EDMS Kit Johansen PA PA cp Bryson, James, RN RN jb4 David Davis MD MD sp4 Mariella Wilcox RN RN br2 Corrections: (The following items were deleted from the chart) 12/26 22:34 22:34 CBC+H.LAB.BRZ ordered. EDMS EDMS 22:34 22:34 BASIC METABOLIC PANEL+C.LAB.BRZ ordered. EDMS EDMS 22:34 22:34 Urinalysis W/Microscopic+U.LAB.BRZ ordered. EDMS EDMS 22:34 22:34 Facial Bones W/ Con \T\ MPR+CT.RAD.BRZ ordered. EDMS EDMS 12/27 02:11 12/26 22:34 TEST, SERUM+SC.LAB.BRZ ordered. EDMS EDMS
--- NOTE | 2024-12-27 02:00 | ER ---
Nurse's Notes [facility] Name: Aniyah Jiang Age: 29 yrs Sex: Female : 1995 Arrival Date: 12/26/2024 Time: 21:15 Bed 9 Private MD: Diagnosis: Disorder of teeth and supporting structures, unspecified;Cellulitis of face;Anemia, unspecified Presentation: 12/26 21:43 Chief complaint: Patient states: LEFT UPPER INTERNAL CHEEK PAIN.....POSSIBLE CYST, br2 SINCE YESTERDAY. Coronavirus screen: Client denies travel out of the [place] in the last 14 days. Ebola Screen: Patient denies exposure to infectious person. Initial Sepsis Screen: Does the patient meet any 2 criteria? No. Patient's initial sepsis screen is negative. Does the patient have a suspected source of infection? No. Patient's initial sepsis screen is negative. Risk Assessment: Do you want to hurt yourself or someone else? Patient reports no desire to harm self or others. Onset of symptoms was December 25, 2024. 21:43 Method Of Arrival: Ambulatory br2 21:43 Acuity: BRITTANI 4 br2 Triage Assessment: 21:45 General: Appears uncomfortable, Behavior is calm, cooperative. Pain: Complains of pain br2 in left buccal mucosa Pain currently is 8 out of 10 on a pain scale. EENT: Reports pain in left cheek INNER. Historical: - Allergies: 21:45 No Known Allergies; br2 - PMHx: 21:45 Anemia; br2 - PSHx: 21:45 section; Cholecystectomy; tubal ligation; br2 - Immunization history:: Adult Immunizations not up to date. - Infectious Disease History:: Denies. - Social history:: Smoking status: Reported history of juuling and/or vaping. Patient uses alcohol, but reports only rare drinking. Patient/guardian denies using street drugs. Screenin/21 02:19 [facility] ED Fall Risk Assessment (Adult) History of falling in the last 3 months, jb4 including since admission No falls in past 3 months (0 pts) Confusion or Disorientation No (0 pts) Intoxicated or Sedated No (0 pts) Impaired Gait No (0 pts) Mobility Assist Device Used No (0 pt) Altered Elimination No (0 pt) Score/Fall Risk Level 0 - 2 = Low Risk Oriented to surroundings, Maintained a safe environment. Abuse screen: Denies threats or abuse. Nutritional screening: No deficits noted. Tuberculosis screening: No symptoms or risk factors identified. Assessment: 12/26 23:00 General: Appears in no apparent distress. uncomfortable, Behavior is calm, cooperative, jb4 appropriate for age. Pain: Complains of pain in mouth Pain does not radiate. Pain currently is 10 out of 10 on a pain scale. Neuro: Level of Consciousness is awake, alert, obeys commands, Oriented to person, place, time, situation. Cardiovascular: Patient's skin is warm and dry. Respiratory: Airway is patent Respiratory effort is even, unlabored, Respiratory pattern is regular, symmetrical. Derm: Skin is intact, Skin is pink, warm \T\ dry. Musculoskeletal: Circulation, motion, and sensation intact. Range of motion: intact in all extremities. 12/27 00:00 Reassessment: Patient appears in no apparent distress at this time. Patient and/or jb4 family updated on plan of care and expected duration. Pain level reassessed. Patient is alert, oriented x 3, equal unlabored respirations, skin warm/dry/pink. 00:54 Reassessment: Patient appears in no apparent distress at this time. Patient and/or jb4 family updated on plan of care and expected duration. Pain level reassessed. Patient is alert, oriented x 3, equal unlabored respirations, skin warm/dry/pink. 02:19 Reassessment: Patient appears in no apparent distress at this time. Patient and/or jb4 family updated on plan of care and expected duration. Pain level reassessed. Patient is alert, oriented x 3, equal unlabored respirations, skin warm/dry/pink. Vital Signs: 12/26 21:43 BP 150 / 98; Pulse 77; Resp 18; Temp 9.1; Pulse Ox 100% ; Weight 107.05 kg; Height 5 br2 ft. 8 in. ; Pain 8/10; 12/27 00:54 BP 127 / 90; Pulse 78; Resp 16; Pulse Ox 98% on R/A; jb4 02:19 Temp 97.1; jb4 12/26 21:43 Body Mass Index 35.88 (107.05 kg, 172.72 cm) br2 12/26 21:43 Pain Scale: Adult br2 ED Course: 12/26 21:18 Patient arrived in ED. im 21:19 Kit Johansen PA is PHCP. cp 21:19 David Davis MD is Attending Physician. cp 21:45 Triage completed. br2 23:32 BMP Sent. jb4 23:32 CBC with Diff Sent. jb4 12/27 00:50 CT Facial Bones W/ Con \T\ Mpr In Process Unspecified. EDMS 02:24 No provider procedures requiring assistance completed. IV discontinued, intact, jb4 bleeding controlled, No redness/swelling at site. Pressure dressing applied. 02:24 Patient has correct armband on for positive identification. Bed in low position. Call jb4 light in reach. Side rails up X 1. Provided Education on: discharge instructions.. Administered Medications: 12/26 23:52 Drug: NS 0.9% IV 1000 ml IV at 1000 ml once; to be given as a bolus over 60 minutes jb4 Route: IV; Rate: 1000 ml; Site: right antecubital; 12/27 02:24 Follow up: Response: No adverse reaction; IV Status: Completed infusion; IV Intake: jb4 1000ml 12/26 23:52 Drug: Ketorolac IVP 30 mg IVP once Route: IVP; Site: right antecubital; jb4 12/27 00:22 Follow up: Response: No adverse reaction; Marked relief of symptoms jb4 12/26 23:52 Drug: Clindamycin IVPB 900 mg IVPB once over 30 mins; (mix in 50 mL) Route: IVPB; jb4 Infused Over: 30 mins; Site: right antecubital; 12/27 00:22 Follow up: Response: No adverse reaction; IV Status: Completed infusion; IV Intake: [id number] Medication: 02:19 VIS not applicable for this client. jb4 Intake: 00:22 IV: 50ml; Total: 50ml. jb4 02:24 IV: 1000ml; Total: 1050ml. jb4 Outcome: 02:00 Discharge ordered by . cp 02:24 Discharged to home ambulatory, jb4 02:24 Condition: stable 02:24 Discharge instructions given to patient, Instructed on discharge instructions, follow up and referral plans. medication usage, Demonstrated understanding of instructions, follow-up care, medications, Prescriptions given X 3, 02:25 Patient left the ED. jb4 Signatures: Dispatcher [facility] Kit Galloway PA PA cp Bryson, James, RN RN jb4 Alejandra Evans Belinda, RN RN br2
[2024-12-27 02:10] LABS: Specific Gravity > 1.030 (1.005-1.030); Urine Bacteria None Seen /HPF (<20); Urine Bilirubin NEGATIVE (Negative); Urine Blood 3+ (OVER) (Negative); Urine Clarity Turbid (Clear); Urine Color Colorless (Yellow); Urine Crystals Unidentified Few /HPF (None Seen); Urine Glucose NEGATIVE (Negative); Urine Ketones NEGATIVE (Negative); Urine Micro Reflex YN NO BILL MICROSCOPIC; Urine Nitrite NEGATIVE (Negative); Urine Protein TRACE (Negative); Urine RBC >50 /HPF (None Seen); Urine Urobilinogen 2+ (Normal)
[2024-12-27 02:16] LABS: Specific Gravity > 1.030 (1.005-1.030)
[2024-12-27 02:46] VITALS: BP 127/90; O2SAT 98
[2024-12-27 02:47] VITALS: TEMP 97.1
== END 2024-12-27 02:25 | disposition home or self-care (01) ==
LOC: ER 21:15
DX: L03.211 Cellulitis of face (principal); D64.9 Anemia, unspecified; K08.89 Other specified disorders of teeth and supporting structures
CPT/HCPCS: 96365; 96361; 85025; 81001; 80048; 36415; 81025; 70487; 76377; 96375; 99284; Q9967; J7030